=== PATIENT | female | born 1945 | race Caucasian/White ===

== ENCOUNTER 2020-05-31 10:16 | Day surgery (SDC) | payer MEDICARE, MEDICAID, SELFPAY ==
[2020-05-26 19:14] VITALS: BMI 34.0
--- NOTE | 2020-05-30 11:51 | HO.ANESPROP2 ---
Documented by User: Ava Mariscal 05/30/20 11:52 HPI - Anesthesia Eval Consult details Narrative: 75yo F for Colonoscopy PMFSH Past Medical History Medical History (Updated 05/30/20 @ 11:51 by Ava Mariscal) Anxiety Arthritis Asthma Depression GERD (gastroesophageal reflux disease) Glaucoma History of kidney stones HTN (hypertension) Hypercholesteremia PONV (postoperative nausea and vomiting) Sleep apnea with use of continuous positive airway pressure (CPAP) Surgical History Surgical History H/O: hysterectomy History of cholecystectomy History of colonoscopy History of cystoscopy Hx of umbilical hernia repair Social History Social History Smoking Status: Former smoker Smoking Quit Date: 2007 Use of substances other than those prescribed or required for medical reasons: No Advance Directives: No Advance Directives Information Provided: No Advance Directives on File: No Meds Allergies Allergy/AdvReac Type Severity Reaction Status Date / Time penicillin V Allergy Unknown hives Verified 05/26/20 19:14 Penicillins [PENICILLINS] Allergy Unknown SWELLING Verified 05/26/20 19:14 morphine [MORPHINE] AdvReac Unknown NAUSEA & Verified 05/26/20 19:14 VOMITING codeine AdvReac Nausea and Verified 05/31/20 10:10 Vomiting ENVIRONMENTAL Allergy Unknown RUNNY Uncoded 04/13/20 16:55 NOSE/WATERY EYES From DARVOCET-N 100 Allergy Unknown NAUSEA & Uncoded 04/13/20 16:55 VOMITING Darvocet A500 AdvReac Unknown disoriented Uncoded 03/03/20 00:00 From PERCODAN AdvReac Unknown NAUSEA & Uncoded 04/13/20 16:55 VOMITING Percodan AdvReac Unknown disoriented Uncoded 03/03/20 00:00 Home Medications Medication Instructions Recorded Confirmed Type Aspirin Low Dose 81 mg PO DAILY 05/26/20 05/26/20 History atorvastatin 20 mg PO DAILY 05/26/20 05/26/20 History cholestyramine (with sugar) 4 ea PO DAILY 05/26/20 05/26/20 History losartan 50 mg PO DAILY 05/26/20 05/26/20 History montelukast 19 mg PO DAILY 05/26/20 05/26/20 History pantoprazole 40 mg PO DAILY 05/26/20 05/26/20 History paroxetine HCl 40 mg PO DAILY 05/26/20 05/26/20 History quetiapine 25 mg PO DAILY 05/26/20 05/26/20 History timolol maleate 1 drp OPHTHALMIC (EYE) DAILY 05/26/20 05/26/20 History Exam Exam Date and Time: May 30, 2020 1151 Height,Weight and Vital Signs: Height 5 ft 1 in Weight 81.647 kg Pertinent Lab Results Pertinent Lab Results: Laboratory Tests 02/29/20 02/29/20 07:00 07:00 WBC 6.2 Hgb 12.9 Hct 40.1 Plt Count 269 Sodium 138 Potassium 4.7 Chloride 105 BUN 23 H Creatinine 0.91 Assessment and Plan Assessment Anesthesia Assessment: Chart Reviewed Documented by User: Madeline Albert 05/31/20 11:10 [facility] Past Medical History Medical History (Updated 05/30/20 @ 11:51 by Ava Mariscal) Anxiety Arthritis Asthma Depression GERD (gastroesophageal reflux disease) Glaucoma History of kidney stones HTN (hypertension) Hypercholesteremia PONV (postoperative nausea and vomiting) Sleep apnea with use of continuous positive airway pressure (CPAP) Family History Family history of problems with anesthesia: No Surgical History Surgical History H/O: hysterectomy History of cholecystectomy History of colonoscopy History of cystoscopy Hx of umbilical hernia repair History of Problems with Anesthesia: Yes (PONV with GA) Social History Social History Smoking Status: Former smoker Smoking Quit Date: 2007 Use of substances other than those prescribed or required for medical reasons: No Advance Directives: No Advance Directives Information Provided: No Advance Directives on File: No Meds Allergies Allergy/AdvReac Type Severity Reaction Status Date / Time penicillin V Allergy Unknown hives Verified 05/26/20 19:14 Penicillins [PENICILLINS] Allergy Unknown SWELLING Verified 05/26/20 19:14 morphine [MORPHINE] AdvReac Unknown NAUSEA & Verified 05/26/20 19:14 VOMITING codeine AdvReac Nausea and Verified 05/31/20 10:10 Vomiting ENVIRONMENTAL Allergy Unknown RUNNY Uncoded 04/13/20 16:55 NOSE/WATERY EYES From DARVOCET-N 100 Allergy Unknown NAUSEA & Uncoded 04/13/20 16:55 VOMITING Darvocet A500 AdvReac Unknown disoriented Uncoded 03/03/20 00:00 From PERCODAN AdvReac Unknown NAUSEA & Uncoded 04/13/20 16:55 VOMITING Percodan AdvReac Unknown disoriented Uncoded 03/03/20 00:00 Home Medications Medication Instructions Recorded Confirmed Type Aspirin Low Dose 81 mg PO DAILY 05/26/20 05/26/20 History atorvastatin 20 mg PO DAILY 05/26/20 05/26/20 History cholestyramine (with sugar) 4 ea PO DAILY 05/26/20 05/26/20 History losartan 50 mg PO DAILY 05/26/20 05/26/20 History montelukast 19 mg PO DAILY 05/26/20 05/26/20 History pantoprazole 40 mg PO DAILY 05/26/20 05/26/20 History paroxetine HCl 40 mg PO DAILY 05/26/20 05/26/20 History quetiapine 25 mg PO DAILY 05/26/20 05/26/20 History timolol maleate 1 drp OPHTHALMIC (EYE) DAILY 05/26/20 05/26/20 History Exam Height,Weight and Vital Signs: Vital Signs Temp Pulse Resp Pulse Ox 05/31/20 10:25 97.1 F 91 16 99 Airway Mallampati Class: II TM Dist: >3cm Neck ROM: Full Loose/Missing/Broken Teeth: Yes (Many missing teeth) Heart: RRR Lungs: CTAB Assessment and Plan Assessment Anesthesia Assessment: Anesthesia Plan Discussed and Chart Reviewed Final Anesthetic Review NPO: Yes ASA Class: III Final Preanesthetic Review: No Changes in Pt Med Stat, Meds/Allgs Chart Reviewed, Consent Obtained/Reviewed and Anes Risks/Benef Reviewed Patient Risk: Intermediate Procedure Risk: Low Anesthetic Plan Anesthetic Plan: MAC: Disposition: Standard PACU
[2020-05-31 10:25] VITALS: PULSE 91; RESP 16; TEMP 36.2; O2SAT 99
[2020-05-31] MEDS: Lactated Ringers 1,000 ML 100 ML IVCONT (10:49)
[2020-05-31 12:03] VITALS: BP 150/74; PULSE 94; RESP 18; TEMP 36.6; O2SAT 98
--- NOTE | 2020-05-31 12:08 | PM.OP ---
Brief Operative Note Date of procedure: 05/31/20 Pre-op diagnosis: Screening Post-op diagnosis: other (Colon polyps, diverticulosis, internal hemorrhoids) Procedure: Colonoscopy to cecum with biopsy and removal of polyps Surgeon: Eusebio Shields Anesthesia: MAC Estimated blood loss (mL): 3.0 Pathology: other (A. Transverse colon polyp B. Rectal polyp) Condition: stable Disposition: PACU
[2020-05-31 12:18] VITALS: BP 151/73; PULSE 90; RESP 18; O2SAT 96
[2020-05-31 12:33] VITALS: BP 139/72; PULSE 90; RESP 18; O2SAT 97
--- NOTE | 2020-05-31 12:54 | OP_ITS ---
SURGEON: Eusebio Shields MD INDICATIONS: The patient presents for evaluation of colorectal cancer screening. Full consent was obtained from her for this, including risks of bleeding and perforation. PREOPERATIVE DIAGNOSIS: Colorectal cancer screening. POSTOPERATIVE DIAGNOSIS: Colorectal cancer screening, small colon polyp, sigmoid diverticulosis and internal hemorrhoids. PROCEDURE PERFORMED: ESTIMATED BLOOD LOSS: COMPLICATIONS: ANESTHESIA: Monitored anesthesia care. ASSISTANTS: SPECIMENS: PROCEDURES: Colonoscopy to cecum with biopsy and removal of polyps. DESCRIPTION OF PROCEDURE: The patient was placed in the left lateral decubitus position. The digital rectal exam revealed some small external hemorrhoids. The Olympus video pediatric colonoscope was entered into the rectum and advanced easily to the cecum. Once into the cecum, I did identify a normal-appearing cecal pouch with appendiceal orifice and a normal-appearing ileocecal valve. The entire cecum was well visualized. The ileocecal valve appeared normal. There was transillumination of light deep in the right lower quadrant. The scope was slowly withdrawn assessing all mucosal surfaces carefully. Preparation was excellent. In the transverse colon and mid rectum were flat, approximately 4 or 5 mm polyps, which were each biopsied and completely removed with a cold biopsy forceps. I did not visualize any other polyps, colitis, or angiodysplasia. There were occasional diverticula in the ascending colon and a mild amount of diverticulosis in the sigmoid colon. In the rectum, the scope was retroflexed visualizing internal hemorrhoids, but no other pathology. The rectal mucosa appeared normal. The scope was straightened and withdrawn from the patient. She tolerated the procedure well and was returned to the recovery area in stable condition. IMPRESSION: 1. Small colon polyps, status post biopsy removal. 2. Diverticulosis. 3. Internal hemorrhoids. PLAN: The results of the biopsy will be checked. Given her age and these relatively minimal findings, I do not think she will need any further screening colonoscopies in the future. She will otherwise see me on a p.r.n. basis. She was advised not to use any aspirin or NSAIDs for one week. MD SALEAN Dhillon/YEIMI / [phone]
--- NOTE | 2020-05-31 13:10 | HO.POSTANES ---
Post Anesthesia Evaluation Post Anesthesia Evaluation Vital Signs: Vital Signs Temp Pulse Resp BP Pulse Ox 05/31/20 12:33 90 18 139/72 97 05/31/20 12:18 90 18 151/73 H 96 05/31/20 12:03 98 F 94 18 150/74 H 98 05/31/20 10:25 97.1 F 91 16 99 Anesthesia: Monitored Mental Status: Awake Pain Control: Satisfactory Nausea/Vomiting: None Hydration: Adequate Anesthesia-Related Issues: No Anes. Related Issues
== END 2020-05-31 13:10 | disposition home or self-care (01) ==
PROVIDERS: PCP Internal Medicine; Visit Provider Internal Medicine
PROC: 0DJD8ZZ Inspection of Lower Intestinal Tract, Via Natural or Artificial Opening Endoscopic (ICD-10-PCS; CPT 45378; principal; 2020-05-31 11:30)
DX: Z12.11 Encounter for screening for malignant neoplasm of colon (principal); D12.3 Benign neoplasm of transverse colon; D12.8 Benign neoplasm of rectum; K57.30 Diverticulosis of large intestine without perforation or abscess without bleeding; K64.8 Other hemorrhoids
CPT/HCPCS: 45380; 88305; J2405; J2765

== ENCOUNTER 2020-06-20 15:24 | Outpatient (REF) | payer MEDICARE, MEDICAID, SELFPAY ==
--- NOTE | 2020-06-20 | MM_ITS ---
EXAMINATION: MM SCREENING DIGITAL BREAST TOMOSYNTHESIS, BILATERAL CLINICAL INFORMATION: Screening. Asymptomatic. The lifetime risk of breast cancer based on the Tyrer-Cuzick Model is 2%. COMPARISON: Mammography: 06/15/2019, 06/10/2018, 05/26/2017 TECHNIQUE: Digital breast tomosynthesis is performed in both the craniocaudal and mediolateral oblique views along with computer-aided detection (CAD). Synthesized 2D images are generated from the tomosynthesis. FINDINGS: The breasts are heterogeneously dense, which may obscure small masses (ACR BI-RADS breast composition Category c). There are no significant masses, abnormal calcifications, or other abnormalities. Parenchymal pattern is similar to prior studies. No significant changes. The axilla and skin contours are unremarkable. MM/MM tomosynthesis screening BI IMPRESSION: No mammographic evidence of malignancy. ASSESSMENT: BI-RADS 1: Negative RECOMMENDATION: Routine annual mammography screening. This patient's information was entered into a reminder system with a target due date for their next mammogram.
== END 2020-06-20 15:25 | disposition home or self-care (01) ==
LOC: HO.MAMMO 15:24
PROVIDERS: PCP Internal Medicine; Visit Provider Internal Medicine
DX: Z12.31 Encounter for screening mammogram for malignant neoplasm of breast (principal)
CPT/HCPCS: 77063; 77067

== ENCOUNTER 2020-06-30 10:52 | Outpatient (REF) | payer MEDICARE, MEDICAID, SELFPAY | END 2020-06-30 10:53 | disposition home or self-care (01) | LOC: HO.LAB 10:52 | PROVIDERS: PCP Internal Medicine; Visit Provider Internal Medicine | DX: Z20.828 Contact with and (suspected) exposure to other viral communicable diseases (principal) | CPT/HCPCS: C9803; U0003 ==

== ENCOUNTER 2021-01-11 12:21 | Outpatient (REF) | payer MEDICARE, MEDICAID, SELFPAY ==
[2021-01-11 13:11] LABS: Estimated Average Glucose 120 mg/dL; Hemoglobin A1c % 5.8 %
== END 2021-01-11 12:22 | disposition home or self-care (01) ==
LOC: HO.LAB 12:21
PROVIDERS: PCP Internal Medicine; Visit Provider Internal Medicine
DX: E11.65 Type 2 diabetes mellitus with hyperglycemia (principal)
CPT/HCPCS: 36415; 83036

== ENCOUNTER 2021-01-17 14:35 | Outpatient (REF) | payer MEDICARE, MEDICAID, SELFPAY ==
--- NOTE | ~2021-01-17 | XR_ITS ---
EXAMINATION: XR ABDOMEN KUB CLINICAL INDICATION: Abdominal pain COMPARISON: None TECHNIQUE: AP view of the abdomen. FINDINGS: There are no dilated loops of bowel to suggest obstruction. There is no evidence of free air. There are surgical clips in the right upper quadrant suggestive of previous cholecystectomy. There are small pelvic calcifications probably representing calcified phleboliths. There is high attenuation material inferior to the pubic symphysis. This may be related injected material for incontinence. There are degenerative changes of the spine. XR/XR KUB IMPRESSION: No evidence of obstruction or free air.
[2021-01-17 15:08] LABS: Hematocrit 41.7 % (37-47); Hemoglobin 13.7 g/dl (12.0-16.0); Mean Corpuscular HGB Conc 32.9 g/dl (31.0-35.0); Mean Corpuscular Hemoglobin 29.7 pg (27.0-33.0); Mean Corpuscular Volume 90.5 fL (80-98); Mean Platelet Volume 9.8 fL (9.4-12.3); Platelet Count 270 X10*3/uL (160-400); Red Blood Count 4.61 X10*6/uL (4.20-5.50); Red Cell Distribution Width 13.4 % (11.0-16.0); White Blood Count 6.8 X10*3/uL (4.8-10.8)
[2021-01-17 15:38] LABS: Alanine Aminotransferase 15 U/L (0-31); Albumin Level 4.4 g/dL (3.5-5.0); Alkaline Phosphatase 138 U/L (39-117); Anion Gap 13 (12-20); Aspartate Amino Transferase 22 U/L (5-31); Bilirubin Total 0.5 mg/dL (0.0-1.0); Blood Urea Nitrogen 24 mg/dL (9-16); Calcium 10.2 mg/dL (8.4-10.2); Carbon Dioxide 28 mmol/L (22-29); Chloride 102 mmol/L (96-108); Cholesterol 181 mg/dL; Estimated Glomerular Filt Rate > 60; Glucose Fasting 97 mg/dL (60-99); HDL Cholesterol 51 mg/dL; Iron 53 mcg/dL (30-160); LDL Cholesterol Calculated 103 mg/dl; Percent Iron Saturation 14 % (15-50); Potassium 4.9 mmol/L (3.3-5.1); Rheumatoid Factor 20.8 IU/mL (<15.0); Sodium 138 mmol/L (135-145); Total Iron Binding Capacity 372 mcg/dL (228-428); Total Protein 7.5 g/dL (6.5-8.0); Triglycerides 136 mg/dL; Unsaturated Iron Binding 319 ug/dL
[2021-01-17 16:01] LABS: Erythrocyte Sedimentation Rate 28 MM/HR (0-20)
[2021-01-17 16:29] LABS: Glucose Urine UA NEG (NEG); Leukocyte Esterase Urine NEG (NEG); Nitrite Urine NEG (NEG); PH 5.5 (5.0-8.0); Specific Gravity - Urine >= 1.030 (1.005-1.025); Urine Blood NEG (NEG); Urine Ketones NEG (NEG); Urine Protein NEG (NEG-TRACE)
[2021-01-17 16:31] LABS: Appearance Urine CLEAR; Color Urine YELLOW
[2021-01-18 13:32] LABS: Anti Nuclear Antibody Screen NEGATIVE (NEGATIVE)
== END 2021-01-17 14:36 | disposition home or self-care (01) ==
LOC: HO.XRAY 14:35
PROVIDERS: PCP Internal Medicine; Visit Provider Physician Assistant
DX: R10.9 Unspecified abdominal pain (principal); R32 Unspecified urinary incontinence; R30.0 Dysuria; M35.3 Polymyalgia rheumatica; I10 Essential (primary) hypertension; D50.9 Iron deficiency anemia, unspecified
CPT/HCPCS: 36415; 74018; 80053; 80061; 81003; 83540; 84443; 85027; 85652; 86038; 86039; 86431

== ENCOUNTER 2021-02-01 06:33 | Outpatient (REF) | payer MEDICARE, MEDICAID, SELFPAY ==
[2021-02-01 07:29] LABS: MANUAL DIFF FLAG NO
[2021-02-01 07:34] LABS: Basophils Absolute Auto 0.1 X10*3/uL (0.0-0.2); Basophils Percent Auto 0.5 % (0-2); Eosinophils Absolute Auto 0.2 X10*3/uL (0.0-0.4); Eosinophils Percent Auto 2.2 % (0-4); Hematocrit 39.4 % (37-47); Hemoglobin 12.8 g/dl (12.0-16.0); Imm Gran Abs Auto 0.05 X10*3/uL (0.00-0.03); Imm Gran Pct Auto 0.5 % (0.0-0.4); Lymphocytes Absolute Auto 3.8 X10*3/uL (1.2-4.9); Lymphocytes Percent Auto 36.7 % (20-40); Mean Corpuscular HGB Conc 32.5 g/dl (31.0-35.0); Mean Corpuscular Hemoglobin 29.4 pg (27.0-33.0); Mean Corpuscular Volume 90.6 fL (80-98); Mean Platelet Volume 9.9 fL (9.4-12.3); Monocytes Absolute Auto 0.9 X10*3/uL (0.1-1.2); Monocytes Percent Auto 8.3 % (2-11); Neutrophils Absolute Auto 5.4 X10*3/uL (2.0-8.3); Neutrophils Percent Auto 51.8 % (45-73); Platelet Count 284 X10*3/uL (160-400); Red Blood Count 4.35 X10*6/uL (4.20-5.50); Red Cell Distribution Width 13.8 % (11.0-16.0); White Blood Count 10.4 X10*3/uL (4.8-10.8)
[2021-02-01 08:21] LABS: Erythrocyte Sedimentation Rate 23 MM/HR (0-20)
[2021-02-01 08:37] LABS: Alanine Aminotransferase 14 U/L (0-31); Albumin Level 4.1 g/dL (3.5-5.0); Alkaline Phosphatase 130 U/L (39-117); Anion Gap 16 (12-20); Aspartate Amino Transferase 18 U/L (5-31); Bilirubin Total 0.2 mg/dL (0.0-1.0); Blood Urea Nitrogen 30 mg/dL (9-16); Calcium 9.9 mg/dL (8.4-10.2); Carbon Dioxide 27 mmol/L (22-29); Chloride 103 mmol/L (96-108); Cholesterol 165 mg/dL; Estimated Glomerular Filt Rate > 60; Glucose Random 96 mg/dL (60-115); HDL Cholesterol 64 mg/dL; LDL Cholesterol Calculated 89 mg/dl; Potassium 4.7 mmol/L (3.3-5.1); Sodium 141 mmol/L (135-145); Triglycerides 61 mg/dL
[2021-02-01 08:41] LABS: Folate 11.8 ng/mL (> or = 4.0); Vitamin B12 599 pg/mL (200-900)
[2021-02-01 08:59] LABS: Free T4 (Free Thyroxine) 1.08 ng/dL (0.71-1.85); Thyroid Stimulating Hormone 1.93 uIU/mL (0.32-4.0); Vitamin D 25-OH Total 30.2 ng/mL (>30)
== END 2021-02-01 06:34 | disposition home or self-care (01) ==
LOC: HO.LAB 06:33
PROVIDERS: PCP Internal Medicine; Visit Provider Internal Medicine
DX: E78.00 Pure hypercholesterolemia, unspecified (principal)
CPT/HCPCS: 36415; 80053; 80061; 82306; 82607; 82746; 84439; 84443; 85025; 85652

== ENCOUNTER 2021-05-18 09:07 | Outpatient (REF) | payer MEDICARE, MEDICAID, SELFPAY ==
--- NOTE | ~2021-05-18 | XR_ITS ---
EXAMINATION: XR CHEST CLINICAL INFORMATION: Cough, unspecified. COMPARISON: Chest done on 12/12/2017. TECHNIQUE: 2 views of the chest were obtained. FINDINGS: A few ill-defined nodular opacities are noted at right upper lobe, appear new since prior study. Similar-appearing subpleural nodule is also noted at left lower lung field, new since prior study. No evidence of any dense airspace consolidation. Cardiac mediastinal silhouette is normal limit. No evidence of any pleural effusion or pneumothorax. XR/XR chest 2V IMPRESSION: 1. A few ill-defined opacities are noted at right upper and left lower lobe, new since 12/12/2017. 2. No radiographic evidence of any definite pneumonia.
== END 2021-05-18 09:08 | disposition home or self-care (01) ==
LOC: HO.XRAY 09:07
PROVIDERS: PCP Internal Medicine; Visit Provider Internal Medicine
DX: R05.9 Cough, unspecified (principal)
CPT/HCPCS: 71046

== ENCOUNTER 2021-06-11 15:40 | Outpatient (REF) | payer MEDICARE, MEDICAID, SELFPAY ==
[2021-06-11 17:44] LABS: Blood Urea Nitrogen 24 mg/dL (9-16); Estimated Glomerular Filt Rate > 60
== END 2021-06-11 15:41 | disposition home or self-care (01) ==
LOC: HO.LAB 15:40
PROVIDERS: PCP Internal Medicine; Visit Provider Internal Medicine
DX: R91.8 Other nonspecific abnormal finding of lung field (principal)
CPT/HCPCS: 36415; 82565; 84520

== ENCOUNTER 2021-06-14 08:45 | Outpatient (REF) | payer MEDICARE, MEDICAID, SELFPAY ==
--- NOTE | ~2021-06-14 | CT_ITS ---
EXAMINATION: CT CHEST WITH CONTRAST CLINICAL INFORMATION: Follow-up abnormal chest x-ray. History of cough. COMPARISON: Previous chest x-ray April 2021 and abdominal and pelvic CT June 2014 TECHNIQUE: Multidetector volumetric CT imaging of the chest was obtained after the administration of 65 mL of Omnipaque 350 intravenous contrast without immediate adverse reactions. Axial MIP volume rendering provided. Sagittal and coronal reformatted images were obtained. This CT examination was performed using dose optimization techniques as appropriate, variously including the following: *Automated exposure control *Adjustment of mA and/or kV according to patient size (this includes techniques or standardized protocols for targeted exams where dose is matched to indication/reason for exam; i.e. extremities or head) *Use of iterative reconstruction technique DLP: 159 mGy-cm FINDINGS: LUNGS: There is bilateral upper lobe and right middle lobe bronchial wall thickening, peribronchial increased attenuation and clustered peribronchial nodules and opacities. Largest nodule measures 7 x 14 mm in the left upper lobe axial image 31 series 7 and 1.3 x 1.8 cm and the left upper lobe axial image 37 series 7. There are subtler changes seen in the superior segment of the right lower lobe and left lower lobe. MEDIASTINUM: There is question of a right thyroid nodule. There are small mediastinal lymph nodes. No enlarged nodes are seen. The mediastinum is otherwise normal.. PLEURA: There is no pleural effusion. No pleural mass or thickening. AXILLA: No lymphadenopathy. There is a small fatty lesion in the left subscapularis muscle likely representing a lipoma. UPPER ABDOMEN: There are 2 liver cysts and cyst in the right kidney. There is mild diverticulosis of the colon. OSSEOUS STRUCTURES: There are degenerative changes of the spine. CT/CT chest w con IMPRESSION: Extensive airways disease greatest in the bilateral upper and right middle lobes. This most likely represents an infectious or inflammatory process. Chest CT follow-up recommended.
[2021-06-14] MEDS: iohexoL 350 MG/ML 100 ML INFUS..BTL IV (09:45)
== END 2021-06-14 08:46 | disposition home or self-care (01) ==
LOC: HO.CT 08:45
PROVIDERS: Visit Provider Internal Medicine
DX: R91.8 Other nonspecific abnormal finding of lung field (principal)
CPT/HCPCS: 71260; Q9967

== ENCOUNTER → 2021-06-18 15:39 | Outpatient (REF) | payer MEDICARE, MEDICAID, SELFPAY | LOC: HO.SL 15:39 | PROVIDERS: PCP Internal Medicine; Visit Provider Internal Medicine | DX: G47.33 Obstructive sleep apnea (adult) (pediatric) (principal); R05.9 Cough, unspecified | CPT/HCPCS: 95806 ==

== ENCOUNTER 2021-06-19 10:59 | Outpatient (REF) | payer MEDICARE, MEDICAID, SELFPAY ==
[2021-06-19 12:18] LABS: MANUAL DIFF FLAG NO
[2021-06-19 12:50] LABS: Basophils Percent Auto 0.5 % (0-2); Eosinophils Absolute Auto 0.2 X10*3/uL (0.0-0.4); Hematocrit 41.5 % (37.0-47.0); Hemoglobin 13.5 g/dl (12.0-16.0); Imm Gran Abs Auto 0.01 X10*3/uL (0.00-0.03); Imm Gran Pct Auto 0.2 % (0.0-0.4); Lymphocytes Absolute Auto 2.2 X10*3/uL (1.2-4.9); Lymphocytes Percent Auto 33.2 % (20-40); Mean Corpuscular HGB Conc 32.5 g/dl (31.0-35.0); Mean Corpuscular Hemoglobin 29.7 pg (27.0-33.0); Mean Corpuscular Volume 91.2 fL (80.0-98.0); Mean Platelet Volume 9.7 fL (9.4-12.3); Monocytes Absolute Auto 0.5 X10*3/uL (0.1-1.2); Neutrophils Absolute Auto 3.7 x10*3/uL (2.0-8.3); Neutrophils Percent Auto 55.1 % (45-73); Platelet Count 270 X10*3/uL (160-400); Red Blood Count 4.55 X10*6/uL (4.20-5.50); Red Cell Distribution Width 13.3 % (11.0-16.0); White Blood Count 6.6 X10*3/uL (4.8-10.8)
[2021-06-19 13:30] LABS: Erythrocyte Sedimentation Rate 33 MM/HR (0-20)
[2021-06-21 22:06] LABS: TS Negative Control Passed; TS Panel A 0; TS Panel B 0; TS Positive Control Passed; TSpotTB Negative (Negative)
[2021-06-22 11:16] LABS: IgA 279 mg/dL (70-320); IgG 1178 mg/dL (600-1540); IgM 55 mg/dL (50-300)
[2021-06-22 13:11] LABS: Anti Nuclear Antibody Screen NEGATIVE (NEGATIVE)
== END 2021-06-19 11:00 | disposition home or self-care (01) ==
LOC: HO.LAB 10:59
PROVIDERS: PCP Internal Medicine; Visit Provider Hospitalist
DX: Z11.1 Encounter for screening for respiratory tuberculosis (principal); J44.9 Chronic obstructive pulmonary disease, unspecified; R05.9 Cough, unspecified; R91.8 Other nonspecific abnormal finding of lung field
CPT/HCPCS: 36415; 82784; 82785; 85025; 85652; 86003; 86038; 86039; 86481; 99202

== ENCOUNTER 2021-06-22 09:38 | Outpatient (REF) | payer MEDICARE, MEDICAID, SELFPAY ==
--- NOTE | ~2021-06-22 | MM_ITS ---
EXAMINATION: MM SCREENING DIGITAL BREAST TOMOSYNTHESIS, BILATERAL CLINICAL INFORMATION: Screening. Asymptomatic. The lifetime risk of breast cancer based on the Tyrer-Cuzick Model is 2%. COMPARISON: Mammography: 06/20/2020, 06/15/2019, 06/10/2018, 06/26/2017 TECHNIQUE: Digital breast tomosynthesis is performed in both the craniocaudal and mediolateral oblique views along with computer-aided detection (CAD). Synthesized 2D images are generated from the tomosynthesis. FINDINGS: The breasts are heterogeneously dense, which may obscure small masses (ACR BI-RADS breast composition Category c). There are no significant masses, abnormal calcifications, or other abnormalities. There are no significant changes from prior studies. No developing density. Scattered bilateral benign coarse round and some vascular calcifications are again seen. The axilla are unremarkable. Skin contours are smooth. MM/MM tomosynthesis screening BI IMPRESSION: No mammographic evidence of malignancy. ASSESSMENT: BI-RADS 2: Benign RECOMMENDATION: Routine annual mammography screening. This patient's information was entered into a reminder system with a target due date for their next mammogram.
== END 2021-06-22 09:39 | disposition home or self-care (01) ==
LOC: HO.MAMMO 09:38
PROVIDERS: Visit Provider Internal Medicine
DX: Z12.31 Encounter for screening mammogram for malignant neoplasm of breast (principal)
CPT/HCPCS: 77063; 77067

== ENCOUNTER → 2021-06-28 06:32 | Day surgery (SDC) | payer MEDICARE, MEDICAID, SELFPAY ==
--- NOTE | 2021-06-27 10:59 | HO.ANESPROP2 ---
Documented by User: Ava Mariscal NP 06/27/21 11:00 HPI - Anesthesia Eval Consult details Narrative: 76yo F for Bronchoscopy Fiberoptic PMFSH Active Problems Active Problems: All Active Problems (Updated 06/19/21 @ 11:56 by Yusef Mccarthy MD) Asthma-COPD overlap syndrome (Acute) Bronchiectasis (Acute) Bronchiolitis (Acute) Pulmonary nodules (Acute) Cough (Acute) Generalized anxiety disorder (Acute) Asthma (Acute) Right flank pain (Acute) Polymyalgia (Acute) Urinary incontinence (Acute) Eczema (Acute) Arthritis (Acute) Obesity (BMI 30-39.9) (Acute) Hypercholesteremia (Acute) HTN (hypertension) (Acute) Obstructive sleep apnea (Acute) Type 2 diabetes mellitus with hyperglycemia (Acute) GERD (gastroesophageal reflux disease) (Acute) Past Medical History Medical History Arthritis Asthma Asthma-COPD overlap syndrome Bronchiectasis Bronchiolitis GERD (gastroesophageal reflux disease) Glaucoma History of kidney stones HTN (hypertension) Hypercholesteremia Mixed stress and urge urinary incontinence Obesity (BMI 30-39.9) Obstructive sleep apnea Osteoarthritis Type 2 diabetes mellitus with hyperglycemia Vitamin D deficiency Family History Family History Father Prostate cancer Mother Mental problem Son No problems noted. Son No problems noted. Daughter No problems noted. Family history of problems with anesthesia: No Surgical History Surgical History H/O: hysterectomy History of breast biopsy History of cholecystectomy History of colonoscopy History of cystoscopy History of extraction of renal calculus Hx of umbilical hernia repair History of Problems with Anesthesia: Yes (PONV with GA) Social History Social History Housing: Apartment Alcohol intake: never Patient Tobacco Use Status: Former Tobacco user Tobacco use type: Cigarette Years Smoked: 45 years Quit 05/2007 e-Cigarette/Vaping Use: Never Used Second Hand Smoke Exposure: No Use of substances other than those prescribed or required for medical reasons: No Are you DNR?: No Advance Directives: No Advance Directives Information Provided: No Advance Directives on File: No service: No Current occupational status: disabled Meds Allergies Allergy/AdvReac Type Severity Reaction Status Date / Time aspirin [From Percodan] Allergy Severe Disoriented Verified 06/19/21 11:09 lisinopril Allergy Severe Nervous Verified 06/19/21 11:09 oxycodone [From Percodan] Allergy Severe Disoriented Verified 06/19/21 11:09 penicillin V Allergy Unknown hives Verified 06/19/21 11:09 Penicillins [PENICILLINS] Allergy Unknown Hives Verified 06/19/21 11:09 codeine AdvReac Unknown Nausea and Verified 06/19/21 11:09 Vomiting morphine [MORPHINE] AdvReac Unknown NAUSEA & Verified 06/19/21 11:09 VOMITING ENVIRONMENTAL Allergy Unknown RUNNY Uncoded 06/19/21 11:09 NOSE/WATERY EYES Darvocet A500 AdvReac Unknown disoriented Uncoded 06/19/21 11:09 Home Medications Medication Instructions Recorded Confirmed Last Taken Type Aspirin Low Dose 81 mg PO DAILY 05/26/20 01/17/21 05/24/20 07:00 History timolol maleate 0.5 % eye drops 1 drp OPHTHALMIC (EYE) DAILY 05/26/20 01/17/21 Unknown History cholecalciferol (vitamin D3) 25 25 mcg PO DAILY 07/04/20 01/17/21 Unknown History mcg (1,000 unit) capsule Exam Exam Date and Time: June 27, 2021 1051 Pertinent Lab Results Pertinent Lab Results: Laboratory Tests 02/01/21 06/11/21 06/19/21 06:40 15:56 12:14 WBC 6.6 Hgb 13.5 Hct 41.5 Plt Count 270 Sodium 141 Potassium 4.7 Chloride 103 Carbon Dioxide 27 BUN 24 H Creatinine 0.85 Assessment and Plan Assessment Anesthesia Assessment: Chart Reviewed Final Anesthetic Review Family History of Problems with Anesthesia: No History of Problems with Anesthesia: Yes (PONV with GA) Documented by User: Courtney Maier MD 06/28/21 08:49 PMFSH Past Medical History Medical History Arthritis Asthma Asthma-COPD overlap syndrome Bronchiectasis Bronchiolitis GERD (gastroesophageal reflux disease) Glaucoma History of kidney stones HTN (hypertension) Hypercholesteremia Mixed stress and urge urinary incontinence Obesity (BMI 30-39.9) Obstructive sleep apnea Osteoarthritis Type 2 diabetes mellitus with hyperglycemia Vitamin D deficiency Family History Family History Father Prostate cancer Mother Mental problem Son No problems noted. Son No problems noted. Daughter No problems noted. Surgical History Surgical History H/O: hysterectomy History of breast biopsy History of cholecystectomy History of colonoscopy History of cystoscopy History of extraction of renal calculus Hx of umbilical hernia repair Social History Social History Housing: Apartment Alcohol intake: never Patient Tobacco Use Status: Former Tobacco user Tobacco use type: Cigarette Years Smoked: 45 years Quit 05/2007 e-Cigarette/Vaping Use: Never Used Second Hand Smoke Exposure: No Use of substances other than those prescribed or required for medical reasons: No Are you DNR?: No Advance Directives: No Advance Directives Information Provided: No Advance Directives on File: No service: No Current occupational status: disabled Meds Allergies Allergy/AdvReac Type Severity Reaction Status Date / Time aspirin [From Percodan] Allergy Severe Disoriented Verified 06/19/21 11:09 lisinopril Allergy Severe Nervous Verified 06/19/21 11:09 oxycodone [From Percodan] Allergy Severe Disoriented Verified 06/19/21 11:09 penicillin V Allergy Unknown hives Verified 06/19/21 11:09 Penicillins [PENICILLINS] Allergy Unknown Hives Verified 06/19/21 11:09 codeine AdvReac Unknown Nausea and Verified 06/19/21 11:09 Vomiting morphine [MORPHINE] AdvReac Unknown NAUSEA & Verified 06/19/21 11:09 VOMITING ENVIRONMENTAL Allergy Unknown RUNNY Uncoded 06/19/21 11:09 NOSE/WATERY EYES Darvocet A500 AdvReac Unknown disoriented Uncoded 06/19/21 11:09 Home Medications Medication Instructions Recorded Confirmed Last Taken Type Aspirin Low Dose 81 mg PO DAILY 05/26/20 01/17/21 05/24/20 07:00 History timolol maleate 0.5 % eye drops 1 drp OPHTHALMIC (EYE) DAILY 05/26/20 01/17/21 Unknown History cholecalciferol (vitamin D3) 25 25 mcg PO DAILY 07/04/20 01/17/21 Unknown History mcg (1,000 unit) capsule Exam Airway Mallampati Class: II TM Dist: >3cm Neck ROM: Full Loose/Missing/Broken Teeth: Yes, Upper and Lower Heart: RRR Lungs: CTA Assessment and Plan Assessment Anesthesia Assessment: Anesthesia Plan Discussed Final Anesthetic Review NPO: Yes ASA Class: III Final Preanesthetic Review: Meds/Allgs Chart Reviewed, Consent Obtained/Reviewed and Anes Risks/Benef Reviewed Patient Risk: Intermediate Procedure Risk: Intermediate Anesthetic Plan Anesthetic Plan: GA Disposition: Standard PACU
[2021-06-28] VITALS (8 sets, daily range): BP systolic 141–158; BP diastolic 39–109; PULSE 67–96; RESP 16–22; TEMP 36.1–36.4; O2SAT 95–100; BMI 36.8
[2021-06-28] MEDS: Lactated Ringers 1,000 ML 100 ML IVCONT (08:45)
--- NOTE | 2021-06-28 08:56 | MHC.SHP ---
Pre-Procedural Eval Section A Date of Service: 06/28/21 The patient is an INPATIENT: No Changes since office visit: Yes Patient answered all questions; No Cold of Flu in the past 2 weeks, No New Medical Problems and No Changes in Medication The History & Physical has been completed within 30 days and I have reviewed it.: Yes Section B Chief Complaint: abnormal findings Allergies: Allergies Allergy/AdvReac Type Severity Reaction Status Date / Time aspirin [From Percodan] Allergy Severe Disoriented Verified 06/19/21 11:09 lisinopril Allergy Severe Nervous Verified 06/19/21 11:09 oxycodone [From Percodan] Allergy Severe Disoriented Verified 06/19/21 11:09 penicillin V Allergy Unknown hives Verified 06/19/21 11:09 Penicillins [PENICILLINS] Allergy Unknown Hives Verified 06/19/21 11:09 codeine AdvReac Unknown Nausea and Verified 06/19/21 11:09 Vomiting morphine [MORPHINE] AdvReac Unknown NAUSEA & Verified 06/19/21 11:09 VOMITING ENVIRONMENTAL Allergy Unknown RUNNY Uncoded 06/19/21 11:09 NOSE/WATERY EYES Darvocet A500 AdvReac Unknown disoriented Uncoded 06/19/21 11:09 Plan I have reviewed the history and physical and performed a pertinent physical examination on my patient. No changes have occurred unless specified.
[2021-06-28] MEDS: Acetaminophen 325 MG TABLET 650 MG PO (10:28)
[2021-06-28 11:28] LABS: Glucose, Whole Blood 108 mg/dL (60-115)
--- NOTE | 2021-06-28 11:40 | P.BOP_ITS ---
Brief Operative Note Date of Service: 06/28/21 Pre-op diagnosis: bronchiectasis Post-op diagnosis: other (bronchomalecia, bronchiectasis) Procedure: bronchoscopy Implants: Surgeon: Yusef Mccarthy MD Anesthesia: GLMA and local Was an Data Systems Analyst used for this Procedure?: No Estimated blood loss (mL): 0 Pathology: none sent Condition: stable Disposition: same day
--- NOTE | 2021-06-28 17:15 | OP_ITS ---
SURGEON: Yusef Mccarthy MD PREOPERATIVE DIAGNOSIS: Bronchiectasis. POSTOPERATIVE DIAGNOSIS: PROCEDURE PERFORMED: Bronchoscopy with washings and brushings. ESTIMATED BLOOD LOSS: COMPLICATIONS: ANESTHESIA: ASSISTANTS: SPECIMENS: POSTOPERATIVE DIAGNOSES: Bronchiectasis and bronchomalacia. DESCRIPTION OF PROCEDURE: After the patient was adequately sedated, LMA in place, the flexible digital bronchoscope was inserted via the LMA to the level of the vocal cords. The larynx appeared to be normal. The vocal cords closed symmetrically without any abnormalities. After instilling lidocaine, the bronchoscope then navigated past the vocal cords to the level of the trachea. The patient did have some slight tracheomalacia at the distal part about 40% to 50%, some component of hyperdynamic posterior membrane excursion. After instilling additional lidocaine, the bronchoscope was then navigated to the entire tracheobronchial tree that was examined up to the subsegmental level. Again, there was evidence of bronchomalacia left lung more than right, but no endobronchial lesions or masses. There were some changes consistent with chronic inflammatory changes with some thickness of the membranes. Otherwise, no endobronchial lesions or masses. No significant secretions noted. The bronchoscope was navigated to the right upper lobe, where both a cytologic brush and a microscopic brush was introduced into the right upper lobe. Specimen sent to the appropriate locations. Bilateral lung washings were collected. After completing that airway survey, the bronchoscope was then removed and inserted via the right nostril to the level of the posterior pharynx. The patient has some evidence of cobblestoning with some clear thin secretions and some nasal congestion, but otherwise, no other abnormalities noted. The bronchoscope was then removed. The total endoscopic time approximately 12 minutes. The patient tolerated the procedure well. INTERPRETATION: 1. Tracheobronchial tree examined up to the subsegmental level. 2. Bronchial washings collected bilaterally. 3. One cytologic brush and 1 microscopic brushing introduced into the right upper lobe, sent to the appropriate locations. MD GARRY Morales/MODDieter / [id number]
== END | disposition home or self-care (01) ==
PROVIDERS: PCP Internal Medicine; Visit Provider Hospitalist
PROC: 0BJ08ZZ Inspection of Tracheobronchial Tree, Via Natural or Artificial Opening Endoscopic (ICD-10-PCS; CPT 31622; principal; 2021-06-28 09:00)
DX: J47.9 Bronchiectasis, uncomplicated (principal); J21.9 Acute bronchiolitis, unspecified; R91.8 Other nonspecific abnormal finding of lung field; R05.9 Cough, unspecified; G47.33 Obstructive sleep apnea (adult) (pediatric); E66.9 Obesity, unspecified; Z68.36 Body mass index [BMI] 36.0-36.9, adult; I10 Essential (primary) hypertension; E11.65 Type 2 diabetes mellitus with hyperglycemia; Z79.899 Other long term (current) drug therapy; Z87.891 Personal history of nicotine dependence; Z88.0 Allergy status to penicillin; Z88.8 Allergy status to other drugs, medicaments and biological substances
CPT/HCPCS: 31623; 82947; 87071; 87102; 87116; 87205; 88112; 88305; J1100; J2250; J2405; J3010

== ENCOUNTER 2021-07-03 06:04 | Emergency (ER) | payer MEDICARE, MEDICAID, SELFPAY ==
--- NOTE | ~2021-07-03 | CT_ITS ---
EXAMINATION: CT ABDOMEN AND PELVIS WITH CONTRAST CLINICAL INFORMATION: Epigastric pain COMPARISON: Previous CT of the abdomen June 2014 TECHNIQUE: Multidetector volumetric images were obtained from the superior aspect of the liver through the pubic symphysis following administration 85 mL of Omnipaque 350 intravenous contrast. Sagittal and coronal reformatted images were obtained on the technologist's workstation. Oral contrast: Yes This CT examination was performed using dose optimization techniques as appropriate, variously including the following: *Automated exposure control *Adjustment of mA and/or kV according to patient size (this includes techniques or standardized protocols for targeted exams where dose is matched to indication/reason for exam; i.e. extremities or head) *Use of iterative reconstruction technique DLP: 83 mGy-cm FINDINGS: LUNG BASES: There is mild focal bronchiectasis and scarring seen in the right middle lobe that is unchanged. There is scarring or subsegmental atelectasis in the inferior segment of the lingula. There are new clustered peribronchial of small nodules and increased reticular markings in the left lower lobe. LIVER, GALLBLADDER, AND BILIARY TREE: There are 2 low-attenuation liver lesions suggestive of cysts. The largest measures 1.5 cm in the lateral segment left lobe axial image 12 series 3. No other focal liver lesion is seen. The gallbladder has been removed. There is mild dilatation of the common bile duct measuring up to 1.2 cm. This is similar to prior examination: Cystectomy. PANCREAS: Unremarkable. SPLEEN: Unremarkable. ADRENAL GLANDS: Unremarkable. KIDNEYS AND URETERS: There are bilateral renal cysts. No imaging follow-up is indicated. There is slight abnormal rotation of the right kidney with anterior orientation of the renal pelvis. The kidneys are otherwise unremarkable. BLADDER: Unremarkable. GASTROINTESTINAL TRACT: There is evidence of diverticulosis. No evidence of diverticulitis is seen. Small and large bowel is otherwise unremarkable. The appendix is unremarkable. The stomach is not optimally distended. May be a small esophageal hernia. ABDOMINAL WALL: There is a small umbilical hernia containing fat. LYMPH NODES: Normal. VASCULAR: Unremarkable. PELVIC VISCERA: Uterus appears to have been removed. No pelvic mass is seen. OSSEOUS STRUCTURES: There are degenerative changes of the spine. CT/CT abdomen pelvis w con IMPRESSION: No acute findings. Diverticulosis of the colon. No evidence of diverticulitis. Bilateral renal cysts. Post cholecystectomy. Fleischner guidelines were followed.
--- NOTE | ~2021-07-03 | XR_ITS ---
EXAMINATION: XR CHEST CLINICAL INFORMATION: Rule out free air COMPARISON: X-ray 05/18/[address] chest 06/14/2021 TECHNIQUE: Frontal view of the chest was obtained. FINDINGS: The lungs are well-expanded. There is no focal consolidation, edema or effusion. No pneumothorax. The cardiomediastinal silhouette is within normal limits. There is mild peribronchial opacities in the right upper lobe, right lower lobe, left upper lung. No acute osseous abnormality. No gross free air is identified in the visualized abdomen. Mild bilateral AC joint arthritis. Thoracic spine dextroconvex scoliosis with degenerative changes. XR/XR chest 1V IMPRESSION: Peribronchial opacities in bilateral lungs as detailed above. Findings are seen in the prior CT of 06/14/2021 as well. No dense consolidation. Follow-up chest CT recommended. No gross free air in the upper abdomen.
[2021-07-03 06:09] VITALS: BP 144/90; BP 198/80; PULSE 90; RESP 20; TEMP 36.5; O2SAT 100; O2SAT 97; BMI 36.8
--- NOTE | 2021-07-03 06:11 | ECG_ITS ---
Test Reason : ABD PAIN Blood Pressure : / mmHG Vent. Rate : 086 BPM Atrial Rate : 086 BPM P-R Int : 150 ms QRS Dur : 086 ms QT Int : 354 ms P-R-T Axes : 063 032 040 degrees QTc Int : 423 ms Normal sinus rhythm Normal ECG When compared with ECG of 29-MAY-2014 07:44, No significant change was found Referred By: Chrissie Montoya Electronically Signed By:Dean Jacome
--- NOTE | 2021-07-03 06:14 | ED_ITS ---
HPI - Abdominal Pain General Chief Complaint: Abdominal Pain Stated Complaint: ABD PAIN,N&V Time Seen by Provider: 07/03/21 06:07 Source: patient and EMS Mode of arrival: EMS Limitations: no limitations History of Present Illness HPI narrative: Patient comes to the emergency room complaining of sharp epigastric pain for the last 3 hours. Patient also complaining of nausea and vomiting, no diarrhea, no fever or chills. Patient is 5 days status post bronchoscopy. Patient states that after bronchoscopy she has been doing well until this morning. Patient has nothing any medication for pain. Patient states the pain is sharp, nonradiating and constant. Denies URI or UTI symptoms Related Data Home Medications Medication Instructions Recorded Confirmed Aspirin Low Dose 81 mg PO DAILY 05/26/20 01/17/21 timolol maleate 0.5 % eye drops 1 drp OPHTHALMIC (EYE) DAILY 05/26/20 01/17/21 cholecalciferol (vitamin D3) 25 25 mcg PO DAILY 07/04/20 01/17/21 mcg (1,000 unit) capsule Previous Rx's Medication Instructions Recorded Incontinence PADS #100 ea 07/04/20 halobetasol propionate 0.05 % 1 appl TOPICAL DAILY #50 g 07/04/20 topical ointment paroxetine HCl 20 mg tablet 20 mg PO DAILY #30 tab 07/04/20 atorvastatin 20 mg tablet 20 mg PO DAILY #90 tab 10/25/20 losartan 50 mg tablet 50 mg PO DAILY #90 tab 10/25/20 montelukast 10 mg tablet 10 mg PO DAILY #90 tab 10/29/20 oxybutynin chloride 5 mg tablet 5 mg PO BID #60 tab 01/17/21 triamcinolone acetonide 0.5 % 1 appl TOPICAL DAILY 15 Days #15 g 01/17/21 topical ointment albuterol sulfate 90 mcg/actuation 1 inh INHALATION QID PRN 30 Days 01/19/21 aerosol inhaler (Ventolin HFA) #8.5 g pantoprazole 40 mg tablet,delayed 40 mg PO DAILY 90 Days #90 tab 02/02/21 release blood sugar diagnostic (FreeStyle #100 ea 03/26/21 Lite Strips) naproxen 500 mg tablet,delayed 500 mg PO BID #60 tab 03/26/21 release (EC-Naproxen) quetiapine 25 mg tablet 25 mg PO DAILY PRN #90 tab 04/10/21 albuterol sulfate 2.5 mg (3 mL) INHALATION BID 30 06/19/21 Days #180 ml codeine 10 mg-guaifenesin 100 mg/5 10 ml PO Q6H PRN 10 Days #200 ml 06/29/21 mL oral liquid Allergies Allergy/AdvReac Type Severity Reaction Status Date / Time aspirin [From Percodan] Allergy Severe Disoriented Verified 06/19/21 11:09 lisinopril Allergy Severe Nervous Verified 06/19/21 11:09 oxycodone [From Percodan] Allergy Severe Disoriented Verified 06/19/21 11:09 penicillin V Allergy Unknown hives Verified 06/19/21 11:09 Penicillins [PENICILLINS] Allergy Unknown Hives Verified 06/19/21 11:09 codeine AdvReac Unknown Nausea and Verified 06/19/21 11:09 Vomiting morphine [MORPHINE] AdvReac Unknown NAUSEA & Verified 06/19/21 11:09 VOMITING ENVIRONMENTAL Allergy Unknown RUNNY Uncoded 06/19/21 11:09 NOSE/WATERY EYES Darvocet A500 AdvReac Unknown disoriented Uncoded 06/19/21 11:09 Review of Systems Review of Systems Constitutional : No Weight loss, No Fever, No Chills, No Night Sweats, No Fatigue, No Malaise ENT/Mouth : No Hearing loss, No Ear Pain, No Nasal Congestion, No Sinus Pain, No Hoarseness, No sore throat, No Rhinorrhea, No Swallowing Difficulty Eyes: No Eye Pain, No Swelling, No Redness, No Foreign Body, No Discharge, No Vision Changes Cardiovascular : No Chest Pain, No SOB, No Dyspnea on Exertion, No Orthopnea, No Edema, No Palpitations Respiratory : No Cough, No Sputum, No Wheezing, No Smoke Exposure, No Dyspnea Gastrointestinal : Complain of nausea & vomiting No Diarrhea, No Constipation, complaining of sharp nonradiating epigastric pain, constant. No Hematochezia, No Melena Genitourinary : no irregular bleeding, No Dysuria, No Urinary Frequency, No Hematuria, No Urinary Incontinence, No Urgency, No Flank Pain, No Urinary Flow Changes, No Hesitancy Musculoskeletal : No joint pain, No Myalgias, No Joint Swelling Skin : No Skin Lesions, No rash Neuro : No Weakness, No Numbness, No Paresthesias, No Loss of Consciousness, No Dizziness, No Headache Psych : No Anxiety/Panic, No Depression, No SI/HI/AH/VH, No Social Issues, Heme/Lymph: No Bruising, No Bleeding,No Lymphadenopathy Endocrine : No Polyuria, No Polydipsia, No Temperature Intolerance Physical Exam Vital Signs: Vital Signs: Last Vital Signs Temp 97.7 F 07/03/21 06:09 Pulse 90 07/03/21 06:09 Resp 20 07/03/21 06:09 BP 198/80 H 07/03/21 06:09 Pulse Ox 97 07/03/21 06:09 BMI result Body Mass Index 36.8 Const: Other: Appearance: Alert. Oriented X3. Seems uncomfortable Eyes: Pupils equal, round and reactive to light. ENT: Pharynx normal. Neck: Normal inspection. Neck supple. No lymph nodes noted. No crepitus CVS: Normal heart rate and rhythm. Pulses normal. Normal S1 and S2 Respiratory: No respiratory distress. Breath sounds normal. No Wheezing. No rales Abdomen: Soft , tender to palpation in epigastric area, no guarding, no rebound. No rigidity. No distention. Skin: Skin warm and dry. Normal skin color. Normal skin turgor. Extremities: No lower extremity edema. No lower extremity edema. No Lacerations. No Rash Neuro: Oriented X 3. No motor deficit. No sensory deficit. Moving all extermities. No slurred speech. Course Course Course Narrative: All Of patient's labs and imaging are pending. Disposition pending. Sign-out given to Dr. Morel [facility] - Abdominal Pain ECG Data Attestation: I personally reviewed and interpreted this ECG as follows: (Normal sinus, heart rate 86, nonspecific ST changes in V1 without reciprocal changes, otherwise no ST segment depression or elevation, no T-wave inversion, QTC 423) Discharge Plan Discharge Clinical Impression: Abdominal pain, Vomiting Patient Disposition: Still a Patient Prescriptions: No Action losartan 50 mg tablet 50 mg PO DAILY Qty: 90 RF: 2 atorvastatin 20 mg tablet 20 mg PO DAILY Qty: 90 RF: 2 montelukast 10 mg tablet 10 mg PO DAILY Qty: 90 RF: 2 albuterol sulfate [Ventolin HFA] 90 mcg/actuation HFA aerosol inhaler 1 inh inhalation QID PRN (Reason: shortness of breath or wheezing) 30 Days Qty: 8.5 RF: 0 pantoprazole 40 mg tablet,delayed release (DR/EC) 40 mg PO DAILY 90 Days Qty: 90 RF: 1 naproxen [EC-Naproxen] 500 mg tablet,delayed release (DR/EC) 500 mg PO BID Qty: 60 RF: 3 (DME) FreeStyle Lite Strips Strip See Rx Instructions .ROUTE .MEDSUPPLY Qty: 100 RF: 3 quetiapine 25 mg tablet 25 mg PO DAILY PRN (Reason: withdrawal symptoms) Qty: 90 RF: 3 codeine-guaifenesin 10-100 mg/5 mL liquid 10 ml PO Q6H PRN (Reason: cough) 10 Days Qty: 200 RF: 0 Aspirin Low Dose 81 mg PO DAILY RF: 0 timolol maleate 0.5 % drops 1 drp ophthalmic (eye) DAILY RF: 0 cholecalciferol (vitamin D3) 25 mcg (1,000 unit) capsule 25 mcg PO DAILY RF: 0 paroxetine HCl 20 mg tablet 20 mg PO DAILY Qty: 30 RF: 3 halobetasol propionate 0.05 % ointment 1 appl topical DAILY Qty: 50 RF: 0 (DME) Incontinence PADS See Rx Instructions .Route .MEDSUPPLY Qty: 100 RF: 2 triamcinolone acetonide 0.5 % ointment 1 appl topical DAILY 15 Days Qty: 15 RF: 0 oxybutynin chloride 5 mg tablet 5 mg PO BID Qty: 60 RF: 3 albuterol sulfate 2.5 mg /3 mL (0.083 %) solution for nebulization 2.5 mg inhalation BID 30 Days Qty: 180 RF: 11 PMFSH Past Medical History Medical History Arthritis Asthma Asthma-COPD overlap syndrome Bronchiectasis Bronchiolitis GERD (gastroesophageal reflux disease) Glaucoma History of kidney stones HTN (hypertension) Hypercholesteremia Mixed stress and urge urinary incontinence Obesity (BMI 30-39.9) Obstructive sleep apnea Osteoarthritis Type 2 diabetes mellitus with hyperglycemia Vitamin D deficiency Surgical History H/O: hysterectomy History of breast biopsy History of cholecystectomy History of colonoscopy History of cystoscopy History of extraction of renal calculus Hx of umbilical hernia repair Family History Family History Father Prostate cancer Mother Mental problem Son No problems noted. Son No problems noted. Daughter No problems noted. Social History Social History Housing: Apartment Alcohol intake: never Patient Tobacco Use Status: Former Tobacco user Tobacco use type: Cigarette Years Smoked: 45 years Quit 05/2007 e-Cigarette/Vaping Use: Never Used Second Hand Smoke Exposure: No service: No Current occupational status: disabled
[2021-07-03] MEDS: ondansetron HCL 4 MG/2 ML VIAL IVPUSH (06:25)
[2021-07-03] MEDS: 0.9 % Sodium Chloride 1,000 ML 999 ML IVCONT (06:26)
[2021-07-03 06:29] VITALS: RESP 16
[2021-07-03] MEDS: HYDROmorphone HCl 0.5 MG/0.5 ML SYRINGE IVPUSH (06:29)
[2021-07-03 06:30] VITALS: BP 150/58; PULSE 90; RESP 16; O2SAT 96
[2021-07-03 06:38] LABS: Basophils Percent Auto 0.3 % (0-2); Eosinophils Absolute Auto 0.2 X10*3/uL (0.0-0.4); Hematocrit 35.9 % (37.0-47.0); Hemoglobin 11.9 g/dl (12.0-16.0); Imm Gran Abs Auto 0.03 X10*3/uL (0.00-0.03); Imm Gran Pct Auto 0.3 % (0.0-0.4); Lymphocytes Percent Auto 22.3 % (20-40); MANUAL DIFF FLAG NO; Mean Corpuscular HGB Conc 33.1 g/dl (31.0-35.0); Mean Corpuscular Hemoglobin 29.7 pg (27.0-33.0); Mean Corpuscular Volume 89.5 fL (80.0-98.0); Mean Platelet Volume 9.4 fL (9.4-12.3); Monocytes Absolute Auto 0.7 X10*3/uL (0.1-1.2); Monocytes Percent Auto 7.8 % (2-11); Neutrophils Absolute Auto 6.1 x10*3/uL (2.0-8.3); Neutrophils Percent Auto 67.3 % (45-73); Platelet Count 236 X10*3/uL (160-400); Red Blood Count 4.01 X10*6/uL (4.20-5.50); Red Cell Distribution Width 13.2 % (11.0-16.0)
[2021-07-03 06:51] LABS: Lactic Acid 1.5 mmol/L (0.5-2.0)
[2021-07-03 06:52] LABS: COVID-19 Test Negative (Negative)
[2021-07-03 06:55] LABS: Alanine Aminotransferase 18 U/L (0-31); Albumin Level 3.9 g/dL (3.5-5.0); Alkaline Phosphatase 132 U/L (39-117); Anion Gap 12 (12-20); Aspartate Amino Transferase 24 U/L (5-31); Bilirubin Direct 0.2 mg/dL (0.0-0.5); Bilirubin Total 0.4 mg/dL (0.0-1.0); Blood Urea Nitrogen 21 mg/dL (9-16); Calcium 9.6 mg/dL (8.4-10.2); Carbon Dioxide 26 mmol/L (22-29); Chloride 104 mmol/L (96-108); Creatinine Clr Calc Pharmacy 55.8; Estimated Glomerular Filt Rate > 60; Glucose Random 126 mg/dL (60-115); Lipase 7 U/L (8-78); Potassium 4.2 mmol/L (3.3-5.1); Sodium 138 mmol/L (135-145); Total Protein 6.7 g/dL (6.5-8.0)
[2021-07-03 06:59] LABS: Troponin-I High Sensitivity < 3.5 ng/L (<3.5-17.0)
--- NOTE | 2021-07-03 07:37 | PC.NURSE ---
pt at CT at this time. states nausea is better.
[2021-07-03] MEDS: iohexoL 350 MG/ML 100 ML INFUS..BTL 85 ML IV (08:11)
[2021-07-03 08:54] LABS: Appearance Urine HAZY; Color Urine STRAW; Glucose Urine UA NEG (NEG); Leukocyte Esterase Urine 2+ (NEG); Nitrite Urine NEG (NEG); Specific Gravity - Urine <= 1.005 (1.005-1.025); UACC Culture Trigger YES; Urine Blood 1+ (NEG); Urine Ketones NEG (NEG); Urine Protein NEG (NEG-TRACE)
[2021-07-03 09:06] LABS: Troponin-I High Sensitivity < 3.5 ng/L (<3.5-17.0)
[2021-07-03 09:08] LABS: Bacteria Urine 4+ /LPF; Squamous Epithelial Cell Urine 1+ /LPF
[2021-07-03] MEDS: levoFLOXacin 250 MG TABLET PO (09:22)
== END 2021-07-03 09:39 | disposition home or self-care (01) ==
PROVIDERS: Emergency Medicine; Emergency Provider Emergency Medicine; PCP Internal Medicine
DX: R10.9 Unspecified abdominal pain (principal); R11.10 Vomiting, unspecified; Z79.82 Long term (current) use of aspirin; Z79.899 Other long term (current) drug therapy; Z20.822 Contact with and (suspected) exposure to COVID-19
CPT/HCPCS: 36415; 71045; 74177; 80048; 80076; 81001; 83605; 83690; 84484; 85025; 87040; 87086; 87088; 87186; 87635; 93005; 96361; 96374; 96375; 99284; J1170; J2270; J2405; Q9967

== ENCOUNTER → 2021-07-09 10:46 | Outpatient (BNVA) | payer MEDICARE, MEDICAID, SELFPAY | PROVIDERS: PCP Internal Medicine; Visit Provider Hospitalist | DX: J44.9 Chronic obstructive pulmonary disease, unspecified (principal); J47.9 Bronchiectasis, uncomplicated; J21.9 Acute bronchiolitis, unspecified; R91.8 Other nonspecific abnormal finding of lung field; R05.9 Cough, unspecified | CPT/HCPCS: 99212 ==

== ENCOUNTER → 2021-10-18 08:41 | Outpatient (BNVA) | payer MEDICARE, SELFPAY | PROVIDERS: PCP Internal Medicine; Visit Provider Hospitalist | DX: J44.9 Chronic obstructive pulmonary disease, unspecified (principal); J47.9 Bronchiectasis, uncomplicated; J21.9 Acute bronchiolitis, unspecified; R91.8 Other nonspecific abnormal finding of lung field; R05.9 Cough, unspecified | CPT/HCPCS: 99212 ==

== ENCOUNTER 2022-05-02 08:58 | Outpatient (REF) | payer OTHER, SELFPAY ==
[2022-05-02 09:09] LABS: MANUAL DIFF FLAG NO
[2022-05-02 09:31] LABS: Basophils Percent Auto 0.5 % (0-2); Eosinophils Absolute Auto 0.2 X10*3/uL (0.0-0.4); Eosinophils Percent Auto 2.7 % (0-4); Hematocrit 36.5 % (37.0-47.0); Hemoglobin 11.7 g/dl (12.0-16.0); Imm Gran Abs Auto 0.02 X10*3/uL (0.00-0.03); Imm Gran Pct Auto 0.4 % (0.0-0.4); Immature Retic Fraction 15.1 % (3.0-15.9); Lymphocytes Absolute Auto 1.3 X10*3/uL (1.2-4.9); Lymphocytes Percent Auto 23.9 % (20-40); Mean Corpuscular HGB Conc 32.1 g/dl (31.0-35.0); Mean Corpuscular Hemoglobin 28.9 pg (27.0-33.0); Mean Corpuscular Volume 90.1 fL (80.0-98.0); Mean Platelet Volume 9.7 fL (9.4-12.3); Monocytes Absolute Auto 0.4 X10*3/uL (0.1-1.2); Monocytes Percent Auto 6.3 % (2-11); Neutrophils Absolute Auto 3.7 x10*3/uL (2.0-8.3); Neutrophils Percent Auto 66.2 % (45-73); Platelet Count 259 X10*3/uL (160-400); Red Blood Count 4.05 X10*6/uL (4.20-5.50); Red Cell Distribution Width 13.4 % (11.0-16.0); Reticulocyte Percent 1.9 % (0.5-1.8); Reticulocytes Absolute 0.079 X10*6/uL (0.026-0.095); White Blood Count 5.6 X10*3/uL (4.8-10.8)
[2022-05-02 09:37] LABS: Appearance Urine Cloudy; Color Urine Yellow; Glucose Urine UA Negative (Negative); Leukocyte Esterase Urine Large (3+) (Negative); Nitrite Urine Positive (Negative); UMIC TRIGGER UA YES; Urine Blood Trace (Negative); Urine Ketones Negative (Negative); Urine Protein Trace mg/dL (Neg-Trace)
[2022-05-02 09:40] LABS: Bacteria Urine 4+ (None Seen); Hyaline Casts Urine 0-2 /LPF (0-2); WBC Urine >50 /HPF (0-5)
[2022-05-02 10:10] LABS: Estimated Average Glucose 117 mg/dL; Hemoglobin A1c % 5.7 %
[2022-05-02 10:11] LABS: Alanine Aminotransferase 12 U/L (0-31); Albumin Level 4.2 g/dL (3.5-5.0); Alkaline Phosphatase 134 U/L (39-117); Anion Gap 15 (12-20); Aspartate Amino Transferase 20 U/L (5-31); Bilirubin Total 0.4 mg/dL (0.0-1.0); Blood Urea Nitrogen 23 mg/dL (9-16); Calcium 9.5 mg/dL (8.4-10.2); Carbon Dioxide 27 mmol/L (22-29); Chloride 104 mmol/L (96-108); Cholesterol 175 mg/dL; Estimated Glomerular Filt Rate 53; Glucose Random 115 mg/dL (60-115); HDL Cholesterol 55 mg/dL; Iron 44 mcg/dL (30-160); LDL Cholesterol Calculated 111 mg/dl; Percent Iron Saturation 13 % (15-50); Potassium 4.7 mmol/L (3.3-5.1); Sodium 141 mmol/L (135-145); Total Iron Binding Capacity 349 mcg/dL (228-428); Triglycerides 45 mg/dL; Unsaturated Iron Binding 305 ug/dL
[2022-05-02 10:39] LABS: Ferritin 72 ng/mL (10-250); Free T4 (Free Thyroxine) 1.25 ng/dL (0.71-1.85); Thyroid Stimulating Hormone 1.01 uIU/mL (0.32-4.0); Vitamin D 25-OH Total 30.5 ng/mL (>30)
[2022-05-02 10:44] LABS: Creatinine Urine 149.68 mg/dL
[2022-05-02 11:04] LABS: Folate 16.8 ng/mL (> or = 4.0); Vitamin B12 755 pg/mL (200-900)
== END 2022-05-02 08:59 | disposition home or self-care (01) ==
LOC: HO.LAB 08:58
PROVIDERS: PCP Internal Medicine; Visit Provider Internal Medicine
DX: E11.65 Type 2 diabetes mellitus with hyperglycemia (principal); E78.00 Pure hypercholesterolemia, unspecified; K21.9 Gastro-esophageal reflux disease without esophagitis
CPT/HCPCS: 36415; 80053; 80061; 81001; 82043; 82306; 82607; 82728; 82746; 83036; 83540; 84439; 84443; 85025; 85045

== ENCOUNTER 2022-05-03 16:00 | Outpatient (REF) | payer OTHER, SELFPAY ==
--- NOTE | ~2022-05-03 | CT_ITS ---
EXAMINATION: CT CHEST WITHOUT CONTRAST CLINICAL INFORMATION: Follow-up pulmonary nodule COMPARISON: Previous chest CT most recent May 2021 TECHNIQUE: Multidetector volumetric CT imaging of the chest was done. Axial MIP volume rendering provided. Sagittal and coronal reformatted images were obtained. This CT examination was performed using dose optimization techniques as appropriate, variously including the following: *Automated exposure control *Adjustment of mA and/or kV according to patient size (this includes techniques or standardized protocols for targeted exams where dose is matched to indication/reason for exam; i.e. extremities or head) *Use of iterative reconstruction technique DLP: 187 mGy-cm FINDINGS: LUNGS: There is mixed appearance of bilateral pulmonary nodules. For example nodules at the left lung apex appear improved. There is a new 7 mm peripheral or subpleural right upper lobe nodule axial image 14 series 3. There is peripheral parenchymal consolidation in the posterior lateral right upper lobe near the major fissure axial image 18 series 3 that appears slightly increased. There is bronchial wall thickening and atelectasis/consolidation in the right middle lobe and lingula that appears unchanged. There are new clustered peribronchial nodules suggestive of tree-in-bud appearance in the right lower lobe axial image 31 series 3. There is interval improvement in the clustered peribronchial nodules and bronchial wall thickening of the left lower lobe for example axial image 3 4 series 3. There is a increasing 5 mm adjacent left lower lobe nodule axial image 33 series 3. There is a new 5 mm heterogeneous left lower lobe nodule axial image 27 series 3. MEDIASTINUM: The mediastinum is normal. CORONARY ARTERY CALCIFICATION: None visualized on this study. PLEURA: There is no pleural effusion. No pleural mass or thickening. AXILLA: No lymphadenopathy. UPPER ABDOMEN: 1 cm low-attenuation lesion in the right lobe of the liver axial image 51 series that is stable. Post cholecystectomy. 3 cm low-attenuation lesion in the right kidney probably representing a cyst that is stable. Small left shoulder. OSSEOUS STRUCTURES: Degenerative changes of the spine CT/CT chest wo IV con IMPRESSION: Mixed appearance of bilateral pulmonary nodules. This favors an infectious or inflammatory process. Fleischner guidelines were followed.
== END 2022-05-03 16:01 | disposition home or self-care (01) ==
LOC: HO.CT 16:00
PROVIDERS: Visit Provider Hospitalist
DX: R91.8 Other nonspecific abnormal finding of lung field (principal); J47.9 Bronchiectasis, uncomplicated
CPT/HCPCS: 71250

== ENCOUNTER → 2022-05-16 07:29 | Outpatient (REF) | payer OTHER, SELFPAY ==
--- NOTE | 2022-05-16 07:31 | CA_ITS ---
Acquisition Time: 2022-05-16 08:05:04 Total Exercise Time: 00:03:10 Test Indications: Dyspnea Medications: Protocol: NICKI Max HR: 127 BPM 88% of Pred: 144 BPM Max BP: 158/074 mmHG Max Work Load: 4.6 METS Exercise stress test with exercise 3 min 10 sec of Nicki stage 1, achieving 88% MPHR, with moderate sob and fatigue and request to stop, no chest discomfort, without arrythmia, with normotensive response to exercise, with decreased exercise capacity, without EKG changes meeting criteria for ischemia at acheived workload. In recovery her breathing normalized. Test reviewed with Dr Jacome. Referred By: Juan Beltre Overread By: ROMAIN DAVIS
== END ==
LOC: HO.CARD 07:29
PROVIDERS: Visit Provider Internal Medicine
DX: R06.02 Shortness of breath (principal)
CPT/HCPCS: 93017

== ENCOUNTER → 2022-05-24 09:28 | Outpatient (BNVA) | payer OTHER, SELFPAY | PROVIDERS: PCP Internal Medicine; Visit Provider Hospitalist | DX: J47.9 Bronchiectasis, uncomplicated (principal); A31.0 Pulmonary mycobacterial infection; J21.9 Acute bronchiolitis, unspecified; R91.8 Other nonspecific abnormal finding of lung field; R05.9 Cough, unspecified | CPT/HCPCS: 99212 ==

== ENCOUNTER 2022-06-14 09:10 | Outpatient (REF) | payer OTHER, SELFPAY ==
--- NOTE | 2022-06-14 09:18 | ECG_ITS ---
Test Reason : COPD Blood Pressure : / mmHG Vent. Rate : 078 BPM Atrial Rate : 078 BPM P-R Int : 136 ms QRS Dur : 082 ms QT Int : 370 ms P-R-T Axes : 063 030 030 degrees QTc Int : 421 ms Normal sinus rhythm Normal ECG When compared with ECG of 03-JUL-2021 06:15, No significant change was found Referred By: Yusef Mccarthy Electronically Signed By:JESSICA VELOZ MD
[2022-06-14 09:23] LABS: MANUAL DIFF FLAG NO
[2022-06-14 10:07] LABS: Basophils Percent Auto 0.5 % (0-2); Eosinophils Absolute Auto 0.2 X10*3/uL (0.0-0.4); Eosinophils Percent Auto 3.9 % (0-4); Hematocrit 39.6 % (37.0-47.0); Hemoglobin 12.8 g/dl (12.0-16.0); Imm Gran Abs Auto 0.01 X10*3/uL (0.00-0.03); Imm Gran Pct Auto 0.2 % (0.0-0.4); Lymphocytes Absolute Auto 1.6 X10*3/uL (1.2-4.9); Lymphocytes Percent Auto 28.7 % (20-40); Mean Corpuscular HGB Conc 32.3 g/dl (31.0-35.0); Mean Corpuscular Hemoglobin 28.9 pg (27.0-33.0); Mean Corpuscular Volume 89.4 fL (80.0-98.0); Mean Platelet Volume 9.9 fL (9.4-12.3); Monocytes Absolute Auto 0.4 X10*3/uL (0.1-1.2); Monocytes Percent Auto 7.8 % (2-11); Neutrophils Absolute Auto 3.3 x10*3/uL (2.0-8.3); Neutrophils Percent Auto 58.9 % (45-73); Platelet Count 277 X10*3/uL (160-400); Red Blood Count 4.43 X10*6/uL (4.20-5.50); Red Cell Distribution Width 13.2 % (11.0-16.0); White Blood Count 5.6 X10*3/uL (4.8-10.8)
[2022-06-14 10:18] LABS: Creatinine Urine 151.98 mg/dL
[2022-06-14 10:38] LABS: Alanine Aminotransferase 14 U/L (0-31); Alkaline Phosphatase 134 U/L (39-117); Anion Gap 14 (12-20); Aspartate Amino Transferase 18 U/L (5-31); Bilirubin Direct < 0.2 mg/dL (0.0-0.5); Bilirubin Total 0.2 mg/dL (0.0-1.0); Blood Urea Nitrogen 20 mg/dL (9-16); Calcium 9.9 mg/dL (8.4-10.2); Carbon Dioxide 29 mmol/L (22-29); Chloride 103 mmol/L (96-108); Estimated Glomerular Filt Rate > 60; Glucose Random 101 mg/dL (60-115); Potassium 4.7 mmol/L (3.3-5.1); Sodium 141 mmol/L (135-145); Total Protein 7.2 g/dL (6.5-8.0)
[2022-06-14 10:46] LABS: Erythrocyte Sedimentation Rate 40 MM/HR (0-20)
[2022-06-14 11:15] LABS: Albumin Level 4.2 g/dL (3.5-5.0)
== END 2022-06-14 09:11 | disposition home or self-care (01) ==
LOC: HO.LAB 09:10
PROVIDERS: PCP Internal Medicine; Visit Provider Hospitalist
DX: J44.9 Chronic obstructive pulmonary disease, unspecified (principal); E11.65 Type 2 diabetes mellitus with hyperglycemia
CPT/HCPCS: 36415; 80048; 80076; 85025; 85652; 93005

== ENCOUNTER 2022-08-19 09:10 | Outpatient (REF) | payer OTHER, SELFPAY ==
[2022-08-19 09:53] LABS: Appearance Urine Clear; Color Urine Yellow; Glucose Urine UA Negative (Negative); Leukocyte Esterase Urine Trace (Negative); Nitrite Urine Negative (Negative); PH 5.5 (5.0-9.0); UMIC TRIGGER UA YES; Urine Blood Negative (Negative); Urine Ketones Negative (Negative); Urine Protein Negative (Neg-Trace)
[2022-08-19 09:59] LABS: Bacteria Urine None Seen (None Seen); Hyaline Casts Urine 0-2 /LPF (0-2); RBC Urine 0-2 /HPF (0-2); Squamous Epithelial Cell Urine 0-2 /HPF (0-2); WBC Urine 0-5 /HPF (0-5)
[2022-08-19 10:42] LABS: Alanine Aminotransferase 12 U/L (0-31); Anion Gap 14 (12-20); Calcium 9.5 mg/dL (8.4-10.2); Carbon Dioxide 27 mmol/L (22-29); Chloride 106 mmol/L (96-108); Cholesterol 164 mg/dL; Glucose Random 110 mg/dL (60-115); Potassium 4.8 mmol/L (3.3-5.1); Sodium 142 mmol/L (135-145); Total Protein 6.8 g/dL (6.5-8.0); Triglycerides 62 mg/dL
[2022-08-19 11:21] LABS: Alkaline Phosphatase 146 U/L (39-117); Aspartate Amino Transferase 18 U/L (5-31); Bilirubin Total 0.5 mg/dL (0.0-1.0); Blood Urea Nitrogen 21 mg/dL (9-16); Estimated Glomerular Filt Rate > 60; HDL Cholesterol 53 mg/dL; LDL Cholesterol Calculated 99 mg/dl
== END 2022-08-19 09:11 | disposition home or self-care (01) ==
LOC: HO.LAB 09:10
PROVIDERS: PCP Internal Medicine; Visit Provider Internal Medicine
DX: E78.00 Pure hypercholesterolemia, unspecified (principal)
CPT/HCPCS: 36415; 80053; 80061; 81001

== ENCOUNTER → 2022-08-26 12:47 | Outpatient (BNVA) | payer OTHER, SELFPAY | PROVIDERS: PCP Internal Medicine; Visit Provider Hospitalist | DX: G47.33 Obstructive sleep apnea (adult) (pediatric) (principal); R91.8 Other nonspecific abnormal finding of lung field; J47.9 Bronchiectasis, uncomplicated; J44.9 Chronic obstructive pulmonary disease, unspecified; A31.0 Pulmonary mycobacterial infection; J21.9 Acute bronchiolitis, unspecified; R05.9 Cough, unspecified | CPT/HCPCS: 99212 ==

== ENCOUNTER → 2022-09-19 10:59 | Outpatient (REF) | payer OTHER, SELFPAY | LOC: HO.SL 10:59 | PROVIDERS: PCP Internal Medicine; Visit Provider Hospitalist | DX: G47.33 Obstructive sleep apnea (adult) (pediatric) (principal) | CPT/HCPCS: 95806 ==

== ENCOUNTER → 2022-10-21 13:27 | Outpatient (BNVA) | payer OTHER, SELFPAY | PROVIDERS: PCP Internal Medicine; Visit Provider Hospitalist | DX: J44.9 Chronic obstructive pulmonary disease, unspecified (principal); J47.9 Bronchiectasis, uncomplicated; A31.0 Pulmonary mycobacterial infection; R91.8 Other nonspecific abnormal finding of lung field; J21.9 Acute bronchiolitis, unspecified; R05.9 Cough, unspecified; G47.33 Obstructive sleep apnea (adult) (pediatric) | CPT/HCPCS: 99212 ==

== ENCOUNTER 2022-10-23 08:38 | Outpatient (REF) | payer OTHER, SELFPAY ==
[2022-10-23 08:58] LABS: MANUAL DIFF FLAG NO
[2022-10-23 09:23] LABS: Basophils Percent Auto 0.5 % (0-2); Eosinophils Absolute Auto 0.2 X10*3/uL (0.0-0.4); Eosinophils Percent Auto 3.5 % (0-4); Hematocrit 40.8 % (37.0-47.0); Hemoglobin 12.9 g/dl (12.0-16.0); Imm Gran Abs Auto 0.02 X10*3/uL (0.00-0.03); Imm Gran Pct Auto 0.4 % (0.0-0.4); Lymphocytes Percent Auto 34.6 % (20-40); Mean Corpuscular HGB Conc 31.6 g/dl (31.0-35.0); Mean Corpuscular Hemoglobin 28.7 pg (27.0-33.0); Mean Corpuscular Volume 90.9 fL (80.0-98.0); Mean Platelet Volume 9.7 fL (9.4-12.3); Monocytes Absolute Auto 0.4 X10*3/uL (0.1-1.2); Monocytes Percent Auto 6.7 % (2-11); Neutrophils Absolute Auto 3.1 x10*3/uL (2.0-8.3); Neutrophils Percent Auto 54.3 % (45-73); Platelet Count 252 X10*3/uL (160-400); Red Blood Count 4.49 X10*6/uL (4.20-5.50); Red Cell Distribution Width 14.1 % (11.0-16.0); White Blood Count 5.7 X10*3/uL (4.8-10.8)
[2022-10-23 09:49] LABS: Alanine Aminotransferase 13 U/L (0-31); Albumin Level 4.1 g/dL (3.5-5.0); Alkaline Phosphatase 121 U/L (39-117); Anion Gap 12 (12-20); Aspartate Amino Transferase 16 U/L (5-31); Bilirubin Direct < 0.2 mg/dL (0.0-0.5); Bilirubin Total 0.2 mg/dL (0.0-1.0); Blood Urea Nitrogen 22 mg/dL (9-16); Calcium 9.9 mg/dL (8.4-10.2); Carbon Dioxide 28 mmol/L (22-29); Chloride 107 mmol/L (96-108); Estimated Glomerular Filt Rate 59; Glucose Random 118 mg/dL (60-115); Potassium 4.8 mmol/L (3.3-5.1); Sodium 142 mmol/L (135-145); Total Protein 6.8 g/dL (6.5-8.0)
[2022-10-23 10:28] LABS: Erythrocyte Sedimentation Rate 32 MM/HR (0-20)
== END 2022-10-23 08:39 | disposition home or self-care (01) ==
LOC: HO.LAB 08:38
PROVIDERS: PCP Internal Medicine; Visit Provider Hospitalist
DX: A31.0 Pulmonary mycobacterial infection (principal); R06.02 Shortness of breath
CPT/HCPCS: 36415; 80048; 80076; 85025; 85652

== ENCOUNTER 2022-10-28 | Outpatient (REF) | payer OTHER, SELFPAY | END 2022-10-28 00:01 | disposition home or self-care (01) | LOC: HO.LNP | PROVIDERS: Visit Provider Hospitalist | DX: R06.02 Shortness of breath (principal); A31.0 Pulmonary mycobacterial infection | CPT/HCPCS: 87116; 87206 ==

== ENCOUNTER 2022-10-29 13:42 | Outpatient (REF) | payer OTHER, SELFPAY | END 2022-10-29 13:43 | disposition home or self-care (01) | LOC: HO.LNP 13:42 | PROVIDERS: Visit Provider Hospitalist | DX: Z13.89 Encounter for screening for other disorder (principal) ==

== ENCOUNTER 2023-02-20 09:03 | Outpatient (REF) | payer OTHER, SELFPAY ==
[2023-02-20 09:14] LABS: MANUAL DIFF FLAG NO
[2023-02-20 09:33] LABS: Basophils Percent Auto 0.6 % (0-2); Eosinophils Absolute Auto 0.2 X10*3/uL (0.0-0.4); Hematocrit 37.9 % (37.0-47.0); Hemoglobin 12.4 g/dl (12.0-16.0); Imm Gran Abs Auto 0.01 X10*3/uL (0.00-0.03); Imm Gran Pct Auto 0.2 % (0.0-0.4); Lymphocytes Absolute Auto 1.7 X10*3/uL (1.2-4.9); Lymphocytes Percent Auto 31.4 % (20-40); Mean Corpuscular HGB Conc 32.7 g/dl (31.0-35.0); Mean Corpuscular Hemoglobin 30.1 pg (27.0-33.0); Monocytes Absolute Auto 0.4 X10*3/uL (0.1-1.2); Monocytes Percent Auto 7.1 % (2-11); Neutrophils Absolute Auto 3.1 x10*3/uL (2.0-8.3); Neutrophils Percent Auto 57.7 % (45-73); Platelet Count 236 X10*3/uL (160-400); Red Blood Count 4.12 X10*6/uL (4.20-5.50); Red Cell Distribution Width 13.3 % (11.0-16.0); White Blood Count 5.4 X10*3/uL (4.8-10.8)
[2023-02-20 10:09] LABS: Alanine Aminotransferase 13 U/L (0-31); Albumin Level 3.8 g/dL (3.5-5.0); Alkaline Phosphatase 107 U/L (39-117); Anion Gap 11 (12-20); Aspartate Amino Transferase 18 U/L (5-31); Bilirubin Direct < 0.2 mg/dL (0.0-0.5); Bilirubin Total 0.2 mg/dL (0.0-1.0); Blood Urea Nitrogen 19 mg/dL (9-16); Calcium 9.1 mg/dL (8.4-10.2); Carbon Dioxide 23 mmol/L (22-29); Chloride 109 mmol/L (96-108); Estimated Glomerular Filt Rate > 60; Glucose Random 112 mg/dL (60-115); Potassium 4.4 mmol/L (3.3-5.1); Sodium 139 mmol/L (135-145); Total Protein 6.8 g/dL (6.5-8.0)
[2023-02-20 10:14] LABS: Erythrocyte Sedimentation Rate 23 MM/HR (0-20)
== END 2023-02-20 09:04 | disposition home or self-care (01) ==
LOC: HO.LAB 09:03
PROVIDERS: Absent Provider Hospitalist; PCP Internal Medicine; Visit Provider Internal Medicine
DX: A31.0 Pulmonary mycobacterial infection (principal); R91.8 Other nonspecific abnormal finding of lung field
CPT/HCPCS: 36415; 80048; 80076; 85025; 85652

== ENCOUNTER 2023-02-24 13:08 | Outpatient (AMB) | payer OTHER, SELFPAY ==
[2023-02-24 13:09] VITALS: BP 140/70; PULSE 70; O2SAT 97; BMI 38.0
--- NOTE | 2023-02-24 13:09 | MHC.PC.OV ---
Vital Signs 02/24/23 13:09 Height 5 ft 1 in Weight 201 lb BMI 38.0 BP 140/70 H Blood Pressure Location Lt brachial Position Sitting Pulse 70 Pulse Source Pulse Oximeter Temp Source Skin Pulse Oximetry (%) 97 Oxygen Delivery Method Room Air Intake Visit Reasons: DM , HTN Chargeback Analyst Required: No Allergies aspirin [From Percodan] Allergy (Severe, Verified 02/24/23 13:09) Disoriented lisinopril Allergy (Severe, Verified 02/24/23 13:09) Nervous oxycodone [From Percodan] Allergy (Severe, Verified 02/24/23 13:09) Disoriented Penicillins [PENICILLINS] Allergy (Severe, Verified 02/24/23 13:09) Hives codeine Adverse Reaction (Severe, Verified 02/24/23 13:09) Nausea and Vomiting morphine [MORPHINE] Adverse Reaction (Severe, Verified 02/24/23 13:09) NAUSEA & VOMITING ENVIRONMENTAL Allergy (Intermediate, Uncoded 02/24/23 13:09) RUNNY NOSE/WATERY EYES Darvocet A500 Adverse Reaction (Severe, Uncoded 02/24/23 13:09) disoriented Medication List - Last Reconciled 02/24/23 by Juan Beltre MD albuterol sulfate 2.5 mg (3 mL) inhalation BID 30 days atorvastatin 20 mg PO DAILY azithromycin 500 mg PO 3XW 90 days blood pressure monitor (Blood Pressure Kit) As directed blood sugar diagnostic (FreeStyle Lite Strips) As directed check the BS QD blood-glucose meter (FreeStyle Lite Meter kit) As directed cholecalciferol (vitamin D3) 25 mcg PO DAILY dorzolamide-timolol 22.3-6.8 mg/mL mL ophthalmic (eye) ethambutol 400 mg PO 3XW 90 days fluticasone propion-salmeterol 115-21 mcg/actuation (Advair HFA) 2 puffs inhalation Q12H 30 days fluticasone propionate 50 mcg/actuation (Flonase Allergy Relief) 2 sprays intranasal DAILY fbyqrvdwiot-lfpdlfrve-cxrfooqa 200-62.5-25 mcg (Trelegy Ellipta) 1 inh inhalation DAILY 30 days halobetasol propionate 0.05% 1 appl topical DAILY [Incontinence PADS As directed] lancets (FreeStyle Lancets) As directed check BS QD losartan 50 mg PO DAILY montelukast 10 mg PO DAILY naproxen (EC-Naproxen) 500 mg PO BID nebulizers As directed oxybutynin chloride 5 mg PO BID pantoprazole 40 mg PO DAILY 90 days quetiapine 25 mg PO DAILY PRN rifampin 150 mg PO 3XW 28 days Ventolin HFA 90 mcg/actuation (albuterol sulfate) 1 puff PO QID PRN NS Tobacco use date assessed: 02/24/23 Fall risk assessment: 1 Fall in past year Last assessed Fall Risk: 02/24/23 Dental Screening Dental Screen Date: 02/24/23 Did you have a dental visit in the last 12 months?: Yes Did you have a dental problem in the last 6 months where you did not have access to dental care?: No Was dental information given to patient?: Patient has dentist HPI DM , HTN HPI Details 78-year-old obese female with diabetes mellitus, GERD, hypertension, hypercholesterolemia, generalized anxiety disorder, asthma COPD overlap syndrome coming in for follow-up. Patient was last seen in July 2022 patient was noted to have cognitive changes and was referred to neuropsychiatry. Patient follows up with Pulmonary . Patient had the sleep study done in August 2022 mild obstructive sleep apnea. with the obstructive sleep apnea continue APAP requested continuing with antituberculous antibiotics started on triple controller inhaler. PAtient had high BP in [place] and went to ER due to CHACON - patient was prescribed with one med [facility] Medical History (Updated 02/24/23 @ 13:48 by Juan Beltre MD) Arthritis Asthma Asthma-COPD overlap syndrome Bronchiectasis Bronchiolitis GERD (gastroesophageal reflux disease) Glaucoma History of kidney stones HTN (hypertension) Hypercholesteremia Mixed stress and urge urinary incontinence Nontuberculous mycobacterial disease of lung Obesity (BMI 30-39.9) Obstructive sleep apnea Osteoarthritis Type 2 diabetes mellitus with hyperglycemia Vitamin D deficiency Surgical History H/O: hysterectomy History of breast biopsy History of cholecystectomy History of colonoscopy History of cystoscopy History of extraction of renal calculus Hx of umbilical hernia repair Family History Father Prostate cancer Mother Mental problem Son No problems noted. Son No problems noted. Daughter No problems noted. Social History (Reviewed 07/06/21 @ 16:39 by JOSSELYN Michael Housing: Apartment Alcohol intake: never Patient Tobacco Use Status: Former Tobacco user Tobacco use type: Cigarette Years Smoked: 45 years Quit 05/2007 e-Cigarette/Vaping Use: Never Used Second Hand Smoke Exposure: No service: No Current occupational status: disabled Cognitive needs: No Hearing needs: No Vision needs: No Questionnaire Thrive Questionnaire Date Thrive assessed: 08/26/22 AUDIT C Alcohol Use Questionnaire (AUDIT-C) 1. How often do you have a drink containing alcohol?: Never 3. How often do you have six or more drinks on one occasion?: Never Total Score: 0 Score Reviewed/Action Taken: Yes ISHA-7 AMB Questionnaire ISHA-7 Date ISHA - 7 assessed: 08/26/22 Source: Developed by Drs. Eusebio Gates, Radha Burrows, Vincent Calderon and colleagues, with an educational patrick from [employer]. Physical exam (Primary Care) Vital Signs: Last Vital Signs Pulse 70 02/24/23 13:09 BP 140/70 H 02/24/23 13:09 Pulse Ox 97 02/24/23 13:09 Oxygen Delivery Method Room Air 02/24/23 13:09 BMI result Body Mass Index 38.0 Tobacco/Smoking Status: Tobacco use Status Tobacco use date assessed 02/24/23 02/24/23 13:11 Patient Tobacco Use Status Former Tobacco user 02/24/23 13:11 Tobacco use type Cigarette 02/24/23 13:11 e-Cigarette/Vaping Use Never Used 02/24/23 13:11 Thrive Assessment: Date of Thrive Assessment Date Thrive assessed 08/26/22 02/24/23 13:11 Const General: alert; No acute distress Eyes Conjunctivae: conjunctivae normal Resp Auscultation: clear to auscultation bilaterally Cardio Rate: regular rate Rhythm: regular rhythm GI Inspection: Yes normal to inspection Extrem General: Yes normal to inspection and No edema Results AMB Hemoglobin A1c AMB Hemoglobin A1c 5.9 % Last Edit by TAHIR Granado on 02/24/23 13:24 Immunizations tetanus-diphtheria toxoids-Td Performing Provider: Juan Beltre MD Administered by: TAHIR Granado on 02/24/23 13:59 Dose Route Admin Location Lot Number Expiration Date NDC Surgical Pathologist 0.5 mL IM Left Deltoid [id number] 12/01/23 [id number] [employer] VIS Given Date VIS Provided VIS Publication Date 02/24/23 Single Vaccine 21 Eligibility Eligibility Date Funding Source Not VFC Eligible 02/24/23 State funds Results Reviewed Results Reviewed: Laboratory Last Values Hgb A1c (Clinic) 5.9 % (4.0-6.0) 02/24/23 13:11 Assessment and Plan Assessment & Plan (1) Type 2 diabetes mellitus with hyperglycemia: Comment: Dr. Oliver Code(s): E11.65 - Type 2 diabetes mellitus with hyperglycemia Qualifiers: Diabetes mellitus ocean transportation intermediary insulin use: without ocean transportation intermediary use Qualified Code(s): E11.65 - Type 2 diabetes mellitus with hyperglycemia Plan: Decrease the amount of carbohydrate intake, pasta, bread, rice and potatoes are all sugar and that is aside from all the sweet stuff, remember that fruits are good but they are Sweet also. hemoglobin A1c goal of less than 7.0 patient is on diet control (2) GERD (gastroesophageal reflux disease): Code(s): K21.9 - Gastro-esophageal reflux disease without esophagitis Qualifiers: Esophagitis presence: without esophagitis Qualified Code(s): K21.9 - Gastro-esophageal reflux disease without esophagitis Plan: Avoid the foods that causes that usually spicy foods, tomato products, juices, coffee, soda and foods that your sensitive to. After eating do not lie down, allow 3-4 hours before in lie down. And keep the head of bed above 30 degrees to avoid the acid from going up. (3) Obstructive sleep apnea: Comment: cannot tolerate CPAP Code(s): G47.33 - Obstructive sleep apnea (adult) (pediatric) Plan: patient is being followed up by Pulmonary (4) HTN (hypertension): Code(s): I10 - Essential (primary) hypertension Qualifiers: Hypertension type: essential hypertension Qualified Code(s): I10 - Essential (primary) hypertension Plan: Continue with blood pressure medication. Decrease salt intake and exercise patient takes losartan 50 mg once a day (5) Hypercholesteremia: Code(s): E78.00 - Pure hypercholesterolemia, unspecified Plan: Avoid fried foods, chicken skin, eggs, butter margarine, pastries and meat. Be it pork or beef they have a lot of cholesterol LDL goal of less than 100 and triglyceride of less than 150 patient takes atorvastatin 20 mg once a day (6) Obesity (BMI 30-39.9): Code(s): E66.9 - Obesity, unspecified Plan: diet and exercise (7) Generalized anxiety disorder: Comment: decline therapy Code(s): F41.1 - Generalized anxiety disorder Plan: continue with present therapy (8) Nontuberculous mycobacterial disease of lung: Code(s): A31.0 - Pulmonary mycobacterial infection Plan: patient being followed up with Pulmonary and on antituberculous medications (9) Asthma-COPD overlap syndrome: Code(s): J44.9 - Chronic obstructive pulmonary disease, unspecified (10) Osteoarthritis of knees, bilateral: Code(s): M17.0 - Bilateral primary osteoarthritis of knee Orders: Orders Td State Immunization Today Z23 - Encounter for immunization AMB Hemoglobin A1c Today E11.65 - Type 2 diabetes mellitus with hyperglycemia Medications: New [CANE] As directed 1 ea 0RF M17.0 - Bilateral primary osteoarthritis of knee Changed From losartan 50 mg PO DAILY 90 tabs 2RF I10 - Essential (primary) hypertension To losartan 100 mg PO DAILY 90 tabs 2RF 90 days I10 - Essential (primary) hypertension Coding Level of Care Code Est Pt Level 4 (92099) Diagnoses Type 2 diabetes mellitus with hyperglycemia E11.65 Diabetes mellitus longterm insulin use: without longterm use GERD (gastroesophageal reflux disease) K21.9 Esophagitis presence: without esophagitis Obstructive sleep apnea G47.33 HTN (hypertension) I10 Hypertension type: essential hypertension Hypercholesteremia E78.00 Obesity (BMI 30-39.9) E66.9 Generalized anxiety disorder F41.1 Nontuberculous mycobacterial disease of lung A31.0 Asthma-COPD overlap syndrome J44.9 Osteoarthritis of knees, bilateral M17.0
== END 2023-02-24 13:52 | disposition home or self-care (01) ==
PROVIDERS: PCP Internal Medicine; Visit Provider Internal Medicine
DX: E11.65 Type 2 diabetes mellitus with hyperglycemia (principal); K21.9 Gastro-esophageal reflux disease without esophagitis; I10 Essential (primary) hypertension; A31.0 Pulmonary mycobacterial infection; J44.9 Chronic obstructive pulmonary disease, unspecified; G47.33 Obstructive sleep apnea (adult) (pediatric); E78.00 Pure hypercholesterolemia, unspecified; E66.9 Obesity, unspecified; F41.1 Generalized anxiety disorder; M17.0 Bilateral primary osteoarthritis of knee
CPT/HCPCS: 83036; 90471; 90714; 99214

== ENCOUNTER 2023-03-17 13:43 | Outpatient (AMB) | payer OTHER, SELFPAY ==
[2023-03-17 14:00] VITALS: PULSE 78; O2SAT 95; BMI 37.9
--- NOTE | 2023-03-17 14:00 | MHC.OFFVIS ---
Intake Vital Signs 03/17/23 14:00 Height 5 ft 1 in Weight 200 lb 13.458 oz BMI 37.9 Pulse 78 Pulse Source Pulse Oximeter Pulse Oximetry (%) 95 Oxygen Delivery Method Room Air Intake Visit Reasons: Obstructive sleep apnea Icu Registered Nurse Required: No Allergies aspirin [From Percodan] Allergy (Severe, Verified 03/17/23 14:01) Disoriented lisinopril Allergy (Severe, Verified 03/17/23 14:01) Nervous oxycodone [From Percodan] Allergy (Severe, Verified 03/17/23 14:01) Disoriented Penicillins [PENICILLINS] Allergy (Severe, Verified 03/17/23 14:01) Hives codeine Adverse Reaction (Severe, Verified 03/17/23 14:01) Nausea and Vomiting morphine [MORPHINE] Adverse Reaction (Severe, Verified 03/17/23 14:01) NAUSEA & VOMITING ENVIRONMENTAL Allergy (Intermediate, Uncoded 03/17/23 14:01) RUNNY NOSE/WATERY EYES Darvocet A500 Adverse Reaction (Severe, Uncoded 03/17/23 14:01) disoriented HPI HPI Comments History of Present Illness Details The patient is a 78-year-old woman former smoker who apparently was in usual state health until the summer when she was vacationing in [place]. She started developing a significant cough moderate to severe. She would to get evaluated and tested. She tested negative for COVID-19. Part of the evaluation she had a chest x-ray that was abnormal. She did come back to the area. The patient again was evaluated by primary care doctor regarding her significant cough. Therefore she underwent a chest x-ray and subsequently a CT scan of the chest that was done May. Based on the abnormal findings she was referred to Pulmonary. Patient states that her coughing spells are very significant. Therefore croupy in nature and sometimes is productive other times is not productive. She has not taken any antibiotics at this time. She quit smoking many years ago. We did personally review her CT scan of the chest in the office. She appears to have tree in budding suggesting of bronchiolitis. This is bilaterally involving the upper lung zones and also the mid right middle lobe in the lingula. She does have evidence of nodular disease in addition to bronchiectatic changes and airspace disease. The findings his suggesting of a smoldering lower respiratory infection. her cough appears to be more consistent with laryngotracheitis. It is likely that this is a different etiology than the findings in her chest. The patient denies being exposed to anybody with tuberculosis. At this point will have the patient undergo blood work. I do encourage the patient to undergo additional diagnostic testing. The patient will go for bronchoscopy at this time. 07/09/2021 the patient is here for a pulmonary follow-up visit. Overall the patient has been doing better. Her cough has subsided some. She did undergo a bronchoscopy. Her cultures were negative for any bacterial infections. Her cytology was negative for any malignancies. Which still waiting for the AFB cultures. The patient's CT scan demonstrates evidence of bronchiectasis and tree-in-bud in suggestive of a smoldering infection such as nontuberculous mycobacteria infection. Her T spot was negative. The patient is bronchoscopy also demonstrated some degree of tracheobronchomalacia. This likely corresponds to her coughing sometimes barky in nature. At this point the patient does not benefit from any surgical interventions for this. Therefore, at this point will continue while awaiting the mycobacterial cultures. She continues use the cough syrup with good suppression of her cough. regarding her blood work she did have allergy testing done demonstrating allergies to dust mites. Her IgE level was also elevated at 176. her immune system appears to be stable with normal immunoglobulin levels otherwise. 10/18/2021 the patient is here for a pulmonary follow-up visit. Overall she is feeling well. Back in June she did have abdominal discomfort in worsening respiratory symptoms. She had subsequently recovered from that illness. Subsequently after that last week she had a bout of coughing and chest tightness and asthma. She tried using her nebulizer but was not working. Likely to be was messed up. I will provide with new tubing. In the meantime the patient needs to continue her nebulized therapy with her CPT with Acapella valve to clear out mucus secretions it to avoid too much mucus plugging. 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 Explained to the patient that the treatment for this bacteria will be at least 15 months and will require 3 different antibiotics. Clinically she is doing well at this time and I do not believe that she needs to be on therapy. However, will reassess her CT scan in May 2022 and assess her pulmonary nodules and bronchiectasis. If there is interval worsening of disease will will consider treatment at that time. 05/24/2022 the patient is here for a pulmonary follow-up visit. Overall she continues to do about the same. Still having episodes of coughing. Sometimes coughing spells. At times she does get some chest congestion. We did talk about the CPT with the Acapella valve try to help with mucus plugging. Her cough is moderate severity. She did have a repeat CT scan of the chest demonstrating some waxing waning pulmonary disease. Mapping appears to be slightly worse. Therefore there appears to be progression of the mycobacterial lung disease. At this point will go ahead and start her on treatment for non tuberculosis mycobacterial infection. the patient will have follow-up blood work and EKG after she initiates treatment and will follow-up in the office to see she is responding to therapy. Will start her on 3 medications that she will use 3 times a week. we will adjust medications accordingly depending on her response to therapy. 08/26/2022 the patient is here for a pulmonary follow-up visit. The patient continues to episodes of coughing and shortness of breath. She is also having episodes of wheezing. Moderate severity. 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 Unfortunately she did not understand the instructions based on the fact that she took the medicine only 4 months and then she stopped it. She did have refills although she states that she does not. I will resend the medications to her pharmacy. At this point her daughter is with her and I confirm with daughter that I did send refills in that I will send the medication again to the pharmacy and she is to continue taking it. The patient stands the therapies at least for a year if he went to a retic aid this bacteria. We did also review her CT scan of the chest demonstrating the pulmonary nodules along with bronchiectatic changes in along with the tree-in-bud all changes consistent with her mycobacterial disease. The patient also is having issues with daytime drowsiness. She may have had a sleep study in the past. Although is probably more than a year. She does have daytime drowsiness and does have issues with her memory. Her Zearing score is elevated 06/20. Will request a repeat home sleep study in order to address the question of her sleep apnea issues. The patient also was supposed to have an Acapella valve. I did reach out to [facility] to see if they can send this to her. In meantime a recent prescription. I believe that they will try to reach out to her and they may have been some miscommunication on the phone. Therefore will see resubmit for the home sleep study and also recently for the Acapella valve and also recent her medications. When she comes back in 3 months will repeat her blood work and also plan to repeat her CT scan to follow-up with the pulmonary nodules. 10/21/2022 the patient is here for a pulmonary follow-up visit. She is tolerating the antimycobacterial therapy. Although getting nauseous and also of tea. He feels like he gets more symptomatic with rifampin. I did advise her to cut down to 1 tablet daily with hopes that she can tolerated better. She still has issues she can stop it altogether. She will go ahead and recheck her sputum for AFB and also request blood work to make sure that she is not developing any adverse effects from the medication. We did review her last CT scan of the chest demonstrating the bronchiectatic changes and tree in budding along with pulmonary nodules which is the manifestations of the smoldering infection. She is also complaining of increasing chest tightness and wheezing. She has been on Advair. Will go ahead and optimize therapy to Trelegy inhaler in order to provide better coverage. In addition to this the patient continues to have daytime drowsiness. Her Zearing score is elevated 11/24. We did review her last sleep study demonstrating [id number]-tz-uvtssqub sleep apnea with an AHI of 13 events an hour. The patient needs to start CPAP therapy at this time. [facility] Medical History (Updated 03/17/23 @ 14:13 by Yusef Mccarthy MD) Arthritis Asthma Asthma-COPD overlap syndrome Bronchiectasis Bronchiolitis GERD (gastroesophageal reflux disease) Glaucoma History of kidney stones HTN (hypertension) Hypercholesteremia Mixed stress and urge urinary incontinence Nontuberculous mycobacterial disease of lung Obesity (BMI 30-39.9) Obstructive sleep apnea Osteoarthritis Type 2 diabetes mellitus with hyperglycemia Vitamin D deficiency Surgical History H/O: hysterectomy History of breast biopsy History of cholecystectomy History of colonoscopy History of cystoscopy History of extraction of renal calculus Hx of umbilical hernia repair Family History Father Prostate cancer Mother Mental problem Son No problems noted. Son No problems noted. Daughter No problems noted. Social History Housing: Apartment Alcohol intake: never Patient Tobacco Use Status: Former Tobacco user Tobacco use type: Cigarette Years Smoked: 45 years Quit 05/2007 e-Cigarette/Vaping Use: Never Used Second Hand Smoke Exposure: No service: No Current occupational status: disabled Cognitive needs: No Hearing needs: No Vision needs: No Review of Systems Const Reports daytime sleepiness, Denies night sweats, Reports snoring and Reports stops breathing during sleep ENT Denies change in voice, Denies lip swelling, Denies mouth pain, Reports nasal congestion, Reports nasal discharge and Denies tongue swelling Card Denies chest pain Resp Reports chest congestion, Reports cough and Reports snoring GI Denies abdominal pain Musc Denies no additional complaints Neuro Denies Neuro-related abnormal movements Psych Denies no additional complaints Luis A/Lymph Denies easy bleeding and Denies lymphadenopathy Aller/Immun Denies lip swelling and Denies tongue swelling Physical Exam Vital Signs: Last Vital Signs Pulse 78 03/17/23 14:00 Pulse Ox 95 03/17/23 14:00 Oxygen Delivery Method Room Air 03/17/23 14:00 BMI result Body Mass Index 37.9 Const General: alert Neck Neck: Yes normal visual inspection, Yes full ROM and Yes no lymphadenopathy Chest Chest palpation & inspection: normal inspection of the chest Resp Auscultation: diminished lung sounds Cardio Rate: regular rate Rhythm: regular rhythm Heart sounds: S1 normal heart sound present and S2 normal heart sound present GI Palpation (GI): Soft to palpation and nontender Auscultation: normal bowel sounds Skin General skin exam: rashes and/or lesions noted Assessment & Plan Assessment & Plan (1) Asthma-COPD overlap syndrome: Code(s): J44.9 - Chronic obstructive pulmonary disease, unspecified (2) Bronchiectasis: Code(s): J47.9 - Bronchiectasis, uncomplicated (3) Nontuberculous mycobacterial disease of lung: Code(s): A31.0 - Pulmonary mycobacterial infection (4) Bronchiolitis: Code(s): J21.9 - Acute bronchiolitis, unspecified (5) Pulmonary nodules: Comment: April 2021 right upper and left lower Code(s): R91.8 - Other nonspecific abnormal finding of lung field (6) Cough: Code(s): R05.9 - Cough, unspecified (7) BALTAZAR (obstructive sleep apnea): Code(s): G47.33 - Obstructive sleep apnea (adult) (pediatric) (8) Pulmonary nodule: Code(s): R91.1 - Solitary pulmonary nodule Plan Start APAP, provided N30i Continue nebulizer daily Acapella valve twice a day after nebulizer for CPT continue Azithromycin/Ethambutol/ will decrease Rifampin 150mg 3 times a week. Will change to monotherapy if CT chest is stable CT chest May 2023 Bloodwork/EKG continue Trelegy [place] as needed F/U Jun 2023 Orders: Orders ECG 12 lead EKG Today J44.9 - Chronic obstructive pulmonary disease, unspecified CT chest wo IV con 06/16/23 R91.1 - Solitary pulmonary nodule Basic Metabolic Panel Today A31.0 - Pulmonary mycobacterial infection Liver Panel Today A31.0 - Pulmonary mycobacterial infection Complete Blood Count Auto Diff Today A31.0 - Pulmonary mycobacterial infection Erythrocyte Sedimentation Rate Today A31.0 - Pulmonary mycobacterial infection Medications: Changed From rifampin 150 mg PO 3XW 28 days 12 caps 6RF G47.33 - Obstructive sleep apnea (adult) (pediatric) To rifampin 150 mg PO 3XW 39 caps 6RF 90 days G47.33 - Obstructive sleep apnea (adult) (pediatric) Coding Level of Care Code Est Pt Level 4 (04106) Diagnoses Asthma-COPD overlap syndrome J44.9 Bronchiectasis J47.9 Nontuberculous mycobacterial disease of lung A31.0 Bronchiolitis J21.9 Pulmonary nodules R91.8 Cough R05.9 BALTAZAR (obstructive sleep apnea) G47.33 Pulmonary nodule R91.1 Time Spent (min) 18
== END 2023-03-17 14:24 | disposition home or self-care (01) ==
PROVIDERS: PCP Internal Medicine; Visit Provider Hospitalist
DX: J44.9 Chronic obstructive pulmonary disease, unspecified (principal); A31.0 Pulmonary mycobacterial infection; R91.8 Other nonspecific abnormal finding of lung field; R05.9 Cough, unspecified; G47.33 Obstructive sleep apnea (adult) (pediatric); R91.1 Solitary pulmonary nodule
CPT/HCPCS: 99214

== ENCOUNTER → 2023-03-17 13:43 | Outpatient (BNVA) | payer OTHER, SELFPAY | PROVIDERS: Visit Provider Hospitalist | DX: A31.0 Pulmonary mycobacterial infection (principal); J47.9 Bronchiectasis, uncomplicated; J21.9 Acute bronchiolitis, unspecified; R91.1 Solitary pulmonary nodule; G47.33 Obstructive sleep apnea (adult) (pediatric); Z87.891 Personal history of nicotine dependence | CPT/HCPCS: 99212 ==

== ENCOUNTER 2023-03-19 14:49 | Outpatient (REF) | payer OTHER, SELFPAY ==
--- NOTE | ~2023-03-19 | MM_ITS ---
EXAMINATION: MM SCREENING DIGITAL BREAST TOMOSYNTHESIS, BILATERAL CLINICAL INFORMATION: Screening. Asymptomatic. COMPARISON: Mammography: 06/22/2021, 06/20/2020, 06/15/2019, and dating back to 2010. TECHNIQUE: Digital breast tomosynthesis is performed in both the craniocaudal and mediolateral oblique views along with computer-aided detection (CAD). Synthesized 2D images are generated from the tomosynthesis. FINDINGS: There are scattered areas of fibroglandular density (ACR BI-RADS breast composition Category b). There are increasing loosely grouped predominantly punctate calcifications in the lateral proximal 3:00 axis of the left breast, posterior depth. These are most likely benign but have slowly been increasing in number over time. Magnification views are warranted. There are otherwise stable dystrophic appearing scattered calcifications bilaterally. There are mild bilateral vascular calcifications. Intramammary lymph node in the far posterior inferior medial right breast is unchanged. Stable oval lymph node in the upper outer left breast posterior one third is also stable. No suspicious masses, or areas of architectural distortion. MM/MM tomosynthesis screening BI IMPRESSION: Grouped calcifications approximately 3:00 left breast require magnification views in the CC and ML projections. These have a largely benign appearance but have been increasing over sequential exams. There are no suspicious findings in the right breast. There are stable benign findings in both breasts. ASSESSMENT: BI-RADS BI-RADS 0 - Incomplete: Needs additional Imaging. RECOMMENDATION: 1. Additional views of the left breast for calcifications. 2. Radiology department staff will contact the patient for additional imaging. 1 year F/U This examination should not preclude the clinical evaluation of a suspicious palpable abnormality.
== END 2023-03-19 14:50 | disposition home or self-care (01) ==
LOC: HO.MAMMO 14:49
PROVIDERS: PCP Internal Medicine; Visit Provider Internal Medicine
DX: Z12.31 Encounter for screening mammogram for malignant neoplasm of breast (principal)
CPT/HCPCS: 77063; 77067

== ENCOUNTER → 2023-03-19 15:15 | Outpatient (BNV) | payer OTHER, SELFPAY | PROVIDERS: PCP Internal Medicine; Visit Provider Radiology Diagnostic Radiology | DX: Z12.31 Encounter for screening mammogram for malignant neoplasm of breast (principal) | CPT/HCPCS: 77063; 77067 ==

== ENCOUNTER → 2023-03-25 10:46 | Outpatient (REF) | payer OTHER, SELFPAY ==
--- NOTE | 2023-03-25 10:53 | ECG_ITS ---
Test Reason : COPD Blood Pressure : / mmHG Vent. Rate : 063 BPM Atrial Rate : 063 BPM P-R Int : 132 ms QRS Dur : 082 ms QT Int : 374 ms P-R-T Axes : -06 032 033 degrees QTc Int : 382 ms Normal sinus rhythm Normal ECG When compared with ECG of 14-JUN-2022 09:30, No significant change was found Referred By: Yusef Mccarthy Electronically Signed By:FLORIDA RUEDA
== END ==
LOC: HO.CARD 10:46
PROVIDERS: PCP Internal Medicine; Visit Provider Hospitalist
DX: J44.9 Chronic obstructive pulmonary disease, unspecified (principal)
CPT/HCPCS: 93005

== ENCOUNTER 2023-04-17 14:00 | Outpatient (REF) | payer OTHER, SELFPAY ==
--- NOTE | ~2023-04-17 | MM_ITS ---
EXAMINATION: MM DIAGNOSTIC DIGITAL MAMMOGRAPHY, LEFT CLINICAL INFORMATION: Follow-up increasing calcifications upper outer quadrant left breast. COMPARISON: Mammography: Screening mammography 03/19/2023. 06/22/2021, 06/20/2020, and 06/10/2018. TECHNIQUE: Digital mammography is performed in the following views: 2-D spot magnification views left ML view and left CC views x2. FINDINGS: There are scattered areas of fibroglandular density (ACR BI-RADS breast composition Category b). There are pleomorphic somewhat loosely grouped calcifications in the upper outer left breast, which are moderately suspicious, and biopsy is recommended. These have been increasing in number over time. On the mediolateral view there is an overlying small lymph node with prominent fatty hilum. There are no additional suspicious findings identified in the left breast. There are early vascular calcifications present. Findings were discussed with the patient at the time of the examination. MM/MM added views LT IMPRESSION: Suspicious calcifications upper outer left breast, for which stereotactic biopsy is recommended. Findings and recommendations discussed with the patient in detail. ASSESSMENT: BI-RADS BI-RADS 4 - Suspicious finding RECOMMENDATION: Biopsy recommended
== END 2023-04-17 14:01 | disposition home or self-care (01) ==
LOC: HO.MAMMO 14:00
PROVIDERS: PCP Internal Medicine; Visit Provider Nurse Practitioner Family
DX: R92.1 Mammographic calcification found on diagnostic imaging of breast (principal)
CPT/HCPCS: 77065

== ENCOUNTER → 2023-04-17 14:30 | Outpatient (BNV) | payer OTHER, SELFPAY | PROVIDERS: PCP Internal Medicine; Visit Provider Radiology Diagnostic Radiology | DX: R92.1 Mammographic calcification found on diagnostic imaging of breast (principal) | CPT/HCPCS: 77065 ==

== ENCOUNTER 2023-04-22 07:48 | Outpatient (AMB) | payer OTHER, SELFPAY ==
--- NOTE | 2023-04-22 08:23 | A.OFFVIS_ITS ---
Intake Vital Signs 04/22/23 08:24 Height 5 ft 1 in Weight 206 lb BMI 38.9 BP 183/71 H Blood Pressure Location Lt brachial Position Sitting Pulse 67 Intake Visit Reasons: St Bx Intake Note: Patient referred for stereo bx on Lt breast. Recent mammo on 04-17-23. Reports on and off discomfort on lt breast. Feels better without bra. No personal or family hx of breast ca. 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 Accompanied by: niece Lo Allergies aspirin [From Percodan] Allergy (Severe, Verified 04/22/23 08:27) Disoriented lisinopril Allergy (Severe, Verified 04/22/23 08:27) Nervous oxycodone [From Percodan] Allergy (Severe, Verified 04/22/23 08:27) Disoriented Penicillins [PENICILLINS] Allergy (Severe, Verified 04/22/23 08:27) Hives codeine Adverse Reaction (Severe, Verified 04/22/23 08:27) Nausea and Vomiting morphine [MORPHINE] Adverse Reaction (Severe, Verified 04/22/23 08:27) NAUSEA & VOMITING ENVIRONMENTAL Allergy (Intermediate, Uncoded 04/22/23 08:27) RUNNY NOSE/WATERY EYES Darvocet A500 Adverse Reaction (Severe, Uncoded 04/22/23 08:27) disoriented Medication List - Last Reconciled 04/22/23 by George Shepard MD albuterol sulfate 2.5 mg (3 mL) inhalation BID 30 days atorvastatin 20 mg PO DAILY blood pressure monitor (Blood Pressure Kit) As directed blood sugar diagnostic (FreeStyle Lite Strips) As directed check the QD blood-glucose meter (FreeStyle Lite Meter kit) As directed [CANE As directed] cholecalciferol (vitamin D3) 25 mcg PO DAILY CPAP (CPAP Machine/Device) As directed dorzolamide-timolol 22.3-6.8 mg/mL mL ophthalmic (eye) ethambutol 400 mg PO 3XW 90 days fluticasone propionate 50 mcg/actuation (Flonase Allergy Relief) 2 sprays intranasal DAILY iapxyiyppbd-mkaevuptp-czpbonzs 200-62.5-25 mcg (Trelegy Ellipta) 1 inh inhalation DAILY 30 days halobetasol propionate 0.05% 1 appl topical DAILY [Incontinence PADS As directed] lancets (FreeStyle Lancets) As directed check BS QD losartan 100 mg PO DAILY 90 days naproxen (EC-Naproxen) 500 mg PO BID nebulizers As directed nebulizers As directed oxybutynin chloride 5 mg PO BID pantoprazole 40 mg PO DAILY 90 days quetiapine 25 mg PO DAILY PRN rifampin 150 mg PO 3XW 90 days Ventolin HFA 90 mcg/actuation (albuterol sulfate) 1 puff PO QID PRN NS HPI HPI Comments History of Present Illness Details Patient presents with her niece for evaluation of a mammographically identified microcalcifications on screening studies Of left breast. Patient self has no breast issues or complaints. She does not do regular breast exams. She has annual breast exams by her private physician as well as annual radiographic/screening mammograms. Family history negative breast cancer. Patient is postmenopausal. Chart was reviewed and patient evaluated [facility] Medical History 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 Bronchiectasis Bronchiolitis Osteoarthritis Mixed stress and urge urinary incontinence Obesity (BMI 30-39.9) Obstructive sleep apnea Vitamin D deficiency Type 2 diabetes mellitus with hyperglycemia Asthma Glaucoma Arthritis GERD (gastroesophageal reflux disease) History of kidney stones Hypercholesteremia HTN (hypertension) Surgical History History of extraction of renal calculus History of breast biopsy Hx of umbilical hernia repair History of cystoscopy History of cholecystectomy History of colonoscopy H/O: hysterectomy Family History Father Prostate cancer Mother Mental problem Son No problems noted. Son No problems noted. Daughter No problems noted. Social History Housing: Apartment Alcohol intake: never Patient Tobacco Use Status: Former Tobacco user Tobacco use type: Cigarette Years Smoked: 45 years Quit 05/2007 e-Cigarette/Vaping Use: Never Used Second Hand Smoke Exposure: No service: No Current occupational status: disabled Cognitive needs: No Hearing needs: No Vision needs: No Physical Exam Vital Signs: Last Vital Signs Pulse 67 04/22/23 08:24 BP 183/71 H 04/22/23 08:24 BMI result Body Mass Index 38.9 Const Other: Corpulent female in no acute distress. Chest Other: Bilateral breast exam demonstrate large pendulous breasts with no obvious mass, discharge, adenopathy, or skin changes bilaterally. Negative periclavicular cervical and axillary adenopathy bilaterally GI Other: Abdomen soft, corpulent benign Assessment & Plan Assessment & Plan (1) Microcalcification of left breast on mammogram: Code(s): R92.0 - Mammographic microcalcification found on diagnostic imaging of breast Plan: I reviewed the patient and her niece the radiographic findings. The patient is tentatively scheduled for stereotactic biopsy of left breast lesion tomorrow. Patient will see me in few days time for follow-up after this to review pathology report and direct further therapy. All questions were answered. Orders: Orders MM stereotactic biopsy LT 04/23/23 R92.0 - Mammographic microcalcification found on diagnostic imaging of breast Coding Level of Care Code New Pt Level 4 (08854) Diagnoses Microcalcification of left breast on mammogram R92.0
[2023-04-22 08:24] VITALS: BP 183/71; PULSE 67; BMI 38.9
== END 2023-04-22 08:47 | disposition home or self-care (01) ==
PROVIDERS: PCP Internal Medicine; Visit Provider Surgery
DX: R92.0 Mammographic microcalcification found on diagnostic imaging of breast (principal)
CPT/HCPCS: 99204

== ENCOUNTER → 2023-04-22 07:48 | Outpatient (BNVA) | payer OTHER, SELFPAY | PROVIDERS: PCP Internal Medicine; Visit Provider Surgery ==

== ENCOUNTER 2023-04-23 07:49 | Outpatient (REF) | payer OTHER, SELFPAY ==
--- NOTE | ~2023-04-23 | MM_ITS ---
EXAMINATION: STEREOTACTIC TOMOSYNTHESIS-GUIDED VACUUM-ASSISTED BREAST BIOPSY, LEFT SPECIMEN RADIOGRAPH, LEFT POST PROCEDURE DIGITAL MAMMOGRAM, LEFT CLINICAL INFORMATION: 78-year-old female, suspicious calcifications left breast upper outer quadrant posterior one third.. COMPARISON: Mammography dated 03/19/2023, 04/17/2023, 06/22/2021, 06/20/2020, 06/15/2019, and dating back to 2010. TECHNIQUE/PROCEDURE: Informed consent was obtained from the patient after discussion of the benefits, risks, and alternatives to biopsy today. Patient appeared to understand. Gave opportunity for questions. Patient signed consent form. BIOPSY TABLE: [employer] Affirm Prone Biopsy System. LESION: Calcifications upper lateral left breast, posterior one third. LOCAL ANESTHESIA: 4 mL 1% lidocaine; 10 mL 1% lidocaine with epinephrine. DERMATOTOMY: Single skin harjit dermatotomy performed. NEEDLE: [employer] 9-gauge vacuum assisted core biopsy device. APPROACH: lateral medial. TARGETING: Combination of digital breast tomosynthesis and stereotactic digital mammography used for targeting. CORES: 7. CLIP: Top hat-shaped. SPECIMEN RADIOGRAPH: Specimen radiograph is taken in separate room using digital mammography. Multiple of the index calcifications are in the excised cores. 7 cores submitted. POST PROCEDURE UNILATERAL DIGITAL MAMMOGRAM: The post biopsy mammogram is performed in separate room using separate digital mammography equipment from the biopsy procedure. CC and ML 2-D views are obtained. The breasts are heterogeneously dense, which may obscure small masses (breast composition category: c). The clip marker is in accurate and expected position. The calcifications are markedly decreased at the biopsy site. No gross hematoma. The patient tolerated the procedure well. No immediate complications. Home instructions reviewed with the patient. Final pathology results are pending. MM/MM stereotactic biopsy LT IMPRESSION: 1. Digital tomosynthesis-guided core biopsy left breast calcifications lateral aspect with clip placement. 2. Specimen radiograph taken and post procedure mammogram. There is satisfactory and accurate positioning of the biopsy clip. 3. Final pathology results pending. An addendum report will be issued.
[2023-04-23] MEDS: Lidocaine HCl 1 % 20 ML VIAL 4 ML SUBCUT (09:32)
[2023-04-23] MEDS: Sodium Bicarbonate 8.4% 50 MEQ/50 ML VIAL SUBCUT (09:34)
[2023-04-23] MEDS: Lidocaine HCl 1% PF/Epi 1:200,000 30 ML VIAL 20 ML SUBCUT (09:50)
== END 2023-04-23 07:50 | disposition home or self-care (01) ==
LOC: HO.MAMMO 07:49
PROVIDERS: PCP Nurse Practitioner Family; Visit Provider Surgery
DX: R92.0 Mammographic microcalcification found on diagnostic imaging of breast (principal)
CPT/HCPCS: 19081; 88305; A4648

== ENCOUNTER → 2023-04-23 08:00 | Outpatient (BNV) | payer OTHER, SELFPAY | PROVIDERS: PCP Nurse Practitioner Family; Visit Provider Radiology Diagnostic Radiology | DX: R92.1 Mammographic calcification found on diagnostic imaging of breast (principal) | CPT/HCPCS: 19081 ==

== ENCOUNTER 2023-04-29 08:53 | Outpatient (AMB) | payer OTHER, SELFPAY ==
[2023-04-29 09:17] VITALS: BP 157/67; PULSE 68; BMI 39.3
--- NOTE | 2023-04-29 09:17 | MHC.OFFVIS ---
Intake Vital Signs 04/29/23 09:17 Height 5 ft 1 in Weight 208 lb BMI 39.3 BP 157/67 H Blood Pressure Location Rt brachial Position Sitting Pulse 68 Intake Visit Reasons: Left breast calcifications, biopsy results Intake Note: Patient here to discuss Lt breast bx results. Feels anxious this morning. 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 Accompanied by: Friend Allergies aspirin [From Percodan] Allergy (Severe, Verified 04/29/23 09:18) Disoriented lisinopril Allergy (Severe, Verified 04/29/23 09:18) Nervous oxycodone [From Percodan] Allergy (Severe, Verified 04/29/23 09:18) Disoriented Penicillins [PENICILLINS] Allergy (Severe, Verified 04/29/23 09:18) Hives codeine Adverse Reaction (Severe, Verified 04/29/23 09:18) Nausea and Vomiting morphine [MORPHINE] Adverse Reaction (Severe, Verified 04/29/23 09:18) NAUSEA & VOMITING ENVIRONMENTAL Allergy (Intermediate, Uncoded 04/29/23 09:18) RUNNY NOSE/WATERY EYES Darvocet A500 Adverse Reaction (Severe, Uncoded 04/29/23 09:18) disoriented Medication List - Last Reconciled 04/29/23 by George Shepard MD albuterol sulfate 2.5 mg (3 mL) inhalation BID 30 days atorvastatin 20 mg PO DAILY blood pressure monitor (Blood Pressure Kit) As directed blood sugar diagnostic (FreeStyle Lite Strips) As directed check the BS QD blood-glucose meter (FreeStyle Lite Meter kit) As directed [CANE As directed] cholecalciferol (vitamin D3) 25 mcg PO DAILY CPAP (CPAP Machine/Device) As directed dorzolamide-timolol 22.3-6.8 mg/mL mL ophthalmic (eye) ethambutol 400 mg PO 3XW 90 days fluticasone propionate 50 mcg/actuation (Flonase Allergy Relief) 2 sprays intranasal DAILY idalymsssqo-kndpokfbc-sxblpufg 200-62.5-25 mcg (Trelegy Ellipta) 1 inh inhalation DAILY 30 days halobetasol propionate 0.05% 1 appl topical DAILY [Incontinence PADS As directed] lancets (FreeStyle Lancets) As directed check BS QD losartan 100 mg PO DAILY 90 days naproxen (EC-Naproxen) 500 mg PO BID nebulizers As directed nebulizers As directed oxybutynin chloride 5 mg PO BID pantoprazole 40 mg PO DAILY 90 days quetiapine 25 mg PO DAILY PRN rifampin 150 mg PO 3XW 90 days Ventolin HFA 90 mcg/actuation (albuterol sulfate) 1 puff PO QID PRN NS HPI HPI Comments History of Present Illness Details Patient presents with a friend status post left stereotactic breast biopsy. She has minimal and postprocedure discomfort. Pathology is benign. 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 Bronchiectasis Bronchiolitis Osteoarthritis Mixed stress and urge urinary incontinence Obesity (BMI 30-39.9) Obstructive sleep apnea Vitamin D deficiency Type 2 diabetes mellitus with hyperglycemia Asthma Glaucoma Arthritis GERD (gastroesophageal reflux disease) History of kidney stones Hypercholesteremia HTN (hypertension) Surgical History History of extraction of renal calculus History of breast biopsy Hx of umbilical hernia repair History of cystoscopy History of cholecystectomy History of colonoscopy H/O: hysterectomy Family History Father Prostate cancer Mother Mental problem Son No problems noted. Son No problems noted. Daughter No problems noted. Social History Housing: Apartment Alcohol intake: never Patient Tobacco Use Status: Former Tobacco user Tobacco use type: Cigarette Years Smoked: 45 years Quit 05/2007 e-Cigarette/Vaping Use: Never Used Second Hand Smoke Exposure: No service: No Current occupational status: disabled Cognitive needs: No Hearing needs: No Vision needs: No Physical Exam Vital Signs: Last Vital Signs Pulse 68 04/29/23 09:17 BP 157/67 H 04/29/23 09:17 BMI result Body Mass Index 39.3 Chest Other: Biopsy site is clean dry and intact with some mild ecchymosis which is resolving. Assessment & Plan Assessment & Plan (1) Microcalcification of left breast on mammogram: Code(s): R92.0 - Mammographic microcalcification found on diagnostic imaging of breast Plan: Current plan is see the patient 6 months time with bilateral screening mammography post biopsy. In the meantime, she is encouraged to do self-breast exams. Should patient have any questions or findings on self exam, she is instructed to contact the office or will otherwise see me as directed Orders: Orders MM screening mammo BI 6 Months R92.0 - Mammographic microcalcification found on diagnostic imaging of breast Coding Level of Care Code Est Pt Level 4 (59605) Diagnoses Microcalcification of left breast on mammogram R92.0
== END 2023-04-29 09:26 | disposition home or self-care (01) ==
PROVIDERS: PCP Internal Medicine; Visit Provider Surgery
DX: R92.0 Mammographic microcalcification found on diagnostic imaging of breast (principal)
CPT/HCPCS: 99214

== ENCOUNTER → 2023-04-29 08:53 | Outpatient (BNVA) | payer OTHER, SELFPAY | PROVIDERS: PCP Internal Medicine; Visit Provider Surgery | DX: R92.0 Mammographic microcalcification found on diagnostic imaging of breast (principal); Z98.890 Other specified postprocedural states | CPT/HCPCS: 99212 ==

== ENCOUNTER 2023-05-29 08:58 | Outpatient (REF) | payer OTHER, SELFPAY ==
[2023-05-29 09:16] LABS: MANUAL DIFF FLAG NO
[2023-05-29 09:32] LABS: Basophils Percent Auto 0.5 % (0-2); Eosinophils Absolute Auto 0.2 X10*3/uL (0.0-0.4); Eosinophils Percent Auto 4.4 % (0-4); Hematocrit 39.5 % (37.0-47.0); Imm Gran Abs Auto 0.01 X10*3/uL (0.00-0.03); Imm Gran Pct Auto 0.2 % (0.0-0.4); Lymphocytes Absolute Auto 1.7 X10*3/uL (1.2-4.9); Lymphocytes Percent Auto 31.1 % (20-40); Mean Corpuscular HGB Conc 32.9 g/dl (31.0-35.0); Mean Corpuscular Hemoglobin 29.7 pg (27.0-33.0); Mean Corpuscular Volume 90.2 fL (80.0-98.0); Mean Platelet Volume 9.3 fL (9.4-12.3); Monocytes Absolute Auto 0.4 X10*3/uL (0.1-1.2); Monocytes Percent Auto 7.9 % (2-11); Neutrophils Absolute Auto 3.1 x10*3/uL (2.0-8.3); Neutrophils Percent Auto 55.9 % (45-73); Platelet Count 246 X10*3/uL (160-400); Red Blood Count 4.38 X10*6/uL (4.20-5.50); Red Cell Distribution Width 12.8 % (11.0-16.0); White Blood Count 5.5 X10*3/uL (4.8-10.8)
[2023-05-29 10:09] LABS: Alanine Aminotransferase 14 U/L (0-31); Albumin Level 4.2 g/dL (3.5-5.0); Alkaline Phosphatase 132 U/L (39-117); Anion Gap 13 (12-20); Aspartate Amino Transferase 20 U/L (5-31); Bilirubin Direct 0.1 mg/dL (0.0-0.5); Bilirubin Total 0.3 mg/dL (0.0-1.0); Blood Urea Nitrogen 18 mg/dL (9-16); Carbon Dioxide 23 mmol/L (22-29); Chloride 108 mmol/L (96-108); Erythrocyte Sedimentation Rate 34 MM/HR (0-20); Estimated Glomerular Filt Rate > 60; Glucose Random 106 mg/dL (60-115); Potassium 4.4 mmol/L (3.3-5.1); Sodium 140 mmol/L (135-145); Total Protein 7.4 g/dL (6.5-8.0)
[2023-05-29 10:44] LABS: Appearance Urine Clear; Color Urine Yellow; Glucose Urine UA Negative (Negative); Leukocyte Esterase Urine Negative (Negative); Nitrite Urine Negative (Negative); PH 5.5 (5.0-9.0); Urine Blood Negative (Negative); Urine Ketones Negative (Negative); Urine Protein Negative (Neg-Trace)
== END 2023-05-29 08:59 | disposition home or self-care (01) ==
LOC: HO.LAB 08:58
PROVIDERS: Absent Provider Hospitalist; PCP Internal Medicine; Visit Provider Internal Medicine
DX: A31.0 Pulmonary mycobacterial infection (principal); N39.0 Urinary tract infection, site not specified
CPT/HCPCS: 36415; 80048; 80076; 81003; 85025; 85652

== ENCOUNTER 2023-06-04 12:28 | Outpatient (AMB) | payer OTHER, SELFPAY ==
--- NOTE | 2023-06-04 12:45 | A.OFFPC_ITS ---
Vital Signs 06/04/23 12:47 Height 5 ft 1 in Weight 206 lb 6 oz BMI 39.0 BP 128/74 Blood Pressure Location Lt brachial Position Sitting Pulse 87 Pulse Source Pulse Oximeter Pulse Oximetry (%) 97 Oxygen Delivery Method Room Air Intake Visit Reasons: HTN, Cholesterol, DM Intake Note: Patient is here to follow up on HTN, DM, Cholesterol. 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: Not Required per policy Accompanied by: Self / Same As Patient Allergies aspirin [From Percodan] Allergy (Severe, Verified 06/04/23 12:46) Disoriented lisinopril Allergy (Severe, Verified 06/04/23 12:46) Nervous oxycodone [From Percodan] Allergy (Severe, Verified 06/04/23 12:46) Disoriented Penicillins [PENICILLINS] Allergy (Severe, Verified 06/04/23 12:46) Hives codeine Adverse Reaction (Severe, Verified 06/04/23 12:46) Nausea and Vomiting morphine [MORPHINE] Adverse Reaction (Severe, Verified 06/04/23 12:46) NAUSEA & VOMITING ENVIRONMENTAL Allergy (Intermediate, Uncoded 06/04/23 12:46) RUNNY NOSE/WATERY EYES Darvocet A500 Adverse Reaction (Severe, Uncoded 06/04/23 12:46) disoriented Tobacco use date assessed: 06/04/23 Fall risk assessment: No Falls in past year Last assessed Fall Risk: 06/04/23 Dental Screening Dental Screen Date: 06/04/23 Did you have a dental visit in the last 12 months?: Yes Did you have a dental problem in the last 6 months where you did not have access to dental care?: No Was dental information given to patient?: Patient has dentist HPI HTN, Cholesterol, DM HPI Details 78-year-old obese female with diabetes m ellitus obstructive sleep apnea GERD hypertension hypercholesterolemia generalized anxiety disorder asthma COPD overlap syndrome follows up with Pulmonary coming in for follow-up. Last seen in January 2023. Patient recently had some microcalcifications in the left breast plan of biopsy done April 2023 showing Fibroadenomatous change with sclerotic stroma and calcifications. -Focal columnar cell change and hyperpla palma without atypia. -Negative for malignancy or atypia. 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 placed on antibiotics has the APAP nebulizer, Acapella valve combination and azithromycin ethambutol and decrease in rifampin due to side effects patient had a CT scan this month.PAtient did see neurology- no alzheimers, no dementia PFSH Medical History 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 Bronchiectasis Bronchiolitis Osteoarthritis Mixed stress and urge urinary incontinence Obesity (BMI 30-39.9) Obstructive sleep apnea Vitamin D deficiency Type 2 diabetes mellitus with hyperglycemia Asthma Glaucoma Arthritis GERD (gastroesophageal reflux disease) History of kidney stones Hypercholesteremia HTN (hypertension) Surgical History History of extraction of renal calculus History of breast biopsy Hx of umbilical hernia repair History of cystoscopy History of cholecystectomy History of colonoscopy H/O: hysterectomy Family History Father Prostate cancer Mother Mental problem Son No problems noted. Son No problems noted. Daughter No problems noted. Social History Housing: Apartment Alcohol intake: never Patient Tobacco Use Status: Former Tobacco user Tobacco use type: Cigarette Years Smoked: 45 years Quit 05/2007 e-Cigarette/Vaping Use: Never Used Second Hand Smoke Exposure: No service: No Current occupational status: disabled Cognitive needs: Yes (cane) Hearing needs: No Vision needs: Yes (glasses) Questionnaire Thrive Questionnaire Date Thrive assessed: 08/26/22 ISHA-7 AMB Questionnaire ISHA-7 Date ISHA - 7 assessed: 08/26/22 Source: Developed by Drs. Eusebio Gates, Radha Burrows, Vincent Calderon and colleagues, with an educational patrick from [employer]. Physical exam (Primary Care) Vital Signs: Last Vital Signs Pulse 87 06/04/23 12:47 BP 128/74 06/04/23 12:47 Pulse Ox 97 06/04/23 12:47 Oxygen Delivery Method Room Air 06/04/23 12:47 BMI result Body Mass Index 39.0 Tobacco/Smoking Status: Tobacco use Status Tobacco use date assessed 06/04/23 06/04/23 12:54 Patient Tobacco Use Status Former Tobacco user 06/04/23 12:54 Tobacco use type Cigarette 06/04/23 12:54 e-Cigarette/Vaping Use Never Used 06/04/23 12:54 Thrive Assessment: Date of Thrive Assessment Date Thrive assessed 08/26/22 06/04/23 12:54 Const General: alert; No acute distress Eyes Conjunctivae: conjunctivae normal Resp Auscultation: clear to auscultation bilaterally Cardio Rate: regular rate Rhythm: regular rhythm GI Inspection: Yes normal to inspection Extrem General: Yes normal to inspection and No edema Results AMB Hemoglobin A1c AMB Hemoglobin A1c 5.5 % Last Edit by TAHIR Nuñez on 06/04/23 12:57 Results Reviewed Results Reviewed: Laboratory Last Values Hgb A1c (Clinic) 5.5 % (4.0-6.0) 06/04/23 12:44 Assessment and Plan Assessment & Plan (1) Microcalcification of left breast on mammogram: Code(s): R92.0 - Mammographic microcalcification found on diagnostic imaging of breast Plan: Biopsy-proven benign (2) Nontuberculous mycobacterial disease of lung: Code(s): A31.0 - Pulmonary mycobacterial infection Plan: Patient follows up with Pulmonary and has been placed on a Zithromax in combination FM be tall and rifampin (3) Asthma-COPD overlap syndrome: Code(s): J44.9 - Chronic obstructive pulmonary disease, unspecified Plan: Continue with inhaler (4) Obesity (BMI 30-39.9): Code(s): E66.9 - Obesity, unspecified Plan: Diet and exercise (5) Hypercholesteremia: Code(s): E78.00 - Pure hypercholesterolemia, unspecified Plan: Avoid fried foods, chicken skin, eggs, butter margarine, pastries and meat. Be it pork or beef they have a lot of cholesterol LDL goal of less than 130 and triglyceride of less than 150 patient needs blood work in July on atorvastatin 20 mg once a day (6) HTN (hypertension): Code(s): I10 - Essential (primary) hypertension Qualifiers: Hypertension type: essential hypertension Qualified Code(s): I10 - Essential (primary) hypertension Plan: Continue with blood pressure medication. Decrease salt intake and exercise patient is on losartan 100 mg once a day blood work requested (7) BALTAZAR (obstructive sleep apnea): Code(s): G47.33 - Obstructive sleep apnea (adult) (pediatric) Plan: Continue with the APAP as per Pulmonary (8) Type 2 diabetes mellitus with hyperglycemia: Comment: Dr. Oliver Code(s): E11.65 - Type 2 diabetes mellitus with hyperglycemia Qualifiers: Diabetes mellitus longterm insulin use: without buttermaker continuous churn use Qualified Code(s): E11.65 - Type 2 diabetes mellitus with hyperglycemia Plan: Decrease the amount of carbohydrate intake, pasta, bread, rice and potatoes are all sugar and that is aside from all the sweet stuff, remember that fruits are good but they are Sweet also. Hemoglobin A1c goal of less than 7.0 diet controlled (9) GERD (gastroesophageal reflux disease): Code(s): K21.9 - Gastro-esophageal reflux disease without esophagitis Qualifiers: Esophagitis presence: without esophagitis Qualified Code(s): K21.9 - Gastro-esophageal reflux disease without esophagitis Plan: Avoid the foods that causes that usually spicy foods, tomato products, juices, coffee, soda and foods that your sensitive to. After eating do not lie down, allow 3-4 hours before in lie down. And keep the head of bed above 30 degrees to avoid the acid from going up. Orders: Orders AMB Hemoglobin A1c Today E11.65 - Type 2 diabetes mellitus with hyperglycemia Complete Blood Count Auto Diff 3 Months E11.65 - Type 2 diabetes mellitus with hyperglycemia Comprehensive Met. Panel 3 Months E11.65 - Type 2 diabetes mellitus with hyperglycemia Microalbumin, Random (w Creat) 3 Months E11.65 - Type 2 diabetes mellitus with hyperglycemia Thyroid Stimulating Hormone 3 Months E11.65 - Type 2 diabetes mellitus with hyperglycemia Lipid Panel 3 Months E11.65 - Type 2 diabetes mellitus with hyperglycemia, E78.00 - Pure hypercholesterolemia, unspecified Creatinine Urine 3 Months E11.65 - Type 2 diabetes mellitus with hyperglycemia Free T4 (Free Thyroxine) 3 Months E11.65 - Type 2 diabetes mellitus with hyperglycemia Vitamin B12 and Folate 3 Months E11.65 - Type 2 diabetes mellitus with hyperglycemia Vitamin D 25-OH Total 3 Months E11.65 - Type 2 diabetes mellitus with hyperglycemia Hemoglobin A1c 3 Months E11.65 - Type 2 diabetes mellitus with hyperglycemia Coding Level of Care Code Est Pt Level 4 (44098) Diagnoses Microcalcification of left breast on mammogram R92.0 Nontuberculous mycobacterial disease of lung A31.0 Asthma-COPD overlap syndrome J44.9 Obesity (BMI 30-39.9) E66.9 Hypercholesteremia E78.00 Essential hypertension I10 Hypertension type: essential hypertension BALTAZAR (obstructive sleep apnea) G47.33 Type 2 diabetes mellitus with hyperglycemia, without long-term current use of insulin E11.65 Diabetes mellitus buttermaker continuous churn insulin use: without longterm use Gastroesophageal reflux disease without esophagitis K21.9 Esophagitis presence: without esophagitis
[2023-06-04 12:47] VITALS: BP 128/74; PULSE 87; O2SAT 97; BMI 39.0
== END 2023-06-04 13:11 | disposition home or self-care (01) ==
PROVIDERS: PCP Internal Medicine; Visit Provider Internal Medicine
DX: E11.65 Type 2 diabetes mellitus with hyperglycemia (principal); A31.0 Pulmonary mycobacterial infection; J44.9 Chronic obstructive pulmonary disease, unspecified; R92.0 Mammographic microcalcification found on diagnostic imaging of breast; E66.9 Obesity, unspecified; E78.00 Pure hypercholesterolemia, unspecified; I10 Essential (primary) hypertension; G47.33 Obstructive sleep apnea (adult) (pediatric); K21.9 Gastro-esophageal reflux disease without esophagitis
CPT/HCPCS: 83036; 99214

== ENCOUNTER 2023-06-16 15:08 | Outpatient (REF) | payer OTHER, SELFPAY ==
--- NOTE | ~2023-06-16 | CT_ITS ---
EXAMINATION: CT CHEST WITHOUT CONTRAST CLINICAL INFORMATION: Solitary pulmonary nodule COMPARISON: CT chest from 05/03/2022 TECHNIQUE: Multidetector volumetric CT imaging of the chest was done. Axial MIP volume rendering provided. Sagittal and coronal reformatted images were obtained. This CT examination was performed using dose optimization techniques as appropriate, variously including the following: *Automated exposure control *Adjustment of mA and/or kV according to patient size (this includes techniques or standardized protocols for targeted exams where dose is matched to indication/reason for exam; i.e. extremities or head) *Use of iterative reconstruction technique DLP: 176 mGy-cm FINDINGS: LUNGS/PLEURA: Emphysematous changes. Redemonstration of bronchial thickening with peribronchial nodules in the tree-in-bud configuration with peripheral reticular nodular opacities. Similar-appearing bronchiectatic changes with consolidative foci along the inferior margin of the right middle lobe as well as lingula Redemonstration of bilateral pulmonary nodules for example in the left lung apex (series 5, image 93) smaller in size now measuring 5 mm, previously measuring 7 mm. Subpleural nodules along the lateral aspect of the right lower lobe are redemonstrated the largest measuring up to 4 mm, stable to decrease in size. No new enlarged or suspicious pulmonary nodules or masses are noted.. Central airways are patent. No pneumothorax. No large pleural effusion. MEDIASTINUM: Heart is not enlarged. No pericardial effusion. No coronary calcifications. Aorta is nonaneurysmal and demonstrates punctate atherosclerotic calcifications. Main pulmonary artery is not enlarged. No enlarged lymph nodes per size criteria. Because portions of the thyroid are unremarkable. AXILLA: No lymphadenopathy. UPPER ABDOMEN: Status post cholecystectomy. Partially visualized hypodense focus in the right renal interpolar region demonstrating fluid attenuation statistically representing a cyst. Colonic diverticulosis without acute diverticulitis. Small hiatal hernia. Hypodense focus in the left hepatic lobe redemonstrated measuring 1.6 cm, stable. OSSEOUS STRUCTURES: Multilevel degenerative changes of the thoracolumbar spine. CT/CT chest wo IV con IMPRESSION: 1. Redemonstration of bronchial thickening with peribronchial nodules in the tree-in-bud configuration with peripheral reticular nodular opacities. Similar-appearing bronchiectatic changes with consolidative foci along the inferior margin of the right middle lobe as well as lingula. Redemonstration of bilateral pulmonary nodules for example in the left lung apex smaller in size now measuring 5 mm, previously measuring 7 mm. Subpleural nodules along the lateral aspect of the right lower lobe are redemonstrated the largest measuring up to 4 mm, stable to decrease in size. No new enlarged or suspicious pulmonary nodules or masses are noted. 2. Status post cholecystectomy. 3. Partially visualized hypodense focus in the right renal interpolar region demonstrating fluid attenuation statistically representing a cyst. 4. Colonic diverticulosis without acute diverticulitis. 5. Small hiatal hernia. 6. Hypodense focus in the left hepatic lobe redemonstrated measuring 1.6 cm, stable.
== END 2023-06-16 15:09 | disposition home or self-care (01) ==
LOC: HO.CT 15:08
PROVIDERS: PCP Internal Medicine; Visit Provider Hospitalist
DX: R91.1 Solitary pulmonary nodule (principal)
CPT/HCPCS: 71250

== ENCOUNTER 2023-06-30 13:25 | Outpatient (AMB) | payer OTHER, SELFPAY ==
[2023-06-30 13:52] VITALS: PULSE 73; O2SAT 96; BMI 38.2
--- NOTE | 2023-06-30 13:52 | A.OFFVIS_ITS ---
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 Required: No Allergies aspirin [From Percodan] Allergy (Severe, Verified 06/30/23 13:54) Disoriented lisinopril Allergy (Severe, Verified 06/30/23 13:54) Nervous oxycodone [From Percodan] Allergy (Severe, Verified 06/30/23 13:54) Disoriented Penicillins [PENICILLINS] Allergy (Severe, Verified 06/30/23 13:54) Hives codeine Adverse Reaction (Severe, Verified 06/30/23 13:54) Nausea and Vomiting morphine [MORPHINE] Adverse Reaction (Severe, Verified 06/30/23 13:54) NAUSEA & VOMITING ENVIRONMENTAL Allergy (Intermediate, Uncoded 06/30/23 13:54) RUNNY NOSE/WATERY EYES Darvocet A500 Adverse Reaction (Severe, Uncoded 06/30/23 13:54) disoriented HPI HPI Comments History of Present Illness Details The patient is a 78-year-old woman former smoker who apparently was in usual state health until the summer when she was vacationing in [place]. She started developing a significant cough moderate to severe. She would to get evaluated and tested. She tested negative for COVID-19. Part of the evaluation she had a chest x-ray that was abnormal. She did come back to the area. The patient again was evaluated by primary care doctor regarding her significant cough. Therefore she underwent a chest x-ray and subsequently a CT scan of the chest that was done May. Based on the abnormal findings she was referred to Pulmonary. Patient states that her coughing spells are very significant. Therefore croupy in nature and sometimes is productive other times is not productive. She has not taken any antibiotics at this time. She quit smoking many years ago. We did personally review her CT scan of the chest in the office. She appears to have tree in budding suggesting of bronchiolitis. This is bilaterally involving the upper lung zones and also the mid right middle lobe in the lingula. She does have evidence of nodular disease in addition to bronchiectatic changes and airspace disease. The findings his suggesting of a smoldering lower respiratory infection. her cough appears to be more consistent with laryngotracheitis. It is likely that this is a different etiology than the findings in her chest. The patient denies being exposed to anybody with tuberculosis. At this point will have the patient undergo blood work. I do e ncourage the patient to undergo additional diagnostic testing. The patient will go for bronchoscopy at this time. 07/09/2021 the patient is here for a pulmonary follow-up visit. Overall the patient has been doing better. Her cough has subsided some. She did undergo a bronchoscopy. Her cultures were negative for any bacterial infections. Her cytology was negative for any malignancies. Which still waiting for the AFB cultures. The patient's CT scan demonstrates evidence of bronchiectasis and tree-in-bud in suggestive of a smoldering infection such as nontuberculous mycobacteria infection. Her T spot was negative. The patient is bronchoscopy also demonstrated some degree of tracheobronchomalacia. This likely corresponds to her coughing sometimes barky in nature. At this point the patient does not benefit from any surgical interventions for this. Therefore, at this point will continue while awaiting the mycobacterial cultures. She continues use the cough syrup with good suppression of her cough. regarding her blood work she did have allergy testing done demonstrating allergies to dust mites. Her IgE level was also elevated at 176. her immune system appears to be stable with normal immunoglobulin levels otherwise. 10/18/2021 the patient is here for a pulm onary follow-up visit. Overall she is feeling well. Back in June she did have abdominal discomfort in worsening respiratory symptoms. She had subsequently recovered from that illness. Subsequently after that last week she had a bout of coughing and chest tightness and asthma. She tried using her nebulizer but was not working. Likely to be was messed up. I will provide with new tubing. In the meantime the patient needs to continue her nebulized therapy with her CPT with Acapella valve to clear out mucus secretions it to avoid too much mucus plugging. 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 Explained to the patient that the treatment for this bacteria will be at least 15 months and will require 3 different antibiotics. Clinically she is doing well at this time and I do not believe that she needs to be on therapy. However, will reassess her CT scan in May 2022 and assess her pulmonary nodules and bronchiectasis. If there is interval worsening of disease will will consider treatment at that time. 05/24/2022 the patient is here for a pulmonary follow-up visit. Overall she continues to do about the same. Still having episodes of coughing. Sometimes coughing spells. At times she does get some chest congestion. We did talk about the CPT with the Acapella valve try to help with mucus plugging. Her cough is moderate severity. She did have a repeat CT scan of the chest demonstrating some waxing waning pulmonary disease. Mapping appears to be slightly worse. Therefore there appears to be progression of the mycobacterial lung disease. At this point will go ahead and start her on treatment for non tuberculosis mycobacterial infection. the patient will have follow-up blood work and EKG after she initiates treatment and will follow-up in the office to see she is responding to therapy. Will start her on 3 medications that she will use 3 times a week. we will adjust medications accordingly depending on her response to therapy. 08/26/2022 the patient is here for a pulm onary follow-up visit. The patient continues to episodes of coughing and shortness of breath. She is also having episodes of wheezing. Moderate severity. 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 Unfortunately she did not understand the instructions based on the fact that she took the medicine only 4 months and then she stopped it. She did have refills although she states that she does not. I will resend the medications to her pharmacy. At this point her daughter is with her and I confirm with daughter that I did send refills in that I will send the medication again to the pharmacy and she is to continue t aking it. The patient stands the therapies at least for a year if he went to a retic aid this bacteria. We did also review her CT scan of the chest demonstrating the pulmonary nodules along with bronchiectatic changes in along with the tree-in-bud all changes consistent with her mycobacterial disease. The patient also is having issues with daytime drowsiness. She may have had a sleep study in the past. Although is probably more than a year. She does have daytime drowsiness and does have issues with her memory. Her [place] score is elevated 06/20. Will request a repeat home sleep study in order to address the question of her sleep apnea issues. The patient also was supposed to have an Acapella valve. I did reach out to [facility] to see if they can send this to her. In meantime a recent prescription. I believe that they will try to reach out to her and they may have been some miscommunication on the phone. Therefore will see resubmit for the home sleep study and also recently for the Acapella valve and also recent her medications. When she comes back in 3 months will repeat her blood work and also plan to repeat her CT scan to follow-up with the pulmonary nodules. 10/21/2022 the patient is here for a pulm onary follow-up visit. She is tolerating the antimycobacterial therapy. Although getting nauseous and also of tea. He feels like he gets more symptomatic with rifampin. I did advise her to cut down to 1 tablet daily with hopes that she can tolerated better. She still has issues she can stop it altogether. She will go ahead and recheck her sputum for AFB and also request blood work to make sure that she is not developing any adverse effects from the medication. We did review her last CT scan of the chest demonstrating the bronchiectatic changes and tree in budding along with pulmonary nodules which is the manifestations of the smoldering infection. She is also complaining of increasing chest tightness and wheezing. She has been on Advair. Will go ahead and optimize therapy to Trelegy inhaler in order to provide better coverage. In addition to this the patient continues to have daytime drowsiness. Her [place] score is elevated 11/24. We did review her last sleep study demonstrating [id number] sleep apnea with an AHI of 13 events an hour. The patient needs to start CPAP therapy at this time. 06/30/2023 the patient is here for a pulmonary follow-up visit. Overall the patient has been doing well. She is tolerating the antimicrobial therapy for the mycobacterial disease. She is taking medicine 3 times a week. Her cough is better and respiratory symptoms also improved. We did review her CT scan of the chest that she had in May 2023 demonstrating interval improvement of the nodular densities. She still has some treating budding but overall improved compared to her previous CT scan. This is all reassuring. Since the patient is tolerating therapy and since she still has changed send a CT scan will go ahead and continue the current therapy till October and at that point decide if she is still doing well to switch over to monotherapy. Regards a CPAP the CPAP therapy continues to be affecting beneficial. She finally found a mask that she is comfortable with that is the F30 medium mask. Although she is been getting the wrong mask from the [employer] company. I did call the [employer] company and also provide her a new script but the right mask. Hopefully she can exchange the mask to the right 1. should continue using the therapy for more than 4 hours a night. The patient otherwise is without any other complaints. Will follow-up in October and at that point decide on further changes of her antimicrobial therapy. 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 Bronchiectasis Bronchiolitis Osteoarthritis Mixed stress and urge urinary incontinence Obesity (BMI 30-39.9) Obstructive sleep apnea Vitamin D deficiency Type 2 diabetes mellitus with hyperglycemia Asthma Glaucoma Arthritis GERD (gastroesophageal reflux disease) History of kidney stones Hypercholesteremia HTN (hypertension) Surgical History History of extraction of renal calculus History of breast biopsy Hx of umbilical hernia repair History of cystoscopy History of cholecystectomy History of colonoscopy H/O: hysterectomy Family History Father Prostate cancer Mother Mental problem Son No problems noted. Son No problems noted. Daughter No problems noted. Social History Housing: Apartment Alcohol intake: never Patient Tobacco Use Status: Former Tobacco user Tobacco use type: Cigarette Years Smoked: 45 years Quit 05/2007 e-Cigarette/Vaping Use: Never Used Second Hand Smoke Exposure: No service: No Current occupational status: disabled Cognitive needs: Yes (cane) Hearing needs: No Vision needs: Yes (glasses) Physical Exam Vital Signs: Last Vital Signs Pulse 73 06/30/23 13:52 Pulse Ox 96 06/30/23 13:52 Oxygen Delivery Method Room Air 06/30/23 13:52 BMI result Body Mass Index 38.2 Const General: alert Neck Neck: Yes normal visual inspection, Yes full ROM and Yes no lymphadenopathy Chest Chest palpation & inspection: normal inspection of the chest Resp Auscultation: diminished lung sounds Cardio Rate: regular rate Rhythm: regular rhythm Heart sounds: S1 normal heart sound present and S2 normal heart sound present GI Palpation (GI): Soft to palpation and nontender Auscultation: normal bowel sounds Skin General skin exam: rashes and/or lesions noted Assessment & Plan Assessment & Plan (1) Asthma-COPD overlap syndrome: Code(s): J44.9 - Chronic obstructive pulmonary disease, unspecified (2) Bronchiectasis: Code(s): J47.9 - Bronchiectasis, uncomplicated Qualifiers: Bronchiectasis type: uncomplicated Qualified Code(s): J47.9 - Bronchiectasis, uncomplicated (3) Nontuberculous mycobacterial disease of lung: Code(s): A31.0 - Pulmonary mycobacterial infection (4) Bronchiolitis: Code(s): J21.9 - Acute bronchiolitis, unspecified (5) Pulmonary nodules: Comment: April 2021 right upper and left lower Code(s): R91.8 - Other nonspecific abnormal finding of lung field (6) Cough: Code(s): R05.9 - Cough, unspecified Qualifiers: Cough type: chronic Qualified Code(s): R05.3 - Chronic cough (7) BALTAZAR (obstructive sleep apnea): Code(s): G47.33 - Obstructive sleep apnea (adult) (pediatric) (8) Pulmonary nodule: Code(s): R91.1 - Solitary pulmonary nodule Plan continue APAP, requesting F30 med Continue nebulizer daily Acapella valve twice a day after nebulizer for CPT continue Azithromycin/Ethambutol/ will decrease Rifampin 150mg 3 times a week. Will continue until October, then likely change to monotherapy continue Trelegy [place] as needed F/U October 2023 Coding Level of Care Code Est Pt Level 4 (51167) Diagnoses Asthma-COPD overlap syndrome J44.9 Bronchiectasis without complication J47.9 Bronchiectasis type: uncomplicated Nontuberculous mycobacterial disease of lung A31.0 Bronchiolitis J21.9 Pulmonary nodules R91.8 Chronic cough R05.3 Cough type: chronic BALTAZAR (obstructive sleep apnea) G47.33 Pulmonary nodule R91.1 Time Spent (min) 17
== END 2023-06-30 14:20 | disposition home or self-care (01) ==
PROVIDERS: PCP Internal Medicine; Visit Provider Hospitalist
DX: J44.9 Chronic obstructive pulmonary disease, unspecified (principal); A31.0 Pulmonary mycobacterial infection; R91.8 Other nonspecific abnormal finding of lung field; R05.3 Chronic cough; G47.33 Obstructive sleep apnea (adult) (pediatric); R91.1 Solitary pulmonary nodule
CPT/HCPCS: 99214

== ENCOUNTER → 2023-06-30 13:25 | Outpatient (BNVA) | payer OTHER, SELFPAY | PROVIDERS: PCP Internal Medicine; Visit Provider Hospitalist | DX: G47.33 Obstructive sleep apnea (adult) (pediatric) (principal); J44.9 Chronic obstructive pulmonary disease, unspecified; J47.9 Bronchiectasis, uncomplicated; A31.0 Pulmonary mycobacterial infection; R91.8 Other nonspecific abnormal finding of lung field; R91.1 Solitary pulmonary nodule; J21.9 Acute bronchiolitis, unspecified; R05.3 Chronic cough | CPT/HCPCS: 99212 ==

== ENCOUNTER 2023-11-10 08:04 | Outpatient (REF) | payer OTHER, SELFPAY ==
[2023-11-10 08:19] LABS: MANUAL DIFF FLAG NO
[2023-11-10 08:32] LABS: Basophils Percent Auto 0.5 % (0-2); Eosinophils Absolute Auto 0.2 X10*3/uL (0.0-0.4); Hematocrit 39.7 % (37.0-47.0); Imm Gran Abs Auto 0.02 X10*3/uL (0.00-0.03); Imm Gran Pct Auto 0.3 % (0.0-0.4); Lymphocytes Absolute Auto 1.6 X10*3/uL (1.2-4.9); Lymphocytes Percent Auto 25.6 % (20-40); Mean Corpuscular HGB Conc 32.7 g/dl (31.0-35.0); Mean Corpuscular Hemoglobin 29.5 pg (27.0-33.0); Mean Corpuscular Volume 90.2 fL (80.0-98.0); Mean Platelet Volume 9.7 fL (9.4-12.3); Monocytes Absolute Auto 0.6 X10*3/uL (0.1-1.2); Monocytes Percent Auto 9.7 % (2-11); Neutrophils Absolute Auto 3.9 x10*3/uL (2.0-8.3); Neutrophils Percent Auto 60.9 % (45-73); Platelet Count 232 X10*3/uL (160-400); Red Cell Distribution Width 13.2 % (11.0-16.0); White Blood Count 6.4 X10*3/uL (4.8-10.8)
[2023-11-10 08:43] LABS: Estimated Average Glucose 126 mg/dL
[2023-11-10 09:07] LABS: Alanine Aminotransferase 16 U/L (0-31); Albumin Level 4.2 g/dL (3.5-5.0); Alkaline Phosphatase 128 U/L (39-117); Anion Gap 13 (12-20); Aspartate Amino Transferase 17 U/L (5-31); Bilirubin Total 0.3 mg/dL (0.0-1.0); Blood Urea Nitrogen 19 mg/dL (9-16); Calcium 10.1 mg/dL (8.4-10.2); Carbon Dioxide 25 mmol/L (22-29); Chloride 105 mmol/L (96-108); Cholesterol 197 mg/dL (<200); Estimated Glomerular Filt Rate 58; Glucose Random 112 mg/dL (60-115); HDL Cholesterol 63 mg/dL (>40); LDL Cholesterol Calculated 120 mg/dL (<100); Potassium 4.3 mmol/L (3.3-5.1); Sodium 139 mmol/L (135-145); Total Protein 7.5 g/dL (6.5-8.0); Triglycerides 72 mg/dL (<150)
[2023-11-10 09:29] LABS: Folate 9.8 ng/mL (> or = 4.0); Vitamin B12 753 pg/mL (200-900)
[2023-11-10 09:31] LABS: Free T4 (Free Thyroxine) 0.98 ng/dL (0.71-1.85); Thyroid Stimulating Hormone 1.93 uIU/mL (0.32-4.0); Vitamin D 25-OH Total 31.7 ng/mL (>30)
[2023-11-10 09:58] LABS: Creatinine Urine 101.47 mg/dL; Microalbum/Creatinine Ratio Ur 8.8 ug/mg cr (<30)
== END 2023-11-10 08:05 | disposition home or self-care (01) ==
LOC: HO.LAB 08:04
PROVIDERS: PCP Internal Medicine; Visit Provider Internal Medicine
DX: E11.65 Type 2 diabetes mellitus with hyperglycemia (principal); E78.00 Pure hypercholesterolemia, unspecified
CPT/HCPCS: 36415; 80053; 80061; 82043; 82306; 82570; 82607; 82746; 83036; 84439; 84443; 85025

== ENCOUNTER 2023-11-11 12:29 | Outpatient (AMB) | payer OTHER, SELFPAY ==
[2023-11-11 12:57] VITALS: BP 159/72; PULSE 82; BMI 38.5
--- NOTE | 2023-11-11 12:57 | MHC.OFFVIS ---
Intake Vital Signs 11/11/23 12:57 Height 5 ft 1 in Weight 204 lb BMI 38.5 BP 159/72 H Blood Pressure Location Rt brachial Position Sitting Pulse 82 Intake Visit Reasons: Left breast calcifications, 6 month follow up Intake Note: Patient here for 6m f/u Lt br calcification. Mammogram scheduled on 03-22-24. Patient c/o: tingling sensation on lt nipple that spreads to the outer part of breast. Denies nipple discharge, rash, redness. Last MM: 04-17-23. Yearly mammogram scheduled on 03-22-24. 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 Accompanied by: Self / Same As Patient Allergies aspirin [From Percodan] Allergy (Severe, Verified 11/11/23 12:58) Disoriented lisinopril Allergy (Severe, Verified 11/11/23 12:58) Nervous oxycodone [From Percodan] Allergy (Severe, Verified 11/11/23 12:58) Disoriented Penicillins [PENICILLINS] Allergy (Severe, Verified 11/11/23 12:58) Hives codeine Adverse Reaction (Severe, Verified 11/11/23 12:58) Nausea and Vomiting morphine [MORPHINE] Adverse Reaction (Severe, Verified 11/11/23 12:58) NAUSEA & VOMITING ENVIRONMENTAL Allergy (Intermediate, Uncoded 11/11/23 12:58) RUNNY NOSE/WATERY EYES Darvocet A500 Adverse Reaction (Severe, Uncoded 11/11/23 12:58) disoriented HPI HPI Comments History of Present Illness Details Patient has no new breast issues or complaints. She has some occasional numbness around the right areola of the left breast but no other mass, skin changes, discharge. She does do occasional self-breast exams. Patient is seen in follow-up. She is scheduled for follow-up mammogram in February. 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 Bronchiectasis Bronchiolitis Osteoarthritis Mixed stress and urge urinary incontinence Obesity (BMI 30-39.9) Obstructive sleep apnea Vitamin D deficiency Type 2 diabetes mellitus with hyperglycemia Asthma Glaucoma Arthritis GERD (gastroesophageal reflux disease) History of kidney stones Hypercholesteremia HTN (hypertension) Surgical History History of extraction of renal calculus History of breast biopsy Hx of umbilical hernia repair History of cystoscopy History of cholecystectomy History of colonoscopy H/O: hysterectomy Family History Father Prostate cancer Mother Mental problem Son No problems noted. Son No problems noted. Daughter No problems noted. Social History Housing: Apartment Alcohol intake: never Patient Tobacco Use Status: Former Tobacco user Tobacco use type: Cigarette Years Smoked: 45 years Quit 05/2007 e-Cigarette/Vaping Use: Never Used Second Hand Smoke Exposure: No service: No Current occupational status: disabled Cognitive needs: Yes (cane) Hearing needs: No Vision needs: Yes (glasses) Physical Exam Vital Signs: Last Vital Signs Pulse 82 11/11/23 12:57 BP 159/72 H 11/11/23 12:57 BMI result Body Mass Index 38.5 Chest Other: Breast exam bilaterally demonstrates no obvious masses, skin changes, discharge. Bilateral periclavicular and axillary exam is negative. GI Other: Abdomen [place], soft, benign Assessment & Plan Assessment & Plan (1) Microcalcification of left breast on mammogram: Code(s): R92.0 - Mammographic microcalcification found on diagnostic imaging of breast Plan Patient is encouraged to do her self-breast exams. She will see me in February following her bilateral mammograms or p.r.n... All questions answered. Coding Level of Care Code Est Pt Level 4 (67483) Diagnoses Microcalcification of left breast on mammogram R92.0
== END 2023-11-11 13:10 | disposition home or self-care (01) ==
PROVIDERS: PCP Internal Medicine; Visit Provider Surgery
DX: R92.0 Mammographic microcalcification found on diagnostic imaging of breast (principal)
CPT/HCPCS: 99214

== ENCOUNTER → 2023-11-11 12:29 | Outpatient (BNVA) | payer OTHER, SELFPAY | PROVIDERS: PCP Internal Medicine; Visit Provider Surgery | DX: R92.0 Mammographic microcalcification found on diagnostic imaging of breast (principal) | CPT/HCPCS: 99212 ==

== ENCOUNTER 2023-11-17 12:12 | Outpatient (AMB) | payer OTHER, SELFPAY ==
--- NOTE | 2023-11-17 12:14 | A.OFFPC_ITS ---
Vital Signs 11/17/23 12:15 Height 5 ft 1 in Weight 204 lb BMI 38.5 BP 138/70 Blood Pressure Location Lt brachial Position Sitting Pulse 75 Pulse Source Pulse Oximeter Pulse Oximetry (%) 97 Oxygen Delivery Method Room Air Intake Visit Reasons: asthma - COPD Allergies aspirin [From Percodan] Allergy (Severe, Verified 11/17/23 12:15) Disoriented lisinopril Allergy (Severe, Verified 11/17/23 12:15) Nervous oxycodone [From Percodan] Allergy (Severe, Verified 11/17/23 12:15) Disoriented Penicillins [PENICILLINS] Allergy (Severe, Verified 11/17/23 12:15) Hives codeine Adverse Reaction (Severe, Verified 11/17/23 12:15) Nausea and Vomiting morphine [MORPHINE] Adverse Reaction (Severe, Verified 11/17/23 12:15) NAUSEA & VOMITING ENVIRONMENTAL Allergy (Intermediate, Uncoded 11/17/23 12:15) RUNNY NOSE/WATERY EYES Darvocet A500 Adverse Reaction (Severe, Uncoded 11/17/23 12:15) disoriented Tobacco use date assessed: 11/17/23 Fall risk assessment: No Falls in past year Last assessed Fall Risk: 11/17/23 Dental Screening Dental Screen Date: 11/17/23 Did you have a dental visit in the last 12 months?: Yes Did you have a dental problem in the last 6 months where you did not have access to dental care?: No Was dental information given to patient?: Patient has dentist HPI asthma - COPD HPI Details 78-year-old obese female with asthma NURSE TRANSITIONAL D overlap syndrome hypercholesterolemia hypertension diabetes mellitus obstructive sleep apnea and GERD last seen in May 2023. Patient is here for follow-up. Patient's colonoscopy is up-to-date May 2020 mammogram due bone density due. Patient follows up with the surgeon for the left breast calcification advised for bilateral mammograms again in February. 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 Trelegy. She did have a CT scan done in May 2023 showing the br onchial thickening tree-in-bud configuration bronchiectatic changes has also pulmonary nodules bilateral 5 and 7 mm I did receive a neuropsychology evaluation in May 2023 mild cognitive impairment patient does have sleep apnea. 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 Bronchiectasis Bronchiolitis Osteoarthritis Mixed stress and urge urinary incontinence Obesity (BMI 30-39.9) Obstructive sleep apnea Vitamin D deficiency Type 2 diabetes mellitus with hyperglycemia Asthma Glaucoma Arthritis GERD (gastroesophageal reflux disease) History of kidney stones Hypercholesteremia HTN (hypertension) Surgical History History of extraction of renal calculus History of breast biopsy Hx of umbilical hernia repair History of cystoscopy History of cholecystectomy History of colonoscopy H/O: hysterectomy Family History Father Prostate cancer Mother Mental problem Son No problems noted. Son No problems noted. Daughter No problems noted. Social History Housing: Apartment Alcohol intake: never Patient Tobacco Use Status: Former Tobacco user Tobacco use type: Cigarette Years Smoked: 45 years Quit 05/2007 e-Cigarette/Vaping Use: Never Used Second Hand Smoke Exposure: No service: No Current occupational status: disabled Cognitive needs: Yes (cane) Hearing needs: No Vision needs: Yes (glasses) Questionnaire PHQ-9 Over the last 2 weeks, how often have you been bothered by any of the following problems? 1. Little interest or pleasure in doing things: not at all 2. Feeling down, depressed, or hopeless: not at all 3. Trouble falling or staying asleep, or sleeping too much: not at all 4. Feeling tired or having little energy: not at all 5. Poor appetite or overeating: not at all 6. Feeling bad about yourself - or that you are a failure or have let yourself or your family down: not at all 7. Trouble concentrating on things, such as reading the newspaper or watching television: not at all 8. Moving or speaking so slowly that other people could have noticed. Or the opposite - being so fidgety or restless that you have been moving around a lot more than usual: not at all 9. Thoughts that you would be better off or of hurting yourself in some way: not at all Total score: 0 Depression Screening Interpretation: Negative Depression Screening Done: Yes Source: Developed by Drs. Eusebio Gates, Radha Burrows, Vincent Calderon and colleagues, with an educational patrick from [employer]. Thrive Questionnaire Date Thrive assessed: 11/17/23 I am a: Patient What is your living situation today?: I have a steady place to live Within the past 12 months, did the food you bought not last and you didn't have the money to get more?: Never true Within the past 12 months, did you worry whether your food would run out before you got money to buy more?: Never true Do you have trouble paying for medicines?: No Do you have trouble getting transportation to medical appointments?: No Do you have trouble paying your heating and electricity bill?: No Do you have trouble taking care of your child, family member or friend?: No Do you have trouble with day-to-day activities such as bathing, preparing meals, shopping, managing finances, etc.?: No Are you currently unemployed and looking for a job?: No Are you interested in more education?: No Currently or been in a relationship where the following occur: no concerns reported THRIVE Score: 0 AUDIT C Alcohol Use Questionnaire (AUDIT-C) 1. How often do you have a drink containing alcohol?: Never 3. How often do you have six or more drinks on one occasion?: Never Total Score: 0 Score Reviewed/Action Taken: Yes ISHA-7 AMB Questionnaire ISHA-7 Date ISHA - 7 assessed: 11/17/23 Feeling nervous, anxious, or on edge: 0 = Not at all Not being able to stop or control worryin = Not at all Worrying too much about different things: 0 = Not at all Trouble relaxin = Not at all Being so restless that it is hard to sit still: 0 = Not at all Becoming easily annoyed or irritable: 0 = Not at all Feeling afraid as if something awful might happen: 0 = Not at all Total ISHA-7 score (0-4 normal; 5-9 mild; 10-14 moderate; 15-21 severe): 0 Source: Developed by Drs. Eusebio Gates, Radha Burrows, Vincent Calderon and colleagues, with an educational patrick from [employer]. Physical exam (Primary Care) Vital Signs: Last Vital Signs Pulse 75 11/17/23 12:15 BP 138/70 11/17/23 12:15 Pulse Ox 97 11/17/23 12:15 Oxygen Delivery Method Room Air 11/17/23 12:15 BMI result Body Mass Index 38.5 Tobacco/Smoking Status: Tobacco use Status Tobacco use date assessed 11/17/23 11/17/23 12:21 Patient Tobacco Use Status Former Tobacco user 11/17/23 12:21 Tobacco use type Cigarette 11/17/23 12:21 e-Cigarette/Vaping Use Never Used 11/17/23 12:21 PHQ-9: PHQ-9 Score PHQ-9: Total score 0 11/17/23 12:21 Depression Screening Interpretation: Negative Thrive Assessment: Date of Thrive Assessment Date Thrive assessed 11/17/23 11/17/23 12:21 Currently or been in a relationship where the following occur: no concerns reported Const General: alert; No acute distress Eyes Conjunctivae: conjunctivae normal Resp Auscultation: clear to auscultation bilaterally Cardio Rate: regular rate Rhythm: regular rhythm GI Inspection: Yes normal to inspection Extrem General: Yes normal to inspection and No edema Assessment and Plan Assessment & Plan (1) Mild cognitive impairment: Comment: Neuropsychiatry May 2023 Code(s): G31.84 - Mild cognitive impairment of uncertain or unknown etiology Plan: Continue to monitor keep adequate sleep, keep well hydrated, eat healthy and keep active (2) Asthma-COPD overlap syndrome: Code(s): J44.9 - Chronic obstructive pulmonary disease, unspecified Plan: Patient follows up with Pulmonary placed on Trelegy continue with inhalers. (3) Obesity (BMI 30-39.9): Code(s): E66.9 - Obesity, unspecified Plan: Diet and exercise (4) HTN (hypertension): Code(s): I10 - Essential (primary) hypertension Qualifiers: Hypertension type: essential hypertension Qualified Code(s): I10 - Essential (primary) hypertension Plan: Continue with blood pressure medication. Decrease salt intake and exercise on losartan 100 mg once a day (5) Hypercholesteremia: Code(s): E78.00 - Pure hypercholesterolemia, unspecified Plan: Avoid fried foods, chicken skin, eggs, butter margarine, pastries and meat. Be it pork or beef they have a lot of cholesterol on atorvastatin 20 mg once a day discussed the increase in cholesterol (6) Obstructive sleep apnea: Comment: cannot tolerate CPAP Code(s): G47.33 - Obstructive sleep apnea (adult) (pediatric) Plan: Discussed importance of CPAP treatment and using the CPAP now Every night > 4 hours and benefits from gthis (7) Nontuberculous mycobacterial disease of lung: Code(s): A31.0 - Pulmonary mycobacterial infection Plan: Patient is being followed up by Pulmonary and being treated. (8) Type 2 diabetes mellitus with hyperglycemia: Comment: Dr. Oliver Code(s): E11.65 - Type 2 diabetes mellitus with hyperglycemia Qualifiers: Diabetes mellitus exterminator helper insulin use: without group home use Qualified Code(s): E11.65 - Type 2 diabetes mellitus with hyperglycemia Plan: Decrease the amount of carbohydrate intake, pasta, bread, rice and potatoes are all sugar and that is aside from all the sweet stuff, remember that fruits are good but they are Sweet also. Diet controlled hemoglobin A1c goal of less than 7.0 (9) GERD (gastroesophageal reflux disease): Code(s): K21.9 - Gastro-esophageal reflux disease without esophagitis Qualifiers: Esophagitis presence: without esophagitis Qualified Code(s): K21.9 - Gastro-esophageal reflux disease without esophagitis Plan: Avoid the foods that causes that usually spicy foods, tomato products, juices, coffee, soda and foods that your sensitive to. After eating do not lie down, allow 3-4 hours before in lie down. And keep the head of bed above 30 degrees to avoid the acid from going up. Orders: Orders Comprehensive Met. Panel 3 Months E11.65 - Type 2 diabetes mellitus with hyperglycemia Lipid Panel 3 Months E11.65 - Type 2 diabetes mellitus with hyperglycemia, E78.00 - Pure hypercholesterolemia, unspecified Hemoglobin A1c 3 Months E11.65 - Type 2 diabetes mellitus with hyperglycemia Coding Level of Care Code Est Pt Level 4 (04239) Diagnoses Mild cognitive impairment G31.84 Asthma-COPD overlap syndrome J44.9 Obesity (BMI 30-39.9) E66.9 Essential hypertension I10 Hypertension type: essential hypertension Hypercholesteremia E78.00 Obstructive sleep apnea G47.33 Nontuberculous mycobacterial disease of lung A31.0 Type 2 diabetes mellitus with hyperglycemia, without long-term current use of insulin E11.65 Diabetes mellitus exterminator helper insulin use: without exterminator helper use Gastroesophageal reflux disease without esophagitis K21.9 Esophagitis presence: without esophagitis Additional Codes PHQ-9 - 80700 - PHQ-9 Billing: ([id number])
[2023-11-17 12:15] VITALS: BP 138/70; PULSE 75; O2SAT 97; BMI 38.5
== END 2023-11-17 13:00 | disposition home or self-care (01) ==
LOC: HO.HMGH 12:12
PROVIDERS: PCP Internal Medicine; Visit Provider Internal Medicine
DX: J44.9 Chronic obstructive pulmonary disease, unspecified (principal); E78.00 Pure hypercholesterolemia, unspecified; I10 Essential (primary) hypertension; E11.65 Type 2 diabetes mellitus with hyperglycemia; G31.84 Mild cognitive impairment of uncertain or unknown etiology; G47.33 Obstructive sleep apnea (adult) (pediatric); A31.0 Pulmonary mycobacterial infection; K21.9 Gastro-esophageal reflux disease without esophagitis
CPT/HCPCS: 99214

== ENCOUNTER 2023-11-24 13:30 | Outpatient (AMB) | payer OTHER, SELFPAY ==
[2023-11-24 13:46] VITALS: BP 128/74; PULSE 91; RESP 18; O2SAT 94; BMI 38.4
--- NOTE | 2023-11-24 13:46 | MHC.OFFVIS ---
Vital Signs 11/24/23 13:46 Height 5 ft 1 in Weight 203 lb 5 oz BMI 38.4 BP 128/74 Blood Pressure Location Lt brachial Position Sitting Respiration 18 Pulse 91 Pulse Source Pulse Oximeter Pulse Oximetry (%) 94 Oxygen Delivery Method Room Air Intake Visit Reasons: Obstructive sleep apnea Allergies aspirin [From Percodan] Allergy (Severe, Verified 11/24/23 13:45) Disoriented lisinopril Allergy (Severe, Verified 11/24/23 13:45) Nervous oxycodone [From Percodan] Allergy (Severe, Verified 11/24/23 13:45) Disoriented Penicillins [PENICILLINS] Allergy (Severe, Verified 11/24/23 13:45) Hives codeine Adverse Reaction (Severe, Verified 11/24/23 13:45) Nausea and Vomiting morphine [MORPHINE] Adverse Reaction (Severe, Verified 11/24/23 13:45) NAUSEA & VOMITING ENVIRONMENTAL Allergy (Intermediate, Uncoded 11/17/23 12:15) RUNNY NOSE/WATERY EYES Darvocet A500 Adverse Reaction (Severe, Uncoded 11/17/23 12:15) disoriented HPI Comments Details: The patient is a 78-year-old woman former smoker who apparently was in usual state health until the summer when she was vacationing in [place]. She started developing a significant cough moderate to severe. She would to get evaluated and tested. She tested negative for COVID-19. Part of the evaluation she had a chest x-ray that was abnormal. She did come back to the area. The patient again was evaluated by primary care doctor regarding her significant cough. Therefore she underwent a chest x-ray and subsequently a CT scan of the chest that was done May. Based on the abnormal findings she was referred to Pulmonary. Patient states that her coughing spells are very significant. Therefore croupy in nature and sometimes is productive other times is not productive. She has not taken any antibiotics at this time. She quit smoking many years ago. We did personally review her CT scan of the chest in the office. She appears to have tree in budding suggesting of bronchiolitis. This is bilaterally involving the upper lung zones and also the mid right middle lobe in the lingula. She does have evidence of nodular disease in addition to bronchiectatic changes and airspace disease. The findings his suggesting of a smoldering lower respiratory infection. her cough appears to be more consistent with laryngotracheitis. It is likely that this is a different etiology than the findings in her chest. The patient denies being exposed to anybody with tuberculosis. At this point will have the patient undergo blood work. I do encourage the patient to undergo additional diagnostic testing. The patient will go for bronchoscopy at this time. 08/26/2022 the patient is here for a pulmonary follow-up visit. The patient continues to episodes of coughing and shortness of breath. She is also having episodes of wheezing. Moderate severity. 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 Unfortunately she did not understand the instructions based on the fact that she took the medicine only 4 months and then she stopped it. She did have refills although she states that she does not. I will resend the medications to her pharmacy. At this point her daughter is with her and I confirm with daughter that I did send refills in that I will send the medication again to the pharmacy and she is to continue taking it. The patient stands the therapies at least for a year if he went to a retic aid this bacteria. We did also review her CT scan of the chest demonstrating the pulmonary nodules along with bronchiectatic changes in along with the tree-in-bud all changes consistent with her mycobacterial disease. The patient also is having issues with daytime drowsiness. She may have had a sleep study in the past. Although is probably more than a year. She does have daytime drowsiness and does have issues with her memory. Her [place] score is elevated 11/24. Will request a repeat home sleep study in order to address the question of her sleep apnea issues. The patient also was supposed to have an Acapella valve. I did reach out to [facility] to see if they can send this to her. In meantime a recent prescription. I believe that they will try to reach out to her and they may have been some miscommunication on the phone. Therefore will see resubmit for the home sleep study and also recently for the Acapella valve and also recent her medications. When she comes back in 3 months will repeat her blood work and also plan to repeat her CT scan to follow-up with the pulmonary nodules. 10/21/2022 the patient is here for a pulmonary follow-up visit. She is tolerating the antimycobacterial therapy. Although getting nauseous and also of tea. He feels like he gets more symptomatic with rifampin. I did advise her to cut down to 1 tablet daily with hopes that she can tolerated better. She still has issues she can stop it altogether. She will go ahead and recheck her sputum for AFB and also request blood work to make sure that she is not developing any adverse effects from the medication. We did review her last CT scan of the chest demonstrating the bronchiectatic changes and tree in budding along with pulmonary nodules which is the manifestations of the smoldering infection. She is also complaining of increasing chest tightness and wheezing. She has been on Advair. Will go ahead and optimize therapy to Trelegy inhaler in order to provide better coverage. In addition to this the patient continues to have daytime drowsiness. Her [place] score is elevated 06/20. We did review her last sleep study demonstrating [id number] sleep apnea with an AHI of 13 events an hour. The patient needs to start CPAP therapy at this time. 06/30/2023 the patient is here for a pulmonary follow-up visit. Overall the patient has been doing well. She is tolerating the antimicrobial therapy for the mycobacterial disease. She is taking medicine 3 times a week. Her cough is better and respiratory symptoms also improved. We did review her CT scan of the chest that she had in May 2023 demonstrating interval improvement of the nodular densities. She still has some treating budding but overall improved compared to her previous CT scan. This is all reassuring. Since the patient is tolerating therapy and since she still has changed send a CT scan will go ahead and continue the current therapy till October and at that point decide if she is still doing well to switch over to monotherapy. Regards a CPAP the CPAP therapy continues to be affecting beneficial. She finally found a mask that she is comfortable with that is the F30 medium mask. Although she is been getting the wrong mask from the [employer]. I did call the [employer] and also provide her a new script but the right mask. Hopefully she can exchange the mask to the right 1. should continue using the therapy for more than 4 hours a night. The patient otherwise is without any other complaints. Will follow-up in October and at that point decide on further changes of her antimicrobial therapy. 11/24/2023 the patient is here for a pulmonary follow-up visit. She continues to do well from a respiratory status. Denies any worsening cough shortness of breath. She did on the mycobacterial therapy now for some time. The plan was to stop to the agents and continue monotherapy with the azithromycin. Will do that for prophylaxis specially since back tends to relapse after completing therapy. She does have pulmonary nodules. The last time we looked at her pulmonary nodules was back in the fall 2022. Will go ahead and plan to repeat her CT scan fall 2023 and follow-up after that. Feeling time she continues use her CPAP every night. CPAP therapy continues to be affecting beneficial. She does use the F30 fullface mask. She gets supplies from [employer]. And she does use it for more than 4 hours a night and she will continue to use it at this time. ON LICENSE OF [facility] Medical History (Updated 11/17/23 @ 12:47 by Juan Beltre MD) BALTAZAR (obstructive sleep apnea) 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 Bronchiectasis Bronchiolitis Osteoarthritis Mixed stress and urge urinary incontinence Obesity (BMI 30-39.9) Obstructive sleep apnea Vitamin D deficiency Type 2 diabetes mellitus with hyperglycemia Asthma Glaucoma Arthritis GERD (gastroesophageal reflux disease) History of kidney stones Hypercholesteremia HTN (hypertension) Surgical History History of extraction of renal calculus History of breast biopsy Hx of umbilical hernia repair History of cystoscopy History of cholecystectomy History of colonoscopy H/O: hysterectomy Family History Father Prostate cancer Mother Mental problem Son No problems noted. Son No problems noted. Daughter No problems noted. Social History Housing: Apartment Alcohol intake: never Patient Tobacco Use Status: Former Tobacco user Tobacco use type: Cigarette Years Smoked: 45 years Quit 05/2007 e-Cigarette/Vaping Use: Never Used Second Hand Smoke Exposure: No service: No Current occupational status: disabled Cognitive needs: Yes (cane) Hearing needs: No Vision needs: Yes (glasses) Review of Systems Const Denies daytime sleepiness, Denies night sweats, Denies snoring and Denies stops breathing during sleep ENT Denies change in voice, Denies lip swelling, Denies mouth pain, Reports nasal congestion, Reports nasal discharge and Denies tongue swelling Card Denies chest pain Resp Denies chest congestion, Reports cough and Denies snoring GI Denies abdominal pain Musc Denies no additional complaints Neuro Denies Neuro-related abnormal movements Psych Denies no additional complaints Luis A/Lymph Denies easy bleeding and Denies lymphadenopathy Aller/Immun Denies lip swelling and Denies tongue swelling Physical Exam Vital Signs: Last Vital Signs Pulse 91 11/24/23 13:46 Resp 18 11/24/23 13:46 BP 128/74 11/24/23 13:46 Pulse Ox 94 11/24/23 13:46 Oxygen Delivery Method Room Air 11/24/23 13:46 BMI result Body Mass Index 38.4 Const General: alert Neck Neck: Yes normal visual inspection, Yes full ROM and Yes no lymphadenopathy Chest Chest palpation & inspection: normal inspection of the chest Resp Auscultation: diminished lung sounds Cardio Rate: regular rate Rhythm: regular rhythm Heart sounds: S1 normal heart sound present and S2 normal heart sound present GI Palpation (GI): Soft to palpation and nontender Auscultation: normal bowel sounds Skin General skin exam: rashes and/or lesions noted Assessment & Plan Assessment & Plan (1) Asthma-COPD overlap syndrome: Code(s): J44.9 - Chronic obstructive pulmonary disease, unspecified Category: Medical (2) Bronchiectasis: Code(s): J47.9 - Bronchiectasis, uncomplicated Category: Medical Qualifiers: Bronchiectasis type: uncomplicated Qualified Code(s): J47.9 - Bronchiectasis, uncomplicated (3) Nontuberculous mycobacterial disease of lung: Code(s): A31.0 - Pulmonary mycobacterial infection Category: Medical (4) Pulmonary nodules: Comment: April 2021 right upper and left lower Code(s): R91.8 - Other nonspecific abnormal finding of lung field Category: Medical (5) BALTAZAR (obstructive sleep apnea): Code(s): G47.33 - Obstructive sleep apnea (adult) (pediatric) Category: Medical Plan continue APAP, requesting F30 med, [employer] Continue nebulizer daily as needed Acapella valve twice a day after nebulizer for CPT continue Azithromycin/ stop Ethambutol/ Rifampin continue Trelegy [place] as needed CT chest May 2024 EKG soon F/U May 2024 Orders: Orders ECG 12 lead EKG Today J44.9 - Chronic obstructive pulmonary disease, unspecified CT chest wo IV con 10/31/24 R91.8 - Other nonspecific abnormal finding of lung field Coding Level of Care Code Est Pt Level 4 (72446) Diagnoses Asthma-COPD overlap syndrome J44.9 Bronchiectasis without complication J47.9 Bronchiectasis type: uncomplicated Nontuberculous mycobacterial disease of lung A31.0 Pulmonary nodules R91.8 BALTAZAR (obstructive sleep apnea) G47.33 Time Spent (min) 17
== END 2023-11-24 14:00 | disposition home or self-care (01) ==
PROVIDERS: PCP Internal Medicine; Visit Provider Hospitalist
DX: J44.9 Chronic obstructive pulmonary disease, unspecified (principal); J47.9 Bronchiectasis, uncomplicated; A31.0 Pulmonary mycobacterial infection; R91.8 Other nonspecific abnormal finding of lung field; G47.33 Obstructive sleep apnea (adult) (pediatric)
CPT/HCPCS: 99214

== ENCOUNTER → 2023-11-24 13:30 | Outpatient (BNVA) | payer OTHER, SELFPAY | PROVIDERS: PCP Internal Medicine; Visit Provider Hospitalist | DX: J44.9 Chronic obstructive pulmonary disease, unspecified (principal); J47.9 Bronchiectasis, uncomplicated; G47.33 Obstructive sleep apnea (adult) (pediatric); R91.8 Other nonspecific abnormal finding of lung field; A31.0 Pulmonary mycobacterial infection; R91.1 Solitary pulmonary nodule | CPT/HCPCS: 99212 ==

== ENCOUNTER 2024-01-26 15:41 | Outpatient (AMB) | payer OTHER, SELFPAY ==
[2024-01-26 16:14] VITALS: BP 142/90; PULSE 65; O2SAT 98; BMI 38.7
--- NOTE | 2024-01-26 16:14 | MHC.PC.OV ---
Vital Signs 01/26/24 16:14 Height 5 ft 1 in Weight 205 lb BMI 38.7 BP 142/90 H Blood Pressure Location Lt brachial Position Sitting Pulse 65 Pulse Source Pulse Oximeter Pulse Oximetry (%) 98 Oxygen Delivery Method Room Air Intake Visit Reasons: vertigo Database Coordinator Required: No Senior Asic Engineer: Not Required per policy Accompanied by: Self / Same As Patient Allergies aspirin [From Percodan] Allergy (Severe, Verified 01/26/24 16:15) Disoriented lisinopril Allergy (Severe, Verified 01/26/24 16:15) Nervous oxycodone [From Percodan] Allergy (Severe, Verified 01/26/24 16:15) Disoriented Penicillins [PENICILLINS] Allergy (Severe, Verified 01/26/24 16:15) Hives codeine Adverse Reaction (Severe, Verified 01/26/24 16:15) Nausea and Vomiting morphine [MORPHINE] Adverse Reaction (Severe, Verified 01/26/24 16:15) NAUSEA & VOMITING ENVIRONMENTAL Allergy (Intermediate, Uncoded 01/26/24 16:15) RUNNY NOSE/WATERY EYES Darvocet A500 Adverse Reaction (Severe, Uncoded 01/26/24 16:15) disoriented Tobacco use date assessed: 11/17/23 Fall risk assessment: No Falls in past year Last assessed Fall Risk: 01/26/24 Dental Screening Dental Screen Date: 11/17/23 HPI vertigo HPI Details 79-year-old obese female with mild cognitive impairment asthma COPD overlap syndrome hypertension hypercholesterolemia obstructive sleep apnea diabetes mellitus controlled GERD coming in for follow-up. Patient is under pulmonary with regards to treatment for nontuberculous mycobacterial disease of the lung. Patient is up-to-date with colonoscopy mammogram. Patient has been seeing Rheumatology for osteoarthritis had right medial knee injection. Patient also follows up with Pulmonary for the obstructive sleep apnea continuing with Zithromax but stopping ethambutol fall and rifampin continue with the Trelegy for the bronchiectasis problem patient was advised to repeat CT scan in 05/16/2024. patient has vettigo, BS has been good at home, ear not blocked no congestioh [facility] Medical History (Updated 01/26/24 @ 16:36 by Juan Beltre MD) BALTAZAR (obstructive sleep apnea) 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 Bronchiectasis Bronchiolitis Osteoarthritis Mixed stress and urge urinary incontinence Obesity (BMI 30-39.9) Obstructive sleep apnea Vitamin D deficiency Type 2 diabetes mellitus with hyperglycemia Asthma Glaucoma Arthritis GERD (gastroesophageal reflux disease) History of kidney stones Hypercholesteremia HTN (hypertension) Surgical History History of extraction of renal calculus History of breast biopsy Hx of umbilical hernia repair History of cystoscopy History of cholecystectomy History of colonoscopy H/O: hysterectomy Family History Father Prostate cancer Mother Mental problem Son No problems noted. Son No problems noted. Daughter No problems noted. Social History Housing: Apartment Alcohol intake: never Patient Tobacco Use Status: Former Tobacco user Tobacco use type: Cigarette Years Smoked: 45 years Quit 05/2007 e-Cigarette/Vaping Use: Never Used Second Hand Smoke Exposure: No service: No Current occupational status: disabled Cognitive needs: Yes (cane) Hearing needs: No Vision needs: Yes (glasses) Questionnaire Thrive Questionnaire Date Thrive assessed: 11/17/23 ISHA-7 AMB Questionnaire ISHA-7 Date ISHA - 7 assessed: 11/17/23 Source: Developed by Drs. Eusebio Gates, Radha Burrows, Vincent Calderon and colleagues, with an educational patrick from [employer]. Physical exam (Primary Care) Vital Signs: Last Vital Signs Pulse 65 01/26/24 16:14 BP 142/90 H 01/26/24 16:14 Pulse Ox 98 01/26/24 16:14 Oxygen Delivery Method Room Air 01/26/24 16:14 BMI result Body Mass Index 38.7 Tobacco/Smoking Status: Tobacco use Status Tobacco use date assessed 11/17/23 01/26/24 16:16 Patient Tobacco Use Status Former Tobacco user 01/26/24 16:16 Tobacco use type Cigarette 01/26/24 16:16 e-Cigarette/Vaping Use Never Used 01/26/24 16:16 Thrive Assessment: Date of Thrive Assessment Date Thrive assessed 11/17/23 01/26/24 16:16 Const General: alert; No acute distress Eyes Conjunctivae: conjunctivae normal Resp Auscultation: clear to auscultation bilaterally Cardio Rate: regular rate Rhythm: regular rhythm GI Inspection: Yes normal to inspection Extrem General: Yes normal to inspection and No edema Results AMB Hemoglobin A1c AMB Hemoglobin A1c 5.8 % Last Edit by TAHIR Kwok on 01/26/24 16:44 Assessment and Plan Assessment & Plan (1) Type 2 diabetes mellitus with hyperglycemia: Comment: Dr. Oliver Code(s): E11.65 - Type 2 diabetes mellitus with hyperglycemia Qualifiers: Diabetes mellitus long term acute care registered nurse insulin use: without retirement use Qualified Code(s): E11.65 - Type 2 diabetes mellitus with hyperglycemia Plan: Decrease the amount of carbohydrate intake, pasta, bread, rice and potatoes are all sugar and that is aside from all the sweet stuff, remember that fruits are good but they are Sweet also. Diet control (2) Asthma-COPD overlap syndrome: Code(s): J44.9 - Chronic obstructive pulmonary disease, unspecified Plan: Follows up with Pulmonary placed on montelukast Trelegy and albuterol inhaler (3) Obstructive sleep apnea: Comment: cannot tolerate CPAP Code(s): G47.33 - Obstructive sleep apnea (adult) (pediatric) Plan: Patient has been prescribed CPAP as for pulmonary (4) GERD (gastroesophageal reflux disease): Code(s): K21.9 - Gastro-esophageal reflux disease without esophagitis Qualifiers: Esophagitis presence: without esophagitis Qualified Code(s): K21.9 - Gastro-esophageal reflux disease without esophagitis Plan: Avoid the foods that causes that usually spicy foods, tomato products, juices, coffee, soda and foods that your sensitive to. After eating do not lie down, allow 3-4 hours before in lie down. And keep the head of bed above 30 degrees to avoid the acid from going up. (5) HTN (hypertension): Code(s): I10 - Essential (primary) hypertension Qualifiers: Hypertension type: essential hypertension Qualified Code(s): I10 - Essential (primary) hypertension Plan: Continue with blood pressure medication. Decrease salt intake and exercise on losartan 100 mg once a day (6) Hypercholesteremia: Code(s): E78.00 - Pure hypercholesterolemia, unspecified Plan: Avoid fried foods, chicken skin, eggs, butter margarine, pastries and meat. Be it pork or beef they have a lot of cholesterol taking atorvastatin 20 mg once a day (7) Obesity (BMI 30-39.9): Code(s): E66.9 - Obesity, unspecified Plan: Diet and exercise (8) Generalized anxiety disorder: Comment: decline therapy Code(s): F41.1 - Generalized anxiety disorder Plan: Continuing with quetiapine (9) Vertigo: Code(s): R42 - Dizziness and giddiness Plan: will refer to PT Orders: Orders AMB Hemoglobin A1c Today E11.65 - Type 2 diabetes mellitus with hyperglycemia PT Evaluation and Treatment Today R42 - Dizziness and giddiness Medications: New meclizine 25 mg PO BID PRN 20 tabs 0RF dizziness R42 - Dizziness and giddiness Coding Level of Care Code Est Pt Level 4 (90101) Diagnoses Type 2 diabetes mellitus with hyperglycemia, without long-term current use of insulin E11.65 Diabetes mellitus retirement insulin use: without retirement use Asthma-COPD overlap syndrome J44.9 Obstructive sleep apnea G47.33 Gastroesophageal reflux disease without esophagitis K21.9 Esophagitis presence: without esophagitis Essential hypertension I10 Hypertension type: essential hypertension Hypercholesteremia E78.00 Obesity (BMI 30-39.9) E66.9 Generalized anxiety disorder F41.1 Vertigo R42
== END 2024-01-26 17:22 | disposition home or self-care (01) ==
PROVIDERS: PCP Internal Medicine; Visit Provider Internal Medicine
DX: E11.65 Type 2 diabetes mellitus with hyperglycemia (principal); J44.9 Chronic obstructive pulmonary disease, unspecified; E66.9 Obesity, unspecified; Z68.38 Body mass index [BMI] 38.0-38.9, adult; G47.33 Obstructive sleep apnea (adult) (pediatric); K21.9 Gastro-esophageal reflux disease without esophagitis; I10 Essential (primary) hypertension; E78.00 Pure hypercholesterolemia, unspecified; F41.1 Generalized anxiety disorder; R42 Dizziness and giddiness
CPT/HCPCS: 83036; 99214

== ENCOUNTER → 2024-02-20 09:13 | Outpatient (REF) | payer OTHER, SELFPAY ==
--- NOTE | 2024-02-20 09:19 | ECG_ITS ---
Test Reason : COPD Blood Pressure : / mmHG Vent. Rate : 068 BPM Atrial Rate : 068 BPM P-R Int : 136 ms QRS Dur : 084 ms QT Int : 366 ms P-R-T Axes : -07 023 029 degrees QTc Int : 389 ms Normal sinus rhythm Normal ECG When compared with ECG of 25-MAR-2023 10:59, No significant change was found Referred By: Yusef Mccarthy Electronically Signed By:PRANAV NICHOLE
[2024-02-20 10:16] LABS: Estimated Average Glucose 117 mg/dL; Hemoglobin A1c % 5.7 % (<6.0)
[2024-02-20 11:10] LABS: Alanine Aminotransferase 15 U/L (0-31); Albumin Level 4.2 g/dL (3.5-5.0); Alkaline Phosphatase 134 U/L (39-117); Anion Gap 13 (12-20); Aspartate Amino Transferase 16 U/L (5-31); Bilirubin Total 0.3 mg/dL (0.0-1.0); Blood Urea Nitrogen 27 mg/dL (9-16); Calcium 9.8 mg/dL (8.4-10.2); Carbon Dioxide 27 mmol/L (22-29); Chloride 105 mmol/L (96-108); Cholesterol 165 mg/dL (<200); Estimated Glomerular Filt Rate 54; Glucose Random 98 mg/dL (60-115); HDL Cholesterol 63 mg/dL (>40); LDL Cholesterol Calculated 93 mg/dL (<100); Potassium 4.4 mmol/L (3.3-5.1); Sodium 141 mmol/L (135-145); Total Protein 7.3 g/dL (6.5-8.0); Triglycerides 49 mg/dL (<150)
== END ==
LOC: HO.CARD 09:13
PROVIDERS: Absent Provider Internal Medicine; PCP Internal Medicine; Visit Provider Hospitalist
DX: J44.9 Chronic obstructive pulmonary disease, unspecified (principal); E11.65 Type 2 diabetes mellitus with hyperglycemia; E78.00 Pure hypercholesterolemia, unspecified
CPT/HCPCS: 36415; 80053; 80061; 83036; 93005

== ENCOUNTER → 2024-02-20 09:19 | Outpatient (BNV) | payer OTHER, SELFPAY | PROVIDERS: Absent Provider Internal Medicine; PCP Internal Medicine; Visit Provider Internal Medicine | DX: J44.9 Chronic obstructive pulmonary disease, unspecified (principal) | CPT/HCPCS: 93010 ==

== ENCOUNTER 2024-03-10 09:00 | Outpatient (RCR) | payer OTHER, SELFPAY ==
[2024-02-25 13:15] VITALS: BP 112/64; PULSE 65
--- NOTE | 2024-02-25 14:20 | MHC.PT.EP ---
[facility] [place] Office [place] Office [place] Office [address] John Aguilera [address] [phone] F: [phone] F: [phone] F: [phone] F: [phone] Physical Therapy Plan of Care Date of Evaluation: 02/25/24 Date of Surgery: Diagnosis: vertigo Assessment: Pt is a 79yo female who presents with recurring vertigo, has been treated for this in the past. PT exam reveals + L [place], treated with Wesly maneuver, impaired oculomotor and VOR noted as well. Skilled PT indicated to complete canalith repositioning, prescribe HEP for VOR uptraining, and habituation exercises. Pt in agreement with POC and is motivated to participate. Frequency and Duration: The patient will be seen 1-2x/week, x 4 weeks Short Term Goals: 1. In 2 weeks, patient will improve her convergence ability 3 cm. 2. In 2 weeks, patient will test - for L [place]oburn Hallpike. 3. Pt will be I with gaze stabilization during sit<>supine transitions. Mcc Goals: 1. In 4 weeks, patient will report > 75% improvement of dizziness symptoms. 2. In 4 weeks, patient will test - for all BPPV. Treatment Plan: Modalities to reduce pain, spasms and effusion. Manual therapy to restore motion and function. Therapeutic exercise to improve strength and flexibility. Neuromuscular re-education for posture and balance. Therapeutic activities to return to functional activities of daily living. Electronically signed by: Dorothy Caldwell PT, DPT Please sign and return to therapist. Thank you for your referral.
--- NOTE | 2024-06-02 12:00 | MHC.PT.DC ---
[facility] [place] Office [place] Office [place] Office [address] John Aguilera [address] [phone] F: [phone] F: [phone] F: [phone] F: [phone] Physical Therapy Discharge Report Diagnosis: vertigo Date of Surgery: Date of Evaluation: 02/25/24 Date of Discharge: 03/10/24 Treatments to Date: 3 Cancellations to Date: No Shows to Date: Discharge Status: Achieved Goals Improved Function Independent with HEP Discharge Summary: Pt is a 79yo female who presents with recurring vertigo, has been treated for this in the past. PT exam reveals + L Castillo, treated with Wesly maneuver, impaired oculomotor and VOR noted as well. Skilled PT indicated to complete canalith repositioning, prescribe HEP for VOR uptraining, and habituation exercises. Pt in agreement with POC and is motivated to participate. Pt with significantly improved symptoms with less dizziness, tested negative on final session for BPPV. Pt in agreement with D/C at this time and is I with HEP. Thank you for this referral. Electronically signed by: Dorothy Caldwell PT, DPT Please sign and return to therapist. Thank you for your referral.
== END 2024-06-02 12:01 | disposition home or self-care (01) ==
LOC: HO.PT 09:00
PROVIDERS: PCP Internal Medicine; Visit Provider Internal Medicine
DX: R42 Dizziness and giddiness (principal)
CPT/HCPCS: 95992; 97110; 97161

== ENCOUNTER → 2024-03-15 11:00 | Outpatient (BNV) | payer OTHER, SELFPAY | PROVIDERS: PCP Internal Medicine; Visit Provider Radiology Diagnostic Radiology | DX: R92.1 Mammographic calcification found on diagnostic imaging of breast (principal) | CPT/HCPCS: 77066; G0279 ==

== ENCOUNTER 2024-03-15 12:30 | Outpatient (REF) | payer OTHER, SELFPAY ==
--- NOTE | ~2024-03-15 | MM_ITS ---
EXAMINATION: MM DIAGNOSTIC DIGITAL BREAST TOMOSYNTHESIS, BILATERAL CLINICAL INFORMATION: 1 year follow-up for left breast calcifications status post benign stereotactic biopsy upper outer quadrant. Patient also due for yearly. COMPARISON: Mammography: Screening mammography 03/19/2023. 06/22/2021, 06/20/2020, and 06/10/2018. TECHNIQUE: Digital breast tomosynthesis is performed in both the craniocaudal and mediolateral oblique views along with computer-aided detection (CAD). Synthesized 2D images are generated from the tomosynthesis. In addition, an added left full-field 3-D MLO view was obtained, as well as 2-D spot magnification left CC and ML views x2 FINDINGS: There are scattered areas of fibroglandular density (ACR BI-RADS breast composition Category b). Post benign biopsy clip present in the upper outer left breast, posterior one third, with a few scant remaining abutting calcifications, similar to the post stereotactic biopsy mammography for clip placement. There has been no aggressive change. Pathology was benign, and appearance is benign. There are benign type scattered calcifications in both breasts. There are mild vascular calcifications. A far posterior medial and inferior oval nodule has been present on mammograms dating back to 2019, and is benign, most likely a lymph node or cyst. An oval lymph node in the upper outer left breast posterior one third is also stable. Otherwise, there are no suspicious masses, new suspicious grouped calcifications, or areas of architectural distortion in either breast. The parenchymal pattern is stable from prior exams. There is no skin or axillary abnormality. MM/MM tomosynthesis diagnostic BI IMPRESSION: No findings suspicious for malignancy in either breast. Benign calcifications bilateral breasts. No aggressive changes in the benign residual calcifications which were sampled in the upper outer left breast posterior one third. ASSESSMENT: BI-RADS BI-RADS 2 - Benign Findings RECOMMENDATION: 1 year F/U Results were provided to the patient at time of visit by the technologist. This patient's information was entered into a reminder system with a target due date for their next mammogram.
== END 2024-03-15 12:31 | disposition home or self-care (01) ==
LOC: HO.MAMMO 12:30
PROVIDERS: PCP Internal Medicine; Visit Provider Surgery
DX: R92.0 Mammographic microcalcification found on diagnostic imaging of breast (principal)
CPT/HCPCS: 77062; 77066

== ENCOUNTER 2024-06-17 07:53 | Outpatient (REF) | payer OTHER, SELFPAY | END 2024-06-17 07:54 | disposition home or self-care (01) | LOC: HO.CT 07:53 | PROVIDERS: PCP Internal Medicine; Visit Provider Hospitalist | DX: R91.8 Other nonspecific abnormal finding of lung field (principal) | CPT/HCPCS: 71250 ==

== ENCOUNTER 2024-06-22 13:02 | Outpatient (AMB) | payer OTHER, SELFPAY ==
--- NOTE | 2024-06-22 13:09 | A.OFFVIS_ITS ---
Vital Signs 06/22/24 13:16 Height 5 ft 1 in Weight 197 lb BMI 37.2 BP 173/74 H Blood Pressure Location Rt brachial Position Sitting Pulse 92 Intake Visit Reasons: Left breast calcifications, 6 month follow up Intake Note: Patient here for 6m br exam. Hx of Lt br calcifications. Patient c/o: reports no changes in medical hx. No concerns. Mammo: 03-15-2024. 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: No Accompanied by: Self / Same As Patient Allergies aspirin [From Percodan] Allergy (Severe, Verified 06/22/24 13:16) Disoriented lisinopril Allergy (Severe, Verified 06/22/24 13:16) Nervous oxycodone [From Percodan] Allergy (Severe, Verified 06/22/24 13:16) Disoriented Penicillins [PENICILLINS] Allergy (Severe, Verified 06/22/24 13:16) Hives codeine Adverse Reaction (Severe, Verified 06/22/24 13:16) Nausea and Vomiting morphine [MORPHINE] Adverse Reaction (Severe, Verified 06/22/24 13:16) NAUSEA & VOMITING ENVIRONMENTAL Allergy (Intermediate, Uncoded 06/22/24 13:16) RUNNY NOSE/WATERY EYES Darvocet A500 Adverse Reaction (Severe, Uncoded 06/22/24 13:16) disoriented HPI Comments Details: Patient was status post follow-up with mammogram for breast microcalcifications. She has no breast issues or complaints. Mammogram was within normal limits and radiologic recommendation is for 1 year follow-up mammogram. She does occasionally do self-breast exam [facility] Medical History BALTAZAR (obstructive sleep apnea) 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 Bronchiectasis Bronchiolitis Osteoarthritis Mixed stress and urge urinary incontinence Obesity (BMI 30-39.9) Obstructive sleep apnea Vitamin D deficiency Type 2 diabetes mellitus with hyperglycemia Asthma Glaucoma Arthritis GERD (gastroesophageal reflux disease) History of kidney stones Hypercholesteremia HTN (hypertension) Surgical History History of extraction of renal calculus History of breast biopsy Hx of umbilical hernia repair History of cystoscopy History of cholecystectomy History of colonoscopy H/O: hysterectomy Family History Father Prostate cancer Mother Mental problem Son No problems noted. Son No problems noted. Daughter No problems noted. Social History Housing: Apartment Alcohol intake: never Patient Tobacco Use Status: Former Tobacco user Tobacco use type: Cigarette Years Smoked: 45 years Quit 05/2007 e-Cigarette/Vaping Use: Never Used Second Hand Smoke Exposure: No service: No Current occupational status: disabled Cognitive needs: Yes (cane) Hearing needs: No Vision needs: Yes (glasses) Physical Exam Vital Signs: Last Vital Signs Pulse 92 06/22/24 13:16 BP 173/74 H 06/22/24 13:16 BMI result Body Mass Index 37.2 Chest Other: No periclavicular axillary or cervical adenopathy bilaterally. Bilateral breast exam demonstrates no obvious mass, discharge, skin changes. Very pendulous breasts. GI Other: Abdomen corpulent, soft, benign Assessment & Plan Assessment & Plan (1) Breast microcalcifications: Code(s): R92.0 - Mammographic microcalcification found on diagnostic imaging of breast Category: Surgical Plan Current plan is to see the patient 1 year's time proceeded by bilateral mammograms. She is encouraged to occasional self-breast exams. All questions answered. Patient will see me as noted above or p.r.n.. Coding Level of Care Code Est Pt Level 4 (38714) Diagnoses Breast microcalcifications R92.0
[2024-06-22 13:16] VITALS: BP 173/74; PULSE 92; BMI 37.2
== END 2024-06-22 13:31 | disposition home or self-care (01) ==
PROVIDERS: PCP Internal Medicine; Visit Provider Surgery
DX: R92.0 Mammographic microcalcification found on diagnostic imaging of breast (principal)
CPT/HCPCS: 99214

== ENCOUNTER → 2024-06-22 13:02 | Outpatient (BNVA) | payer OTHER, SELFPAY | PROVIDERS: PCP Internal Medicine; Visit Provider Surgery | DX: R92.0 Mammographic microcalcification found on diagnostic imaging of breast (principal) | CPT/HCPCS: 99212 ==

== ENCOUNTER 2024-06-28 09:10 | Outpatient (AMB) | payer OTHER, SELFPAY ==
--- NOTE | 2024-06-28 09:16 | A.OFFPC_ITS ---
Vital Signs 06/28/24 09:21 Height 5 ft 1 in Weight 196 lb 3.382 oz BMI 37.1 BP 158/70 H Blood Pressure Location Lt brachial Position Sitting Pulse 88 Pulse Source Pulse Oximeter Pulse Oximetry (%) 98 Oxygen Delivery Method Room Air Intake Visit Reasons: DM, Cholesterol Life Skills Teacher Required: No Accompanied by: Self / Same As Patient Allergies aspirin [From Percodan] Allergy (Severe, Verified 06/28/24 09:22) Disoriented lisinopril Allergy (Severe, Verified 06/28/24 09:22) Nervous oxycodone [From Percodan] Allergy (Severe, Verified 06/28/24 09:22) Disoriented Penicillins [PENICILLINS] Allergy (Severe, Verified 06/28/24 09:22) Hives codeine Adverse Reaction (Severe, Verified 06/28/24 09:22) Nausea and Vomiting morphine [MORPHINE] Adverse Reaction (Severe, Verified 06/28/24 09:22) NAUSEA & VOMITING ENVIRONMENTAL Allergy (Intermediate, Uncoded 06/22/24 13:16) RUNNY NOSE/WATERY EYES Darvocet A500 Adverse Reaction (Severe, Uncoded 06/22/24 13:16) disoriented Tobacco use date assessed: 11/17/23 Fall risk assessment: 1 Fall in past year Last assessed Fall Risk: 06/28/24 Dental Screening Dental Screen Date: 06/28/24 Did you have a dental visit in the last 12 months?: Yes Did you have a dental problem in the last 6 months where you did not have access to dental care?: No Was dental information given to patient?: Patient has dentist HPI DM, Cholesterol HPI Details 79-year-old obese female with controlled diabetes mellitus asthma COPD overlap syndrome obstructive sleep apnea GERD hypertension hypercholesterolemia and generalized anxiety disorder last seen in 02/14/2024. Patient had vertigo at that time and was referred to physical therapy. Patient's last colonoscopy was in 2019, mammogram 2022. Bone density is due. Patient had some left breast calcification and was seen by the surgeon and advised to monitor and follow- up.. Patient also had a CT scan of the chest in June 17 but results are pending. 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 Bronchiectasis Bronchiolitis Osteoarthritis Mixed stress and urge urinary incontinence Obesity (BMI 30-39.9) Obstructive sleep apnea Vitamin D deficiency Type 2 diabetes mellitus with hyperglycemia Asthma Glaucoma Arthritis GERD (gastroesophageal reflux disease) History of kidney stones Hypercholesteremia HTN (hypertension) Surgical History History of extraction of renal calculus History of breast biopsy Hx of umbilical hernia repair History of cystoscopy History of cholecystectomy History of colonoscopy H/O: hysterectomy Family History Father Prostate cancer Mother Mental problem Son No problems noted. Son No problems noted. Daughter No problems noted. Social History Housing: Apartment Alcohol intake: never Patient Tobacco Use Status: Former Tobacco user Tobacco use type: Cigarette Years Smoked: 45 years Quit 05/2007 e-Cigarette/Vaping Use: Never Used Second Hand Smoke Exposure: No service: No Current occupational status: disabled Cognitive needs: Yes (cane) Hearing needs: No Vision needs: Yes (glasses) Questionnaire Thrive Questionnaire Date Thrive assessed: 06/28/24 I am a: Patient What is your living situation today?: I have a steady place to live Within the past 12 months, did the food you bought not last and you didn't have the money to get more?: Never true Within the past 12 months, did you worry whether your food would run out before you got money to buy more?: Never true Do you have trouble paying for medicines?: No Do you have trouble getting transportation to medical appointments?: No Do you have trouble paying your heating and electricity bill?: No Do you have trouble taking care of your child, family member or friend?: No Do you have trouble with day-to-day activities such as bathing, preparing meals, shopping, managing finances, etc.?: No Are you currently unemployed and looking for a job?: No Are you interested in more education?: No THRIVE Score: 0 AUDIT C Alcohol Use Questionnaire (AUDIT-C) 1. How often do you have a drink containing alcohol?: Never Total Score: 0 ISHA-7 AMB Questionnaire ISHA-7 Date ISHA - 7 assessed: 06/28/24 Feeling nervous, anxious, or on edge: 0 = Not at all Not being able to stop or control worryin = Not at all Worrying too much about different things: 0 = Not at all Trouble relaxin = Not at all Being so restless that it is hard to sit still: 0 = Not at all Becoming easily annoyed or irritable: 0 = Not at all Feeling afraid as if something awful might happen: 0 = Not at all Total ISHA-7 score (0-4 normal; 5-9 mild; 10-14 moderate; 15-21 severe): 0 Source: Developed by Drs. Eusebio Gates, Radha Burrows, Vincent Calderon and colleagues, with an educational patrick from [employer]. Physical exam (Primary Care) Vital Signs: Last Vital Signs Pulse 88 06/28/24 09:21 BP 158/70 H 06/28/24 09:21 Pulse Ox 98 06/28/24 09:21 Oxygen Delivery Method Room Air 06/28/24 09:21 BMI result Body Mass Index 37.1 Tobacco/Smoking Status: Tobacco use Status Tobacco use date assessed 11/17/23 06/28/24 09:26 Patient Tobacco Use Status Former Tobacco user 06/28/24 09:26 Tobacco use type Cigarette 06/28/24 09:26 e-Cigarette/Vaping Use Never Used 06/28/24 09:26 Thrive Assessment: Date of Thrive Assessment Date Thrive assessed 06/28/24 06/28/24 09:26 Const General: alert; No acute distress Eyes Conjunctivae: conjunctivae normal Resp Auscultation: clear to auscultation bilaterally Cardio Rate: regular rate Rhythm: regular rhythm GI Inspection: Yes normal to inspection Extrem General: Yes normal to inspection and No edema Results AMB Hemoglobin A1c AMB Hemoglobin A1c 5.9 % Last Edit by TAHIR Cortes on 06/28/24 09:2 8 Results Reviewed Results Reviewed: Laboratory Last Values Hgb A1c (Clinic) 5.9 % (4.0-6.0) 06/28/24 09:15 Coding Level of Care Code Est Pt Level 4 (66706) Complex EM visit Add On G2211 Diagnoses Breast microcalcifications R92.0 Type 2 diabetes mellitus with hyperglycemia, without long-term current use of insulin E11.65 Diabetes mellitus penitentiary insulin use: without penitentiary use Gastroesophageal reflux disease without esophagitis K21.9 Esophagitis presence: without esophagitis Essential hypertension I10 Hypertension type: essential hypertension Hypercholesteremia E78.00 Obesity (BMI 30-39.9) E66.9 Generalized anxiety disorder F41.1 Pulmonary nodules R91.8 Asthma-COPD overlap syndrome J44.9 Obstructive sleep apnea G47.33 Assessment & Plan Assessment & Plan (1) Breast microcalcifications: Code(s): R92.0 - Mammographic microcalcification found on diagnostic imaging of breast Category: Surgical Plan: Patient's mammogram is up-to-date and continue to follow-up the calcifications. (2) Type 2 diabetes mellitus with hyperglycemia: Comment: Dr. Oliver Code(s): E11.65 - Type 2 diabetes mellitus with hyperglycemia Category: Medical Qualifiers: Diabetes mellitus penitentiary insulin use: without penitentiary use Qualified Code(s): E11.65 - Type 2 diabetes mellitus with hyperglycemia Plan: Decrease the amount of carbohydrate intake, pasta, bread, rice and potatoes are all sugar and that is aside from all the sweet stuff, remember that fruits are good but they are Sweet also. Hemoglobin A1c goal of less than 7.0. Patient is diet controlled (3) GERD (gastroesophageal reflux disease): Code(s): K21.9 - Gastro-esophageal reflux disease without esophagitis Category: Medical Qualifiers: Esophagitis presence: without esophagitis Qualified Code(s): K21.9 - Gastro-esophageal reflux disease without esophagitis Plan: Avoid the foods that causes that usually spicy foods, tomato products, juices, coffee, soda and foods that your sensitive to. After eating do not lie down, allow 3-4 hours before in lie down. And keep the head of bed above 30 degrees to avoid the acid from going up. (4) HTN (hypertension): Code(s): I10 - Essential (primary) hypertension Category: Medical Qualifiers: Hypertension type: essential hypertension Qualified Code(s): I10 - Essential (primary) hypertension Plan: Continue with blood pressure medication. Decrease salt intake and exercise patient is on losartan 100 mg once a day. With blood pressure elevated amlodipine medication started (5) Hypercholesteremia: Code(s): E78.00 - Pure hypercholesterolemia, unspecified Category: Medical Plan: Avoid fried foods, chicken skin, eggs, butter margarine, pastries and meat. Be it pork or beef they have a lot of cholesterol takes atorvastatin 20 mg once a day January 2024 blood (6) Obesity (BMI 30-39.9): Code(s): E66.9 - Obesity, unspecified Category: Medical Plan: Diet and exercise (7) Generalized anxiety disorder: Comment: decline therapy Code(s): F41.1 - Generalized anxiety disorder Category: Medical Plan: Stable (8) Pulmonary nodules: Comment: April 2021 right upper and left lower Code(s): R91.8 - Other nonspecific abnormal finding of lung field Category: Medical Plan: Patient had a CT scan done and results are pending (9) Asthma-COPD overlap syndrome: Code(s): J44.9 - Chronic obstructive pulmonary disease, unspecified Category: Medical Plan: Continue with albuterol inhaler and Trelegy (10) Obstructive sleep apnea: Comment: cannot tolerate CPAP Code(s): G47.33 - Obstructive sleep apnea (adult) (pediatric) Category: Medical Plan: Continue to use the CPAP more than 4 hours a night and benefits from this. Orders: Orders Influenza [id number] Immunization Today Z23 - Encounter for immunization AMB Hemoglobin A1c Today E11.65 - Type 2 diabetes mellitus with hyperglycemia Medications: New Fluarix Triv [id number] (PF) (flu vacc [id number] 6mos up(PF)) 0.5 mL IM ONCE 0.5 mL 0RF NS Z23 - Encounter for immunization amlodipine 2.5 mg PO DAILY 30 tabs 4RF I10 - Essential (primary) hypertension Refilled halobetasol propionate 0.05% 1 appl topical DAILY 50 grams 0RF L30.9 - De rmatitis, unspecified
[2024-06-28 09:21] VITALS: BP 158/70; PULSE 88; O2SAT 98; BMI 37.1
== END 2024-06-28 09:50 | disposition home or self-care (01) ==
PROVIDERS: PCP Internal Medicine; Visit Provider Internal Medicine
DX: E11.65 Type 2 diabetes mellitus with hyperglycemia (principal); J44.9 Chronic obstructive pulmonary disease, unspecified; R92.0 Mammographic microcalcification found on diagnostic imaging of breast; K21.9 Gastro-esophageal reflux disease without esophagitis; I10 Essential (primary) hypertension; E78.00 Pure hypercholesterolemia, unspecified; E66.9 Obesity, unspecified; F41.1 Generalized anxiety disorder; R91.8 Other nonspecific abnormal finding of lung field; G47.33 Obstructive sleep apnea (adult) (pediatric)

== ENCOUNTER → 2024-06-28 09:10 | Outpatient (BNVA) | payer OTHER, SELFPAY | PROVIDERS: PCP Internal Medicine; Visit Provider Internal Medicine | DX: Z23 Encounter for immunization (principal); R92.0 Mammographic microcalcification found on diagnostic imaging of breast; E11.65 Type 2 diabetes mellitus with hyperglycemia; K21.9 Gastro-esophageal reflux disease without esophagitis; I10 Essential (primary) hypertension; E78.00 Pure hypercholesterolemia, unspecified; E66.9 Obesity, unspecified; F41.1 Generalized anxiety disorder; R91.8 Other nonspecific abnormal finding of lung field; J44.9 Chronic obstructive pulmonary disease, unspecified; G47.33 Obstructive sleep apnea (adult) (pediatric) | CPT/HCPCS: 83036; 90471; 90656; 96127; 99212 ==

== ENCOUNTER 2024-07-01 12:53 | Outpatient (AMB) | payer OTHER, SELFPAY ==
[2024-07-01 13:11] VITALS: BP 158/70; PULSE 73; O2SAT 96; BMI 37.5
--- NOTE | 2024-07-01 13:11 | A.OFFVIS_ITS ---
Vital Signs 07/01/24 13:11 Height 5 ft 1 in Weight 198 lb 6.656 oz BMI 37.5 BP 158/70 H Blood Pressure Location Rt brachial Position Sitting Pulse 73 Pulse Source Pulse Oximeter Pulse Oximetry (%) 96 Oxygen Delivery Method Room Air Intake Visit Reasons: Obstructive sleep apnea Allergies aspirin [From Percodan] Allergy (Severe, Verified 07/01/24 13:14) Disoriented lisinopril Allergy (Severe, Verified 07/01/24 13:14) Nervous oxycodone [From Percodan] Allergy (Severe, Verified 07/01/24 13:14) Disoriented Penicillins [PENICILLINS] Allergy (Severe, Verified 07/01/24 13:14) Hives codeine Adverse Reaction (Severe, Verified 07/01/24 13:14) Nausea and Vomiting morphine [MORPHINE] Adverse Reaction (Severe, Verified 07/01/24 13:14) NAUSEA & VOMITING ENVIRONMENTAL Allergy (Intermediate, Uncoded 07/01/24 13:14) RUNNY NOSE/WATERY EYES Darvocet A500 Adverse Reaction (Severe, Uncoded 07/01/24 13:14) disoriented HPI Comments Details: The patient is a 79-year-old woman former smoker who apparently was in usual state health until the summer when she was vacationing in [place]. She started developing a significant cough moderate to severe. She would to get evaluated and tested. She tested negative for COVID-19. Part of the evaluation she had a chest x-ray that was abnormal. She did come back to the area. The patient again was evaluated by primary care doctor regarding her significant cough. Therefore she underwent a chest x-ray and subsequently a CT scan of the chest that was done May. Based on the abnormal findings she was referred to Pulmonary. Patient states that her coughing spells are very significant. Therefore croupy in nature and sometimes is productive other times is not produ ctive. She has not taken any antibiotics at this time. She quit smoking many years ago. We did personally review her CT scan of the chest in the office. She appears to have tree in budding suggesting of bronchiolitis. This is bilaterally involving the upper lung zones and also the mid right middle lobe in the lingula. She does have evidence of nodular disease in addition to bronchiectatic changes and airspace disease. The findings his suggesting of a smoldering lower respiratory infection. her cough appears to be more consistent with laryngotracheitis. It is likely that this is a different etiology than the findings in her chest. The patient denies being exposed to anybody with tuberculosis. At this point will have the patient undergo blood work. I do encourage the patient to undergo additional diagnostic testing. The patient will go for bronchoscopy at this time. 08/26/2022 the patient is here for a pulmonary follow-up visit. The patient continues to episodes of coughing and shortness of breath. She is also having episodes of wheezing. Moderate severity. 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 Unfortunately she did not und erstand the instructions based on the fact that she took the medicine only 4 months and then she stopped it. She did have refills although she states that she does not. I will resend the medications to her pharmacy. At this point her daughter is with her and I confirm with daughter that I did send refills in that I will send the medication again to the pharmacy and she is to continue taking it. The patient stands the therapies at least for a year if he went to a retic aid this bacteria. We did also review her CT scan of the chest demonstrating the pulmonary nodules along with bronchiectatic changes in along with the tree-in-bud all changes consistent with her mycobacterial disease. The patient also is having issues with daytime drowsiness. She may have had a sleep study in the past. Although is probably more than a year. She does have daytime drowsiness and does have issues with her memory. Her Oaks score is elevated 11/24. Will request a repeat home sleep study in order to address the question of her sleep apnea issues. The patient also was supposed to have an Acapella valve. I did reach out to [facility] to see if they can send this to her. In meantime a recent prescription. I believe that they will try to reach out to her and they may have been some miscommunication on the phone. Therefore will see resubmit for the home sleep study and also recently for the Acapella valve and also recent her medications. When she comes back in 3 months will repeat her blood work and also plan to repeat her CT scan to follow-up with the pulmonary nodules. 10/21/2022 the patient is here for a pulmonary follow-up visit. She is tolerating the antimycobacterial therapy. Although getting nauseous and also of tea. He feels like he gets more symptomatic with rifampin. I did advise her to cut down to 1 tablet daily with hopes that she can tolerated better. She still has issues she can stop it altogether. She will go ahead and recheck her sputum for AFB and also request blood work to make sure that she is not developing any adverse effects from the medication. We did review her last CT scan of the chest demonstrating the bronchiectatic changes and tree in budding along with pulmonary nodules which is the manifestations of the smoldering infection. She is also complaining of increasing chest tightness and wheezing. She has been on Advair. Will go ahead and optimize therapy to Trelegy inhaler in order to provide better coverage. In addition to this the patient continues to have daytime drowsiness. Her Oaks score is elevated 06/20. We did review her last sleep study demonstrating [id number] sleep apnea with an AHI of 13 events an hour. The patient needs to start CPAP therapy at this time. 06/30/2023 the patient is here for a pulmonary follow-up visit. Overall the patient has been doing well. She is tolerating the antimicrobial therapy for the mycobacterial disease. She is taking medicine 3 times a week. Her cough is better and respiratory symptoms also improved. We did review her CT scan of the chest that she had in May 2023 demonstrating interval improvement of the nodular densities. She still has some treating budding but overall improved compared to her previous CT scan. This is all reassuring. Since the patient is tolerating therapy and since she still has changed send a CT scan will go ahead and continue the current therapy till October and at that point decide if she is still doing well to switch over to monotherapy. Regards a CPAP the CPAP therapy continues to be affecting beneficial. She finally found a mask that she is comfortable with that is the F30 medium mask. Although she is been getting the wrong mask from the [facility]. I did call the [facility] and also provide her a new script but the right mask. Hopefully she can exchange the mask to the right 1. should continue using the therapy for more than 4 hours a night. The patient otherwise is without any other complaints. Will follow-up in October and at that point decide on further changes of her antimicrobial therapy. 11/24/2023 the patient is here for a pulmonary follow-up visit. She continues to do well from a respiratory status. Denies any worsening cough shortness of breath. She did on the mycobacterial therapy now for some time. The plan was to stop to the agents and continue monotherapy with the azithromycin. Will do that for prophylaxis specially since back tends to relapse after completing therapy. She does have pulmonary nodules. The last time we looked at her pulmonary nodules was back in the fall 2022. Will go ahead and plan to repeat her CT scan fall 2023 and follow-up after that. Feeling time she continues use her CPAP every night. CPAP therapy continues to be affecting beneficial. She does use the F30 fullface mask. She gets supplies from [employer]. And she does use it for more than 4 hours a night and she will continue to use it at this time. 07/01/2024 the patient is here for pulmonary follow-up visit. The patient overall has been feeling well. She has been using her CPAP. CPAP therapy continues to be affecting beneficial. She does use it for more than 4 hours a night. Her mask is comfortable. From a lung standpoint the patient does still cough up phlegm. Sometimes she coughs up some tenacious phlegm difficult to expectorate. She does have underlying bronchiectasis and mycobacterial disease so therefore the using Acapella valve would be helpful. I will request 1 from the [facility]. Right now she is doing okay on current respiratory regimen which is reassuring. She continues on the azithromycin 500 mg. She did have a CT scan of the chest that we personally reviewed. Appears that the airspace disease in the nodular densities have subsided to some degree there is for positive response to therapy. When she returns in the springtime will talk about decreasing the azithromycin to 250 mg from 500. If she has any issues prior to that she will call otherwise will see each other in about 4 months. [facility] Medical History BALTAZAR (obstructive sleep apnea) 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 Bronchiectasis Bronchiolitis Osteoarthritis Mixed stress and urge urinary incontinence Obesity (BMI 30-39.9) Obstructive sleep apnea Vitamin D deficiency Type 2 diabetes mellitus with hyperglycemia Asthma Glaucoma Arthritis GERD (gastroesophageal reflux disease) History of kidney stones Hypercholesteremia HTN (hypertension) Surgical History History of extraction of renal calculus History of breast biopsy Hx of umbilical hernia repair History of cystoscopy History of cholecystectomy History of colonoscopy H/O: hysterectomy Family History Father Prostate cancer Mother Mental problem Son No problems noted. Son No problems noted. Daughter No problems noted. Social History Housing: Apartment Alcohol intake: never Patient Tobacco Use Status: Former Tobacco user Tobacco use type: Cigarette Years Smoked: 45 years Quit 05/2007 e-Cigarette/Vaping Use: Never Used Second Hand Smoke Exposure: No service: No Current occupational status: disabled Cognitive needs: Yes (cane) Hearing needs: No Vision needs: Yes (glasses) Review of Systems Const Denies daytime sleepiness, Denies night sweats, Denies snoring and Denies stops breathing during sleep ENT Denies change in voice, Denies lip swelling, Denies mouth pain, Reports nasal congestion, Reports nasal discharge and Denies tongue swelling Card Denies chest pain Resp Denies chest congestion, Reports cough and Denies snoring GI Denies abdominal pain Musc Denies no additional complaints Neuro Denies Neuro-related abnormal movements Psych Denies no additional complaints Luis A/Lymph Denies easy bleeding and Denies lymphadenopathy Aller/Immun Denies lip swelling and Denies tongue swelling Physical Exam Vital Signs: Last Vital Signs Pulse 73 07/01/24 13:11 BP 158/70 H 07/01/24 13:11 Pulse Ox 96 07/01/24 13:11 Oxygen Delivery Method Room Air 07/01/24 13:11 BMI result Body Mass Index 37.5 Const General: alert Neck Neck: Yes normal visual inspection, Yes full ROM and Yes no lymphadenopathy Chest Chest palpation & inspection: normal inspection of the chest Resp Auscultation: diminished lung sounds Cardio Rate: regular rate Rhythm: regular rhythm Heart sounds: S1 normal heart sound present and S2 normal heart sound present GI Palpation (GI): Soft to palpation and nontender Auscultation: normal bowel sounds Skin General skin exam: rashes and/or lesions noted Assessment & Plan Assessment & Plan (1) Asthma-COPD overlap syndrome: Code(s): J44.9 - Chronic obstructive pulmonary disease, unspecified Category: Medical (2) Bronchiectasis: Code(s): J47.9 - Bronchiectasis, uncomplicated Category: Medical Qualifiers: Bronchiectasis type: uncomplicated Qualified Code(s): J47.9 - Bronchiectasis, uncomplicated (3) Nontuberculous mycobacterial disease of lung: Code(s): A31.0 - Pulmonary mycobacterial infection Category: Medical (4) Pulmonary nodules: Comment: April 2021 right upper and left lower Code(s): R91.8 - Other nonspecific abnormal finding of lung field Category: Medical (5) BALTAZAR (obstructive sleep apnea): Code(s): G47.33 - Obstructive sleep apnea (adult) (pediatric) Category: Medical Plan continue APAP, requesting F30 med, [employer] Continue nebulizer daily as needed Acapella valve twice a day after nebulizer for CPT continue Azithromycin 500mg, will consider decreasing to 250mg during the next visit stop Ethambutol/ Rifampin continue Trelegy 200 [place] as needed EKG F/U 4 months Medications: Refilled albuterol sulfate 2.5 mg (3 mL) inhalation BID 180 mL 11RF 30 days J44.9 - Chronic obstructive pulmonary disease, unspecified [id number] 200-62.5-25 mcg (Trelegy Ellipta) 1 inh inhalation DAILY 60 ea 12RF 30 days Coding Level of Care Code Est Pt Level 4 (45121) Complex EM visit Add On G2211 Diagnoses Asthma-COPD overlap syndrome J44.9 Bronchiectasis without complication J47.9 Bronchiectasis type: uncomplicated Nontuberculous mycobacterial disease of lung A31.0 Pulmonary nodules R91.8 BALTAZAR (obstructive sleep apnea) G47.33 Time Spent (min) 17
== END 2024-07-01 13:42 | disposition home or self-care (01) ==
PROVIDERS: PCP Internal Medicine; Visit Provider Hospitalist
DX: J44.9 Chronic obstructive pulmonary disease, unspecified (principal); J47.9 Bronchiectasis, uncomplicated; A31.0 Pulmonary mycobacterial infection; R91.8 Other nonspecific abnormal finding of lung field; G47.33 Obstructive sleep apnea (adult) (pediatric)
CPT/HCPCS: 99214; G2211

== ENCOUNTER → 2024-07-01 12:53 | Outpatient (BNVA) | payer OTHER, SELFPAY | PROVIDERS: PCP Internal Medicine; Visit Provider Hospitalist | DX: J44.89 Other specified chronic obstructive pulmonary disease (principal); J47.9 Bronchiectasis, uncomplicated; A31.0 Pulmonary mycobacterial infection; R91.8 Other nonspecific abnormal finding of lung field; G47.33 Obstructive sleep apnea (adult) (pediatric); Z99.89 Dependence on other enabling machines and devices | CPT/HCPCS: 99212 ==

== ENCOUNTER 2024-08-05 11:57 | Outpatient (AMB) | payer OTHER, SELFPAY ==
[2024-08-05 11:57] VITALS: BP 182/78; PULSE 77; O2SAT 97; BMI 37.1
--- NOTE | 2024-08-05 11:57 | A.OFFPC_ITS ---
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: No Accompanied by: Self / Same As Patient Allergies aspirin [From Percodan] Allergy (Severe, Verified 08/05/24 12:04) Disoriented lisinopril Allergy (Severe, Verified 08/05/24 12:04) Nervous oxycodone [From Percodan] Allergy (Severe, Verified 08/05/24 12:04) Disoriented Penicillins [PENICILLINS] Allergy (Severe, Verified 08/05/24 12:04) Hives codeine Adverse Reaction (Severe, Verified 08/05/24 12:04) Nausea and Vomiting morphine [MORPHINE] Adverse Reaction (Severe, Verified 08/05/24 12:04) NAUSEA & VOMITING ENVIRONMENTAL Allergy (Intermediate, Uncoded 08/05/24 12:04) RUNNY NOSE/WATERY EYES Darvocet A500 Adverse Reaction (Severe, Uncoded 08/05/24 12:04) disoriented Medication List - Last Reconciled 08/05/24 by Janeth Call PA-C albuterol sulfate 2.5 mg (3 mL) inhalation BID 30 days amlodipine 2.5 mg PO DAILY atorvastatin 20 mg PO DAILY azithromycin 500 mg PO 3XW 90 days blood pressure monitor (Blood Pressure Kit) As directed blood sugar diagnostic (FreeStyle Lite Strips) As directed check the QD blood-glucose meter (FreeStyle Lite Meter kit) As directed [CANE As directed] cholecalciferol (vitamin D3) 25 mcg PO DAILY CPAP (CPAP Machine/Device) As directed dorzolamide-timolol 22.3-6.8 mg/mL mL ophthalmic (eye) famotidine 10 mg PO BID fluticasone propionate 50 mcg/actuation (Flonase Allergy Relief) 2 sprays intranasal DAILY vfurelanznj-gvjufgvtx-drbmwwzr 200-62.5-25 mcg (Trelegy Ellipta) 1 inh inhalation DAILY 30 days halobetasol propionate 0.05% 1 appl topical DAILY [hand held shower head As directed] [Incontinence PADS As directed] lancets (FreeStyle Lancets) As directed check BS QD losartan 100 mg PO DAILY 90 days miscellaneous medical supply As directed montelukast 10 mg PO DAILY naproxen (EC-Naproxen) 500 mg PO BID nebulizers As directed nebulizers As directed oxybutynin chloride 5 mg PO BID pantoprazole 40 mg PO DAILY 90 days [pull ups As directed] quetiapine 25 mg PO DAILY PRN Shower Chair As directed [transfer bench As directed] Ventolin HFA 90 mcg/actuation (albuterol sulfate) 1 puff PO QID PRN NS [wipes As directed] Tobacco use date assessed: 08/05/24 Fall risk assessment: No Falls in past year Last assessed Fall Risk: 08/05/24 Dental Screening Dental Screen Date: 08/05/24 Did you have a dental visit in the last 12 months?: Yes Did you have a dental problem in the last 6 months where you did not have access to dental care?: No Was dental information given to patient?: Patient has dentist HPI [facility] 07/26 Chest Pain HPI Details 79-year-old female with past medical his tory of controlled diabetes mellitus, asthma, COPD overlap syndrome, obstructive, GERD, hypertension, hypercholesterolemia and generalized anxiety disorder last seen 06/2024 coming in for hospital discharge follow up.? In review of the notes, patient was seen at [facility] 07/27/2024 for evaluation of chest pain for several months EKG negative, chest x-ray negative discharged home with famotidine b.i.d. and follow up with PCP. Patient tells us today she has been having occasional chest pain for the last several months. She went to the ED in June after the chest pain was persistent and did not resolve spontaneously. The episodes will typically last anywhere between 10-15 minutes and resolved spontaneously does not identify any inciting events and does not worsen with exercise. She does not have any additional symptoms along with the chest pain. She states the pain is crampy and on bilateral sides of the chest that radiate to the back. Her blood pressure at home continues to be elevated. She does notice very mild improvement with the famotidine. [facility] Medical History BALTAZAR (obstructive sleep apnea) 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 Bronchiectasis Bronchiolitis Osteoarthritis Mixed stress and urge urinary incontinence Obesity (BMI 30-39.9) Obstructive sleep apnea Vitamin D deficiency Type 2 diabetes mellitus with hyperglycemia Asthma Glaucoma Arthritis GERD (gastroesophageal reflux disease) History of kidney stones Hypercholesteremia HTN (hypertension) Surgical History History of extraction of renal calculus History of breast biopsy Hx of umbilical hernia repair History of cystoscopy History of cholecystectomy History of colonoscopy H/O: hysterectomy Family History Father Prostate cancer Mother Mental problem Son No problems noted. Son No problems noted. Daughter No problems noted. Social History Housing: Apartment Alcohol intake: never Patient Tobacco Use Status: Former Tobacco user Tobacco use type: Cigarette Years Smoked: 45 years Quit 05/2007 e-Cigarette/Vaping Use: Never Used Second Hand Smoke Exposure: No service: No Current occupational status: disabled Cognitive needs: Yes (cane) Hearing needs: No Vision needs: Yes (glasses) Questionnaire PHQ-9 Over the last 2 weeks, how often have you been bothered by any of the following problems? 1. Little interest or pleasure in doing things: not at all 2. Feeling down, depressed, or hopeless: not at all 3. Trouble falling or staying asleep, or sleeping too much: not at all 4. Feeling tired or having little energy: not at all 5. Poor appetite or overeating: not at all 6. Feeling bad about yourself - or that you are a failure or have let yourself or your family down: not at all 7. Trouble concentrating on things, such as reading the newspaper or watching television: not at all 8. Moving or speaking so slowly that other people could have noticed. Or the opposite - being so fidgety or restless that you have been moving around a lot more than usual: not at all 9. Thoughts that you would be better off or of hurting yourself in some way: not at all Total score: 0 Depression Screening Interpretation: Negative Depression Screening Done: Yes 96758 - PHQ-9 Billing: Yes Source: Developed by Drs. Eusebio Gates, Radha Burrows, Vincent Calderon and colleagues, with an educational patrick from [employer]. Thrive Questionnaire Date Thrive assessed: 08/05/24 I am a: Patient What is your living situation today?: I have a steady place to live Within the past 12 months, did the food you bought not last and you didn't have the money to get more?: Never true Within the past 12 months, did you worry whether your food would run out before you got money to buy more?: Never true Do you have trouble paying for medicines?: No Do you have trouble getting transportation to medical appointments?: No Do you have trouble paying your heating and electricity bill?: No Do you have trouble taking care of your child, family member or friend?: No Do you have trouble with day-to-day activities such as bathing, preparing meals, shopping, managing finances, etc.?: No Are you currently unemployed and looking for a job?: No Are you interested in more education?: No Currently or been in a relationship where the following occur: No concerns reported THRIVE Score: 0 AUDIT C Alcohol Use Questionnaire (AUDIT-C) 1. How often do you have a drink containing alcohol?: Never 3. How often do you have six or more drinks on one occasion?: Never Total Score: 0 ISHA-7 AMB Questionnaire ISHA-7 Date ISHA - 7 assessed: 08/05/24 Feeling nervous, anxious, or on edge: 0 = Not at all Not being able to stop or control worryin = Not at all Worrying too much about different things: 0 = Not at all Trouble relaxin = Not at all Being so restless that it is hard to sit still: 0 = Not at all Becoming easily annoyed or irritable: 0 = Not at all Feeling afraid as if something awful might happen: 0 = Not at all Total ISHA-7 score (0-4 normal; 5-9 mild; 10-14 moderate; 15-21 severe): 0 Source: Developed by Drs. Eusebio Gates, Radha Burrows, Vincent Calderon and colleagues, with an educational patrick from [employer]. ISHA-7 Assessment Billing ISHA-7 Assessment Tool: ISHA-7 Assessment 75270 Review of Systems Const Denies body aches, Denies chills, Denies fever(s), Denies headache(s) and Denies poor appetite Eyes Reports no additional complaints ENT Denies dysphagia, Denies dizziness, Denies headache(s) and Denies odynophagia Card Reports chest pain, Denies syncope, Denies edema, Denies irregular heart rhythm, Denies lightheadedness and Denies dyspnea Resp Denies cough and Denies dyspnea GI Denies abdominal pain, Denies constipation, Denies dysphagia, Denies diarrhea, Denies nausea, Denies odynophagia and Denies vomiting Reports no additional complaints Musc Reports no additional complaints and Denies abnormal gait Skin/Breast Reports system reviewed and no additional complaints, except as documented Neuro Denies abnormal gait, Denies dizziness, Denies syncope and Denies headache(s) Psych Reports no additional complaints Physical exam (Primary Care) Vital Signs: Oxygen Delivery Method Room Air 08/05/24 11:57 Tobacco/Smoking Status: Tobacco use Status Tobacco use date assessed 11/17/23 08/05/24 11:58 Patient Tobacco Use Status Former Tobacco user 08/05/24 11:58 Tobacco use type Cigarette 08/05/24 11:58 e-Cigarette/Vaping Use Never Used 08/05/24 11:58 Depression Screening Interpretation: Negative Thrive Assessment: Date of Thrive Assessment Date Thrive assessed 06/28/24 08/05/24 11:58 Currently or been in a relationship where the following occur: No concerns reported Const General: cooperative, healthy appearing, comfortable and no acute distress Orientation/consciousness: patient oriented x3 HENMT Head: Yes normocephalic Ears: hearing grossly normal bilaterally General nose exam: Normal external nose present Eyes General: appearance normal, both eyes and all related structures Conjunctivae: conjunctivae normal Neck Neck: Yes full ROM and Yes no lymphadenopathy Resp Effort & Inspection: normal respiratory effort Auscultation: clear to auscultation bilaterally, no crackles, no rales, no rhonchi and no wheezes Cardio Rate: regular rate Rhythm: regular rhythm Skin General skin exam: no rashes or lesions noted Neuro General: patient oriented x3 Gait exam (Neuro): Normal gait present Extrem General: Yes normal to inspection, Yes full ROM and No edema Psych Affect: normal affect Attitude: cooperative Insight: Good insight present (Psych) Judgement: Good judgement present (Psych) Coding Level of Care Code Est Pt Level 4 (46572) Diagnoses Asthma-COPD overlap syndrome J44.9 Obesity (BMI 30-39.9) E66.9 Essential hypertension I10 Hypertension type: essential hypertension Type 2 diabetes mellitus with hyperglycemia, without long-term current use of insulin E11.65 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 Continue on inhalers. Avoid triggers such as allergies. (2) Obesity (BMI 30-39.9): Code(s): E66.9 - Obesity, unspecified Category: Medical Plan: Healthy diet and regular exercise is encouraged. (3) HTN (hypertension): Code(s): I10 - Essential (primary) hypertension Category: Medical Qualifiers: Hypertension type: essential hypertension Qualified Code(s): I10 - Essential (primary) hypertension Plan: Continue on current blood pressure medication. Avoid salt intake and encourage healthy diet and regular exercise. (4) Type 2 diabetes mellitus with hyperglycemia: Comment: Dr. Oliver Code(s): E11.65 - Type 2 diabetes mellitus with hyperglycemia Category: Medical Qualifiers: Diabetes mellitus termite treater helper insulin use: without termite treater helper use Qualified Code(s): E11.65 - Type 2 diabetes mellitus with hyperglycemia Plan: Decrease the amount of carbohydrates such as pasta, bread, rice, and potatoes a nd limit the amount of sweets. Although fruits are generally healthy they should be eaten in moderation as they are still high in sugar. Hemoglobin A1c goal of less than 7%. (5) GERD (gastroesophageal reflux disease): Code(s): K21.9 - Gastro-esophageal reflux disease without esophagitis Category: Medical Qualifiers: Esophagitis presence: without esophagitis Qualified Code(s): K21.9 - Gastro-esophageal reflux disease without esophagitis Plan: Avoid trigger foods such as citrus, tomato products, soda, caffeine, spicy foods and other foods that may be irritating to your stomach. Avoid laying flat 3-4 hours after eating and elevate the head of the bed 30 degrees to prevent acid from moving into the esophagus. Continue on pantoprazole 40 mg and they recently started on famotidine by [facility]. Ordered for upper GI series for further evaluation (6) Chest pain: Code(s): R07.9 - Chest pain, unspecified Category: Medical Plan: Patient complaining of intermittent chest pain over the last several months. She did have workup negative at [facility]. last stress test 2021 within normal limits. We will order for repeat stress test and EKG for further evaluation. Patient understands the plan and we will follow up if symptoms worsen or new problems arise. Reviewed with patient red flag symptoms and when to present to emergency department. Plan This note was constructed using voice recognition software. While every effort has been made to ensure accuracy and orthopedic tech, still areas may have been included sometimes these areas may affect the content or meeting of the given symptoms. Total time spent caring for the patient today was 20 minutes. This includes time spent before the visit reviewing the chart, time spent during the visit, and time spent after the visit and documentation. Orders: Orders ECG 12 lead EKG Today R07.9 - Chest pain, unspecified [place] upper GI series Today K21.9 - Gastro-esophageal reflux disease without esophagitis, R07.9 - Chest pain, unspecified [place] stress test Today R07.9 - Chest pain, unspecified Medications: New amlodipine 5 mg PO DAILY 90 tabs 1RF food supplemt, lactose-reduced (Ensure Complete) dietary supplement not meant to replace meals. 1 ea PO QID PRN 1,184 mL 3RF hunger food supplemt, lactose-reduced (Ensure Complete) dietary supplement not meant to replace meals. 1 ea PO QID PRN 1,184 mL 3RF hunger Refilled [transfer bench] As directed 1 ea 0RF M17.0 - Bilateral primary osteoarthritis of knee [transfer bench] As directed 1 ea 0RF M17.0 - Bilateral primary osteoarthritis of knee Discontinued amlodipine Discontinued Reason: Patient no longer taking 2.5 mg PO DAILY 30 tabs 4RF I10 - Essential (primary) hypertension
--- OUTSIDE RECORDS SUMMARY | 2024-08-05 12:42 | XMS_ITS | Continuity of Care Document ---
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 Role Phone Po Juan [place] Primary Care Physician [phone] Encounter [facility] Date(s): 07/26/24 - 07/27/[address] [address]- Encounter Diagnosis Abdominal pain, acute, epigastric(Final) - 07/26/24 Chest pain(Final) - 07/26/24 Discharge Disposition: A-D/C Home Attending Physician: Ermelinda Duenas MD Admitting Physician: Ermelinda Duenas MD Referring Physician: Not on Staff, Referring MD Encounter Type: Disch ES Allergies, Adverse Reactions, Alerts Substance Criticality Severity Reaction Reaction Severity Status penicillin Rash Active Percocet Active Percodan Active Darvocet N Active Tylenol with Codeine Active morphine Active Immunizations Given and Recorded Vaccine Date Status Refusal Reason tetanus-diphtheria toxoids (Td) 11/02/07 Given influenza virus vaccine, inactivated 06/30/06 Give n Medications atorvastatin 20 mg oral tablet 1 tablet = 20 mg, By Mouth, Daily in AM, 0 Refills, Maintenance, 05/17/20 3:52:00 PM EDT Start Date: 05/17/20 Status: Ordered Repeat number: 1 famotidine 10 mg oral tablet 1 tablet = 10 mg, By Mouth, 2 times a day, # 28 tablet, 0 Refills, Maintenance, 07/26/24 11:04:00 PM EST, Tablet, [id number], Partial fill upon patient request if the prescription is for a schedule II opioid drug. Start Date: 07/26/24 Status: Ordered Quantity: 28.0 Unit: tablet Repeat number: 1 losartan 50 mg oral tablet 50 mg, 1, tablet, By Mouth, Daily in AM, Refills 0, Maintenance, 05/17/20 3:52:00 PM EDT Start Date: 05/17/20 Status: Ordered Repeat number: 1 meloxicam 15 mg oral tablet 1 tablet = 15 mg, By Mouth, Daily in AM, 0 Refills, Maintenance, 05/17/20 3:52:00 PM EDT Start Date: 05/17/20 Status: Ordered Repeat number: 1 pantoprazole 40 mg oral enteric coated tablet 1 tablet = 40 mg, By Mouth, Daily, Take 30 minutes before breakfast, # 30 tablet, 11 Refills, Maintenance, 05/30/11 12:57:02 PM EDT, EC Tablet, [facility][id number] Start Date: 05/30/11 Status: Ordered Quantity: 30.0 Unit: tablet Repeat number: 12 Paxil 40 mg oral tablet 1 tablet = 40 mg, By Mouth, Daily, # 30 tablet, 5 Refills, Maintenance, 10/23/09 3:19:05 PM EDT Start Date: 10/23/09 Stop Date: 04/21/10 Status: Ordered Quantity: 30.0 Unit: tablet Repeat number: 6 Singulair 10 mg oral tablet 10 mg, 1, tablet, By Mouth, Daily at bedtime, # 30, 5 Refills Start Date: 12/10/06 Status: Ordered Quantity: 30.0 Unit: Repeat number: 18 Timolol 0.5% Ophth Eyes, Both, Daily in AM, Refills 0, Maintenance, 05/17/20 3:52:00 PM EDT Start Date: 05/17/20 Status: Ordered Repeat number: 1 Xanax 1 mg oral tablet 1 tablet = 1 mg, By Mouth, 3 times a day, take 1 tablet night before and 1 tablet an hour before MRI, # 2 tablet, 0 Refills, Maintenance, 05/18/20 3:00:00 PM EDT, [facility]pharm[facility] #[id number], 157.4, cm, 05/17/20 16:42:00 EDT, Height Start Date: 05/18/20 Status: Ordered Quantity: 2.0 Unit: tablet Repeat number: 1 Problem List Condition Confirmation Course Effective Dates Status Health St atus Informant Allergic rhinitis Confirmed Active Anxiety depression Confirmed Active Gastritis 1 Confirmed Active Cognitive decline Confirmed Active Incontinence of urine Confirmed Active Irritable bowel syndrome Confirmed Active Morbid obesity Confirmed Active Smoker Confirmed Active 1GERD Results Radiology Reports * Exam Date Time Procedure Performing Provider Status 07/26/24 8:08 PM Chest 2 Views Frontal and Lat Arsenio Diop; Miesha (Verified) Notes: (Chest 2 Views Frontal and Lat) Reason For Exam: Abdominal Pain RESULT: Chest 2 Views Frontal and Lat Chest 2 Views Frontal and Lat Hx of Present Illness: from urgent care, states has issues with her lungs for a while with a bacteria in them , states chest pressure today intermittently. Currently chest pain free. Denies shortness of breath at this time.; Reason: Abdominal Pain; Clinical Question(s): Pneumonia COMPARISON: None. FINDINGS: LINES AND TUBES: None. LUNGS AND PLEURA: Clear lungs. Normal pulmonary vascularity. No pleural effusion. No pneumothorax. HEART, MEDIASTINUM AND LISA: Heart is normal in size. Normal mediastinal and hilar contour. BONES AND SOFT TISSUES: No acute abnormality. IMPRESSION: No acute abnormality. WSN: [id number] Ordering Physician: Rosa Wetzel Dictated By: Wendy Chapman MD Dictated Date/Time: 07/26/24 8:09 pm Reviewed By: Wendy Chapman MD Signed By: Wendy Chapman MD Signed Date/Time: 07/26/24 8:09 pm Transcribed By: CAMI Transcribed Date/Time: 07/26/24 8:09 pm Vital Signs Most recent to oldest [Reference Range]: 1 2 Oxygen Saturation [94-100 %] 97 % (07/26/24 9:56 PM) 96 % (07/26/24 5:56 PM) Pulse Rate [55-90 bpm] 87 bpm (07/26/24 9:56 PM) 76 bpm (07/26/24 5:56 PM) Blood Pressure [90-138/55-84 mm Hg] 176/ 83mm Hg *H* (07/26/24 9:56 PM) 145/70mm Hg *H* (07/26/24 5:56 PM) Respiratory Rate [16-30 br/min] 19 br/mi n (07/26/24 9:56 PM) 19 br/min (07/26/24 5:56 PM) Temperature [96.8-100.4 DegF] 98.2 DegF (07/26/24 5:56 PM) Mode of Delivery (Oxygen) Room air (07/26/24 9:56 PM) Room air (07/26/24 5:56 PM) Blood pressure sites Arm, left (07/26/24 9:56 PM) Arm, left (07/26/24 5:56 PM) Temperature Route Oral (07/26/24 5:56 PM) EKG study * Event Display: EKG Authored Date: * Event Display: EKG Authored Date: * Event Display: ECG 12-Lead Authored Date: Please click on pdf link to open report * Event Display: ECG 12-Lead Authored Date: Ventricular Rate: 76 BPM Atrial Rate: 76 BPM P-R Interval: 142 ms QRS Duration: 82 ms Q-T Interval: 378 ms QTC Calculation(Bazett): 425 ms P [place]: 46 degrees R [place]: 3 degrees T [place]: 14 degrees Normal sinus rhythm Normal ECG When compared with ECG of 26-Jul-2024 18:41, No significant change Confirmed by KIMBERLY MEZA MD ([id number]) on 07/27/2024 6:09:31 PM [place]: KIMBERLY MEZA MD Note * Rosa Wetzel DO: PERFORM Event Display: Patient Education Leaflets Authored Date: Chest Pain, Uncertain Cause ?? [id number] Causas inciertas de dolor de pecho El dolor de pecho puede producirse por numerosas razones. En algunos casos, no se puede determinar la causa. Si gonzalez afecci??n no parece grave y el dolor no parece venir del coraz??n, gonzalez proveedor de atenci??n m??dica puede recomendar un seguimiento de cerca. A veces, los signos de un problema grave tardan m??s en aparecer. Muchas afecciones no relacionadas con el coraz??n pueden causar dolor de pecho. Por ejemplo: ??? Musculoesquel??danya. Costocondritis, kevin inflamaci??n de los tejidos alrededor de las costillas que puede ocurrir por trauma o lesiones por uso excesivo, o kevin distensi??n de los m??sculos de lapared tor??cica. ??? Respiratorias. Neumon??a, pulm??n colapsado (neumot??rax) o inflamaci??n del re vestimiento del pecho y los pulmones (pleuritis). ??? Gastrointestinales. Reflujo esof??gico, acidez estomacal, ??lceras o enfermedad de la ves??cula biliar. ??? Ansiedad y ataques de p??lizzeth ??? Compresi??n e inflamaci??n de un nervio ??? Afecciones poco frecuentes mickie aneurisma a??rtico o disecci??n a??rtica (kevin hinchaz??n de la arteria alonzo que sale del coraz??n o un desgarro en la pared de la arteria) o embolia pulmonar (co??gulos de kalee en los pulmones). Cuidados en el hogar Luego de gonzalez visita, preste atenci??n a las siguientes recomendaciones: ??? Descanse hoy y evite toda actividad agotadora. ??? [employer] el medicamento recetado seg??n le hayan indicado. ??? Est?? atento acualquier dolor de pecho recurrente y observe cualquier cambio ?? Visita de seguimiento Programe kevin visita de control con gonzalez proveedor de atenci??n m??dica si no empieza a sentirse mejoren las siguientes 24??horas, o seg??n lo que le indiquen. ?? Cu??ndo llamar al?? 911 Llame al?? 911 si ocurre algo de lo siguiente: ??? Cambio en el tipo de dolor: se siente diferente,se kennedy vuelto m??s grave, dura m??s o comienza a esparcirse hacia el hombro, el brazo, el anuradha, lamand??bula o la espalda ??? Falta de aire o dolor creciente al respirar ??? Debilidad, mareos o desmayos ??? Ritmo card??aco acelerado ??? Sensaci??n de aplastamiento en el pecho ??? Tos con cantidadabundante de kalee ?? Cu??ndo buscar atenci??n m??dica Llame a gonzalez proveedor de atenci??n m??dica de inmediato ante cualquiera de los siguientes signos o s??ntomas: ??? Tos con expulsi??n de esputo (flema) de color oscuro o con un poco de kalee ??? Fiebre de 100.4?F (38?C) o superior, o seg??n le haya indicado gonzalez proveedor de atenci??n m??dica ??? Dolor, enrojecimiento o hinchaz??n de kevin pierna ?? Last Reviewed Date: 2021 ?? [id number] [employer]. Todos los derechos reservados. Esta informaci??n no pretende sustituir la atenci??n m??dica profesional. S??lo gonzalez m??dico puede diagnosticar y tratar un problema de chaz. ?? Patient Care team information Care Team Personnel Name: Juan Beltre MD Position: Reference Physician Member Role: PCP Address: [address] [place] [id number]- Telecom: Care Team Related Persons Name: SHAKIRA FIGUEREDO Insurance Providers Guarantor name: NA Health Plan Information #: 1 Payer: NA Member Number: [id number] Policy Number: ASH Group Number: [facility] Health Plan Information #: 2 Payer: ASH Member Number: [id number] Policy Number: ASH Group Number: [id number]
== END 2024-08-05 12:29 | disposition home or self-care (01) ==
LOC: HO.HMCH 11:57
PROVIDERS: PCP Internal Medicine
DX: J44.9 Chronic obstructive pulmonary disease, unspecified (principal); E66.9 Obesity, unspecified; E11.65 Type 2 diabetes mellitus with hyperglycemia; Z68.37 Body mass index [BMI] 37.0-37.9, adult; R07.9 Chest pain, unspecified; I10 Essential (primary) hypertension; K21.9 Gastro-esophageal reflux disease without esophagitis

== ENCOUNTER → 2024-08-05 11:57 | Outpatient (BNVA) | payer OTHER, SELFPAY | PROVIDERS: PCP Internal Medicine | DX: J44.89 Other specified chronic obstructive pulmonary disease (principal); E11.65 Type 2 diabetes mellitus with hyperglycemia; K21.9 Gastro-esophageal reflux disease without esophagitis; I10 Essential (primary) hypertension; E78.00 Pure hypercholesterolemia, unspecified; F41.1 Generalized anxiety disorder; E66.9 Obesity, unspecified; R07.9 Chest pain, unspecified; M17.0 Bilateral primary osteoarthritis of knee; Z68.37 Body mass index [BMI] 37.0-37.9, adult | CPT/HCPCS: 96127; 99212 ==

== ENCOUNTER → 2024-08-17 09:07 | Outpatient (REF) | payer OTHER, SELFPAY ==
--- NOTE | 2024-08-17 09:09 | ECG_ITS ---
Test Reason : r07.9 Blood Pressure : */* mmHG Vent. Rate : 73 BPM Atrial Rate : 73 BPM P-R Int : 132 ms QRS Dur : 78 ms QT Int : 370 ms P-R-T Axes : 57 11 24 degrees QTcB Int : 407 ms Normal sinus rhythm Normal ECG When compared with ECG of 20-Feb-2024 09:20, No significant change was found Referred By: Janeth Call Electronically Signed By: SANTHOSH SCHAEFER MD
--- NOTE | 2024-08-17 09:09 | CA_ITS ---
Acquisition Time: 2024-08-17 09:34:03 Total Exercise Time: 00:02:38 Test Indications: CHEST PAIN Medications: ALBUTEROL AMLODIPINE ATROVASTATIN LOSARTAN Protocol: NICKI Max HR: 133 BPM 93% of Pred: 142 BPM Max BP: 150/78 mmHG Max Work Load: 4.6 METS Exercise Stress Test with exercise 2 mins 38 secs of Nicki Protocol, achieving 92% MPHR, requesting to stop due to severe SOB and leg discomfort, no chest discomfort, without any arrythmias, with normotensive response to exercise. Without EKG changes at the achieved workload. In recovery, breathing back to baseline after using her inhaler. Recommend Pharmacologic Nuclear Stress Test with Lexiscan. Test reviewed with Dr. Celaya. Referred By: Janeth Call Electronically Signed By: Chan Cisse
== END ==
LOC: HO.CARD 09:07
PROVIDERS: PCP Internal Medicine
DX: R07.9 Chest pain, unspecified (principal)
CPT/HCPCS: 93005; 93017

== ENCOUNTER → 2024-08-17 09:09 | Outpatient (BNV) | payer OTHER, SELFPAY | PROVIDERS: PCP Internal Medicine | DX: R07.9 Chest pain, unspecified (principal) | CPT/HCPCS: 93010; 93016; 93018 ==

== ENCOUNTER 2024-10-18 07:42 | Outpatient (REF) | payer OTHER, SELFPAY | END 2024-10-18 07:43 | disposition home or self-care (01) | LOC: HO.LAB 07:42 | PROVIDERS: PCP Internal Medicine; Visit Provider Internal Medicine | DX: E11.65 Type 2 diabetes mellitus with hyperglycemia (principal) | CPT/HCPCS: 82570 ==

== ENCOUNTER 2024-10-21 08:30 | Outpatient (REF) | payer OTHER, SELFPAY ==
--- NOTE | ~2024-10-21 | FL_ITS ---
EXAMINATION: XR FLUOROSCOPY UPPER GI SERIES CLINICAL INFORMATION: Patient complaining of episodic chest pain. Reflux. COMPARISON: None TECHNIQUE: Fluoroscopic air contrast upper GI examination was performed utilizing standard techniques with thin and thick barium and effervescent granules. Numerous spot images were obtained. Several fluoroscopic image hold cine sequences were also obtained. FINDINGS: UPPER GI SERIES: Lateral cine images of the oropharynx and hypopharynx demonstrate normal swallow mechanism with normal epiglottic inversion and soft palate elevation. No laryngeal penetration, glottic or subglottic aspiration identified. No nasopharyngeal reflux present. Hypopharyngeal structures appear normal without evidence of mass or diverticulum. There was mild cricopharyngeal achalasia. Dual and single contrast images of the esophagus demonstrate normal caliber, contour, and mucosal pattern. No evidence of stricture, mass, or ulcerations identified. Esophageal peristalsis was mild to moderately disordered. There is a small type I hiatus hernia at the GE junction. The GE junction is not significantly narrowed. There is episodic gastroesophageal reflux noted during the course of the examination to the level of the aortic arch. Dual contrast and single contrast images of the stomach demonstrated normal contour and mucosal pattern without evidence of mass, ulceration, or other abnormality. Contrast freely passed into the gastric antrum and duodenal bulb without delay. Single and air-contrast images of the duodenal bulb demonstrate no abnormality. The duodenal sweep has a normal appearance, course, and mucosal fold appearance. Somewhat rapid transit of contrast noted throughout the small bowel, nonspecific. Small bowel demonstrates a normal fold appearance. There are cholecystectomy clips present. FLUOROSCOPY TIME: 3 minutes, 22 seconds Number of Spot Images:12 Number of cines obtained: 16 DOSE AREA PRODUCT: 3333 uGy-m2 (microgray-meter squared) FL/FL upper GI w air IMPRESSION: 1. Mild cricopharyngeal achalasia. 2. 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 3. Small type I hiatus hernia. 4. Episodic gastroesophageal reflux to level of the aortic arch. 5. Somewhat rapid transit of contrast noted throughout the small bowel, nonspecific. Electronically signed by: Deniz Stanford MD 10/21/2024 10:08 AM EDT
== END 2024-10-21 08:31 | disposition home or self-care (01) ==
LOC: HO.XRAY 08:30
PROVIDERS: PCP Internal Medicine
DX: R07.9 Chest pain, unspecified (principal); K21.9 Gastro-esophageal reflux disease without esophagitis
CPT/HCPCS: 74246

== ENCOUNTER → 2024-10-21 09:00 | Outpatient (BNV) | payer OTHER, SELFPAY | PROVIDERS: PCP Internal Medicine; Visit Provider Radiology Diagnostic Radiology | DX: R07.9 Chest pain, unspecified (principal) | CPT/HCPCS: 74246 ==

== ENCOUNTER 2024-10-21 10:03 | Outpatient (AMB) | payer OTHER, SELFPAY ==
[2024-10-21 10:29] VITALS: BP 122/80; PULSE 73; O2SAT 99; BMI 35.6
--- NOTE | 2024-10-21 10:29 | MHC.PC.OV ---
Vital Signs 10/21/24 10:29 Height 5 ft 1 in Weight 188 lb 6 oz BMI 35.6 BP 122/80 Blood Pressure Location Lt brachial Position Sitting Pulse 73 Pulse Source Pulse Oximeter Pulse Oximetry (%) 99 Oxygen Delivery Method Room Air Intake Visit Reasons: HTN, DM Internal Grinder Required: No Accompanied by: Self / Same As Patient Allergies aspirin [From Percodan] Allergy (Severe, Verified 10/21/24 10:45) Disoriented lisinopril Allergy (Severe, Verified 10/21/24 10:45) Nervous oxycodone [From Percodan] Allergy (Severe, Verified 10/21/24 10:45) Disoriented Penicillins [PENICILLINS] Allergy (Severe, Verified 10/21/24 10:45) Hives codeine Adverse Reaction (Severe, Verified 10/21/24 10:45) Nausea and Vomiting morphine [MORPHINE] Adverse Reaction (Severe, Verified 10/21/24 10:45) NAUSEA & VOMITING ENVIRONMENTAL Allergy (Intermediate, Uncoded 10/21/24 10:45) RUNNY NOSE/WATERY EYES Darvocet A500 Adverse Reaction (Severe, Uncoded 10/21/24 10:45) disoriented Medication List - Last Reconciled 10/21/24 by Janeth Call PA-C albuterol sulfate 2.5 mg (3 mL) inhalation BID 30 days amlodipine 5 mg PO DAILY atorvastatin 20 mg PO DAILY azithromycin 500 mg PO 3XW 90 days blood pressure monitor (Blood Pressure Kit) As directed blood sugar diagnostic (FreeStyle Lite Strips) As directed check the BS QD blood-glucose meter (FreeStyle Lite Meter kit) As directed [CANE As directed] cholecalciferol (vitamin D3) 25 mcg PO DAILY CPAP (CPAP Machine/Device) As directed dorzolamide-timolol 22.3-6.8 mg/mL mL ophthalmic (eye) famotidine 10 mg PO BID fluticasone propionate 50 mcg/actuation 2 sprays intranasal DAILY tegqkygzrae-aufbupbdl-zhmjvhik 200-62.5-25 mcg (Trelegy Ellipta) 1 inh inhalation DAILY 30 days food supplemt, lactose-reduced (Ensure Complete) 1 ea PO QID PRN halobetasol propionate 0.05% 1 appl topical DAILY [hand held shower head As directed] [Incontinence PADS As directed] lancets (FreeStyle Lancets) As directed check BS QD losartan 100 mg PO DAILY 90 days miscellaneous medical supply As directed montelukast 10 mg PO DAILY naproxen (EC-Naproxen) 500 mg PO BID nebulizers As directed nebulizers As directed oxybutynin chloride 5 mg PO BID pantoprazole 40 mg PO DAILY 90 days [pull ups As directed] quetiapine 25 mg PO DAILY PRN Shower Chair As directed [transfer bench As directed] Ventolin HFA 90 mcg/actuation (albuterol sulfate) 1 puff PO QID PRN NS [wipes As directed] Tobacco use date assessed: 10/21/24 Fall risk assessment: No Falls in past year Last assessed Fall Risk: 10/21/24 Dental Screening Dental Screen Date: 10/21/24 Did you have a dental visit in the last 12 months?: No Did you have a dental problem in the last 6 months where you did not have access to dental care?: No Was dental information given to patient?: Patient has dentist HPI HTN, DM HPI Details 79-year-old female with past medical history of controlled diabetes mellitus, asthma, COPD overlap syndrome, obstructive, GERD, hypertension, hypercholesterolemia and generalized anxiety disorder last seen 07/2024 coming in for follow up.? In review of the notes, patient had stress test completed 08/17/2024 recommending pharmacologic nuclear stress test with Lexiscan. Patient completed upper GI series today which showed: FL/FL upper GI w air IMPRESSION: 1. Mild cricopharyngeal achalasia. 2. 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 3. Small type I hiatus hernia. 4. Episodic gastroesophageal reflux to level of the aortic arch. 5. Somewhat rapid transit of contrast noted throughout the small bowel, nonspecific. Presenting with gastrointestinal issues, including GERD, confirmed by a recent GI series that shown hiatal hernia and acid reflux. Reported symptoms include intermittent acid reflux and sensations of food obstruction in the esophagus, linked to esophageal dysmotility. The patient is currently on pantoprazole 40 mg, which offers some relief for GERD. [facility] Medical History BALTAZAR (obstructive sleep apnea) 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 Bronchiectasis Bronchiolitis Osteoarthritis Mixed stress and urge urinary incontinence Obesity (BMI 30-39.9) Obstructive sleep apnea Vitamin D deficiency Type 2 diabetes mellitus with hyperglycemia Asthma Glaucoma Arthritis GERD (gastroesophageal reflux disease) History of kidney stones Hypercholesteremia HTN (hypertension) Surgical History History of extraction of renal calculus History of breast biopsy Hx of umbilical hernia repair History of cystoscopy History of cholecystectomy History of colonoscopy H/O: hysterectomy Family History Father Prostate cancer Mother Mental problem Son No problems noted. Son No problems noted. Daughter No problems noted. Social History Housing: Apartment Alcohol intake: never Patient Tobacco Use Status: Former Tobacco user Tobacco use type: Cigarette Years Smoked: 45 years Quit 05/2007 e-Cigarette/Vaping Use: Never Used Second Hand Smoke Exposure: No service: No Current occupational status: disabled Cognitive needs: Yes (cane) Hearing needs: No Vision needs: Yes (glasses) Questionnaire PHQ-9 Over the last 2 weeks, how often have you been bothered by any of the following problems? 1. Little interest or pleasure in doing things: not at all 2. Feeling down, depressed, or hopeless: not at all 3. Trouble falling or staying asleep, or sleeping too much: not at all 4. Feeling tired or having little energy: not at all 5. Poor appetite or overeating: not at all 6. Feeling bad about yourself - or that you are a failure or have let yourself or your family down: not at all 7. Trouble concentrating on things, such as reading the newspaper or watching television: not at all 8. Moving or speaking so slowly that other people could have noticed. Or the opposite - being so fidgety or restless that you have been moving around a lot more than usual: not at all 9. Thoughts that you would be better off or of hurting yourself in some way: not at all Total score: 0 Depression Screening Interpretation: Negative Depression Screening Done: Yes 86428 - PHQ-9 Billing: Yes Source: Developed by Drs. Eusebio Gates, Radha Burrows, Vincent Calderon and colleagues, with an educational patrick from [employer]. Thrive Questionnaire Date Thrive assessed: 10/21/24 I am a: Patient What is your living situation today?: I have a steady place to live Within the past 12 months, did the food you bought not last and you didn't have the money to get more?: Never true Within the past 12 months, did you worry whether your food would run out before you got money to buy more?: Never true Do you have trouble paying for medicines?: No Do you have trouble getting transportation to medical appointments?: No Do you have trouble paying your heating and electricity bill?: No Do you have trouble taking care of your child, family member or friend?: No Do you have trouble with day-to-day activities such as bathing, preparing meals, shopping, managing finances, etc.?: No Are you currently unemployed and looking for a job?: No Are you interested in more education?: No Please select the resources that you would like help with: None Currently or been in a relationship where the following occur: No concerns reported THRIVE Score: 0 AUDIT C Alcohol Use Questionnaire (AUDIT-C) 1. How often do you have a drink containing alcohol?: Never 3. How often do you have six or more drinks on one occasion?: Never Total Score: 0 ISHA-7 AMB Questionnaire ISHA-7 Date ISHA - 7 assessed: 10/21/24 Feeling nervous, anxious, or on edge: 0 = Not at all Not being able to stop or control worryin = Not at all Worrying too much about different things: 0 = Not at all Trouble relaxin = Not at all Being so restless that it is hard to sit still: 0 = Not at all Becoming easily annoyed or irritable: 0 = Not at all Feeling afraid as if something awful might happen: 0 = Not at all Total ISHA-7 score (0-4 normal; 5-9 mild; 10-14 moderate; 15-21 severe): 0 Source: Developed by Drs. Eusebio Gates, Radha Burrows, Vincent Calderon and colleagues, with an educational patrick from [employer]. ISHA-7 Assessment Billing ISHA-7 Assessment Tool: ISHA-7 Assessment 91590 Review of Systems Const Denies body aches, Denies chills, Denies fever(s), Denies headache(s), Reports poor appetite and Reports weight loss Eyes Reports no additional complaints ENT Reports dysphagia, Denies dizziness, Denies headache(s) and Denies odynophagia Card Denies chest pain, Denies lightheadedness and Denies dyspnea Resp Denies cough and Denies dyspnea GI Denies abdominal pain, Denies constipation, Reports dysphagia, Reports dyspepsia, Reports heartburn, Denies diarrhea, Denies nausea, Denies odynophagia and Denies vomiting Reports no additional complaints Musc Reports no additional complaints and Denies abnormal gait Skin/Breast Reports system reviewed and no additional complaints, except as documented Neuro Denies abnormal gait, Denies dizziness and Denies headache(s) Psych Reports no additional complaints Physical exam (Primary Care) Vital Signs: Last Vital Signs Pulse 73 10/21/24 10:29 BP 122/80 10/21/24 10:29 Pulse Ox 99 10/21/24 10:29 Oxygen Delivery Method Room Air 10/21/24 10:29 BMI result Body Mass Index 35.6 Tobacco/Smoking Status: Tobacco use Status Tobacco use date assessed 10/21/24 10/21/24 10:30 Patient Tobacco Use Status Former Tobacco user 10/21/24 10:30 Tobacco use type Cigarette 10/21/24 10:30 e-Cigarette/Vaping Use Never Used 10/21/24 10:30 PHQ-9: PHQ-9 Score PHQ-9: Total score 0 10/21/24 10:45 Depression Screening Interpretation: Negative Thrive Assessment: Date of Thrive Assessment Date Thrive assessed 10/21/24 10/21/24 10:30 Currently or been in a relationship where the following occur: No concerns reported Const General: cooperative, healthy appearing, comfortable and no acute distress Orientation/consciousness: patient oriented x3 HENMT Head: Yes normocephalic Ears: hearing grossly normal bilaterally General nose exam: Normal external nose present Eyes General: appearance normal, both eyes and all related structures Conjunctivae: conjunctivae normal Neck Neck: Yes full ROM and Yes no lymphadenopathy Resp Effort & Inspection: normal respiratory effort Auscultation: clear to auscultation bilaterally, no crackles, no rales, no rhonchi and no wheezes Cardio Rate: regular rate Rhythm: regular rhythm Skin General skin exam: no rashes or lesions noted Neuro General: patient oriented x3 Gait exam (Neuro): Normal gait present Extrem General: Yes normal to inspection, Yes full ROM and No edema Psych Affect: normal affect Attitude: cooperative Insight: Good insight present (Psych) Judgement: Good judgement present (Psych) Coding Level of Care Code Est Pt Level 3 (85341) Diagnoses Abnormal stress test R94.39 Asthma-COPD overlap syndrome J44.9 Obesity (BMI 30-39.9) E66.9 Hypercholesteremia E78.00 Essential hypertension I10 Hypertension type: essential hypertension Type 2 diabetes mellitus with hyperglycemia, without long-term current use of insulin E11.65 Diabetes mellitus superintendent container terminal insulin use: without superintendent container terminal use Gastroesophageal reflux disease without esophagitis K21.9 Esophagitis presence: without esophagitis Achalasia K22.0 Weight loss R63.4 Additional Codes ISHA-7 Assessment Billing - ISHA-7 Assessment Tool: ISHA-7 Assessment 84380 ([id number]) PHQ-9 - 33758 - PHQ-9 Billing: Yes ([id number]) Assessment & Plan Assessment & Plan (1) Abnormal stress test: Code(s): R94.39 - Abnormal result of other cardiovascular function study Category: Medical Plan: Patient recently completed stress test recommended pharmacologic nuclear stress test with Lexiscan which has been ordered. Patient understands the plan and we will follow up if symptoms worsen or new problems arise. Reviewed with patient red flag symptoms and when to present to emergency department. (2) Asthma-COPD overlap syndrome: Code(s): J44.9 - Chronic obstructive pulmonary disease, unspecified Category: Medical Plan: Asthma currently controlled on present medications. Continue on inhalers. Avoid triggers such as allergies. (3) Obesity (BMI 30-39.9): Code(s): E66.9 - Obesity, unspecified Category: Medical Plan: Healthy diet and regular exercise is encouraged. (4) Hypercholesteremia: Code(s): E78.00 - Pure hypercholesterolemia, unspecified Category: Medical Plan: Avoid foods that are high in cholesterol such as red meat, fried foods, eggs and baked goods. Triglyceride goal of less than 150 and LDL goal of less than 100. (5) HTN (hypertension): Code(s): I10 - Essential (primary) hypertension Category: Medical Qualifiers: Hypertension type: essential hypertension Qualified Code(s): I10 - Essential (primary) hypertension Plan: Continue on current blood pressure medication. Avoid salt intake and encourage healthy diet and regular exercise. (6) Type 2 diabetes mellitus with hyperglycemia: Comment: Dr. Oliver Code(s): E11.65 - Type 2 diabetes mellitus with hyperglycemia Category: Medical Qualifiers: Diabetes mellitus superintendent container terminal insulin use: without senior care use Qualified Code(s): E11.65 - Type 2 diabetes mellitus with hyperglycemia Plan: Decrease the amount of carbohydrates such as pasta, bread, rice, and potatoes and limit the amount of sweets. Although fruits are generally healthy they should be eaten in moderation as they are still high in sugar. Hemoglobin A1c goal of less than 7%. (7) GERD (gastroesophageal reflux disease): Code(s): K21.9 - Gastro-esophageal reflux disease without esophagitis Category: Medical Qualifiers: Esophagitis presence: without esophagitis Qualified Code(s): K21.9 - Gastro-esophageal reflux disease without esophagitis Plan: Avoid trigger foods such as citrus, tomato products, soda, caffeine, spicy foods and other foods that may be irritating to your stomach. Avoid laying flat 3-4 hours after eating and elevate the head of the bed 30 degrees to prevent acid from moving into the esophagus. Continue on pantoprazole 40 mg and they recently started on famotidine by [facility]. Upper GI series revealing mild achalasia, disordered esophageal motility, hiatal hernia and episodic GERD referral placed to gastroenterology today for further management. (8) Achalasia: Code(s): K22.0 - Achalasia of cardia Category: Medical Plan: Referral placed to GI for management of achalasia at this time. (9) Weight loss: Code(s): R63.4 - Abnormal weight loss Category: Medical Plan: Patient complaining of unintentional weight loss and noted 8 lb weight loss since July visit. Plan to order for blood work, chest XR and GI evaluation for further investigation. Plan This note was constructed using voice recognition software. While every effort has been made to ensure accuracy and stripping cutter and winder, still areas may have been included sometimes these areas may affect the content or meeting of the given symptoms. Total time spent caring for the patient today was 20 minutes. This includes time spent before the visit reviewing the chart, time spent during the visit, and time spent after the visit and documentation. Patient was informed and verbally consented to the use of an ambient scribe for clinic note documentation during this visit. Orders: Orders XR chest 2V Today R63.4 - Abnormal weight loss Comprehensive Met. Panel Today R63.4 - Abnormal weight loss, Z00.00 - Encounter for general adult medical examination without abnormal findings Lipid Panel Today E78.00 - Pure hypercholesterolemia, unspecified TSH reflex Free T4 Today R63.4 - Abnormal weight loss, Z00.00 - Encounter for general adult medical examination without abnormal findings Free T4 (Free Thyroxine) Today R63.4 - Abnormal weight loss, Z00.00 - Encounter for general adult medical examination without abnormal findings Complete Blood Count Auto Diff Today R63.4 - Abnormal weight loss, Z00.00 - Encounter for general adult medical examination without abnormal findings Hemoglobin A1c Today E11.65 - Type 2 diabetes mellitus with hyperglycemia Vitamin B12 and Folate Today Z00.00 - Encounter for general adult medical examination without abnormal findings Vitamin D 25-OH Total Today Z00.00 - Encounter for general adult medical examination without abnormal findings Referrals Gastroenterology Referral K22.0 - Achalasia of cardia, R63.4 - Abnormal weight loss
== END 2024-10-21 11:04 | disposition home or self-care (01) ==
LOC: HO.HMCH 10:04
PROVIDERS: PCP Internal Medicine
DX: J44.9 Chronic obstructive pulmonary disease, unspecified (principal); E11.65 Type 2 diabetes mellitus with hyperglycemia; E66.9 Obesity, unspecified; Z68.35 Body mass index [BMI] 35.0-35.9, adult; R94.39 Abnormal result of other cardiovascular function study; E78.00 Pure hypercholesterolemia, unspecified; I10 Essential (primary) hypertension; K21.9 Gastro-esophageal reflux disease without esophagitis; K22.0 Achalasia of cardia; R63.4 Abnormal weight loss

== ENCOUNTER 2024-10-25 09:02 | Outpatient (REF) | payer OTHER, SELFPAY ==
--- NOTE | ~2024-10-25 | XR_ITS ---
EXAMINATION: XR CHEST 2 VIEWS HISTORY: R63.4 - Abnormal weight loss COMPARISON: Comparison is made with the prior examination dated 07/03/2021. Correlation is also made with a chest CT dated 06/17/2024. FINDINGS: PA and lateral views of the chest are submitted. Again seen is scarring in the right upper lobe and in the right middle lobe. No new focal airspace opacity is seen. There is no pleural effusion, pneumothorax, or pulmonary vascular congestion. The heart is normal in size. There is degenerative disc disease of the spine. XR/XR chest 2V IMPRESSION: No acute cardiopulmonary abnormality. Electronically signed by: Eusebio Cintron MD 10/25/2024 11:35 AM EDT RP
[2024-10-25 09:15] LABS: MANUAL DIFF FLAG NO
[2024-10-25 09:59] LABS: Basophils Percent Auto 0.3 % (0-2); Eosinophils Absolute Auto 0.2 X10*3/uL (0.0-0.4); Eosinophils Percent Auto 3.6 % (0-4); Hematocrit 39.5 % (37.0-47.0); Hemoglobin 12.6 g/dl (12.0-16.0); Imm Gran Abs Auto 0.02 X10*3/uL (0.00-0.03); Imm Gran Pct Auto 0.3 % (0.0-0.4); Lymphocytes Absolute Auto 1.7 X10*3/uL (1.2-4.9); Lymphocytes Percent Auto 26.3 % (20-40); Mean Corpuscular HGB Conc 31.9 g/dl (31.0-35.0); Mean Corpuscular Hemoglobin 29.2 pg (27.0-33.0); Mean Corpuscular Volume 91.6 fL (80.0-98.0); Mean Platelet Volume 9.9 fL (9.4-12.3); Monocytes Absolute Auto 0.4 X10*3/uL (0.1-1.2); Monocytes Percent Auto 6.7 % (2-11); Neutrophils Absolute Auto 4.2 x10*3/uL (2.0-8.3); Neutrophils Percent Auto 62.8 % (45-73); Platelet Count 283 X10*3/uL (160-400); Red Blood Count 4.31 X10*6/uL (4.20-5.50); Red Cell Distribution Width 13.7 % (11.0-16.0); White Blood Count 6.6 X10*3/uL (4.8-10.8)
[2024-10-25 10:14] LABS: Estimated Average Glucose 120 mg/dL; Hemoglobin A1c % 5.8 % (<6.0); Total Hemoglobin (HGBA1C) 3374.3907 umol/L
[2024-10-25 11:06] LABS: Alanine Aminotransferase 20 U/L (0-31); Albumin Level 4.2 g/dL (3.5-5.0); Alkaline Phosphatase 138 U/L (39-117); Anion Gap 12 (12-20); Aspartate Amino Transferase 23 U/L (5-31); Bilirubin Total 0.4 mg/dL (0.0-1.0); Blood Urea Nitrogen 17 mg/dL (9-16); Calcium 9.8 mg/dL (8.4-10.2); Carbon Dioxide 29 mmol/L (22-29); Chloride 106 mmol/L (96-108); Cholesterol 167 mg/dL (<200); Estimated Glomerular Filt Rate > 60; Free T4 (Free Thyroxine) 1.05 ng/dL (0.71-1.85); Glucose Random 104 mg/dL (60-115); HDL Cholesterol 61 mg/dL (>40); LDL Cholesterol Calculated 89 mg/dL (<100); Potassium 4.5 mmol/L (3.3-5.1); Sodium 142 mmol/L (135-145); Total Protein 7.1 g/dL (6.5-8.0); Triglycerides 86 mg/dL (<150); Vitamin D 25-OH Total 33.3 ng/mL (>30)
[2024-10-25 11:14] LABS: Folate 9.2 ng/mL (> or = 4.0); Vitamin B12 557 pg/mL (200-900)
== END 2024-10-25 09:03 | disposition home or self-care (01) ==
LOC: HO.XRAY 09:02
PROVIDERS: PCP Internal Medicine
DX: Z00.00 Encounter for general adult medical examination without abnormal findings (principal); R63.4 Abnormal weight loss; E78.00 Pure hypercholesterolemia, unspecified; E11.65 Type 2 diabetes mellitus with hyperglycemia
CPT/HCPCS: 36415; 71046; 80053; 80061; 82306; 82607; 82746; 83036; 84439; 84443; 85025

== ENCOUNTER → 2024-10-25 09:16 | Outpatient (BNV) | payer OTHER, SELFPAY | PROVIDERS: PCP Internal Medicine; Visit Provider Radiology Diagnostic Radiology | DX: R63.4 Abnormal weight loss (principal) | CPT/HCPCS: 71046 ==

== ENCOUNTER 2024-10-28 08:46 | Outpatient (AMB) | payer OTHER, SELFPAY ==
[2024-10-28 09:20] VITALS: BP 138/68; PULSE 79; O2SAT 97; BMI 36.2
--- NOTE | 2024-10-28 09:20 | MHC.OFFVIS ---
Vital Signs 10/28/24 09:20 Height 5 ft 1 in Weight 191 lb 12.835 oz BMI 36.2 BP 138/68 Blood Pressure Location Rt brachial Position Sitting Pulse 79 Pulse Source Pulse Oximeter Pulse Oximetry (%) 97 Oxygen Delivery Method Room Air Intake Visit Reasons: Obstructive sleep apnea Allergies aspirin [From Percodan] Allergy (Severe, Verified 10/28/24 09:25) Disoriented lisinopril Allergy (Severe, Verified 10/28/24 09:25) Nervous oxycodone [From Percodan] Allergy (Severe, Verified 10/28/24 09:25) Disoriented Penicillins [PENICILLINS] Allergy (Severe, Verified 10/28/24 09:25) Hives codeine Adverse Reaction (Severe, Verified 10/28/24 09:25) Nausea and Vomiting morphine [MORPHINE] Adverse Reaction (Severe, Verified 10/28/24 09:25) NAUSEA & VOMITING ENVIRONMENTAL Allergy (Intermediate, Uncoded 10/28/24 09:25) RUNNY NOSE/WATERY EYES Darvocet A500 Adverse Reaction (Severe, Uncoded 10/28/24 09:25) disoriented HPI Comments Details: The patient is a 79-year-old woman former smoker who apparently was in usual state health until the summer when she was vacationing in [place]. She started developing a significant cough moderate to severe. She would to get evaluated and tested. She tested negative for COVID-19. Part of the evaluation she had a chest x-ray that was abnormal. She did come back to the area. The patient again was evaluated by primary care doctor regarding her significant cough. Therefore she underwent a chest x-ray and subsequently a CT scan of the chest that was done May. Based on the abnormal findings she was referred to Pulmonary. Patient states that her coughing spells are very significant. Therefore croupy in nature and sometimes is productive other times is not productive. She has not taken any antibiotics at this time. She quit smoking many years ago. We did personally review her CT scan of the chest in the office. She appears to have tree in budding suggesting of bronchiolitis. This is bilaterally involving the upper lung zones and also the mid right middle lobe in the lingula. She does have evidence of nodular disease in addition to bronchiectatic changes and airspace disease. The findings his suggesting of a smoldering lower respiratory infection. her cough appears to be more consistent with laryngotracheitis. It is likely that this is a different etiology than the findings in her chest. The patient denies being exposed to anybody with tuberculosis. At this point will have the patient undergo blood work. I do encourage the patient to undergo additional diagnostic testing. The patient will go for bronchoscopy at this time. 08/26/2022 the patient is here for a pulmonary follow-up visit. The patient continues to episodes of coughing and shortness of breath. She is also having episodes of wheezing. Moderate severity. 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 Unfortunately she did not understand the instructions based on the fact that she took the medicine only 4 months and then she stopped it. She did have refills although she states that she does not. I will resend the medications to her pharmacy. At this point her daughter is with her and I confirm with daughter that I did send refills in that I will send the medication again to the pharmacy and she is to continue taking it. The patient stands the therapies at least for a year if he went to a retic aid this bacteria. We did also review her CT scan of the chest demonstrating the pulmonary nodules along with bronchiectatic changes in along with the tree-in-bud all changes consistent with her mycobacterial disease. The patient also is having issues with daytime drowsiness. She may have had a sleep study in the past. Although is probably more than a year. She does have daytime drowsiness and does have issues with her memory. Her [place] score is elevated 11/24. Will request a repeat home sleep study in order to address the question of her sleep apnea issues. The patient also was supposed to have an Acapella valve. I did reach out to [facility] to see if they can send this to her. In meantime a recent prescription. I believe that they will try to reach out to her and they may have been some miscommunication on the phone. Therefore will see resubmit for the home sleep study and also recently for the Acapella valve and also recent her medications. When she comes back in 3 months will repeat her blood work and also plan to repeat her CT scan to follow-up with the pulmonary nodules. 10/21/2022 the patient is here for a pulmonary follow-up visit. She is tolerating the antimycobacterial therapy. Although getting nauseous and also of tea. He feels like he gets more symptomatic with rifampin. I did advise her to cut down to 1 tablet daily with hopes that she can tolerated better. She still has issues she can stop it altogether. She will go ahead and recheck her sputum for AFB and also request blood work to make sure that she is not developing any adverse effects from the medication. We did review her last CT scan of the chest demonstrating the bronchiectatic changes and tree in budding along with pulmonary nodules which is the manifestations of the smoldering infection. She is also complaining of increasing chest tightness and wheezing. She has been on Advair. Will go ahead and optimize therapy to Trelegy inhaler in order to provide better coverage. In addition to this the patient continues to have daytime drowsiness. Her [place] score is elevated 06/20. We did review her last sleep study demonstrating [id number] sleep apnea with an AHI of 13 events an hour. The patient needs to start CPAP therapy at this time. 06/30/2023 the patient is here for a pulmonary follow-up visit. Overall the patient has been doing well. She is tolerating the antimicrobial therapy for the mycobacterial disease. She is taking medicine 3 times a week. Her cough is better and respiratory symptoms also improved. We did review her CT scan of the chest that she had in May 2023 demonstrating interval improvement of the nodular densities. She still has some treating budding but overall improved compared to her previous CT scan. This is all reassuring. Since the patient is tolerating therapy and since she still has changed send a CT scan will go ahead and continue the current therapy till October and at that point decide if she is still doing well to switch over to monotherapy. Regards a CPAP the CPAP therapy continues to be affecting beneficial. She finally found a mask that she is comfortable with that is the F30 medium mask. Although she is been getting the wrong mask from the [facility]. I did call the [facility] and also provide her a new script but the right mask. Hopefully she can exchange the mask to the right 1. should continue using the therapy for more than 4 hours a night. The patient otherwise is without any other complaints. Will follow-up in October and at that point decide on further changes of her antimicrobial therapy. 11/24/2023 the patient is here for a pulmonary follow-up visit. She continues to do well from a respiratory status. Denies any worsening cough shortness of breath. She did on the mycobacterial therapy now for some time. The plan was to stop to the agents and continue monotherapy with the azithromycin. Will do that for prophylaxis specially since back tends to relapse after completing therapy. She does have pulmonary nodules. The last time we looked at her pulmonary nodules was back in the fall 2022. Will go ahead and plan to repeat her CT scan fall 2023 and follow-up after that. Feeling time she continues use her CPAP every night. CPAP therapy continues to be affecting beneficial. She does use the F30 fullface mask. She gets supplies from [employer]. And she does use it for more than 4 hours a night and she will continue to use it at this time. 07/01/2024 the patient is here for pulmonary follow-up visit. The patient overall has been feeling well. She has been using her CPAP. CPAP therapy continues to be affecting beneficial. She does use it for more than 4 hours a night. Her mask is comfortable. From a lung standpoint the patient does still cough up phlegm. Sometimes she coughs up some tenacious phlegm difficult to expectorate. She does have underlying bronchiectasis and mycobacterial disease so therefore the using Acapella valve would be helpful. I will request 1 from the [facility]. Right now she is doing okay on current respiratory regimen which is reassuring. She continues on the azithromycin 500 mg. She did have a CT scan of the chest that we personally reviewed. Appears that the airspace disease in the nodular densities have subsided to some degree there is for positive response to therapy. When she returns in the springtime will talk about decreasing the azithromycin to 250 mg from 500. If she has any issues prior to that she will call otherwise will see each other in about 4 months. 10/28/2024 the patient is here for a pulmonary follow-up visit. Overall she is doing well. She continues uses CPAP every night. CPAP therapy continues to be affecting beneficial. She does use it for more than 4 hours a night. In addition to that her cough is better. She has been on the azithromycin 500 mg. Will go ahead and decrease her down to 250 mg whenever her prescription is completed. She continues use her respiratory therapy as well. She did undergo blood work in addition to an x-ray. The x-ray personally by me without any acute illness. Also, her respiratory exam is reassuring. Therefore deescalating her antimycobacterial therapy is reasonable at this time. 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 Bronchiectasis Bronchiolitis Osteoarthritis Mixed stress and urge urinary incontinence Obesity (BMI 30-39.9) Obstructive sleep apnea Vitamin D deficiency Type 2 diabetes mellitus with hyperglycemia Asthma Glaucoma Arthritis GERD (gastroesophageal reflux disease) History of kidney stones Hypercholesteremia HTN (hypertension) Surgical History History of extraction of renal calculus History of breast biopsy Hx of umbilical hernia repair History of cystoscopy History of cholecystectomy History of colonoscopy H/O: hysterectomy Family History Father Prostate cancer Mother Mental problem Son No problems noted. Son No problems noted. Daughter No problems noted. Social History Housing: Apartment Alcohol intake: never Patient Tobacco Use Status: Former Tobacco user Tobacco use type: Cigarette Years Smoked: 45 years Quit 05/2007 e-Cigarette/Vaping Use: Never Used Second Hand Smoke Exposure: No service: No Current occupational status: disabled Cognitive needs: Yes (cane) Hearing needs: No Vision needs: Yes (glasses) Review of Systems Const Denies daytime sleepiness, Denies night sweats, Denies snoring and Denies stops breathing during sleep ENT Denies change in voice, Denies lip swelling, Denies mouth pain, Reports nasal congestion, Reports nasal discharge and Denies tongue swelling Card Denies chest pain Resp Denies chest congestion, Reports cough and Denies snoring GI Denies abdominal pain Musc Denies no additional complaints Neuro Denies Neuro-related abnormal movements Psych Denies no additional complaints Luis A/Lymph Denies easy bleeding and Denies lymphadenopathy Aller/Immun Denies lip swelling and Denies tongue swelling Physical Exam Vital Signs: Last Vital Signs Pulse 79 10/28/24 09:20 BP 138/68 10/28/24 09:20 Pulse Ox 97 10/28/24 09:20 Oxygen Delivery Method Room Air 10/28/24 09:20 BMI result Body Mass Index 36.2 Const General: alert Neck Neck: Yes normal visual inspection, Yes full ROM and Yes no lymphadenopathy Chest Chest palpation & inspection: normal inspection of the chest Resp Auscultation: diminished lung sounds Cardio Rate: regular rate Rhythm: regular rhythm Heart sounds: S1 normal heart sound present and S2 normal heart sound present GI Palpation (GI): Soft to palpation and nontender Auscultation: normal bowel sounds Skin General skin exam: rashes and/or lesions noted Assessment & Plan Assessment & Plan (1) Asthma-COPD overlap syndrome: Code(s): J44.9 - Chronic obstructive pulmonary disease, unspecified Category: Medical (2) Bronchiectasis: Code(s): J47.9 - Bronchiectasis, uncomplicated Category: Medical Qualifiers: Bronchiectasis type: uncomplicated Qualified Code(s): J47.9 - Bronchiectasis, uncomplicated (3) Nontuberculous mycobacterial disease of lung: Code(s): A31.0 - Pulmonary mycobacterial infection Category: Medical (4) Pulmonary nodules: Comment: April 2021 right upper and left lower Code(s): R91.8 - Other nonspecific abnormal finding of lung field Category: Medical (5) BALTAZAR (obstructive sleep apnea): Code(s): G47.33 - Obstructive sleep apnea (adult) (pediatric) Category: Medical Plan continue APAP, requesting F30 med, [employer] Continue nebulizer daily as needed Acapella valve twice a day after nebulizer for CPT Azithromycin decreasing to 250mg stopped Ethambutol/ Rifampin continue Trelegy 200 [place] as needed EKG F/U 4 months Medications: New azithromycin Take 1 tablet on Friday/Friday/Friday 250 mg PO 3XW 39 tabs 2RF 90 days K21.9 - Gastro-esophageal reflux disease without esophagitis loratadine (Claritin) 10 mg PO DAILY 30 tabs 11RF 30 days J30.2 - Other seasonal allergic rhinitis, J45.909 - Unspecified asthma, uncomplicated Discontinued azithromycin Friday, Friday, Friday Discontinued Reason: Doctor's Order 500 mg PO 3XW 90 days 39 tabs 0RF Coding Level of Care Code Est Pt Level 4 (02009) Complex EM visit Add On G2211 Diagnoses Asthma-COPD overlap syndrome J44.9 Bronchiectasis without complication J47.9 Bronchiectasis type: uncomplicated Nontuberculous mycobacterial disease of lung A31.0 Pulmonary nodules R91.8 BALTAZAR (obstructive sleep apnea) G47.33 Time Spent (min) 17
== END 2024-10-28 09:46 | disposition home or self-care (01) ==
LOC: HO.HPS 08:46
PROVIDERS: PCP Internal Medicine; Visit Provider Hospitalist
DX: J44.9 Chronic obstructive pulmonary disease, unspecified (principal); J47.9 Bronchiectasis, uncomplicated; A31.0 Pulmonary mycobacterial infection; R91.8 Other nonspecific abnormal finding of lung field; G47.33 Obstructive sleep apnea (adult) (pediatric)
CPT/HCPCS: 99214; G2211

== ENCOUNTER → 2024-10-28 08:46 | Outpatient (BNVA) | payer OTHER, SELFPAY | PROVIDERS: PCP Internal Medicine; Visit Provider Hospitalist | DX: J47.9 Bronchiectasis, uncomplicated (principal); J30.2 Other seasonal allergic rhinitis; G47.33 Obstructive sleep apnea (adult) (pediatric); A31.0 Pulmonary mycobacterial infection; R91.8 Other nonspecific abnormal finding of lung field; K21.9 Gastro-esophageal reflux disease without esophagitis; Z99.89 Dependence on other enabling machines and devices | CPT/HCPCS: 99212 ==

== ENCOUNTER → 2024-12-27 09:35 | Outpatient (REF) | payer OTHER, SELFPAY ==
--- NOTE | ~2024-12-27 | NM_ITS ---
Lexiscan Myocardial perfusion study Indication: Chest pain Technique: The patient was brought in for a Lexiscan perfusion study on 12/27/2024 and was injected 0.4 mg of Lexiscan intravenously. Within a minute of this injection 30 mCi of sestamibi was given intravenously. Images were obtained using the SPECT gamma camera interlaced with the gating device. Images were obtained in supine position. Resting perfusion study was performed on 12/30/2024. Patient was administered 30 mCi of sestamibi intravenously at rest. Images were then obtained in supine position. Total DLP 125 mGy-cm. Images were processed with the software and compared side to side in short axis, horizontal long axis and vertical long axis views. Findings: Raw aquisition reviewed. Arms by the patient's side. The stress perfusion study showed decreased tracer uptake in the basal part of septum. Some improvement with CT attenuation correction and hence could be artifactual. The gated study shows normal LV systolic function with calculated LVEF of 57%. LV cavity is normal in size. The gated study shows normal wall thickening and contraction of segments. Resting study shows mildly diminished tracer uptake in the basal part septum. There is improvement with CT attenuation correction suggestive of artifactual etiology. Gating at rest reveals normal wall motion with ejection fraction at 62%. The findings are consistent with partially reversible septal defect probably artifactual otherwise no clear reversible or fixed defects. NM/NM cardiolite stress test Impression: 1. Myocardial perfusion imaging study shows probably normal myocardial perfusion. 2. Gated LVEF is 57% during stress and 62% during rest. 3. Transient ischemic dilatation not present. EKG component of the test reported separately. Electronically signed by: Carson Jorgensen MD 01/02/2025 12:55 PM EDT
--- NOTE | 2024-12-27 09:37 | CA_ITS ---
Acquisition Time: 2024-12-27 10:23:39 Total Exercise Time: 00:02:00 Test Indications: ABN STRESS Medications: AMIODIPINE LOSARTAN VENTOLIN Protocol: LEXISCAN Max HR: 112 BPM 78% of Pred: 142 BPM Max BP: 134/70 mmHG Max Work Load: 1.0 METS Pharmacological stress test with Lexiscan while pt swimgs her legs in chair, with reports of SOB, fatigue, dizziness, and nausea, without any arrythmias, with normotensive response to injection. Nondiagnostic EKG for ischemia. In recovery, pt treated with IVP Aminophylline 75 mg to reverse Lexiscan after which pt feeling back to baseline. Nuclear images pending. Test reviewed with Dr. Jorgensen. Referred By: Janeth Call Electronically Signed By: Chan Cisse
== END ==
LOC: HO.CARD 09:35
PROVIDERS: PCP Internal Medicine
DX: R94.39 Abnormal result of other cardiovascular function study (principal)
CPT/HCPCS: 78452; 93017; A9500; J0280; J2785

== ENCOUNTER → 2024-12-27 09:37 | Outpatient (BNV) | payer OTHER, SELFPAY | PROVIDERS: PCP Internal Medicine | DX: R07.9 Chest pain, unspecified (principal) | CPT/HCPCS: 78452; 93016; 93018 ==

== ENCOUNTER 2025-01-10 06:42 | Emergency (ER) | payer OTHER, SELFPAY ==
[2025-01-10] VITALS (8 sets, daily range): BP systolic 145–206; BP diastolic 51–76; PULSE 67–108; RESP 16; TEMP 36.5–36.6; O2SAT 93–98; BMI 36.5
--- NOTE | 2025-01-10 | ECG_ITS ---
Test Reason : dizziness Blood Pressure : */* mmHG Vent. Rate : 82 BPM Atrial Rate : 82 BPM P-R Int : 138 ms QRS Dur : 82 ms QT Int : 360 ms P-R-T Axes : 32 1 13 degrees QTcB Int : 420 ms Normal sinus rhythm Minimal voltage criteria for LVH, may be normal variant ( R in aVL ) Borderline ECG When compared with ECG of 17-Aug-2024 09:09, T wave amplitude has decreased in Anterior leads Referred By: Generic ED Physician Electronically Signed By: Dean Jacome
[2025-01-10 07:17] LABS: MANUAL DIFF FLAG NO
[2025-01-10 07:19] LABS: Basophils Percent Auto 0.6 % (0-2); Eosinophils Absolute Auto 0.4 X10*3/uL (0.0-0.4); Eosinophils Percent Auto 5.2 % (0-4); Hematocrit 35.7 % (37.0-47.0); Hemoglobin 11.9 g/dl (12.0-16.0); Imm Gran Abs Auto 0.02 X10*3/uL (0.00-0.03); Imm Gran Pct Auto 0.3 % (0.0-0.4); Lymphocytes Absolute Auto 1.7 X10*3/uL (1.2-4.9); Lymphocytes Percent Auto 24.6 % (20-40); Mean Corpuscular HGB Conc 33.3 g/dl (31.0-35.0); Mean Corpuscular Hemoglobin 29.9 pg (27.0-33.0); Mean Corpuscular Volume 89.7 fL (80.0-98.0); Mean Platelet Volume 9.4 fL (9.4-12.3); Monocytes Absolute Auto 0.6 X10*3/uL (0.1-1.2); Monocytes Percent Auto 8.9 % (2-11); Neutrophils Absolute Auto 4.2 x10*3/uL (2.0-8.3); Neutrophils Percent Auto 60.4 % (45-73); Platelet Count 238 X10*3/uL (160-400); Red Blood Count 3.98 X10*6/uL (4.20-5.50)
[2025-01-10 07:35] LABS: Alanine Aminotransferase 16 U/L (0-31); Albumin Level 4.1 g/dL (3.5-5.0); Alkaline Phosphatase 138 U/L (39-117); Anion Gap 12 (12-20); Aspartate Amino Transferase 23 U/L (5-31); Bilirubin Total 0.3 mg/dL (0.0-1.0); Blood Urea Nitrogen 26 mg/dL (9-16); Calcium 9.7 mg/dL (8.4-10.2); Carbon Dioxide 28 mmol/L (22-29); Chloride 106 mmol/L (96-108); Estimated Glomerular Filt Rate 57; Glucose Random 89 mg/dL (60-115); Sodium 142 mmol/L (135-145)
[2025-01-10 07:46] LABS: Troponin-I High Sensitivity < 2.7 ng/L (<3.5-17.0)
--- NOTE | 2025-01-10 08:06 | ED_ITS ---
HPI - Dizziness General Chief Complaint: Dizziness Stated Complaint: Dizzy/weakness/nausea Since 4am,Hx:COPD,HTN&Asthma Time Seen by Provider: 01/10/25 08:05 Source: patient Mode of arrival: ambulatory Limitations: no limitations History of Present Illness ED Provider: Dr. Ravi Caballero HPI Narrative: 79-year-old female with a history diabetes mellitus, hypertension, asthma, COPD, memory deficits, GERD, anxiety, vertigo who presents emergency department for evaluation of sudden onset of vertigo-like dizziness that occurred at 04:00 hours. The patient states that when she got out of bed she felt dizzy. She describes the sensation as a room spinning sensation. The sensation goes away if she stays still but any head movement makes her dizziness worse. She states she became very shaky and had nausea but no vomiting. She states initially she had a headache but this resolved. Patient did take her morning medications prior to coming to the emergency department. At the time my evaluation, the patient states that she has only dizzy if she moves her head. She denied change in her vision, headache, numbness, weakness. Related Data Home Medications ?Medication ?Instructions ?Recorded ?Confirmed cholecalciferol (vitamin D3) 25 25 mcg PO DAILY 10/21/24 mcg (1,000 unit) capsule dorzolamide 22.3 mg-timolol 6.8 ml ophthalmic (eye) 10/21/24 mg/mL eye drops nebulizers 10/21/22 10/21/24 CPAP (CPAP Machine/Device) 03/17/23 10/21/24 nebulizers 03/17/23 10/21/24 famotidine 10 mg tablet 10 mg PO BID 08/05/24 Previous Rx's ?Medication ?Instructions ?Recorded Incontinence PADS #100 ea 07/04/20 blood-glucose meter (FreeStyle #1 ea 03/21/22 Lite Meter kit) lancets 28 gauge (FreeStyle #100 ea 03/21/22 Lancets) blood pressure monitor (Blood #1 ea 06/10/22 Pressure Kit) CANE #1 ea 02/24/23 blood sugar diagnostic (FreeStyle #100 ea 05/16/23 Lite Strips) naproxen 500 mg tablet,delayed 500 mg PO BID #60 tabs 02/08/24 release (EC-Naproxen) quetiapine 25 mg tablet 25 mg PO DAILY PRN withdrawa l 02/29/24 symptoms #90 tabs pull ups #100 ea 04/28/24 albuterol sulfate 2.5 mg/3 mL 2.5 mg (3 mL) inhalation BID 30 07/01/24 (0.083 %) solution for nebulization days #180 mL fluticasone fur. 200 mcg-umeclid 1 inh inhalation ZOE Y 30 days #60 07/01/24 62.5 mcg-vilant 25 mcg ea inhalat.powder (Trelegy Ellipta) losartan 100 mg tablet 100 mg PO DAILY 90 days #90 tabs 07/01/24 Shower Chair #1 ea 07/16/24 miscellaneous medical supply #1 ea 07/16/24 wipes #10 ea 07/26/24 hand held shower head #1 ea 07/30/24 amlodipine 5 mg tablet 5 mg PO DAILY #90 tabs 08/05 food supplemt, lactose-reduced 0.1 1 ea PO QID PRN hun shonda #1,184 mL 08/05/24 gram-1.18 kcal/mL oral liquid (Ensure Complete) montelukast 10 mg tablet 10 mg PO DAILY #90 tabs 04/21 transfer bench #1 ea 08/05/24 pantoprazole 40 mg tablet,delayed 40 mg PO DAILY 90 da ys #90 tabs 08/14/24 release fluticasone propionate 50 2 spray intranasal DAILY #48 mL 08/28/24 mcg/actuation nasal spray,suspension oxybutynin chloride 5 mg tablet 5 mg PO BID #180 tabs 10/20/24 albuterol sulfate 90 mcg/actuation 2 puff inhalation Q ID PRN 10/27/24 aerosol inhaler (Ventolin HFA) shortness of breath or wheezing 30 days #18 grams azithromycin 250 mg tablet 250 mg PO 3XW 90 days #39 t abs 10/28/24 loratadine 10 mg tablet (Claritin) 10 mg PO DAILY 30 d ays #30 tabs 10/28/24 atorvastatin 20 mg tablet 20 mg PO DAILY #90 tabs 050 4/25 halobetasol propionate 0.05 % 1 appl topical DAILY #50 grams 11/28/24 topical ointment Ventolin HFA 90 mcg/actuation 1 puff PO QID PRN shortn ess of 12/02/24 aerosol inhaler (albuterol sulfate) breath or wheezing #18 ea meclizine 25 mg tablet (Dramamine 25 mg PO TID PRN diz ziness #20 tabs 01/10/25 Less Drowsy) ondansetron 4 mg disintegrating 4 mg PO Q6-8H PRN naus ea and 01/10/25 tablet vomiting #14 tabs Allergies Allergy/AdvReac Type Severity Reaction Status Date / Time Penicillins (PENICILLINS) Allergy Severe Hives Verified 01/10/25 07:02 codeine AdvReac Severe Nausea and Verified 01/10/25 07:02 Vomiting morphine (MORPHINE) AdvReac Severe NAUSEA & Verified 01/10/25 07:02 VOMITING ENVIRONMENTAL Allergy Intermediate RUNNY Uncoded 10/28/24 09:25 NOSE/WATERY EYES Darvocet A500 AdvReac Severe disoriented Uncoded 10/28/24 09:25 Review of Systems 2 Review of Systems: Yes all other systems are reviewed and are negative PMFSH Past Medical History Medical History BALTAZAR (obstructive sleep apnea) 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 Bronchiectasis Bronchiolitis Osteoarthritis Mixed stress and urge urinary incontinence Obesity (BMI 30-39.9) Obstructive sleep apnea Vitamin D deficiency Type 2 diabetes mellitus with hyperglycemia Asthma Glaucoma Arthritis GERD (gastroesophageal reflux disease) History of kidney stones Hypercholesteremia HTN (hypertension) Surgical History History of extraction of renal calculus History of breast biopsy Hx of umbilical hernia repair History of cystoscopy History of cholecystectomy History of colonoscopy H/O: hysterectomy Family History Family History Father Prostate cancer Mother Mental problem Son No problems noted. Son No problems noted. Daughter No problems noted. Social History Social History Housing: Apartment Alcohol intake: never Patient Tobacco Use Status: Former Tobacco user Tobacco use type: Cigarette Years Smoked: 45 years Quit 05/2007 e-Cigarette/Vaping Use: Never Used Second Hand Smoke Exposure: No service: No Current occupational status: disabled Cognitive needs: Yes (cane) Hearing needs: No Vision needs: Yes (glasses) Physical Exam 2 Vital Signs: Vital Signs: Last Vital Signs Temp 97.8 F 01/10/25 18:30 Pulse 74 01/10/25 18:30 Resp 16 01/10/25 18:30 BP 155/66 H 01/10/25 18:30 Pulse Ox 96 01/10/25 18:30 O2 Del Method Room Air 01/10/25 18:30 BMI result Body Mass Index 36.5 Vital signs revealed an elevated blood pressure of 151/71 otherwise Exam: General: Awake, alert in no distress Head: Normocephalic, atraumatic EENT: PERRL, nystagmus with left lateral gaze, Lids normal, sclera normal, conjunctiva normal, nose normal , ears normal, throat without erythema or exudates Neck: Supple, no adenopathy Lung: breath sounds symmetric, no wheezing, rales or rhonchi Chest: symmetric movement, nontender Heart: regular rate and rhythm, normal S1, S2 no murmurs or rubs Abdomen: soft, non-tender, nondistended, normal bowel sounds Back: no vertebral tenderness, no CVAT Extremities: no deformities, moves all extremities symmetrically Neuro: General: ?Awake, alert, oriented, normal speech Cranial nerves: ?Cranial nerves ?intact Strength: ?Moves all extremities symmetrically, strength symmetric - limited secondary to arthritis Cerebellar: ?Good bjwyke-tj-auql-to-finger, good rapid finger movement, normal heel to bella Awake, alert, oriented, normal speech, cranial nerves intact, moves all extremities symmetrically Psych: Pleasant, cooperative Medications Administered Discontinued Medications Generic Name Dose Route Start Last Admin Trade Name Freq PRN Reason Stop Dose Admin Sodium Chloride 1,000 mls @ 999 mls/hr 01/10/25 08:50 01/10/25 10:11 Ns IV 01/10/25 09:50 Infused .Q1H1M STA Infusion Meclizine HCl 25 mg 01/10/25 08:50 01/10/25 09:10 Meclizine Hcl 25 Mg Tablet PO 01/10/25 08:51 25 mg ONCE STA Administration Ondansetron HCl 4 mg 01/10/25 08:50 01/10/25 09:10 Ondansetron Hcl 4 Mg/2 Ml Vial IVPUSH 01/10/25 08:51 4 mg ONCE ONE Administration Medical Decision Making Medical Decision Making [facility] Narrative: 79-year-old female with a history diabetes mellitus, hypertension, asthma, COPD, memory deficits, GERD, anxiety, vertigo who presents emergency department for evaluation of sudden onset of vertigo-like dizziness that occurred at 04:00 hours. The patient states that when she got out of bed she felt dizzy. She describes the sensation as a room spinning sensation. The sensation goes away if she stays still but any head movement makes her dizziness worse. She states she became very shaky and had nausea but no vomiting. She states initially she had a headache but this resolved. Patient did take her morning medications prior to coming to the emergency department. At the time my evaluation, the patient states that she has only dizzy if she moves her head. She denied change in her vision, headache, numbness, weakness. Vital signs revealed an elevated blood pressure otherwise unremarkable. Neurologic exam is normal with normal cerebellar exam. Patient did have left lateral nystagmus and significant symptoms with minimal movement of her head Differential diagnosis: ?Includes but is not limited to stroke, cerebellar stroke, vertigo, positional vertigo, anemia, electrolyte abnormalities Course: My independent interpretation patient's laboratory evaluation is as follows: Normocytic anemia with an H&H of 11.9 and 35.7-patient's anemia is new but not significantly changed from your previous values. WBC was normal 7000. BUN elevated 26 with a normal creatinine. LFTs were normal. Patient's physical examination and findings are consistent positional vertigo with possible dehydration. Patient was ordered to get meclizine 25 mg orally, Zofran 4 mg IV and normal saline IV x1 L. I did consult Physical therapy for evaluation of vertigo and for vestibular treatment. 14:51 Start physician observation: Patient did get improvement with vestibular treatment by physical therapy. Physical therapy however states the patient he was unsteady and needs 1 person blood and plasma laboratory assistant walk. Physical therapy is recommending acute rehab therefore I ordered a case management consult. Patient will be kept in physician observation until disposition can be determined. I did discuss code with the patient and she wants to be a full code. She would like her sister to be the healthcare proxy. Time: 18:03 Date: 01/10/25 Provider: Ravi Caballero MD Physician observation ended at 18:03. Patient met with case management and refused short-term rehab. Patient states that she is feeling better and her sister can stay with her so she wants to go home. Patient was advised to reach out to her PCP Dr. Christie to get a referral to physical therapy for further vestibular the treatment. She was given a prescription for meclizine and Zofran and discharged home with printed and verbal instructions. Admission/Observation Consideration of admission/observation: Escalation of care including admission/observation considered (Admission yes) Lab Data MDM Lab Attestation statement: I reviewed the patient's lab results. 01/10/25 07:13 01/10/25 07:13 Labs: Lab Results 01/10/25 01/10/25 Range/Units 07:13 10:52 WBC 7.0 (4.8-10.8) X10*3/uL RBC 3.98 L (4.20-5.50) X10*6/uL Hgb 11.9 L (12.0-16.0) g/dl Hct 35.7 L (37.0-47.0) % MCV 89.7 (80.0-98.0) fL MCH 29.9 (27.0-33.0) pg MCHC 33.3 (31.0-35.0) g/dl RDW 13.0 (11.0-16.0) % Plt Count 238 (160-400) X10*3/uL MPV 9.4 (9.4-12.3) fL Immature Gran % (Auto) 0.3 (0.0-0.4) % Neut % (Auto) 60.4 (45-73) % Lymph % (Auto) 24.6 (20-40) % [place] % (Auto) 8.9 (2-11) % Eos % (Auto) 5.2 H (0-4) % Baso % (Auto) 0.6 (0-2) % Lymph # (Auto) 1.7 (1.2-4.9) X10*3/uL [place] # (Auto) 0.6 (0.1-1.2) X10*3/uL Eos # (Auto) 0.4 (0.0-0.4) X10*3/uL Baso # (Auto) 0.0 (0.0-0.2) X10*3/uL Abs Immat Gran (auto) 0.02 (0.00-0.03) X10*3/uL Absolute Neuts (auto) 4.2 (2.0-8.3) x10*3/uL Absolute Nucleated RBC 0.000 (0.0-0.012) X10*3/uL Nucleated RBC % (auto) 0.0 (0.0-0.2) /100WBC Sodium 142 (135-145) mmol/L Potassium 4.0 (3.3-5.1) mmol/L Chloride 106 (96-108) mmol/L Carbon Dioxide 28 (22-29) mmol/L Anion Gap 12 (12-20) BUN 26 H (9-16) mg/dL Creatinine 0.95 (0.5-1.4) mg/dL Estim Creat Clear Calc 49.0 Estimated GFR 57 Random Glucose 89 (60-115) mg/dL Calcium 9.7 (8.4-10.2) mg/dL Total Bilirubin 0.3 (0.0-1.0) mg/dL AST 23 (5-31) U/L ALT 16 (0-31) U/L Alkaline Phosphatase 138 H (39-117) U/L Troponin I High Sens < 2.7 (<3.5-17.0) ng/L Total Protein 7.0 (6.5-8.0) g/dL Albumin 4.1 (3.5-5.0) g/dL Urine Color Yellow Urine Appearance Clear Urine pH 7.0 (5.0-9.0) Ur Specific [place] 1.010 (1.005-1.025) Urine Protein Negative (Neg-Trace) mg/dL Urine Glucose (UA) Negative (Negative) mg/dL Urine Ketones Negative (Negative) mg/dL Urine Blood Negative (Negative) Urine Nitrite Negative (Negative) Ur Leukocyte Esterase Trace H (Negative) Urine RBC 0-2 (0-2) /HPF Urine WBC 0-5 (0-5) /HPF Ur Squamous Epith Cells 0-2 (0-2) /HPF Urine Bacteria None Seen (None Seen) Hyaline Casts 0-2 (0-2) /LPF Independent Interpretation I performed an independent interpretation of an: EKG Interpretation: Normal sinus rhythm rate of 82, normal DE interval, QRS duration QTC interval, no ST segment elevation, no ST segment depression, inverted T-wave in lead, no PACs, no PVCs. Compared to an EKG dated 08/17/2024 09:09 hours, inverted T-wave in V1 is new but otherwise there is no significant change Discharge Plan Discharge Clinical Impression: Benign paroxysmal positional vertigo, Nausea Patient Disposition: Home, Self-Care Instructions: Benign Paroxysmal Positional Vertigo (ED) Additional Instructions: Your blood work revealed mild anemia which is not significant and not related to your symptoms. Your blood work was otherwise unremarkable Your dizziness is consistent with positional vertigo. You were seen by our physical therapy vestibular specialist and she performed Wesly maneuvers on you here in the emergency department which did improve your symptoms. That physical therapy recommending that you get vestibular treatment as an outpatient. This can not be ordered by the emergency department. Call your primary care physician, Dr. Beltre and ask him to send a referral to the physical therapy department with a diagnosis of vertigo requiring vestibular therapy so that you can get further treatment for your dizziness. Take meclizine 25 mg pills, 1 pill 3 times a day for the next 3 days for dizziness then as needed for dizziness. ?This medication will make you sleepy. ?Do not drive or work while taking this medication. Take Zofran ODT 4 mg pills, 1 pill dissolved in your mouth every 8 hours as needed for nausea and vomiting. Follow-up with your doctor in 2 days. Please return to the emergency department if your symptoms get worse or if you develop any symptoms that are concerning to you. Prescriptions: New meclizine [Dramamine Less Drowsy] 25 mg tablet 25 mg PO TID PRN (Reason: dizziness) Qty: 20 0RF ondansetron 4 mg tablet,disintegrating 4 mg PO Q6-8H PRN (Reason: nausea and vomiting) Qty: 14 0RF No Action (DME) blood-glucose meter [FreeStyle Lite Meter] Kit See Rx Instructions .ROUTE .MEDSUPPLY Qty: 1 0RF Rx Instructions: As directed (DME) lancets [FreeStyle Lancets] 28 gauge misc See Rx Instructions .ROUTE .MEDSUPPLY Qty: 100 3RF Rx Instructions: As directed check BS QD (DME) blood pressure monitor [Blood Pressure Kit] Kit See Rx Instructions .ROUTE .MEDSUPPLY Qty: 1 0RF Rx Instructions: As directed (DME) FreeStyle Lite Strips Strip See Rx Instructions .ROUTE .MEDSUPPLY Qty: 100 3RF Rx Instructions: As directed check the BS QD naproxen [EC-Naproxen] 500 mg tablet,delayed release (DR/EC) 500 mg PO BID Qty: 60 3RF quetiapine 25 mg tablet 25 mg PO DAILY PRN (Reason: withdrawal symptoms) Qty: 90 3RF (DME) pull ups XL See Rx Instructions .Route .MEDSUPPLY Qty: 100 1RF Rx Instructions: As directed losartan 100 mg tablet 100 mg PO DAILY 90 Days Qty: 90 2RF (DME) Shower Chair Misc See Rx Instructions .Route Qty: 1 0RF Rx Instructions: As directed (DME) miscellaneous medical supply Misc See Rx Instructions .Route Qty: 1 0RF Rx Instructions: As directed (DME) wipes See Rx Instructions .Route .MEDSUPPLY Qty: 10 3RF Rx Instructions: As directed (DME) hand held shower head See Rx Instructions .Route .MEDSUPPLY Qty: 1 0RF Rx Instructions: As directed montelukast 10 mg tablet 10 mg PO DAILY Qty: 90 2RF amlodipine 5 mg tablet 5 mg PO DAILY Qty: 90 1RF pantoprazole 40 mg tablet,delayed release (DR/EC) 40 mg PO DAILY 90 Days Qty: 90 1RF fluticasone propionate 50 mcg/actuation spray,suspension 2 spray intranasal DAILY Qty: 48 0RF oxybutynin chloride 5 mg tablet 5 mg PO BID Qty: 180 1RF albuterol sulfate [Ventolin HFA] 90 mcg/actuation HFA aerosol inhaler 2 puff inhalation QID PRN (Reason: shortness of breath or wheezing) 30 Days Qty: 18 11RF atorvastatin 20 mg tablet 20 mg PO DAILY Qty: 90 2RF halobetasol propionate 0.05 % ointment 1 appl topical DAILY Qty: 50 0RF albuterol sulfate [Ventolin HFA] 90 mcg/actuation HFA aerosol inhaler 1 puff PO QID PRN (Reason: shortness of breath or wheezing) Qty: 18 11RF cholecalciferol (vitamin D3) 25 mcg (1,000 unit) capsule 25 mcg PO DAILY (DME) Incontinence PADS See Rx Instructions .Route .MEDSUPPLY Qty: 100 2RF Rx Instructions: As directed (DME) CANE See Rx Instructions .Route .MEDSUPPLY Qty: 1 0RF Rx Instructions: As directed dorzolamide-timolol 22.3-6.8 mg/mL drops ophthalmic (eye) (DME) nebulizers Misc See Rx Instructions .Route Rx Instructions: As directed (DME) nebulizers Misc See Rx Instructions .Route Rx Instructions: As directed (DME) CPAP Machine/Device Device See Rx Instructions .Route Rx Instructions: As directed albuterol sulfate 2.5 mg /3 mL (0.083 %) solution for nebulization 2.5 mg inhalation BID 30 Days Qty: 180 11RF Trelegy Ellipta 200-62.5-25 mcg blister with device 1 inh inhalation DAILY 30 Days Qty: 60 12RF famotidine 10 mg tablet 10 mg PO BID (DME) transfer bench See Rx Instructions .Route .MEDSUPPLY Qty: 1 0RF Rx Instructions: As directed Ensure Complete 0.1 gram- 1.18 kcal/mL liquid 1 ea PO QID PRN (Reason: hunger) Qty: 1184 3RF Rx Instructions: dietary supplement not meant to replace meals. azithromycin 250 mg tablet 250 mg PO 3XW 90 Days Qty: 39 2RF Rx Instructions: Take 1 tablet on Friday/Friday/Friday loratadine [Claritin] 10 mg tablet 10 mg PO DAILY 30 Days Qty: 30 11RF Interventions: ED Discharge Assessment Last Done: 01/10/25 18:30 Discharge Date/Time: 01/10/25 18:31 Print Language: Norwegian
[2025-01-10] MEDS: Meclizine HCl 25 MG TABLET PO (09:10)
[2025-01-10] MEDS: 0.9 % Sodium Chloride 1,000 ML 999 ML IV (09:10)
[2025-01-10] MEDS: ondansetron HCL 4 MG/2 ML VIAL IVPUSH (09:10)
--- NOTE | 2025-01-10 10:57 | PC.NURSE ---
ambulated with one assist to the bathroom to give urine sample. steady gait, however endorses feeling dizzy with ambulation. urine output approx 400mL.
[2025-01-10 11:01] LABS: Appearance Urine Clear; Color Urine Yellow; Glucose Urine UA Negative (Negative); Leukocyte Esterase Urine Trace (Negative); Nitrite Urine Negative (Negative); UMIC TRIGGER UACC YES; Urine Blood Negative (Negative); Urine Ketones Negative (Negative); Urine Protein Negative (Neg-Trace)
[2025-01-10 11:04] LABS: Bacteria Urine None Seen (None Seen); Hyaline Casts Urine 0-2 /LPF (0-2); RBC Urine 0-2 /HPF (0-2); Squamous Epithelial Cell Urine 0-2 /HPF (0-2); WBC Urine 0-5 /HPF (0-5)
--- NOTE | 2025-01-10 14:50 | PC.NURSE ---
plan for pt/cm - recommending short term rehab
--- NOTE | 2025-01-10 18:03 | MHC.CM.ED ---
CM met with patient. She will be discharged to home. Pt feels safe. She is refusing STR at this time. Her sister will stay with her. She has a walker and a cane. Dr. Caballero will reach out to Dr. Beltre to order outpatient vestibular therapy. Pt has had this in the past and stated it was helpful.
== END 2025-01-10 18:31 | disposition home or self-care (01) ==
PROVIDERS: Emergency Provider Emergency Medicine Emergency Medical Services; PCP Internal Medicine
DX: H81.10 Benign paroxysmal vertigo, unspecified ear (principal); R11.0 Nausea; E11.9 Type 2 diabetes mellitus without complications; I10 Essential (primary) hypertension; E78.00 Pure hypercholesterolemia, unspecified; J45.909 Unspecified asthma, uncomplicated; Z87.891 Personal history of nicotine dependence; Z79.899 Other long term (current) drug therapy
CPT/HCPCS: 36415; 80053; 81001; 81003; 84484; 85025; 93005; 96361; 96374; 97116; 97162; 99284; 99285; J2405

== ENCOUNTER → 2025-01-10 07:09 | Outpatient (BNV) | payer OTHER, SELFPAY | PROVIDERS: Emergency Provider Emergency Medicine Emergency Medical Services; PCP Internal Medicine; Visit Provider Internal Medicine Cardiovascular Disease | DX: R42 Dizziness and giddiness (principal) | CPT/HCPCS: 93010 ==

== ENCOUNTER 2025-01-14 11:19 | Outpatient (AMB) | payer OTHER, SELFPAY ==
[2025-01-14 11:27] VITALS: BP 130/66; PULSE 90; O2SAT 96; BMI 34.8
--- NOTE | 2025-01-14 11:27 | MHC.PC.OV ---
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: No Accompanied by: Self / Same As Patient Allergies Penicillins (PENICILLINS) Allergy (Severe, Verified 01/14/25 11:28) Hives codeine Adverse Reaction (Severe, Verified 01/14/25 11:28) Nausea and Vomiting morphine (MORPHINE) Adverse Reaction (Severe, Verified 01/14/25 11:28) NAUSEA & VOMITING ENVIRONMENTAL Allergy (Intermediate, Uncoded 01/14/25 11:28) RUNNY NOSE/WATERY EYES Darvocet A500 Adverse Reaction (Severe, Uncoded 01/14/25 11:28) disoriented Tobacco use date assessed: 01/14/25 Fall risk assessment: 1 Fall in past year Last assessed Fall Risk: 01/14/25 Dental Screening Dental Screen Date: 01/14/25 Did you have a dental visit in the last 12 months?: No Did you have a dental problem in the last 6 months where you did not have access to dental care?: No Was dental information given to patient?: Patient has dentist [facility] Medical History (Updated 01/14/25 @ 12:03 by Juan Beltre MD) BALTAZAR (obstructive sleep apnea) 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 Bronchiectasis Bronchiolitis Osteoarthritis Mixed stress and urge urinary incontinence Obesity (BMI 30-39.9) Obstructive sleep apnea Vitamin D deficiency Type 2 diabetes mellitus with hyperglycemia Asthma Glaucoma Arthritis GERD (gastroesophageal reflux disease) History of kidney stones Hypercholesteremia HTN (hypertension) Surgical History History of extraction of renal calculus History of breast biopsy Hx of umbilical hernia repair History of cystoscopy History of cholecystectomy History of colonoscopy H/O: hysterectomy Family History Father Prostate cancer Mother Mental problem Son No problems noted. Son No problems noted. Daughter No problems noted. Social History Housing: Apartment Alcohol intake: never Patient Tobacco Use Status: Former Tobacco user Tobacco use type: Cigarette Years Smoked: 45 years Quit 05/2007 e-Cigarette/Vaping Use: Never Used Second Hand Smoke Exposure: No service: No Current occupational status: disabled Cognitive needs: Yes (cane) Hearing needs: No Vision needs: Yes (glasses) Questionnaire PHQ-9 Over the last 2 weeks, how often have you been bothered by any of the following problems? 1. Little interest or pleasure in doing things: nearly every day 2. Feeling down, depressed, or hopeless: nearly every day 3. Trouble falling or staying asleep, or sleeping too much: not at all 4. Feeling tired or having little energy: not at all 5. Poor appetite or overeating: not at all 6. Feeling bad about yourself - or that you are a failure or have let yourself or your family down: not at all 7. Trouble concentrating on things, such as reading the newspaper or watching television: not at all 8. Moving or speaking so slowly that other people could have noticed. Or the opposite - being so fidgety or restless that you have been moving around a lot more than usual: not at all 9. Thoughts that you would be better off or of hurting yourself in some way: not at all Total score: 6 Depression Screening Interpretation: Negative Depression Screening Done: Yes 70595 - PHQ-9 Billing: Yes Source: Developed by Drs. Eusebio Gates, Radha Burrows, Vincent Calderon and colleagues, with an educational patrick from [employer]. Thrive Questionnaire Date Thrive assessed: 01/14/25 I am a: Patient What is your living situation today?: I have a steady place to live Within the past 12 months, did the food you bought not last and you didn't have the money to get more?: Never true Within the past 12 months, did you worry whether your food would run out before you got money to buy more?: Never true Do you have trouble paying for medicines?: No Do you have trouble getting transportation to medical appointments?: No Do you have trouble paying your heating and electricity bill?: No Do you have trouble taking care of your child, family member or friend?: No Do you have trouble with day-to-day activities such as bathing, preparing meals, shopping, managing finances, etc.?: No Are you currently unemployed and looking for a job?: No Are you interested in more education?: No Please select the resources that you would like help with: None Currently or been in a relationship where the following occur: No concerns reported THRIVE Score: 0 AUDIT C Alcohol Use Questionnaire (AUDIT-C) 1. How often do you have a drink containing alcohol?: Never 3. How often do you have six or more drinks on one occasion?: Never Total Score: 0 ISHA-7 AMB Questionnaire ISHA-7 Date ISHA - 7 assessed: 01/14/25 Feeling nervous, anxious, or on edge: 0 = Not at all Not being able to stop or control worryin = Not at all Worrying too much about different things: 0 = Not at all Trouble relaxin = Not at all Being so restless that it is hard to sit still: 0 = Not at all Becoming easily annoyed or irritable: 0 = Not at all Feeling afraid as if something awful might happen: 0 = Not at all Total ISHA-7 score (0-4 normal; 5-9 mild; 10-14 moderate; 15-21 severe): 0 Source: Developed by Drs. Eusebio Gates, Radha Burrows, Vincent Calderon and colleagues, with an educational patrick from [employer]. ISHA-7 Assessment Billing ISHA-7 Assessment Tool: ISHA-7 Assessment 16862 Physical exam (Primary Care) Vital Signs: Last Vital Signs Pulse 90 01/14/25 11:27 BP 130/66 01/14/25 11:27 Pulse Ox 96 01/14/25 11:27 Oxygen Delivery Method Room Air 01/14/25 11:27 BMI result Body Mass Index 34.8 Tobacco/Smoking Status: Tobacco use Status Tobacco use date assessed 01/14/25 01/14/25 11:31 Patient Tobacco Use Status Former Tobacco user 01/14/25 11:31 Tobacco use type Cigarette 01/14/25 11:31 e-Cigarette/Vaping Use Never Used 01/14/25 11:31 PHQ-9: PHQ-9 Score PHQ-9: Total score 6 01/14/25 11:45 Depression Screening Interpretation: Negative Thrive Assessment: Date of Thrive Assessment Date Thrive assessed 01/14/25 01/14/25 11:31 Currently or been in a relationship where the following occur: No concerns reported Const General: alert; No acute distress Eyes Conjunctivae: conjunctivae normal Resp Auscultation: clear to auscultation bilaterally Cardio Rate: regular rate Rhythm: regular rhythm GI Inspection: Yes normal to inspection Extrem General: Yes normal to inspection and No edema Results AMB Hemoglobin A1c AMB Hemoglobin A1c 5.9 % Last Edit by TAHIR Gross on 01/14/25 11:46 Results Reviewed Results Reviewed: Laboratory Last Values Hgb A1c (Clinic) 5.9 % (4.0-6.0) 01/14/25 11:27 Coding Level of Care Code Est Pt Level 4 (19784) Complex EM visit Add On G2211 Diagnoses Type 2 diabetes mellitus with hyperglycemia, without long-term current use of insulin E11.65 Diabetes mellitus terminal operations manager insulin use: without terminal operations manager use Hypercholesteremia E78.00 Essential hypertension I10 Hypertension type: essential hypertension Generalized anxiety disorder F41.1 Gastroesophageal reflux disease without esophagitis K21.9 Esophagitis presence: without esophagitis Right ankle swelling M25.471 Obstructive sleep apnea G47.33 Additional Codes ISHA-7 Assessment Billing - ISHA-7 Assessment Tool: ISHA-7 Assessment 60879 ([id number]) PHQ-9 - 29411 - PHQ-9 Billing: Yes ([id number]) Assessment & Plan Assessment & Plan (1) Type 2 diabetes mellitus with hyperglycemia: Comment: Dr. Oliver Code(s): E11.65 - Type 2 diabetes mellitus with hyperglycemia Category: Medical Qualifiers: Diabetes mellitus terminal operations manager insulin use: without terminal operations manager use Qualified Code(s): E11.65 - Type 2 diabetes mellitus with hyperglycemia Plan: Decrease the amount of carbohydrate intake, pasta, bread, rice and potatoes are all sugar and that is aside from all the sweet stuff, remember that fruits are good but they are Sweet also. Hemoglobin A1c goal of less than 7.0 patient is on diet control (2) Hypercholesteremia: Code(s): E78.00 - Pure hypercholesterolemia, unspecified Category: Medical Plan: Avoid fried foods, chicken skin, eggs, butter margarine, pastries and meat. Be it pork or beef they have a lot of cholesterol LDL goal of less than 100 and triglyceride of less than 150 on atorvastatin 20 mg once a day (3) HTN (hypertension): Code(s): I10 - Essential (primary) hypertension Category: Medical Qualifiers: Hypertension type: essential hypertension Qualified Code(s): I10 - Essential (primary) hypertension Plan: Continue with blood pressure medication. Decrease salt intake and exercise patient takes amlodipine 5 mg once a day losartan 100 mg once a day (4) Generalized anxiety disorder: Comment: decline therapy Code(s): F41.1 - Generalized anxiety disorder Category: Medical Plan: Continue with present medication (5) GERD (gastroesophageal reflux disease): Code(s): K21.9 - Gastro-esophageal reflux disease without esophagitis Category: Medical Qualifiers: Esophagitis presence: without esophagitis Qualified Code(s): K21.9 - Gastro-esophageal reflux disease without esophagitis Plan: Avoid the foods that causes that usually spicy foods, tomato products, juices, coffee, soda and foods that your sensitive to. After eating do not lie down, allow 3-4 hours before in lie down. And keep the head of bed above 30 degrees to avoid the acid from going up. (6) Right ankle swelling: Code(s): M25.471 - Effusion, right ankle Category: Medical (7) Obstructive sleep apnea: Code(s): G47.33 - Obstructive sleep apnea (adult) (pediatric) Category: Medical Plan: Patient has been using the CPAP regularly now and benefits from this more than 4 hours a night Plan History of Present Illness The patient is a 79-year-old female presenting for a follow-up visit. She has a history of obesity, asthma-COPD overlap syndrome, diabetes mellitus, gastroesophageal reflux disease, obstructive sleep apnea, hypercholesterolemia, and generalized anxiety disorder. The patient reports a 12-pound weight loss since her last visit. She has been managing her diabetes with diet control, and her hemoglobin A1c is currently 5.9, which is below the target of 7.0. The patient has a history of obstructive sleep apnea and was prescribed CPAP, which she initially could not tolerate but is now using regularly. She also uses an albuterol inhaler and Trelegy for her asthma-COPD overlap syndrome. In December, the patient experienced dizziness and nausea, leading to an emergency room visit where she was diagnosed with benign paroxysmal positional vertigo (BPPV). A cardiolite stress test performed on December 27 showed probably normal myocardial perfusion with an ejection fraction of 57%. The patient reports swelling in her right leg, which has been present for about two months and sometimes extends from the knee to the ankle. She denies any trauma or injury to the area and reports that the swelling sometimes causes itching. The patient has a history of anemia, with recent blood work showing a hemoglobin level of 11.9, slightly below the normal range. Her electrolytes, renal function, and liver function tests are within normal limits. Preventative care measures include a bone density screening that is due, a colonoscopy performed in May 2020, and a mammogram in February 2024. Health Maintenance - Bone density screening is due - Colonoscopy performed in May 2020 - Mammogram conducted in February 2024 Social History Review of Systems - General: Reports 12-pound weight loss - Cardiovascular: Denies chest pain - Respiratory: Denies cough, reports use of albuterol inhaler and Trelegy - Gastrointestinal: Reports nausea, denies abdominal pain - Neurological: Reports dizziness, denies headaches - Musculoskeletal: Reports swelling in the right leg, denies trauma or injury Physical Exam - Cardiovascular: Pulse is good, rate is good - Musculoskeletal: Swelling noted in the right leg, sometimes extending from the knee to the ankle Results - Labs: Hemoglobin A1c is 5.9, hemoglobin level is 11.9 indicating mild anemia - Tests: Cardiolite stress test showed probably normal myocardial perfusion with an ejection fraction of 57% Plan The patient will continue with her current diabetes management plan, focusing on diet control to maintain her hemoglobin A1c below 7.0. Her cholesterol management will continue with atorvastatin 20 mg daily, aiming to keep LDL below 100 and triglycerides below 150. For her asthma-COPD overlap syndrome, she will continue using the albuterol inhaler and Trelegy. The patient is advised to continue using CPAP for obstructive sleep apnea, which she is now tolerating well. An ultrasound of the right leg will be ordered to rule out deep vein thrombosis due to the persistent swelling. The patient is advised to monitor for any changes in swelling or new symptoms and to stay hydrated. Follow-up is scheduled in three months, with instructions to contact the clinic if any new issues arise. Patient was informed and verbally consented to the use of an ambient scribe for clinic note documentation during this visit. Discussion Notes I discussed with the patient the importance of continuing her current management plans for diabetes, cholesterol, and asthma-COPD overlap syndrome. We reviewed the need for an ultrasound to evaluate the swelling in her right leg and the potential for deep vein thrombosis. I emphasized the importance of hydration and monitoring for any changes in symptoms. We agreed on a follow-up in three months, with the understanding that she should contact the clinic if any new issues arise. Patient Instructions - Continue with diet control to maintain hemoglobin A1c below 7.0. - Take atorvastatin 20 mg daily to manage cholesterol levels. - Use albuterol inhaler and Trelegy as prescribed for asthma-COPD overlap syndrome. - Continue using CPAP for obstructive sleep apnea. - Monitor for changes in swelling or new symptoms in the right leg. - Stay hydrated, especially in hot weather. - Follow up in three months or contact the clinic if new issues arise. Orders: Orders US venous duplex LE RT Today M25.471 - Effusion, right ankle AMB Hemoglobin A1c Today Z13.9 - Encounter for screening, unspecified
== END 2025-01-14 12:04 | disposition home or self-care (01) ==
LOC: HO.HMCH 11:19
PROVIDERS: PCP Internal Medicine; Visit Provider Internal Medicine
DX: E11.65 Type 2 diabetes mellitus with hyperglycemia (principal); E78.00 Pure hypercholesterolemia, unspecified; I10 Essential (primary) hypertension; F41.1 Generalized anxiety disorder; K21.9 Gastro-esophageal reflux disease without esophagitis; M25.471 Effusion, right ankle; G47.33 Obstructive sleep apnea (adult) (pediatric); Z13.9 Encounter for screening, unspecified

== ENCOUNTER → 2025-01-14 11:19 | Outpatient (BNVA) | payer OTHER, SELFPAY | PROVIDERS: PCP Internal Medicine; Visit Provider Internal Medicine | DX: E11.65 Type 2 diabetes mellitus with hyperglycemia (principal); I10 Essential (primary) hypertension; E78.00 Pure hypercholesterolemia, unspecified; F41.1 Generalized anxiety disorder; K21.9 Gastro-esophageal reflux disease without esophagitis; M25.471 Effusion, right ankle; G47.33 Obstructive sleep apnea (adult) (pediatric); E66.9 Obesity, unspecified; J44.89 Other specified chronic obstructive pulmonary disease; Z99.89 Dependence on other enabling machines and devices | CPT/HCPCS: 83036; 96127; 99212 ==

== ENCOUNTER 2025-01-17 08:25 | Outpatient (REF) | payer OTHER, SELFPAY ==
--- NOTE | ~2025-01-17 | US_ITS ---
EXAMINATION: US TRIPLEX LOWER EXTREMITY, RIGHT CLINICAL INFORMATION: Pain, right lower extremity COMPARISON: None available. TECHNIQUE: Color-flow triplex imaging with spectral analysis and compression Doppler were performed on the right lower extremity. FINDINGS: Respiratory variation, normal compression and augmented flow are present in the interrogated right common femoral vein, superficial femoral vein, profunda femoral vein, popliteal vein and midcalf peroneal and posterior tibial venous segments. There is no Marie's cyst. US/US venous duplex LE RT IMPRESSION: No acute deep venous thrombosis interrogated veins, right lower extremity. Negative for DVT. Electronically signed by: Oniel Cavanaugh MD 01/17/2025 01:20 PM EDT
== END 2025-01-17 08:26 | disposition home or self-care (01) ==
LOC: HO.XRAY 08:25
PROVIDERS: PCP Internal Medicine
DX: M25.471 Effusion, right ankle (principal)
CPT/HCPCS: 93971

== ENCOUNTER → 2025-01-17 12:59 | Outpatient (BNV) | payer OTHER, SELFPAY | PROVIDERS: PCP Internal Medicine; Visit Provider Radiology Diagnostic Radiology | DX: M79.661 Pain in right lower leg (principal) | CPT/HCPCS: 93971 ==

== ENCOUNTER 2025-01-22 16:17 | Inpatient (IN) | payer OTHER, SELFPAY ==
[2025-01-22] VITALS (7 sets, daily range): BP systolic 89–130; BP diastolic 45–64; PULSE 76–101; RESP 16–19; TEMP 37.4–38.5; O2SAT 86–97; BMI 34.0
--- NOTE | ~2025-01-22 | CT_ITS ---
CLINICAL HISTORY: sepsis CT abdomen and pelvis with contrast Comparison: None provided Findings: The gallbladder Is surgically absent. No intrahepatic biliary ductal dilatation. Common bile duct at the upper limit of normal post cholecystectomy. 1.4 cm cyst in left hepatic lobe. 0.9 cm hypodense lesion in right hepatic lobe which is too small to be characterized. Spleen and pancreas are within normal limits. Adrenal glands within normal limits. Enhancement bilateral kidneys with no ureteral stones and no hydronephrosis or hydroureter. 3 cm right renal cyst and subcentimeter bilateral renal cortical upper pole hypodense lesions which are too small to be fully characterized. No bowel obstruction, pneumoperitoneum, or pneumatosis. Colonic diverticulosis especially in the sigmoid colon with no CT evidence of acute diverticulitis. No free fluid. Loculated fluid collection. Appendix is unremarkable. Uterus is absent. Urinary bladder within normal limits. Mild atherosclerotic vascular disease with no aneurysm of the abdominal aorta. Multilevel degenerative changes of the spine. Mild degenerative changes bilateral hips. No acute fracture. IMPRESSION: 1.No acute findings. 2. Nonacute findings in the abdomen and pelvis as described This document has been electronically signed by: Nancie Max MD on 01/22/2025 20:58:21
--- NOTE | ~2025-01-22 | CT_ITS ---
CLINICAL HISTORY: cough, fever CT chest with contrast Comparison: CT/UT/SR - CT CHEST WO IV CON - 06/17/24 08:08 EST Findings: The heart is normal size. No pericardial effusion. No aneurysm of the thoracic aorta. No hilar, mediastinal or axillary adenopathy. Stable small nodular and reticular nodular changes are demonstrated subcentimeter cavitary nodule in right lung apex. Stable subsegmental atelectasis/ scarring bilaterally along the fissures. Stable interstitial changes in opacities with mild bronchiectasis in the right middle lobe which is chronic. No consolidation, pleural effusion or pneumothorax. Thyroid not completely imaged. Thoracic esophagus within normal limits. No acute fractures. Stable degenerative changes of the spine. IMPRESSION: 1. Stable findings in bilateral lungs as described. 2. No acute findings in the chest. This document has been electronically signed by: Nancie Max MD on 01/22/2025 21:14:37
--- NOTE | ~2025-01-22 | XR_ITS ---
CLINICAL HISTORY: cough 2 view chest x-ray Comparison: CR/SR - XR CHEST 2V - 10/25/24 09:20 EDT Findings: Heart size is borderline enlarged. Mild interstitial prominence. No consolidation, pleural effusion or pneumothorax Diffuse demineralization and degenerative changes of the spine. IMPRESSION: 1. Low-grade congestive heart failure not excluded. Correlate clinically. Otherwise no acute findings. This document has been electronically signed by: Nancie Max MD on 01/22/2025 18:32:37
--- NOTE | ~2025-01-22 | XR_ITS ---
EXAMINATION: XR CHEST CLINICAL INFORMATION: Shortness of breath COMPARISON: January 22, 2025 TECHNIQUE: Frontal view of the chest was obtained. FINDINGS: There is increasing density in the retrocardiac region of the left lower lung zone. Chest is otherwise stable. XR/XR chest 1V IMPRESSION: Left basilar atelectasis versus pneumonia. Electronically signed by: Jacinto An MD 01/27/2025 05:11 PM EDT
--- NOTE | 2025-01-22 16:18 | ED.URI ---
HPI - URI/Sore Throat General Chief Complaint: Upper Respiratory Symptoms Stated Complaint: cough/fever/throat hurts Time Seen by Provider: 01/22/25 16:24 Source: patient, RN notes reviewed and old records reviewed Mode of arrival: wheelchair Limitations: no limitations History of Present Illness ED Provider: Vicente HPI Narrative: 80-year-old female with a past medical history significant for vertigo, mild cognitive impairment, asthma and COPD overlap follow up with Dr. Mccarthy, hyperlipidemia, hypertension, type 2 diabetes, sleep apnea, GERD presents for evaluation of cough and weakness. The patient reports cough for the last 3 days and increasing weakness. She had fevers at home that were reported but did not take her temperature. She complains of body aches and shortness of breath with exertion She takes azithromycin 500 mg Friday, Friday, and Friday Denies any chest pain She had a nuclear stress test and nuclear perfusion study earlier this month showing an ejection fraction about 60% Denies any sick contacts Related Data Home Medications ?Medication ?Instructions ?Recorded ?Confirmed cholecalciferol (vitamin D3) 25 25 mcg PO DAILY 07/04/20 10/21/24 mcg (1,000 unit) capsule dorzolamide 22.3 mg-timolol 6.8 ml ophthalmic (eye) 10/21/22 10/21/24 mg/mL eye drops nebulizers 10/21/22 10/21/24 CPAP (CPAP Machine/Device) 03/17/23 10/21/24 nebulizers 03/17/23 10/21/24 famotidine 10 mg tablet 10 mg PO BID 08/05/24 10/21/24 Previous Rx's ?Medication ?Instructions ?Recorded Incontinence PADS #100 ea 07/04/20 blood-glucose meter (FreeStyle #1 ea 03/21/22 Lite Meter kit) lancets 28 gauge (FreeStyle #100 ea 03/21/22 Lancets) blood pressure monitor (Blood #1 ea 06/10/22 Pressure Kit) CANE #1 ea 02/24/23 blood sugar diagnostic (FreeStyle #100 ea 05/16/23 Lite Strips) naproxen 500 mg tablet,delayed 500 mg PO BID #60 tabs 02/08/24 release (EC-Naproxen) quetiapine 25 mg tablet 25 mg PO DAILY PRN withdrawal 02/29/24 symptoms #90 tabs pull ups #100 ea 04/28/24 albuterol sulfate 2.5 mg/3 mL 2.5 mg (3 mL) inhalation BID 30 07/01/24 (0.083 %) solution for nebulization days #180 mL fluticasone fur. 200 mcg-umeclid 1 inh inhalation DAILY 30 days #60 07/01/24 62.5 mcg-vilant 25 mcg ea inhalat.powder (Trelegy Ellipta) losartan 100 mg tablet 100 mg PO DAILY 90 days #90 tabs 07/01/24 Shower Chair #1 ea 07/16/24 miscellaneous medical supply #1 ea 07/16/24 wipes #10 ea 07/26/24 hand held shower head #1 ea 07/30/24 amlodipine 5 mg tablet 5 mg PO DAILY #90 tabs 08/05/24 food supplemt, lactose-reduced 0.1 1 ea PO QID PRN hunger #1,184 mL 08/05/24 gram-1.18 kcal/mL oral liquid (Ensure Complete) montelukast 10 mg tablet 10 mg PO DAILY #90 tabs 08/05/24 transfer bench #1 ea 08/05/24 pantoprazole 40 mg tablet,delayed 40 mg PO DAILY 90 days #90 tabs 08/14/24 release oxybutynin chloride 5 mg tablet 5 mg PO BID #180 tabs 10/20/24 albuterol sulfate 90 mcg/actuation 2 puff inhalation QID PRN 10/27/24 aerosol inhaler (Ventolin HFA) shortness of breath or wheezing 30 days #18 grams azithromycin 250 mg tablet 250 mg PO 3XW 90 days #39 tabs 10/28/24 loratadine 10 mg tablet (Claritin) 10 mg PO DAILY 30 days #30 tabs 10/28/24 atorvastatin 20 mg tablet 20 mg PO DAILY #90 tabs 11/28/24 halobetasol propionate 0.05 % 1 appl topical DAILY #50 grams 11/28/24 topical ointment Ventolin HFA 90 mcg/actuation 1 puff PO QID PRN shortness of 12/02/24 aerosol inhaler (albuterol sulfate) breath or wheezing #18 ea ondansetron 4 mg disintegrating 4 mg PO Q6-8H PRN nausea and 01/10/25 tablet vomiting #14 tabs fluticasone propionate 50 2 spray intranasal DAILY #48 mL 01/16/25 mcg/actuation nasal spray,suspension meclizine 25 mg tablet (Dramamine 25 mg PO TID PRN dizziness #20 tabs 01/17/25 Less Drowsy) Allergies Allergy/AdvReac Type Severity Reaction Status Date / Time Penicillins (PENICILLINS) Allergy Severe Hives Verified 01/22/25 16:22 codeine AdvReac Severe Nausea and Verified 01/22/25 16:22 Vomiting morphine (MORPHINE) AdvReac Severe NAUSEA & Verified 01/22/25 16:22 VOMITING ENVIRONMENTAL Allergy Intermediate RUNNY Uncoded 01/22/25 16:22 NOSE/WATERY EYES Darvocet A500 AdvReac Severe disoriented Uncoded 01/22/25 16:22 Review of Systems Constitutional: Constitutional: Reports body ache(s), Reports chills, Reports fatigue, Reports fever(s), Denies frequent falls, Denies headache(s), Reports malaise and Reports weakness ENT: Reports vertigo, Denies dizziness, Denies headache(s) and Reports sore throat Cardiovascular: Cardiovascular: Denies chest pain, Reports dyspnea and Reports dyspnea on exertion Respiratory: Respiratory: Reports cough, Reports excessive phlegm production, Denies pain with cough, Reports dyspnea and Reports dyspnea on exertion Gastrointestinal: Gastrointestinal: Denies abdominal pain, Denies nausea and Denies vomiting Musculoskeletal: Musculoskeletal: Denies back pain Integumentary/Breasts: Skin/Breast: Denies rash Neurologic: Reports vertigo, Denies dizziness, Denies frequent falls, Denies headache(s) and Reports weakness Psychiatric: Psychiatric: Denies anxiety Endocrine: Endocrine: Reports fatigue PMFSH Past Medical History Medical History (Updated 01/22/25 @ 21:48 by Rebel Zhang) BALTAZAR (obstructive sleep apnea) 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 Bronchiectasis Bronchiolitis Osteoarthritis Mixed stress and urge urinary incontinence Obesity (BMI 30-39.9) Obstructive sleep apnea Vitamin D deficiency Type 2 diabetes mellitus with hyperglycemia Asthma Glaucoma Arthritis GERD (gastroesophageal reflux disease) History of kidney stones Hypercholesteremia HTN (hypertension) Surgical History History of extraction of renal calculus History of breast biopsy Hx of umbilical hernia repair History of cystoscopy History of cholecystectomy History of colonoscopy H/O: hysterectomy Family History Family History Father Prostate cancer Mother Mental problem Son No problems noted. Son No problems noted. Daughter No problems noted. Social History Social History Housing: Apartment Alcohol intake: never Patient Tobacco Use Status: Former Tobacco user Tobacco use type: Cigarette Years Smoked: 45 years Quit 05/2007 e-Cigarette/Vaping Use: Never Used Second Hand Smoke Exposure: No Use of substances other than those prescribed or required for medical reasons: No Advance Directives: No Advance Directives Information Provided: Yes Do you have a plan to hurt others: No Plan service: No Current occupational status: disabled Cognitive needs: Yes (cane) Hearing needs: No Vision needs: Yes (glasses) Physical Exam Vital Signs: Vital Signs: Last Vital Signs Temp 99.3 F 01/22/25 19:23 Pulse 93 01/22/25 19:23 Resp 19 01/22/25 19:23 BP 127/64 01/22/25 19:58 Pulse Ox 97 01/22/25 19:24 O2 Del Method Nasal Cannula 01/22/25 19:24 O2 Flow Rate 2 01/22/25 19:24 BMI result Body Mass Index 34.0 Const: General: healthy appearing, comfortable, no acute distress, alert and awake Nutritional Appearance: well nourished Orientation/consciousness: patient oriented x3 HEENT: Head: Yes normocephalic and Yes atraumatic Throat: Yes posterior oropharynx normal Eyes: Eyelids: Yes eyelids normal Conjunctivae: conjunctivae normal Sclerae: sclerae normal Corneas: corneas normal Pupils: Equal, round and reactive pupils present EOM: EOMs intact bilaterally Neck: Neck: Yes full ROM Resp: Other: And diminished breath sounds throughout, no significant wheezing Effort & Inspection: normal respiratory effort, able to speak in complete sentences and not labored Cardio: Rate: regular rate Rhythm: regular rhythm GI: Inspection: No distended Palpation (GI): Soft to palpation, not firm, nontender, no guarding and not rigid Skin: General skin exam: elasticity normal Neuro: General: patient oriented x3 Cranial nerves: Yes Equal, round and reactive pupils present and Yes Bilaterally intact EOM present Cognition (Neuro): normal cognition Course Course Course Narrative: Rosa Coronado EMILIANO This is a rapid medical exam. Deferred additional HPI, ROS, PE to primary provider. 80 yo female with history of DM, HTN, asthma/COPD, GERD, anxiety, vertigo here with complaints of 3 days of coughing, sore throat, weakness, chest discomfort with coughing. In triage low grade fever, tachycardic, BP 89/50. Will need labs including BCX/lactic, EKG, CXR, viral testing. IVF ordered. Brought direct to room. Reevaluation(s) Reevaluation #1: Sepsis alert called due to suspected pneumonia. The patient takes azithromycin 3 times a week for the last year, therefore we will treat with ceftriaxone and doxycycline instead. She was given 30 cc/kilogram of fluid as she had a nuclear perfusion study earlier this month that showed an ejection fraction of 57% with stress and 62% at rest. She has no history of congestive heart failure. Sepsis focused exam performed Time: 16:40 Reevaluation #2: Patient's CT scan does not show any significant abnormalities in the chest or abdomen. Given the hypoxia we will discuss with the hospitalist for admission Time: 21:47 Medications Administered Discontinued Medications Generic Name Dose Route Start Last Admin Trade Name Mikhailq PRN Reason Stop Dose Admin Ceftriaxone Sodium 1 gm 01/22/25 16:34 01/22/25 16:55 Ceftriaxone Sodium 1 Gm Vial IVPUSH 01/22/25 16:35 1 gm ONCE ONE Administration Albuterol Sulfate 2.5 mg/ 0 mg 01/22/25 18:02 01/22/25 18:05 Albuterol/Ipratropium 3 ml INHALE 01/22/25 18:03 1 dose ONCE ONE Administration Sodium Chloride 2,449.41 mls @ 2,449.41 mls/hr 01/22/25 16:32 01/22/25 19:15 Ns 30 ml/kg infuse over 1 hr (2449.41 ml) 01/22/25 17:31 Infused IV Infusion .Q1H STA Acetaminophen 1,000 mg in 100 mls @ 400 mls/hr 01/22/25 16:34 01/22/25 18:19 Ofirmev IV 01/22/25 16:48 Infused ONCE ONE Infusion Doxycycline Hyclate 100 mg/ 250 mls @ 166.67 mls/hr 01/22/25 16:34 01/22/25 19:00 Sodium Chloride IV 01/22/25 18:03 Infused ONCE ONE Infusion Iohexol 100 ml 01/22/25 19:47 01/22/25 19:47 Iohexol 350 Mg/Ml 100 Ml Infus..Btl IV 01/22/25 19:48 85 ml ONCE ONE Administration Medical Decision Making Medical Decision Making [facility] Narrative: 80-year-old female presents for evaluation of cough, shortness of breath, body aches. She is febrile to 102 in the ER, she is hypotensive to 89/54. Sepsis alert was called, broad-spectrum antibiotics and IV fluids were ordered. Plan for labs including blood cultures, viral testing, strep testing and a chest x-ray. Given the cough and shortness of breath, pneumonia is favored to be the most likely diagnosis. Differential Diagnosis Differential Diagnoses: The differential diagnosis associated with the presentation includes Cough Pneumonia Sepsis Bronchitis Viral syndrome Influenza CHF less likely Admission/Observation Consideration of admission/observation: Escalation of care including admission/observation considered Lab Data 01/22/25 16:41 01/22/25 16:51 Labs: Lab Results 01/22/25 01/22/25 01/22/25 Range/Units 16:40 16:41 16:51 WBC 5.3 (4.8-10.8) X10*3/uL RBC 3.98 L (4.20-5.50) X10*6/uL Hgb 11.8 L (12.0-16.0) g/dl Hct 34.6 L (37.0-47.0) % MCV 86.9 (80.0-98.0) fL MCH 29.6 (27.0-33.0) pg MCHC 34.1 (31.0-35.0) g/dl RDW 13.2 (11.0-16.0) % Plt Count 186 (160-400) X10*3/uL MPV 9.5 (9.4-12.3) fL Immature Gran % (Auto) 0.2 (0.0-0.4) % Neut % (Auto) 74.5 H (45-73) % Lymph % (Auto) 18.1 L (20-40) % Grundy % (Auto) 6.2 (2-11) % Eos % (Auto) 0.8 (0-4) % Baso % (Auto) 0.2 (0-2) % Lymph # (Auto) 1.0 L (1.2-4.9) X10*3/uL Grundy # (Auto) 0.3 (0.1-1.2) X10*3/uL Eos # (Auto) 0.0 (0.0-0.4) X10*3/uL Baso # (Auto) 0.0 (0.0-0.2) X10*3/uL Abs Immat Gran (auto) 0.01 (0.00-0.03) X10*3/uL Absolute Neuts (auto) 3.9 (2.0-8.3) x10*3/uL Absolute Nucleated RBC 0.000 (0.0-0.012) X10*3/uL Nucleated RBC % (auto) 0.0 (0.0-0.2) /100WBC Hold Purple Top SEE NOTE Sodium 138 (135-145) mmol/L Potassium 4.0 (3.3-5.1) mmol/L Chloride 105 (96-108) mmol/L Carbon Dioxide 23 (22-29) mmol/L Anion Gap 14 (12-20) BUN 17 H (9-16) mg/dL Creatinine 1.03 (0.5-1.4) mg/dL Estim Creat Clear Calc 42.8 Estimated GFR 52 Random Glucose 116 H (60-115) mg/dL Lactic Acid 1.0 (0.5-2.0) mmol/L Calcium 8.9 D (8.4-10.2) mg/dL Total Bilirubin 0.4 (0.0-1.0) mg/dL Direct Bilirubin 0.2 (0.0-0.5) mg/dL AST 29 (5-31) U/L ALT 16 (0-31) U/L Alkaline Phosphatase 123 H (39-117) U/L Total Protein 6.8 (6.5-8.0) g/dL Albumin 4.0 (3.5-5.0) g/dL Urine Color Urine Appearance Urine pH (5.0-9.0) Ur Specific Wilmore (1.005-1.025) Urine Protein (Neg-Trace) mg/dL Urine Glucose (UA) (Negative) mg/dL Urine Ketones (Negative) mg/dL Urine Blood (Negative) Urine Nitrite (Negative) Ur Leukocyte Esterase (Negative) Urine RBC (0-2) /HPF Urine WBC (0-5) /HPF Ur Squamous Epith Cells (0-2) /HPF Urine Bacteria (None Seen) Hyaline Casts (0-2) /LPF Influenza Type A (PCR) NEGATIVE (Negative) Influenza Type B (PCR) NEGATIVE (Negative) RSV RNA Qual (PCR) NEGATIVE (Negative) SARS-CoV-2 RNA (RT-PCR) NEGATIVE (Negative) S. pyogenes GrpA FCO Negative (Negative) 01/22/25 Range/Units 20:21 WBC (4.8-10.8) X10*3/uL RBC (4.20-5.50) X10*6/uL Hgb (12.0-16.0) g/dl Hct (37.0-47.0) % MCV (80.0-98.0) fL MCH (27.0-33.0) pg MCHC (31.0-35.0) g/dl RDW (11.0-16.0) % Plt Count (160-400) X10*3/uL MPV (9.4-12.3) fL Immature Gran % (Auto) (0.0-0.4) % Neut % (Auto) (45-73) % Lymph % (Auto) (20-40) % Grundy % (Auto) (2-11) % Eos % (Auto) (0-4) % Baso % (Auto) (0-2) % Lymph # (Auto) (1.2-4.9) X10*3/uL Grundy # (Auto) (0.1-1.2) X10*3/uL Eos # (Auto) (0.0-0.4) X10*3/uL Baso # (Auto) (0.0-0.2) X10*3/uL Abs Immat Gran (auto) (0.00-0.03) X10*3/uL Absolute Neuts (auto) (2.0-8.3) x10*3/uL Absolute Nucleated RBC (0.0-0.012) X10*3/uL Nucleated RBC % (auto) (0.0-0.2) /100WBC Hold Purple Top Sodium (135-145) mmol/L Potassium (3.3-5.1) mmol/L Chloride (96-108) mmol/L Carbon Dioxide (22-29) mmol/L Anion Gap (12-20) BUN (9-16) mg/dL Creatinine (0.5-1.4) mg/dL Estim Creat Clear Calc Estimated GFR Random Glucose (60-115) mg/dL Lactic Acid (0.5-2.0) mmol/L Calcium (8.4-10.2) mg/dL Total Bilirubin (0.0-1.0) mg/dL Direct Bilirubin (0.0-0.5) mg/dL AST (5-31) U/L ALT (0-31) U/L Alkaline Phosphatase (39-117) U/L Total Protein (6.5-8.0) g/dL Albumin (3.5-5.0) g/dL Urine Color Yellow Urine Appearance Clear Urine pH 5.5 (5.0-9.0) Ur Specific [place] 1.015 (1.005-1.025) Urine Protein Negative (Neg-Trace) mg/dL Urine Glucose (UA) Negative (Negative) mg/dL Urine Ketones Negative (Negative) mg/dL Urine Blood Negative (Negative) Urine Nitrite Negative (Negative) Ur Leukocyte Esterase Negative (Negative) Urine RBC 0-2 (0-2) /HPF Urine WBC 0-5 (0-5) /HPF Ur Squamous Epith Cells 0-2 (0-2) /HPF Urine Bacteria None Seen (None Seen) Hyaline Casts 0-2 (0-2) /LPF Influenza Type A (PCR) (Negative) Influenza Type B (PCR) (Negative) RSV RNA Qual (PCR) (Negative) SARS-CoV-2 RNA (RT-PCR) (Negative) S. pyogenes GrpA FCO (Negative) Discharge Plan Discharge Clinical Impression: Acute hypoxic respiratory failure Patient Disposition: Admitted As Inpatient Print Language: Mongolian
--- NOTE | 2025-01-22 16:23 | ECG_ITS ---
Test Reason : WEAKNESS Blood Pressure : */* mmHG Vent. Rate : 93 BPM Atrial Rate : 93 BPM P-R Int : 146 ms QRS Dur : 82 ms QT Int : 348 ms P-R-T Axes : 49 23 40 degrees QTcB Int : 432 ms Normal sinus rhythm Normal ECG When compared with ECG of 10-Jan-2025 07:09, No significant change was found Referred By: Rosa Coronado Electronically Signed By: PRANAV NICHOLE
[2025-01-22 16:50] LABS: MANUAL DIFF FLAG NO
[2025-01-22 16:53] LABS: Hematocrit 34.6 % (37.0-47.0); Hemoglobin 11.8 g/dl (12.0-16.0); Imm Gran Abs Auto 0.01 X10*3/uL (0.00-0.03); Imm Gran Pct Auto 0.2 % (0.0-0.4); Lymphocytes Absolute Auto 1.0 X10*3/uL (1.2-4.9); Mean Corpuscular HGB Conc 34.1 g/dl (31.0-35.0); Mean Corpuscular Hemoglobin 29.6 pg (27.0-33.0); Mean Corpuscular Volume 86.9 fL (80.0-98.0); NRBC Abs Auto 0.000 X10*3/uL (0.0-0.012); NRBC Pct Auto 0.0 /100WBC (0.0-0.2); Platelet Count 186 X10*3/uL (160-400); Red Blood Count 3.98 X10*6/uL (4.20-5.50); White Blood Count 5.3 X10*3/uL (4.8-10.8)
[2025-01-22] MEDS: 0.9 % Sodium Chloride 2,449.41 ML 2449.41 ML IV (16:55)
[2025-01-22 17:02] LABS: IDNOW Serial# 55D5AD1C; Strep A Nucleic Acid Negative (Negative)
[2025-01-22 17:15] LABS: Alanine Aminotransferase 16 U/L (0-31); Albumin Level 4.0 g/dL (3.5-5.0); Alkaline Phosphatase 123 U/L (39-117); Anion Gap 14 (12-20); Aspartate Amino Transferase 29 U/L (5-31); Blood Urea Nitrogen 17 mg/dL (9-16); Calcium 8.9 mg/dL (8.4-10.2); Carbon Dioxide 23 mmol/L (22-29); Chloride 105 mmol/L (96-108); Creatinine Clr Calc Pharmacy 42.8; Estimated Glomerular Filt Rate 52; Potassium 4.0 mmol/L (3.3-5.1); Sodium 138 mmol/L (135-145); Total Protein 6.8 g/dL (6.5-8.0)
[2025-01-22 17:30] LABS: Resp Syncy Virus RNA Qual PCR NEGATIVE (Negative); SARS COV2 PCR INHOUSE NEGATIVE (Negative)
[2025-01-22] MEDS: Albuterol Sulfate 2.5 MG, Albuterol/Iprat 2.5/0.5MG 3 ML 3 ML INHALE (18:05)
[2025-01-22] MEDS: iohexoL 350 MG/ML 100 ML INFUS..BTL IV (19:47)
[2025-01-22 20:38] LABS: Appearance Urine Clear; Glucose Urine UA Negative (Negative); PH 5.5 (5.0-9.0); Specific Gravity - Urine 1.015 (1.005-1.025)
--- NOTE | 2025-01-22 22:47 | P.HPHOSP_ITS ---
History of Present Illness Date of Service: 01/22/25 Attending physician on admission: Hilario Rodriguez Chief Complaint: Shortness of breaths Didi Baldwin is a 80 years old woman with past medical history significant for COPD/asthma -no home oxygen, obstructive sleep apnea on CPAP, bronchiectasis, GERD, hyperlipidemia, vertigo and hypertension presents to the emergency department complaining of worsening shortness on breath, dry cough, fever, sore throat and fatigue since Friday. Her sister had similar symptoms. She denied any acute gastrointestinal or genitourinary symptoms. She is a former tobacco smoker. Denied alcohol abuse or illicit drug use. In the ED, she was found to have fever of 101.3. Her oxygen saturations 86 % on room air and currently requiring 4 L/min supplemental oxygen via nasal cannula. Blood pressure and heart rates are normal. Blood workup showed no leukocytosis. Hemoglobin is 11.8 and hematocrit 34.6. Platelets are normal. Electrolytes are normal. BUN 17 and creatinine 1.03. Glucose is 116. LFTs are normal, however alk phos is 123. Chest CT showed stable findings: Atelectasis/scaring, mild bronchiectasis in the right middle lobe which is chronic without consolidation, pleural effusion or pneumothorax. Abdomen pelvis CT scan showed no acute findings. ED tx: NS 2450 mL IV bolus, Tylenol 1 g IV, ceftriaxone 1 g IV, doxycycline 100 mg IV, DuoNeb x3, Solu-Medrol 125 mg IV Review of Systems 2 Review of Systems: All 12 systems were reviewed and normal except as noted in HPI. 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 Son No problems noted. Daughter No problems noted. Surgical History History of extraction of renal calculus History of breast biopsy Hx of umbilical hernia repair History of cystoscopy History of cholecystectomy History of colonoscopy H/O: hysterectomy Social History Housing: Apartment Alcohol intake: never Patient Tobacco Use Status: Former Tobacco user Tobacco use type: Cigarette Years Smoked: 45 years Quit 05/2007 e-Cigarette/Vaping Use: Never Used Second Hand Smoke Exposure: No Use of substances other than those prescribed or required for medical reasons: No Advance Directives: No Advance Directives Information Provided: Yes Do you have a plan to hurt others: No Plan Nutrition Risks: No Nutritional Risk service: No Current occupational status: disabled Cognitive needs: Yes (cane) Hearing needs: No Vision needs: Yes (glasses) Meds Allergies Allergy/AdvReac Type Severity Reaction Status Date / Time Penicillins (PENICILLINS) Allergy Severe Hives Verified 01/22/25 16:22 codeine AdvReac Severe Nausea and Verified 01/22/25 16:22 Vomiting morphine (MORPHINE) AdvReac Severe NAUSEA & Verified 01/22/25 16:22 VOMITING ENVIRONMENTAL Allergy Intermediate RUNNY Uncoded 01/22/25 16:22 NOSE/WATERY EYES Darvocet A500 AdvReac Severe disoriented Uncoded 01/22/25 16:22 Active Medications: Current Medications Acetaminophen (Acetaminophen 325 Mg Tablet) 975 mg PO Q6H PRN PRN Reason: Pain, Mild 1-3,fever,headache Last Admin: 01/22/25 22:43 Dose: 975 mg Albuterol Sulfate (Albuterol Sulfate (0.083%) 2.5 Mg/3 Ml Vial.Neb) 2.5 mg INHALE Q2H PRN PRN Reason: Shortness of Breath/Wheezing Albuterol/Ipratropium (Albuterol/Iprat 2.5/0.5mg 3 Ml Ampul.Neb) 3 ml INHALE RQ4H WHILE AWAKE [facility] Ceftriaxone Sodium (Ceftriaxone Sodium 1 Gm Vial) 1 gm IVPUSH Q24H [facility] Enoxaparin Sodium (Enoxaparin Sodium 40 Mg/0.4 Ml Syringe) 40 mg SUBCUT Q24H [facility] Guaifenesin/Dextromethorphan (Guaifenesin Dm 600/30 1 Tab Tab.Er.12h) 2 tab PO BID [facility] Doxycycline Hyclate 100 mg/ (Sodium Chloride) 250 mls @ 166.67 mls/hr IV Q12H [facility] Melatonin (Melatonin 3 Mg Tablet) 6 mg PO BEDTIME PRN PRN Reason: Insomnia Methylprednisolone Sodium Succinate (Methylprednisolone Sod Succ 40 Mg Vial) 40 mg IVPUSH Q12H [facility] Sodium Chloride (0.9 % Sodium Chloride Flush 3 Ml Syringe) 3 ml IVFLUSH QSHIFT [facility] Home Medications ?Medication ?Instructions ?Recorded ?Confirmed ?Last Taken ?Type cholecalciferol (vitamin D3) 25 25 mcg PO DAILY 10/21/24 Unknown History mcg (1,000 unit) capsule dorzolamide 22.3 mg-timolol 6.8 ml ophthalmic (eye) 10/21/24 Unknown History mg/mL eye drops nebulizers 10/21/22 10/21/24 Unknown H istory CPAP (CPAP Machine/Device) 03/17/23 10/21/24 Unknown History nebulizers 03/17/23 10/21/24 Unknown H istory famotidine 10 mg tablet 10 mg PO BID 08/05/24 Unknown History Physical Exam 2 Vital Signs and Narrative: Vital Signs: Last Vital Signs Temp 99.3 F 01/22/25 19:23 Pulse 76 01/22/25 22:02 Resp 18 01/22/25 22:02 BP 112/46 L 01/22/25 22:02 Pulse Ox 95 01/22/25 22:02 O2 Del Method Nasal Cannula 01/22/25 22:02 O2 Flow Rate 4 01/22/25 22:02 BMI result Body Mass Index 34.0 Constitutional - Awake and Alert, acutely ill in appearance. Pleasant. Cooperative. Nasal cannula in place. HEENT - PER, EOMI Heart - S1S2, RRR, No murmurs Lungs - Normal lung expansion, Normal respiratory effort, No respiratory distress. End expiratory wheezes. No crackles. No rhonchi. Abdomen - NT / ND; +BS; No rebound or guarding Extremities - no calf tenderness bilaterally, no swelling Musculoskeletal - Normal inspection, normal ROM Skin - Warm/Dry Neurological - Alert & oriented x3. Moving all extremities spontaneously. Normal speech. Psychological - Appropriate affect Results Labs 01/22/25 16:41 01/22/25 16:51 Labs: Laboratory Results - last 24 hr 01/22/25 01/22/25 01/22/25 16:40 16:41 16:51 MCV 86.9 MCH 29.6 MCHC 34.1 RDW 13.2 Plt Count 186 MPV 9.5 Immature Gran % (Auto) 0.2 Neut % (Auto) 74.5 H Lymph % (Auto) 18.1 L [place] % (Auto) 6.2 Eos % (Auto) 0.8 Baso % (Auto) 0.2 Lymph # (Auto) 1.0 L [place] # (Auto) 0.3 Eos # (Auto) 0.0 Baso # (Auto) 0.0 Abs Immat Gran (auto) 0.01 Absolute Neuts (auto) 3.9 Absolute Nucleated RBC 0.000 Nucleated RBC % (auto) 0.0 Hold Purple Top SEE NOTE Anion Gap 14 Estim Creat Clear Calc 42.8 Estimated GFR 52 Random Glucose 116 H Lactic Acid 1.0 Calcium 8.9 D Total Bilirubin 0.4 Direct Bilirubin 0.2 AST 29 ALT 16 Alkaline Phosphatase 123 H Total Protein 6.8 Albumin 4.0 Urine Color Urine Appearance Urine pH Ur Specific [place] Urine Protein Urine Glucose (UA) Urine Ketones Urine Blood Urine Nitrite Ur Leukocyte Esterase Urine RBC Urine WBC Ur Squamous Epith Cells Urine Bacteria Hyaline Casts Influenza Type A (PCR) NEGATIVE Influenza Type B (PCR) NEGATIVE RSV RNA Qual (PCR) NEGATIVE SARS-CoV-2 RNA (RT-PCR) NEGATIVE S. pyogenes GrpA FCO Negative 01/22/25 20:21 MCV MCH MCHC RDW Plt Count MPV Immature Gran % (Auto) Neut % (Auto) Lymph % (Auto) [place] % (Auto) Eos % (Auto) Baso % (Auto) Lymph # (Auto) [place] # (Auto) Eos # (Auto) Baso # (Auto) Abs Immat Gran (auto) Absolute Neuts (auto) Absolute Nucleated RBC Nucleated RBC % (auto) Hold Purple Top Anion Gap Estim Creat Clear Calc Estimated GFR Random Glucose Lactic Acid Calcium Total Bilirubin Direct Bilirubin AST ALT Alkaline Phosphatase Total Protein Albumin Urine Color Yellow Urine Appearance Clear Urine pH 5.5 Ur Specific [place] 1.015 Urine Protein Negative Urine Glucose (UA) Negative Urine Ketones Negative Urine Blood Negative Urine Nitrite Negative Ur Leukocyte Esterase Negative Urine RBC 0-2 Urine WBC 0-5 Ur Squamous Epith Cells 0-2 Urine Bacteria None Seen Hyaline Casts 0-2 Influenza Type A (PCR) Influenza Type B (PCR) RSV RNA Qual (PCR) SARS-CoV-2 RNA (RT-PCR) S. pyogenes GrpA FCO Assessment and Plan (1) Acute hypoxic respiratory failure: Status: Acute (2) Upper respiratory tract infection: Qualifiers: URI type: unspecified URI Qualified Code(s): J06.9 - Acute upper respiratory infection, unspecified Status: Acute Plan Didi Baldwin is a 80 y/o woman admitted with: * Acute hypoxic respiratory failure secondary to chronic obstructive pulmonary disease due to upper respiratory tract infection/bronchitis in the setting of bronchiectasis + sleep apnea. Admit to hospitalist service. Telemetry. Pulse oximetry. Supplemental O2 to keep oxygen saturation > 90%. Continue bronchodilator therapy, IV steroids and empiric IV antibiotic therapy with ceftriaxone and doxycycline. Started antitussive therapy with Mucinex. Continue montelukast. Continue CPAP if tolerated (she has not been able to tolerate it over the last few days). Check resp panel. * Essential hypertension. Continue losartan and amlodipine. * Hyperlipidemia. Continue statin. * GERD. Continue PPI. * History of vertigo. Continue Antivert. Scheduled for PT as an outpatient. Med rec pending. DVT prophylaxis: Lovenox Code status: Full Patient will need hospitalization for at least 2 midnights for acute hypoxic respiratory failure secondary to upper respiratory tract infection treatment with supplemental oxygen, IV steroids and empiric IV antibiotic therapy. Quality Stroke Does the patient have a stroke diagnosis?: No VTE Prior VTE?: No VTE Risk Level:: Medical - moderate - high VTE Device Contraindication: Treatment Not Indicated VTE Drug Contraindication: N/A - Med Ordered
[2025-01-23] VITALS (13 sets, daily range): BP systolic 115–148; BP diastolic 42–76; PULSE 73–105; RESP 16–20; TEMP 36.1–37; O2SAT 90–99; BMI 35.7
[2025-01-23] MEDS: Albuterol Sulfate (0.083%) 2.5 MG/3 ML VIAL.NEB INHALE (01:57)
[2025-01-23] MEDS: guaiFENesin DM 600/30 1 TAB TAB.ER.12H 2 TAB PO ×3 (02:14→20:39)
[2025-01-23] MEDS: Albuterol/Iprat 2.5/0.5MG 3 ML AMPUL.NEB INHALE ×4 (07:54→20:27)
[2025-01-23 08:10] LABS: MANUAL DIFF FLAG NO
[2025-01-23 08:12] LABS: Hematocrit 36.4 % (37.0-47.0); Hemoglobin 11.8 g/dl (12.0-16.0); Imm Gran Abs Auto 0.02 X10*3/uL (0.00-0.03); Imm Gran Pct Auto 0.5 % (0.0-0.4); Lymphocytes Absolute Auto 0.3 X10*3/uL (1.2-4.9); Mean Corpuscular HGB Conc 32.4 g/dl (31.0-35.0); Mean Corpuscular Hemoglobin 29.6 pg (27.0-33.0); Mean Corpuscular Volume 91.2 fL (80.0-98.0); NRBC Abs Auto 0.000 X10*3/uL (0.0-0.012); NRBC Pct Auto 0.0 /100WBC (0.0-0.2); Platelet Count 177 X10*3/uL (160-400); Red Blood Count 3.99 X10*6/uL (4.20-5.50); White Blood Count 4.3 X10*3/uL (4.8-10.8)
[2025-01-23 08:14] LABS: Venous Blood Gas Refer to POC result
[2025-01-23 08:15] LABS: VBG HCO3 18 mmol/L (22-26); VBG O2 % Saturation 84.0 %
[2025-01-23 08:29] LABS: Blood Urea Nitrogen 18 mg/dL (9-16); Calcium 8.9 mg/dL (8.4-10.2); Creatinine Clr Calc Pharmacy 45.8; Estimated Glomerular Filt Rate 54; Magnesium 2.0 mg/dL (1.6-2.6)
[2025-01-23 08:43] LABS: Anion Gap 18 (12-20); Carbon Dioxide 17 mmol/L (22-29); Chloride 109 mmol/L (96-108); Potassium 3.7 mmol/L (3.3-5.1); Sodium 140 mmol/L (135-145)
[2025-01-23 08:47] LABS: Procalcitonin 0.10 ng/mL
[2025-01-23] MEDS: 0.9 % Sodium Chloride Flush 3 ML SYRINGE IVFLUSH ×3 (09:03→20:39)
--- NOTE | 2025-01-23 09:14 | PHA.MEDREC ---
Addendum entered by Milka Walker [facility] 01/23/25 09:26: Reviewe by [facility] Original Note: Pharmacy Consult ? Medication Reconciliation Pharmacy has completed the medication reconciliation. Spoke with pt and she confirmed her medications. Pt stated she takes her Azithromycin 25mg tab and and confirmed she took it Fr 01/21. Patient confirmed she is taking her Oxybutynin tablet once daily instead of BID now and changed it a while ago . Pt takes a Centrum Silver and Ymlg-Unlvryikh-Wblnzrg D3 (pt unsure of the dose at this time) on and states she has not taken the Centrum Silver or OTC combo med since last Friday.
[2025-01-23 09:24] LABS: Chlamydia pneumoniae PCR Not Detected (Not Detect.); Coronavirus 229E PCR Not Detected (Not Detect.); Coronavirus HKU1 PCR Not Detected (Not Detect.); Coronavirus NL63 PCR Not Detected (Not Detect.); Coronavirus OC43 PCR Not Detected (Not Detect.); RSV PCR Not Detected (Not Detect.); Rhino/Enterovirus PCR Not Detected (Not Detect.)
[2025-01-23 10:21] LABS: Influenza A H1 PCR Not Detected (Not Detect.); Influenza A H1-2009 PCR Not Detected (Not Detect.); Influenza A H3 PCR Not Detected (Not Detect.); SARS-CoV-2 PCR Not Detected (Not Detect.)
[2025-01-23 11:07] LABS: Hemoglobin A1C 124.0253 umol/L; Total Hemoglobin (HGBA1C) 3119.7917 umol/L
--- NOTE | 2025-01-23 11:52 | HO.PM.IMPN ---
Subjective Subjective Date of Service: 01/23/25 Interval History: fever 101.3 yesterday afternoon, none since dyspnea/cough improving Review of Systems Review of Systems: Yes all other systems are reviewed and are negative Physical Exam Vital Signs: Vital Signs: Last Vital Signs Temp 97.4 F 01/23/25 11:19 Pulse 96 01/23/25 11:34 Resp 18 01/23/25 11:34 BP 144/66 H 01/23/25 11:19 Pulse Ox 97 01/23/25 11:19 O2 Del Method Nasal Cannula 01/23/25 11:19 O2 Flow Rate 2 01/23/25 11:19 BMI result Body Mass Index 35.7 Gen: in no acute distress HEENT: sclera anicteric, moist mucus membranes Neck: supple Lungs: diminished Heart: regular rate and rhythm, no murmurs Abd: soft, non-tender, non-distended Ext: no edema Skin: warm/well-perfused Neuro: alert and oriented x3, no focal findings Psych: appropriate affect Objective Data Active Medications Acetaminophen (Acetaminophen 325 Mg Tablet) 975 mg PO Q6H PRN PRN Reason: Pain, Mild 1-3,fever,headache Last Admin: 01/22/25 22:43 Dose: 975 mg Documented By: LUDIVINA Albuterol Sulfate (Albuterol Sulfate (0.083%) 2.5 Mg/3 Ml Vial.Neb) 2.5 mg INHALE Q2H PRN PRN Reason: Shortness of Breath/Wheezing Last Admin: 01/23/25 01:57 Dose: 2.5 mg Documented By: TONO Albuterol/Ipratropium (Albuterol/Iprat 2.5/0.5mg 3 Ml Ampul.Neb) 3 ml INHALE RQ4H WHILE AWAKE [facility] Last Admin: 01/23/25 11:32 Dose: 3 ml Documented By: LUCIANA Amlodipine Besylate (Amlodipine Besylate 5 Mg Tablet) 5 mg PO DAILY [facility]; Protocol Atorvastatin Calcium (Atorvastatin Calcium 20 Mg Tablet) 20 mg PO DAILY [facility] Azithromycin (Azithromycin 250 Mg Tablet) 250 mg PO MOWEFR@0900 [facility] Ceftriaxone Sodium (Ceftriaxone Sodium 1 Gm Vial) 1 gm IVPUSH Q24H [facility] Enoxaparin Sodium (Enoxaparin Sodium 40 Mg/0.4 Ml Syringe) 40 mg SUBCUT Q24H [facility] Last Admin: 01/23/25 09:04 Dose: 40 mg Documented By: LAZARA Fluticasone Propionate (Fluticasone Propionate Nasal 16 Gm [place]) 2 spray NOSTRIL-B DAILY PRN PRN Reason: Allergic Symptoms Guaifenesin/Dextromethorphan (Guaifenesin Dm 600/30 1 Tab Tab.Er.12h) 2 tab PO BID [facility] Last Admin: 01/23/25 09:03 Dose: 2 tab Documented By: LAZARA Doxycycline Hyclate 100 mg/ (Sodium Chloride) 250 mls @ 166.67 mls/hr IV Q12H [facility] Last Infusion: 01/23/25 11:16 Dose: Infused Documented By: LAZARA Latanoprost (Latanoprost 0.005 % Ophth Isis 2.5 Ml Drops) 1 drop EYE-RIGHT BEDTIME [facility] Loratadine (Loratadine 10 Mg Tablet) 10 mg PO DAILY [facility] Losartan Potassium (Losartan Potassium 50 Mg Tablet) 100 mg PO DAILY [facility]; Protocol Meclizine HCl (Meclizine Hcl 25 Mg Tablet) 25 mg PO TID PRN PRN Reason: dizziness Melatonin (Melatonin 3 Mg Tablet) 6 mg PO BEDTIME PRN PRN Reason: Insomnia Methylprednisolone Sodium Succinate (Methylprednisolone Sod Succ 40 Mg Vial) 40 mg IVPUSH Q12H [facility] Last Admin: 01/23/25 09:04 Dose: 40 mg Documented By: LAZARA Montelukast Sodium (Montelukast Sodium 10 Mg Tablet) 10 mg PO DAILY [facility] Multivitamins/Vitamin C (Multivitamin Tablet) 1 tab PO MoThSa@0900 [facility] Omeprazole (Omeprazole 20 Mg Capsule.Dr) 20 mg PO DAILY@0630 [facility] Ondansetron HCl (Ondansetron Odt 4 Mg Tab.Rapdis) 4 mg TRANSLINGU Q6H PRN PRN Reason: Nausea and Vomiting Oxybutynin Chloride (Oxybutynin Chloride 5 Mg Tablet) 5 mg PO DAILY [facility] Sodium Chloride (0.9 % Sodium Chloride Flush 3 Ml Syringe) 3 ml IVFLUSH QSHIFT [facility] Last Admin: 01/23/25 09:03 Dose: 3 ml Documented By: LAZARA Vitamin D (Cholecalciferol (Vitamin D3) 25 Mcg Tablet) 25 mcg PO DAILY [facility] Labs 01/23/25 08:05 01/23/25 08:05 Labs: Laboratory Results - last 24 hr 01/22/25 01/22/25 01/22/25 16:40 16:41 16:41 MCV 86.9 MCH 29.6 MCHC 34.1 RDW 13.2 Plt Count 186 MPV 9.5 Immature Gran % (Auto) 0.2 Neut % (Auto) 74.5 H Lymph % (Auto) 18.1 L [place] % (Auto) 6.2 Eos % (Auto) 0.8 Baso % (Auto) 0.2 Lymph # (Auto) 1.0 L [place] # (Auto) 0.3 Eos # (Auto) 0.0 Baso # (Auto) 0.0 Abs Immat Gran (auto) 0.01 Absolute Neuts (auto) 3.9 Absolute Nucleated RBC 0.000 Nucleated RBC % (auto) 0.0 Hold Purple Top SEE NOTE VBG pH VBG pCO2 VBG pO2 VBG HCO3 VBG O2 Saturation VBG Base Excess Anion Gap Estim Creat Clear Calc Estimated GFR Random Glucose Estimat Average Glucose Hemoglobin A1c % Lactic Acid 1.0 Calcium Magnesium Total Bilirubin Direct Bilirubin AST ALT Alkaline Phosphatase Total Protein Albumin Procalcitonin Urine Color Urine Appearance Urine pH Ur Specific [place] Urine Protein Urine Glucose (UA) Urine Ketones Urine Blood Urine Nitrite Ur Leukocyte Esterase Urine RBC Urine WBC Ur Squamous Epith Cells Urine Bacteria Hyaline Casts Respiratory Panel [place] See Note Adenovirus (Rapid PCR) Not Detected B.pert (TEM-PCR) Not Detected B.parapertussis DNA PCR Not Detected C. pneumoniae DNA (PCR) Not Detected Coronavirus OC43 (PCR) Not Detected Coronavirus HKU1 (PCR) Not Detected Coronavirus 229E (PCR) Not Detected Coronavirus NL63 (PCR) Not Detected Human Metapneumovir PCR Detected A Influenza A (RT-PCR) Not Detected Influenza A (H1) PCR Not Detected Influ A (H1/09) PCR Not Detected Influenza A (H3) PCR Not Detected Influenza Type A (PCR) NEGATIVE Influenza B (RT-PCR) Not Detected Influenza Type B (PCR) NEGATIVE M. pneumoniae (PCR) Not Detected Parainfluenza 1 (PCR) Not Detected Parainfluenza 2 (PCR) Not Detected Parainfluenza 3 (PCR) Not Detected Parainfluenza 4 (PCR) Not Detected RSV (PCR) Not Detected RSV RNA Qual (PCR) NEGATIVE Entero/Rhino (PCR) Not Detected SARS-CoV-2 RNA (RT-PCR) NEGATIVE Not Detected S. pyogenes GrpA [facility]CO Negative 01/22/25 01/22/25 01/23/25 16:51 20:21 08:05 MCV 91.2 MCH 29.6 MCHC 32.4 RDW 13.0 Plt Count 177 MPV 9.5 Immature Gran % (Auto) 0.5 H Neut % (Auto) 89.9 H Lymph % (Auto) 8.0 L [place] % (Auto) 1.6 L Eos % (Auto) 0.0 Baso % (Auto) 0.0 Lymph # (Auto) 0.3 L [place] # (Auto) 0.1 Eos # (Auto) 0.0 Baso # (Auto) 0.0 Abs Immat Gran (auto) 0.02 Absolute Neuts (auto) 3.8 Absolute Nucleated RBC 0.000 Nucleated RBC % (auto) 0.0 Hold Purple Top VBG pH VBG pCO2 VBG pO2 VBG HCO3 VBG O2 Saturation VBG Base Excess Anion Gap 14 18 Estim Creat Clear Calc 42.8 45.8 Estimated GFR 52 54 Random Glucose 116 H 280 H Estimat Average Glucose 120 Hemoglobin A1c % 5.8 Lactic Acid Calcium 8.9 D 8.9 Magnesium 2.0 Total Bilirubin 0.4 Direct Bilirubin 0.2 AST 29 ALT 16 Alkaline Phosphatase 123 H Total Protein 6.8 Albumin 4.0 Procalcitonin 0.10 Urine Color Yellow Urine Appearance Clear Urine pH 5.5 Ur Specific [place] 1.015 Urine Protein Negative Urine Glucose (UA) Negative Urine Ketones Negative Urine Blood Negative Urine Nitrite Negative Ur Leukocyte Esterase Negative Urine RBC 0-2 Urine WBC 0-5 Ur Squamous Epith Cells 0-2 Urine Bacteria None Seen Hyaline Casts 0-2 Respiratory Panel [place] Adenovirus (Rapid PCR) B.pert (TEM-PCR) B.parapertussis DNA PCR C. pneumoniae DNA (PCR) Coronavirus OC43 (PCR) Coronavirus HKU1 (PCR) Coronavirus 229E (PCR) Coronavirus NL63 (PCR) Human Metapneumovir PCR Influenza A (RT-PCR) Influenza A (H1) PCR Influ A (H1/09) PCR Influenza A (H3) PCR Influenza Type A (PCR) Influenza B (RT-PCR) Influenza Type B (PCR) M. pneumoniae (PCR) Parainfluenza 1 (PCR) Parainfluenza 2 (PCR) Parainfluenza 3 (PCR) Parainfluenza 4 (PCR) RSV (PCR) RSV RNA Qual (PCR) Entero/Rhino (PCR) SARS-CoV-2 RNA (RT-PCR) S. pyogenes GrpA FCO 01/23/25 08:12 MCV MCH MCHC RDW Plt Count MPV Immature Gran % (Auto) Neut % (Auto) Lymph % (Auto) [place] % (Auto) Eos % (Auto) Baso % (Auto) Lymph # (Auto) [place] # (Auto) Eos # (Auto) Baso # (Auto) Abs Immat Gran (auto) Absolute Neuts (auto) Absolute Nucleated RBC Nucleated RBC % (auto) Hold Purple Top VBG pH 7.32 VBG pCO2 34 VBG pO2 55 VBG HCO3 18 L VBG O2 Saturation 84.0 VBG Base Excess -6.5 Anion Gap Estim Creat Clear Calc Estimated GFR Random Glucose Estimat Average Glucose Hemoglobin A1c % Lactic Acid Calcium Magnesium Total Bilirubin Direct Bilirubin AST ALT Alkaline Phosphatase Total Protein Albumin Procalcitonin Urine Color Urine Appearance Urine pH Ur Specific [place] Urine Protein Urine Glucose (UA) Urine Ketones Urine Blood Urine Nitrite Ur Leukocyte Esterase Urine RBC Urine WBC Ur Squamous Epith Cells Urine Bacteria Hyaline Casts Respiratory Panel [place] Adenovirus (Rapid PCR) B.pert (TEM-PCR) B.parapertussis DNA PCR C. pneumoniae DNA (PCR) Coronavirus OC43 (PCR) Coronavirus HKU1 (PCR) Coronavirus 229E (PCR) Coronavirus NL63 (PCR) Human Metapneumovir PCR Influenza A (RT-PCR) Influenza A (H1) PCR Influ A (H1/09) PCR Influenza A (H3) PCR Influenza Type A (PCR) Influenza B (RT-PCR) Influenza Type B (PCR) M. pneumoniae (PCR) Parainfluenza 1 (PCR) Parainfluenza 2 (PCR) Parainfluenza 3 (PCR) Parainfluenza 4 (PCR) RSV (PCR) RSV RNA Qual (PCR) Entero/Rhino (PCR) SARS-CoV-2 RNA (RT-PCR) S. pyogenes GrpA [facility]CO Assessment and Plan (1) Asthma-COPD overlap syndrome: Status: Acute Plan d2 for 80yo F with COPD/asthma overlap not on home O2, BALTAZAR on CPAP, bronchiectasis, GERD, HLD, vertigo, and HTN presenting with 3d of worsening dyspnea + cough with fever, found to be hypoxic acute hypoxic respiratory failure due to COPD/asthma overlap exacerbation, human metapneumovirus infection - PCT low, no infiltrate on CXR; will d/c ceftriaxone and continue doxycycline 01/22-, continue IV steroids, standing/prn nebs - supplemental O2, wean as tolerated - droplet precautions HTN- losartan + amlodipine HLD- statin GERD- PPI vertigo- meclizine VTE ppx- enoxaparin dispo- TBD In my clinical judgment, the patient requires continued inpatient hospitalization for the following reasons: hypoxia Total time managing care of this patient today: 45 minutes. Quality Stroke Does the patient have a stroke diagnosis?: No VTE Prior VTE?: No VTE Risk Level:: Medical - moderate - high VTE Device Contraindication: Treatment Not Indicated VTE Drug Contraindication: N/A - Med Ordered
--- NOTE | 2025-01-23 16:18 | MHC.CM.PN ---
Addendum entered by Katie Wells 01/24/25 08:37: PT COMPLETED A HCP NAMING HER FRIEND, SHAKIRA FIGUEREDO, THE AGENT Original Note: PT REPORTS SHE LIVES ALONE AND IS INDEPENDENT WITH CARE SHE HAS A CANE AND WALKER, SHE USES EACH PRN SHE WILL CONSIDER COMPLETING A HCP AND IS AWARE CM CAN ASSIST PCP: EILEEN MCKEON IMM DELIVERED DCP: HOME VIA PRIVATE TRANSPORT
[2025-01-23] MEDS: Latanoprost 0.005 % Ophth Sol 2.5 ML DROPS 1 DROP EYE-RIGHT (20:43)
[2025-01-24] VITALS (11 sets, daily range): BP systolic 130–165; BP diastolic 60–75; PULSE 78–104; RESP 16–20; TEMP 36.1–37.2; O2SAT 93–100
[2025-01-24 07:00] LABS: Venous Blood Gas Refer to POC result
[2025-01-24 07:01] LABS: VBG HCO3 21 mmol/L (22-26); VBG O2 % Saturation 97.0 %
[2025-01-24 07:03] LABS: Hematocrit 33.5 % (37.0-47.0); Hemoglobin 10.9 g/dl (12.0-16.0); Mean Corpuscular HGB Conc 32.5 g/dl (31.0-35.0); Mean Corpuscular Hemoglobin 28.9 pg (27.0-33.0); Mean Corpuscular Volume 88.9 fL (80.0-98.0); NRBC Abs Auto 0.000 X10*3/uL (0.0-0.012); NRBC Pct Auto 0.0 /100WBC (0.0-0.2); Platelet Count 177 X10*3/uL (160-400); Red Blood Count 3.77 X10*6/uL (4.20-5.50); White Blood Count 14.6 X10*3/uL (4.8-10.8)
[2025-01-24 07:28] LABS: Anion Gap 11 (12-20); Blood Urea Nitrogen 20 mg/dL (9-16); Calcium 8.7 mg/dL (8.4-10.2); Carbon Dioxide 21 mmol/L (22-29); Chloride 114 mmol/L (96-108); Creatinine Clr Calc Pharmacy 48.2; Estimated Glomerular Filt Rate 57; Potassium 4.1 mmol/L (3.3-5.1); Sodium 142 mmol/L (135-145)
[2025-01-24] MEDS: Albuterol/Iprat 2.5/0.5MG 3 ML AMPUL.NEB INHALE ×4 (07:40→19:55)
[2025-01-24] MEDS: guaiFENesin DM 600/30 1 TAB TAB.ER.12H 2 TAB PO ×2 (08:28→20:35)
[2025-01-24] MEDS: 0.9 % Sodium Chloride Flush 3 ML SYRINGE IVFLUSH ×3 (09:03→20:58)
--- NOTE | 2025-01-24 10:48 | P.PNIM_ITS ---
Subjective Subjective Date of Service: 01/24/25 Interval History: This history was taken in [place] from the patient. Off oxygen but coughing, short of breath, and wheezing. Review of Systems Review of Systems: Yes all other systems are reviewed and are negative Physical Exam 2 Vital Signs: Vital Signs: Last Vital Signs Temp 97.0 F 01/24/25 07:32 Pulse 78 01/24/25 07:41 Resp 18 01/24/25 07:41 BP 165/75 H 01/24/25 07:32 Pulse Ox 97 01/24/25 07:32 O2 Del Method Nasal Cannula 01/24/25 07:32 O2 Flow Rate 2 01/24/25 07:32 BMI result Body Mass Index 35.7 Gen: short of breath HEENT: sclera anicteric, moist mucus membranes Neck: supple Lungs: extensive expiratory wheezing and scattered rhonchi Heart: regular rate and rhythm, no murmurs Abd: soft, non-tender, non-distended Ext: no edema Skin: warm/well-perfused Neuro: alert and oriented x3, no focal findings Psych: appropriate affect Objective Data Active Medications Acetaminophen (Acetaminophen 325 Mg Tablet) 975 mg PO Q6H PRN PRN Reason: Pain, Mild 1-3,fever,headache Last Admin: 01/22/25 22:43 Dose: 975 mg Documented By: LUDIVINA Albuterol Sulfate (Albuterol Sulfate (0.083%) 2.5 Mg/3 Ml Vial.Neb) 2.5 mg INHALE Q2H PRN PRN Reason: Shortness of Breath/Wheezing Last Admin: 01/23/25 01:57 Dose: 2.5 mg Documented By: TONO Albuterol/Ipratropium (Albuterol/Iprat 2.5/0.5mg 3 Ml Ampul.Neb) 3 ml INHALE RQ4H WHILE AWAKE [facility] Last Admin: 01/24/25 07:40 Dose: 3 ml Documented By: JAMIN Amlodipine Besylate (Amlodipine Besylate 5 Mg Tablet) 5 mg PO DAILY [facility]; Protocol Last Admin: 01/24/25 08:29 Dose: 5 mg Documented By: CATHY Atorvastatin Calcium (Atorvastatin Calcium 20 Mg Tablet) 20 mg PO DAILY [facility] Last Admin: 01/24/25 08:28 Dose: 20 mg Documented By: CATHY Azithromycin (Azithromycin 250 Mg Tablet) 250 mg PO MOWEFR@0900 [facility] Last Admin: 01/24/25 08:28 Dose: 250 mg Documented By: CATHY Enoxaparin Sodium (Enoxaparin Sodium 40 Mg/0.4 Ml Syringe) 40 mg SUBCUT Q24H [facility] Last Admin: 01/24/25 08:29 Dose: 40 mg Documented By: CATHY Fluticasone Propionate (Fluticasone Propionate Nasal 16 Gm [place]) 2 spray NOSTRIL-B DAILY PRN PRN Reason: Allergic Symptoms Guaifenesin/Dextromethorphan (Guaifenesin Dm 600/30 1 Tab Tab.Er.12h) 2 tab PO BID [facility] Last Admin: 01/24/25 08:28 Dose: 2 tab Documented By: CATHY Doxycycline Hyclate 100 mg/ (Sodium Chloride) 250 mls @ 166.67 mls/hr IV Q12H [facility] Last Infusion: 01/24/25 10:09 Dose: Infused Documented By: CATHY Latanoprost (Latanoprost 0.005 % Ophth Isis 2.5 Ml Drops) 1 drop EYE-RIGHT BEDTIME [facility] Last Admin: 01/23/25 20:43 Dose: 1 drop Documented By: ETHAN Loratadine (Loratadine 10 Mg Tablet) 10 mg PO DAILY [facility] Last Admin: 01/24/25 08:29 Dose: 10 mg Documented By: CATHY Losartan Potassium (Losartan Potassium 50 Mg Tablet) 100 mg PO DAILY [facility]; Protocol Last Admin: 01/24/25 08:28 Dose: 100 mg Documented By: CATHY Meclizine HCl (Meclizine Hcl 25 Mg Tablet) 25 mg PO TID PRN PRN Reason: dizziness Melatonin (Melatonin 3 Mg Tablet) 6 mg PO BEDTIME PRN PRN Reason: Insomnia Last Admin: 01/23/25 22:51 Dose: 6 mg Documented By: ETHAN Comments: requested for sleep Methylprednisolone Sodium Succinate (Methylprednisolone Sod Succ 40 Mg Vial) 40 mg IVPUSH Q12H [facility] Last Admin: 01/24/25 08:29 Dose: 40 mg Documented By: CATHY Montelukast Sodium (Montelukast Sodium 10 Mg Tablet) 10 mg PO DAILY [facility] Last Admin: 01/24/25 08:28 Dose: 10 mg Documented By: CATHY Multivitamins/Vitamin C (Multivitamin Tablet) 1 tab PO MoThSa@0900 [facility] Last Admin: 01/24/25 09:03 Dose: 1 tab Documented By: CATHY Omeprazole (Omeprazole 20 Mg Capsule.Dr) 20 mg PO DAILY@0630 [facility] Last Admin: 01/24/25 06:11 Dose: 20 mg Documented By: SANDI Ondansetron HCl (Ondansetron Odt 4 Mg Tab.Rapdis) 4 mg TRANSLINGU Q6H PRN PRN Reason: Nausea and Vomiting Oxybutynin Chloride (Oxybutynin Chloride 5 Mg Tablet) 5 mg PO DAILY [facility] Last Admin: 01/24/25 08:28 Dose: 5 mg Documented By: CATHY Sodium Chloride (0.9 % Sodium Chloride Flush 3 Ml Syringe) 3 ml IVFLUSH QSHIFT [facility] Last Admin: 01/24/25 09:03 Dose: 3 ml Documented By: CATHY Vitamin D (Cholecalciferol (Vitamin D3) 25 Mcg Tablet) 25 mcg PO DAILY [facility] Last Admin: 01/24/25 08:29 Dose: 25 mcg Documented By: CATHY Labs 01/24/25 06:51 01/24/25 06:51 Labs: Laboratory Results - last 24 hr 01/23/25 01/24/25 01/24/25 08:05 06:51 06:58 MCV 88.9 MCH 28.9 MCHC 32.5 RDW 13.2 Plt Count 177 MPV 9.4 Absolute Nucleated RBC 0.000 Nucleated RBC % (auto) 0.0 VBG pH 7.38 VBG pCO2 35 VBG pO2 82 VBG HCO3 21 L VBG O2 Saturation 97.0 VBG Base Excess -3.2 Anion Gap 11 L Estim Creat Clear Calc 48.2 Estimated GFR 57 Random Glucose 152 H Estimat Average Glucose 120 Hemoglobin A1c % 5.8 Calcium 8.7 Microbiology Microbiology Results: Microbiology 01/22/25 16:51 Blood Culture - Preliminary Blood - Venous No growth after 24 hours. 01/22/25 16:40 Blood Culture - Preliminary Blood - Venous No growth after 24 hours. Assessment and Plan (1) Asthma-COPD overlap syndrome: Status: Acute Plan d3 for 80yo F with COPD/asthma overlap not on home O2, BALTAZAR on CPAP, bronchiectasis, GERD, HLD, vertigo, and HTN presenting with 3d of worsening dyspnea + cough with fever, found to be hypoxic acute hypoxic respiratory failure due to COPD/asthma overlap exacerbation, human metapneumovirus infection - PCT low, no infiltrate on CXR; d/c'ed ceftriaxone 01/22-01/23 and will continue doxycycline 01/22-, continue IV steroids, standing/prn nebs; also on tiw azithromycin as outpt - weaned off O2 - droplet precautions HTN- losartan + amlodipine HLD- statin GERD- PPI vertigo- meclizine VTE ppx- enoxaparin dispo- PT + home O2 eval prior to d/c In my clinical judgment, the patient requires continued inpatient hospitalization for the following reasons: hypoxia Total time managing care of this patient today: 35 minutes. Quality Stroke Does the patient have a stroke diagnosis?: No VTE Prior VTE?: No VTE Risk Level:: Medical - moderate - high VTE Device Contraindication: Treatment Not Indicated VTE Drug Contraindication: N/A - Med Ordered
--- NOTE | 2025-01-24 12:16 | MHC.CM.PN ---
EMR REVIEWED, PT W/COPD EXAC/BRONCHITIS, PT REMIANS ON PRN NEB TX'S, IV ABX/SOLU-MEDROLAND SUPPLEMENTAL O2, NO PLAN FOR DC AT THIS TIME, CM WILL CONT TO FOLLOW DC NEEDS.
[2025-01-24] MEDS: Latanoprost 0.005 % Ophth Sol 2.5 ML DROPS 1 DROP EYE-RIGHT (22:32)
[2025-01-25] VITALS (10 sets, daily range): BP systolic 115–155; BP diastolic 63–81; PULSE 84–103; RESP 16–18; TEMP 36.1–36.6; O2SAT 92–97
[2025-01-25] MEDS: Albuterol Sulfate (0.083%) 2.5 MG/3 ML VIAL.NEB INHALE (00:10)
[2025-01-25] MEDS: guaiFENesin DM 600/30 1 TAB TAB.ER.12H 2 TAB PO ×2 (09:11→20:47)
[2025-01-25] MEDS: 0.9 % Sodium Chloride Flush 3 ML SYRINGE IVFLUSH ×3 (09:27→20:48)
[2025-01-25] MEDS: Albuterol/Iprat 2.5/0.5MG 3 ML AMPUL.NEB INHALE ×3 (11:07→19:23)
--- NOTE | 2025-01-25 12:58 | HO.PM.IMPN ---
Subjective Subjective Date of Service: 01/25/25 Interval History: Persistent cough per patient. Chest pain with cough only Review of Systems Admits chest pain with cough Admits shortness of breath with exertion Denies nausea vomiting diarrhea Denies fever chills Physical Exam Vital Signs: Vital Signs: Last Vital Signs Temp 97.9 F 01/25/25 11:50 Pulse 98 01/25/25 11:50 Resp 18 01/25/25 11:50 BP 115/81 01/25/25 11:50 Pulse Ox 95 01/25/25 11:50 O2 Del Method Room Air 01/25/25 11:50 O2 Flow Rate 2 01/24/25 11:11 BMI result Body Mass Index 35.7 Const: Other: Awake alert no acute distress Resp: Other: Diminished at bases with scattered expiratory wheezes Cardio: Other: No S4; positive S1-S2; no S3 murmurs rubs or gallops GI: Other: Soft nontender nondistended normoactive bowel sounds Extrem: Other: No edema bilaterally Objective Data Active Medications Acetaminophen (Acetaminophen 325 Mg Tablet) 975 mg PO Q6H PRN PRN Reason: Pain, Mild 1-3,fever,headache Last Admin: 01/22/25 22:43 Dose: 975 mg Documented By: LUDIVINA Albuterol Sulfate (Albuterol Sulfate (0.083%) 2.5 Mg/3 Ml Vial.Neb) 2.5 mg INHALE Q2H PRN PRN Reason: Shortness of Breath/Wheezing Last Admin: 01/25/25 00:10 Dose: 2.5 mg Documented By: SAYDA Albuterol/Ipratropium (Albuterol/Iprat 2.5/0.5mg 3 Ml Ampul.Neb) 3 ml INHALE RQ4H WHILE AWAKE [facility] Last Admin: 01/25/25 11:07 Dose: 3 ml Documented By: GINNA Amlodipine Besylate (Amlodipine Besylate 5 Mg Tablet) 5 mg PO DAILY [facility]; Protocol Last Admin: 01/25/25 09:11 Dose: 5 mg Documented By: ISIDRO Atorvastatin Calcium (Atorvastatin Calcium 20 Mg Tablet) 20 mg PO DAILY [facility] Last Admin: 01/25/25 09:10 Dose: 20 mg Documented By: ISIDRO Azithromycin (Azithromycin 250 Mg Tablet) 250 mg PO MOWEFR@0900 [facility] Last Admin: 01/24/25 08:28 Dose: 250 mg Documented By: CECILYPAAmada Benzonatate (Benzonatate 100 Mg Capsule) 100 mg PO TID PRN PRN Reason: Cough Last Admin: 01/25/25 09:55 Dose: 100 mg Documented By: ISIDRO Enoxaparin Sodium (Enoxaparin Sodium 40 Mg/0.4 Ml Syringe) 40 mg SUBCUT Q24H [facility] Last Admin: 01/25/25 09:12 Dose: 40 mg Documented By: ISIDRO Fluticasone Propionate (Fluticasone Propionate Nasal 16 Gm [place]) 2 spray NOSTRIL-B DAILY PRN PRN Reason: Allergic Symptoms Guaifenesin/Dextromethorphan (Guaifenesin Dm 600/30 1 Tab Tab.Er.12h) 2 tab PO BID [facility] Last Admin: 01/25/25 09:11 Dose: 2 tab Documented By: ISIDRO Doxycycline Hyclate 100 mg/ (Sodium Chloride) 250 mls @ 166.67 mls/hr IV Q12H [facility] Last Infusion: 01/25/25 10:54 Dose: Infused Documented By: ISIDRO Latanoprost (Latanoprost 0.005 % Ophth Isis 2.5 Ml Drops) 1 drop EYE-RIGHT BEDTIME [facility] Last Admin: 01/24/25 22:32 Dose: 1 drop Documented By: TOMA Loratadine (Loratadine 10 Mg Tablet) 10 mg PO DAILY [facility] Last Admin: 01/25/25 09:10 Dose: 10 mg Documented By: ISIDRO Losartan Potassium (Losartan Potassium 50 Mg Tablet) 100 mg PO DAILY [facility]; Protocol Last Admin: 01/25/25 09:11 Dose: 100 mg Documented By: ISIDRO Meclizine HCl (Meclizine Hcl 25 Mg Tablet) 25 mg PO TID PRN PRN Reason: dizziness Last Admin: 01/25/25 09:55 Dose: 25 mg Documented By: ISIDRO Melatonin (Melatonin 3 Mg Tablet) 6 mg PO BEDTIME PRN PRN Reason: Insomnia Last Admin: 01/23/25 22:51 Dose: 6 mg Documented By: ETHAN Comments: requested for sleep Methylprednisolone Sodium Succinate (Methylprednisolone Sod Succ 40 Mg Vial) 40 mg IVPUSH Q12H [facility] Last Admin: 01/25/25 09:12 Dose: 40 mg Documented By: ISIDRO Montelukast Sodium (Montelukast Sodium 10 Mg Tablet) 10 mg PO DAILY [facility] Last Admin: 01/25/25 09:11 Dose: 10 mg Documented By: ISIDRO Multivitamins/Vitamin C (Multivitamin Tablet) 1 tab PO MoThSa@0900 [facility] Last Admin: 01/24/25 09:03 Dose: 1 tab Documented By: CATHY Omeprazole (Omeprazole 20 Mg Capsule.Dr) 20 mg PO DAILY@0630 [facility] Last Admin: 01/25/25 05:32 Dose: 20 mg Documented By: TOMA Ondansetron HCl (Ondansetron Odt 4 Mg Tab.Rapdis) 4 mg TRANSLINGU Q6H PRN PRN Reason: Nausea and Vomiting Oxybutynin Chloride (Oxybutynin Chloride 5 Mg Tablet) 5 mg PO DAILY [facility] Last Admin: 01/25/25 09:11 Dose: 5 mg Documented By: ISIDRO Sodium Chloride (0.9 % Sodium Chloride Flush 3 Ml Syringe) 3 ml IVFLUSH QSHIFT [facility] Last Admin: 01/25/25 09:27 Dose: 3 ml Documented By: ISIDRO Vitamin D (Cholecalciferol (Vitamin D3) 25 Mcg Tablet) 25 mcg PO DAILY [facility] Last Admin: 01/25/25 09:10 Dose: 25 mcg Documented By: ISIDRO Labs 01/24/25 06:51 01/24/25 06:51 Microbiology Microbiology Results: Microbiology 01/22/25 16:51 Blood Culture - Preliminary Blood - Venous No growth after 48 hours. 01/22/25 16:40 Blood Culture - Preliminary Blood - Venous No growth after 48 hours. Assessment and Plan (1) Asthma-COPD overlap syndrome: Status: Acute (2) Type 2 diabetes mellitus with hyperglycemia: Status: Acute Plan 80yo F with COPD/asthma overlap not on home O2, BALTAZAR on CPAP, bronchiectasis, GERD, HLD, vertigo, and HTN presenting with 3d of worsening dyspnea + cough with fever, found to be hypoxic 1.Acute hypoxic respiratory failure due to COPD/asthma overlap exacerbation(human metapneumovirus) - ceftriaxone 01/22-6/29 .... continue doxycycline 01/22(3) -pulse dose Solu-Medrol - weaned off O2 - droplet precautions 2.HTN -acceptable control on current therapies -adjust as indicated 3.Diabetes type II -acceptable control on current therapies -lispro correctional scale -adjust as indicated enoxaparin dispo- PT + home O2 eval prior to d/c In my clinical judgment, the patient requires continued inpatient hospitalization for the following reasons: hypoxia Quality Stroke Does the patient have a stroke diagnosis?: No VTE Prior VTE?: No VTE Risk Level:: Medical - moderate - high VTE Device Contraindication: Treatment Not Indicated VTE Drug Contraindication: N/A - Med Ordered
[2025-01-25] MEDS: Latanoprost 0.005 % Ophth Sol 2.5 ML DROPS 1 DROP EYE-RIGHT (20:56)
[2025-01-26] VITALS (12 sets, daily range): BP systolic 123–168; BP diastolic 58–92; PULSE 54–110; RESP 14–20; TEMP 36–36.7; O2SAT 95–99
[2025-01-26 06:15] LABS: Hematocrit 31.1 % (37.0-47.0); Hemoglobin 10.6 g/dl (12.0-16.0); Imm Gran Abs Auto 0.15 X10*3/uL (0.00-0.03); Imm Gran Pct Auto 1.2 % (0.0-0.4); Lymphocytes Absolute Auto 1.1 X10*3/uL (1.2-4.9); MANUAL DIFF FLAG SCAN; Mean Corpuscular HGB Conc 34.1 g/dl (31.0-35.0); Mean Corpuscular Hemoglobin 29.9 pg (27.0-33.0); Mean Corpuscular Volume 87.6 fL (80.0-98.0); NRBC Abs Auto 0.000 X10*3/uL (0.0-0.012); NRBC Pct Auto 0.0 /100WBC (0.0-0.2); Platelet Count 216 X10*3/uL (160-400); Red Blood Count 3.55 X10*6/uL (4.20-5.50); SCAN SMEAR FLAG 1; White Blood Count 12.3 X10*3/uL (4.8-10.8)
[2025-01-26 06:44] LABS: Alanine Aminotransferase 20 U/L (0-31); Albumin Level 3.5 g/dL (3.5-5.0); Alkaline Phosphatase 98 U/L (39-117); Anion Gap 12 (12-20); Aspartate Amino Transferase 25 U/L (5-31); Blood Urea Nitrogen 27 mg/dL (9-16); Calcium 8.6 mg/dL (8.4-10.2); Carbon Dioxide 22 mmol/L (22-29); Chloride 112 mmol/L (96-108); Creatinine Clr Calc Pharmacy 49.3; Estimated Glomerular Filt Rate 59; Potassium 4.7 mmol/L (3.3-5.1); Sodium 141 mmol/L (135-145); Total Protein 5.9 g/dL (6.5-8.0)
[2025-01-26] MEDS: Albuterol/Iprat 2.5/0.5MG 3 ML AMPUL.NEB INHALE ×4 (08:18→18:45)
[2025-01-26] MEDS: guaiFENesin DM 600/30 1 TAB TAB.ER.12H 2 TAB PO ×2 (08:51→20:16)
[2025-01-26] MEDS: 0.9 % Sodium Chloride Flush 3 ML SYRINGE IVFLUSH ×3 (09:03→20:22)
--- NOTE | 2025-01-26 09:53 | PC.RT ---
pt refused cpap more than 3 days. will dc cpap per policy.
--- NOTE | 2025-01-26 15:47 | P.PNIM_ITS ---
Subjective Subjective Date of Service: 01/26/25 Interval History: Some improvement overnight. No acute issues Review of Systems Admits chest pain with cough Admits shortness of breath with exertion Denies nausea vomiting diarrhea Denies fever chills Physical Exam 2 Vital Signs: Vital Signs: Last Vital Signs Temp 97.2 F 01/26/25 11:27 Pulse 89 01/26/25 11:39 Resp 16 01/26/25 11:39 BP 146/65 H 01/26/25 11:27 Pulse Ox 99 01/26/25 11:27 O2 Del Method Nasal Cannula 01/26/25 11:27 O2 Flow Rate 2.0 01/26/25 11:27 BMI result Body Mass Index 35.7 Const: Other: Awake alert no acute distress Resp: Other: Diminished at bases with scattered expiratory wheezes Cardio: Other: No S4; positive S1-S2; no S3 murmurs rubs or gallops GI: Other: Soft nontender nondistended normoactive bowel sounds Extrem: Other: No edema bilaterally Objective Data Active Medications Acetaminophen (Acetaminophen 325 Mg Tablet) 975 mg PO Q6H PRN PRN Reason: Pain, Mild 1-3,fever,headache Last Admin: 01/26/25 08:54 Dose: 975 mg Documented By: CHRISTOPHER Albuterol Sulfate (Albuterol Sulfate (0.083%) 2.5 Mg/3 Ml Vial.Neb) 2.5 mg INHALE Q2H PRN PRN Reason: Shortness of Breath/Wheezing Last Admin: 01/25/25 00:10 Dose: 2.5 mg Documented By: SAYDA Albuterol/Ipratropium (Albuterol/Iprat 2.5/0.5mg 3 Ml Ampul.Neb) 3 ml INHALE RQ4H WHILE AWAKE [facility] Last Admin: 01/26/25 11:39 Dose: 3 ml Documented By: DANETTE Amlodipine Besylate (Amlodipine Besylate 5 Mg Tablet) 5 mg PO DAILY [facility]; Protocol Last Admin: 01/26/25 08:54 Dose: 5 mg Documented By: CHRISTOPHER Atorvastatin Calcium (Atorvastatin Calcium 20 Mg Tablet) 20 mg PO DAILY [facility] Last Admin: 01/26/25 08:56 Dose: 20 mg Documented By: CHRISTOPHER Azithromycin (Azithromycin 250 Mg Tablet) 250 mg PO MOWEFR@0900 [facility] Last Admin: 01/26/25 08:55 Dose: 250 mg Documented By: CHRISTOPHER Benzonatate (Benzonatate 100 Mg Capsule) 100 mg PO TID PRN PRN Reason: Cough Last Admin: 01/26/25 08:55 Dose: 100 mg Documented By: CHRISTOPHER Enoxaparin Sodium (Enoxaparin Sodium 40 Mg/0.4 Ml Syringe) 40 mg SUBCUT Q24H [facility] Last Admin: 01/26/25 09:02 Dose: 40 mg Documented By: CRHISTOPHER Fluticasone Propionate (Fluticasone Propionate Nasal 16 Gm [place]) 2 spray NOSTRIL-B DAILY PRN PRN Reason: Allergic Symptoms Guaifenesin/Dextromethorphan (Guaifenesin Dm 600/30 1 Tab Tab.Er.12h) 2 tab PO BID [facility] Last Admin: 01/26/25 08:51 Dose: 2 tab Documented By: CHRISTOPHER Doxycycline Hyclate 100 mg/ (Sodium Chloride) 250 mls @ 166.67 mls/hr IV Q12H [facility] Last Infusion: 01/26/25 10:40 Dose: Infused Documented By: CHRISTOPHER Latanoprost (Latanoprost 0.005 % Ophth Isis 2.5 Ml Drops) 1 drop EYE-RIGHT BEDTIME [facility] Last Admin: 01/25/25 20:56 Dose: 1 drop Documented By: SARIAH Loratadine (Loratadine 10 Mg Tablet) 10 mg PO DAILY [facility] Last Admin: 01/26/25 08:55 Dose: 10 mg Documented By: CHRISTOPHER Losartan Potassium (Losartan Potassium 50 Mg Tablet) 100 mg PO DAILY [facility]; Protocol Last Admin: 01/26/25 08:51 Dose: 100 mg Documented By: CHRISTOPHER Meclizine HCl (Meclizine Hcl 25 Mg Tablet) 25 mg PO TID PRN PRN Reason: dizziness Last Admin: 01/26/25 08:55 Dose: 25 mg Documented By: CHRISTOPHER Melatonin (Melatonin 3 Mg Tablet) 6 mg PO BEDTIME PRN PRN Reason: Insomnia Last Admin: 01/25/25 20:48 Dose: 6 mg Documented By: SARIAH Methylprednisolone Sodium Succinate (Methylprednisolone Sod Succ 40 Mg Vial) 40 mg IVPUSH Q12H [facility] Last Admin: 01/26/25 08:59 Dose: 40 mg Documented By: CHRISTOPHER Montelukast Sodium (Montelukast Sodium 10 Mg Tablet) 10 mg PO DAILY [facility] Last Admin: 01/26/25 08:55 Dose: 10 mg Documented By: CHRISTOPHER Multivitamins/Vitamin C (Multivitamin Tablet) 1 tab PO MoThSa@0900 [facility] Last Admin: 01/24/25 09:03 Dose: 1 tab Documented By: CATHY Omeprazole (Omeprazole 20 Mg Capsule.Dr) 20 mg PO DAILY@0630 [facility] Last Admin: 01/26/25 05:33 Dose: 20 mg Documented By: CASTSHANNAN Ondansetron HCl (Ondansetron Odt 4 Mg Tab.Rapdis) 4 mg TRANSLINGU Q6H PRN PRN Reason: Nausea and Vomiting Oxybutynin Chloride (Oxybutynin Chloride 5 Mg Tablet) 5 mg PO DAILY [facility] Last Admin: 01/26/25 08:54 Dose: 5 mg Documented By: CHRISTOPHER Sodium Chloride (0.9 % Sodium Chloride Flush 3 Ml Syringe) 3 ml IVFLUSH QSHIFT [facility] Last Admin: 01/26/25 09:03 Dose: 3 ml Documented By: CHRISTOPHER Vitamin D (Cholecalciferol (Vitamin D3) 25 Mcg Tablet) 25 mcg PO DAILY [facility] Last Admin: 01/26/25 08:55 Dose: 25 mcg Documented By: CHRISTOPHER Labs 01/26/25 05:55 01/26/25 05:55 Labs: Laboratory Results - last 24 hr 01/26/25 05:55 MCV 87.6 MCH 29.9 MCHC 34.1 RDW 13.6 Plt Count 216 MPV 9.5 Immature Gran % (Auto) 1.2 H Neut % (Auto) 85.9 H Lymph % (Auto) 8.7 L [place] % (Auto) 4.1 Eos % (Auto) 0.0 Baso % (Auto) 0.1 Lymph # (Auto) 1.1 L [place] # (Auto) 0.5 Eos # (Auto) 0.0 Baso # (Auto) 0.0 Abs Immat Gran (auto) 0.15 H Absolute Neuts (auto) 10.5 H Absolute Nucleated RBC 0.000 Nucleated RBC % (auto) 0.0 Smear Tech's Comments VERIFIED Anion Gap 12 Estim Creat Clear Calc 49.3 Estimated GFR 59 Fasting Glucose 146 H Calcium 8.6 Total Bilirubin 0.2 AST 25 ALT 20 Alkaline Phosphatase 98 Total Protein 5.9 L Albumin 3.5 Assessment and Plan (1) Asthma-COPD overlap syndrome: Status: Acute Plan 80yo F with COPD/asthma overlap not on home O2, BALTAZAR on CPAP, bronchiectasis, GERD, HLD, vertigo, and HTN presenting with 3d of worsening dyspnea + cough with fever, found to be hypoxic 1.Acute hypoxic respiratory failure due to COPD/asthma overlap exacerbation(human metapneumovirus) - ceftriaxone 01/22-01/23 .... continue doxycycline 01/22(4) -pulse dose Solu-Medrol - weaned off O2 - droplet precautions 2.HTN -acceptable control on current therapies -adjust as indicated 3.Diabetes type II -acceptable control on current therapies -lispro correctional scale -adjust as indicated enoxaparin dispo- PT + home O2 eval prior to d/c In my clinical judgment, the patient requires continued inpatient hospitalization for the following reasons: hypoxia Quality Stroke Does the patient have a stroke diagnosis?: No VTE Prior VTE?: No VTE Risk Level:: Medical - moderate - high VTE Device Contraindication: Treatment Not Indicated VTE Drug Contraindication: N/A - Med Ordered
[2025-01-26] MEDS: Latanoprost 0.005 % Ophth Sol 2.5 ML DROPS 1 DROP EYE-RIGHT (20:26)
[2025-01-27] VITALS (11 sets, daily range): BP systolic 138–190; BP diastolic 64–78; PULSE 68–96; RESP 16–20; TEMP 36–36.4; O2SAT 91–99
[2025-01-27] MEDS: guaiFENesin DM 600/30 1 TAB TAB.ER.12H 2 TAB PO ×2 (08:10→20:37)
[2025-01-27] MEDS: 0.9 % Sodium Chloride Flush 3 ML SYRINGE IVFLUSH ×3 (08:14→20:36)
[2025-01-27] MEDS: Albuterol/Iprat 2.5/0.5MG 3 ML AMPUL.NEB INHALE ×4 (08:26→20:03)
--- NOTE | 2025-01-27 16:42 | P.PNIM_ITS ---
Subjective Subjective Date of Service: 01/27/25 Interval History: Continues with O2 requirement and rhonchorous cough. Notes abdominal pain with cough Review of Systems Admits chest pain with cough Admits shortness of breath with exertion Denies nausea vomiting diarrhea Denies fever chills Physical Exam 2 Vital Signs: Vital Signs: Last Vital Signs Temp 97.3 F 01/27/25 14:54 Pulse 93 01/27/25 15:32 Resp 18 01/27/25 15:32 BP 143/65 H 01/27/25 14:54 Pulse Ox 97 01/27/25 14:54 O2 Del Method Nasal Cannula 01/27/25 14:54 O2 Flow Rate 1 01/27/25 14:54 BMI result Body Mass Index 35.7 Const: Other: Awake alert no acute distress Resp: Other: Diminished at bases with scattered expiratory wheezes Cardio: Other: No S4; positive S1-S2; no S3 murmurs rubs or gallops GI: Other: Soft nontender nondistended normoactive bowel sounds Extrem: Other: No edema bilaterally Objective Data Active Medications Acetaminophen (Acetaminophen 325 Mg Tablet) 975 mg PO Q6H PRN PRN Reason: Pain, Mild 1-3,fever,headache Last Admin: 01/26/25 08:54 Dose: 975 mg Documented By: CHRISTOPHER Albuterol Sulfate (Albuterol Sulfate (0.083%) 2.5 Mg/3 Ml Vial.Neb) 2.5 mg INHALE Q2H PRN PRN Reason: Shortness of Breath/Wheezing Last Admin: 01/25/25 00:10 Dose: 2.5 mg Documented By: SAYDA Albuterol/Ipratropium (Albuterol/Iprat 2.5/0.5mg 3 Ml Ampul.Neb) 3 ml INHALE RQ4H WHILE AWAKE [facility] Last Admin: 01/27/25 15:32 Dose: 3 ml Documented By: DOTTIE Amlodipine Besylate (Amlodipine Besylate 5 Mg Tablet) 5 mg PO DAILY [facility]; Protocol Last Admin: 01/27/25 08:11 Dose: 5 mg Documented By: CHRISTOPHER Atorvastatin Calcium (Atorvastatin Calcium 20 Mg Tablet) 20 mg PO DAILY [facility] Last Admin: 01/27/25 08:11 Dose: 20 mg Documented By: CHRISTOPHER Azithromycin (Azithromycin 250 Mg Tablet) 250 mg PO MOWEFR@0900 [facility] Last Admin: 01/26/25 08:55 Dose: 250 mg Documented By: CHRISTOPHER Benzonatate (Benzonatate 100 Mg Capsule) 100 mg PO TID PRN PRN Reason: Cough Last Admin: 01/27/25 08:11 Dose: 100 mg Documented By: CHRISTOPHER Enoxaparin Sodium (Enoxaparin Sodium 40 Mg/0.4 Ml Syringe) 40 mg SUBCUT Q24H [facility] Last Admin: 01/27/25 09:39 Dose: 40 mg Documented By: CHRISTOPHER Fluticasone Propionate (Fluticasone Propionate Nasal 16 Gm [place]) 2 spray NOSTRIL-B DAILY PRN PRN Reason: Allergic Symptoms Guaifenesin/Dextromethorphan (Guaifenesin Dm 600/30 1 Tab Tab.Er.12h) 2 tab PO BID [facility] Last Admin: 01/27/25 08:10 Dose: 2 tab Documented By: CHRISTOPHER Doxycycline Hyclate 100 mg/ (Sodium Chloride) 250 mls @ 166.67 mls/hr IV Q12H [facility] Last Infusion: 01/27/25 12:24 Dose: Infused Documented By: CHRISTOPHER Latanoprost (Latanoprost 0.005 % Ophth Isis 2.5 Ml Drops) 1 drop EYE-RIGHT BEDTIME [facility] Last Admin: 01/26/25 20:26 Dose: 1 drop Documented By: SANDI Loratadine (Loratadine 10 Mg Tablet) 10 mg PO DAILY [facility] Last Admin: 01/27/25 08:11 Dose: 10 mg Documented By: CHRISTOPHER Losartan Potassium (Losartan Potassium 50 Mg Tablet) 100 mg PO DAILY [facility]; Protocol Last Admin: 01/27/25 08:11 Dose: 100 mg Documented By: CHRISTOPHER Meclizine HCl (Meclizine Hcl 25 Mg Tablet) 25 mg PO TID PRN PRN Reason: dizziness Last Admin: 01/27/25 08:11 Dose: 25 mg Documented By: CHRISTOPHER Melatonin (Melatonin 3 Mg Tablet) 6 mg PO BEDTIME PRN PRN Reason: Insomnia Last Admin: 01/26/25 20:27 Dose: 6 mg Documented By: SANDI Methylprednisolone Sodium Succinate (Methylprednisolone Sod Succ 40 Mg Vial) 40 mg IVPUSH Q12H [facility] Last Admin: 01/27/25 08:14 Dose: 40 mg Documented By: CHRISTOPHER Montelukast Sodium (Montelukast Sodium 10 Mg Tablet) 10 mg PO DAILY [facility] Last Admin: 01/27/25 08:11 Dose: 10 mg Documented By: CHRISTOPHER Multivitamins/Vitamin C (Multivitamin Tablet) 1 tab PO MoThSa@0900 [facility] Last Admin: 01/27/25 09:39 Dose: 1 tab Documented By: CHRISTOPHER Omeprazole (Omeprazole 20 Mg Capsule.Dr) 20 mg PO DAILY@0630 [facility] Last Admin: 01/27/25 06:11 Dose: 20 mg Documented By: JENNA Ondansetron HCl (Ondansetron Odt 4 Mg Tab.Rapdis) 4 mg TRANSLINGU Q6H PRN PRN Reason: Nausea and Vomiting Oxybutynin Chloride (Oxybutynin Chloride 5 Mg Tablet) 5 mg PO DAILY [facility] Last Admin: 01/27/25 08:11 Dose: 5 mg Documented By: CHRISTOPHER Sodium Chloride (0.9 % Sodium Chloride Flush 3 Ml Syringe) 3 ml IVFLUSH QSHIFT [facility] Last Admin: 01/27/25 08:14 Dose: 3 ml Documented By: CHRISTOPHER Vitamin D (Cholecalciferol (Vitamin D3) 25 Mcg Tablet) 25 mcg PO DAILY [facility] Last Admin: 01/27/25 08:11 Dose: 25 mcg Documented By: CHRISTOPHER Labs 01/26/25 05:55 01/26/25 05:55 Assessment and Plan (1) Asthma-COPD overlap syndrome: Status: Acute (2) Acute hypoxic respiratory failure: Status: Acute (3) Type 2 diabetes mellitus with hyperglycemia: Status: Acute Plan 80yo F with COPD/asthma overlap not on home O2, BALTAZAR on CPAP, bronchiectasis, GERD, HLD, vertigo, and HTN presenting with 3d of worsening dyspnea + cough with fever, found to be hypoxic 1.Acute hypoxic respiratory failure due to COPD/asthma overlap exacerbation(human metapneumovirus) - ceftriaxone 01/22-01/23 add back given failure to progress .... continue doxycycline 01/22(5) -pulse dose Solu-Medrol -wean O2 as tolerated - droplet precautions 2.HTN -acceptable control on current therapies -adjust as indicated 3.Diabetes type II -acceptable control on current therapies -lispro correctional scale -adjust as indicated enoxaparin dispo- PT + home O2 eval prior to d/c In my clinical judgment, the patient requires continued inpatient hospitalization for the following reasons: hypoxia Quality Stroke Does the patient have a stroke diagnosis?: No VTE Prior VTE?: No VTE Risk Level:: Medical - moderate - high VTE Device Contraindication: Treatment Not Indicated VTE Drug Contraindication: N/A - Med Ordered
[2025-01-27] MEDS: Latanoprost 0.005 % Ophth Sol 2.5 ML DROPS 1 DROP EYE-RIGHT (20:41)
[2025-01-28 03:32] VITALS: BP 132/62; PULSE 80; RESP 20; TEMP 36.2; O2SAT 94
[2025-01-28 06:34] LABS: MANUAL DIFF FLAG NO
[2025-01-28 06:55] LABS: Alanine Aminotransferase 23 U/L (0-31); Albumin Level 3.3 g/dL (3.5-5.0); Alkaline Phosphatase 95 U/L (39-117); Anion Gap 12 (12-20); Aspartate Amino Transferase 24 U/L (5-31); Blood Urea Nitrogen 28 mg/dL (9-16); Calcium 8.7 mg/dL (8.4-10.2); Carbon Dioxide 26 mmol/L (22-29); Chloride 108 mmol/L (96-108); Creatinine Clr Calc Pharmacy 57.4; Estimated Glomerular Filt Rate > 60; Potassium 4.7 mmol/L (3.3-5.1); Sodium 141 mmol/L (135-145); Total Protein 5.8 g/dL (6.5-8.0)
[2025-01-28 07:01] LABS: Hematocrit 31.4 % (37.0-47.0); Hemoglobin 10.6 g/dl (12.0-16.0); Imm Gran Abs Auto 0.19 X10*3/uL (0.00-0.03); Imm Gran Pct Auto 1.7 % (0.0-0.4); Lymphocytes Absolute Auto 1.2 X10*3/uL (1.2-4.9); Mean Corpuscular HGB Conc 33.8 g/dl (31.0-35.0); Mean Corpuscular Hemoglobin 29.7 pg (27.0-33.0); Mean Corpuscular Volume 88.0 fL (80.0-98.0); NRBC Abs Auto 0.000 X10*3/uL (0.0-0.012); NRBC Pct Auto 0.0 /100WBC (0.0-0.2); Platelet Count 253 X10*3/uL (160-400); Red Blood Count 3.57 X10*6/uL (4.20-5.50); White Blood Count 11.4 X10*3/uL (4.8-10.8)
[2025-01-28 07:37] VITALS: BP 188/90; PULSE 97; RESP 18; TEMP 36.9; O2SAT 99
[2025-01-28] MEDS: Albuterol/Iprat 2.5/0.5MG 3 ML AMPUL.NEB INHALE ×2 (07:41→11:03)
[2025-01-28 07:43] VITALS: PULSE 97; RESP 18; O2SAT 99
[2025-01-28] MEDS: guaiFENesin DM 600/30 1 TAB TAB.ER.12H 2 TAB PO (07:59)
[2025-01-28] MEDS: 0.9 % Sodium Chloride Flush 3 ML SYRINGE IVFLUSH (08:01)
[2025-01-28 11:05] VITALS: PULSE 91; RESP 18; O2SAT 99
[2025-01-28 12:00] VITALS: BP 147/66; PULSE 94; RESP 18; TEMP 36.9; O2SAT 94
--- NOTE | 2025-01-28 12:05 | PM.DS ---
DS: Providers Provider Date of Service: 01/28/25 Date of admission: 01/22/25 22:12 Date of discharge: 01/28/25 Primary care physician: Juan Beltre MD DS: Diagnosis Discharge Diagnosis (1) Asthma-COPD overlap syndrome: Status: Acute (2) Acute hypoxic respiratory failure: Status: Acute (3) Type 2 diabetes mellitus with hyperglycemia: Status: Acute DS: Summary Hospital Course Hospital Course: 80 years old woman with past medical history significant for COPD/asthma -no home oxygen, obstructive sleep apnea on CPAP, bronchiectasis, GERD, hyperlipidemia, vertigo and hypertension presents to the emergency department complaining of worsening shortness on breath, dry cough, fever, sore throat and fatigue since Friday. Her sister had similar symptoms. She denied any acute gastrointestinal or genitourinary symptoms. She is a former tobacco smoker. Denied alcohol abuse or illicit drug use. In the ED, she was found to have fever of 101.3. Her oxygen saturations 86 % on room air and currently requiring 4 L/min supplemental oxygen via nasal cannula. Blood pressure and heart rates are normal. Blood workup showed no leukocytosis. Hemoglobin is 11.8 and hematocrit 34.6. Platelets are normal. Electrolytes are normal. BUN 17 and creatinine 1.03. Glucose is 116. LFTs are normal, however alk phos is 123. Chest CT showed stable findings: Atelectasis/scaring, mild bronchiectasis in the right middle lobe which is chronic without consolidation, pleural effusion or pneumothorax. Abdomen pelvis CT scan showed no acute findings. ED tx: NS 2450 mL IV bolus, Tylenol 1 g IV, ceftriaxone 1 g IV, doxycycline 100 mg IV, DuoNeb x3, Solu-Medrol 125 mg IV Hospital course Admitted to general medical floor and maintained on IV doxycycline; eventually switch to ceftriaxone doxycycline and continued on pulse dose steroids. Eventually able to be weaned off of O2 and is anxious to return to home. She has been ambulating in her room with a walker. We will discharged home to complete a course of oral Ceftin/doxycycline and prednisone taper. We will order home PT and VNA. She will follow up with the PCP next available Time Attestation Discharge Coordination Time (in mins): 35 Quality: Safe Use of Opioids Does Pt have an Active Cancer Diagnosis on the Problem List?: No Quality: Stroke Does the patient have a stroke diagnosis?: No Physical Exam Vital Signs: Vital Signs: Last Vital Signs Temp 98.4 F 01/28/25 07:37 Pulse 91 01/28/25 11:05 Resp 18 01/28/25 11:05 BP 188/90 H 01/28/25 07:37 Pulse Ox 99 01/28/25 07:37 O2 Del Method Nasal Cannula 01/28/25 07:37 O2 Flow Rate 1.0 01/28/25 07:37 BMI result Body Mass Index 35.7 Const: Other: Awake alert no acute distress Resp: Other: Diminished at bases with scattered expiratory wheezes Cardio: Other: No S4; positive S1-S2; no S3 murmurs rubs or gallops GI: Other: Soft nontender nondistended normoactive bowel sounds Extrem: Other: No edema bilaterally DS: Data Data Completed and Pending Labs on day of discharge: Laboratory Results - last 24 hr 01/28/25 06:15 WBC 11.4 H RBC 3.57 L Hgb 10.6 L Hct 31.4 L MCV 88.0 MCH 29.7 MCHC 33.8 RDW 13.7 Plt Count 253 MPV 9.6 Immature Gran % (Auto) 1.7 H Neut % (Auto) 81.5 H Lymph % (Auto) 10.1 L [place] % (Auto) 6.4 Eos % (Auto) 0.0 Baso % (Auto) 0.3 Lymph # (Auto) 1.2 [place] # (Auto) 0.7 Eos # (Auto) 0.0 Baso # (Auto) 0.0 Abs Immat Gran (auto) 0.19 H Absolute Neuts (auto) 9.3 H Absolute Nucleated RBC 0.000 Nucleated RBC % (auto) 0.0 Sodium 141 Potassium 4.7 Chloride 108 Carbon Dioxide 26 Anion Gap 12 BUN 28 H Creatinine 0.79 Estim Creat Clear Calc 57.4 Estimated GFR > 60 Fasting Glucose 143 H Calcium 8.7 Total Bilirubin 0.2 AST 24 ALT 23 Alkaline Phosphatase 95 Total Protein 5.8 L Albumin 3.3 L Discharge Plan Discharge Anticipated Discharge Date/Time: 01/28/25 11:50 Patient Disposition: Home Health Service Discharge Diagnosis: LLL pneumonia Referrals: Po,Juan Post MD [Primary Care Provider, Internal Medicine] - 1 Week Discharge Medications: New cefuroxime axetil 250 mg tablet 250 mg PO BID 7 Days Qty: 14 0RF prednisone 20 mg tablet See Rx Instructions .Route .COMPLEX Qty: 18 0RF Rx Instructions: 20 mg orally; 3 tabs daily for 3 days, 2 tabs daily for 3 days, 1 tab daily for 3 days codeine-guaifenesin 10-200 mg/5 mL liquid 5 ml PO Q6H PRN (Reason: cough) Qty: 240 0RF doxycycline hyclate 100 mg tablet 100 mg PO BID 7 Days Qty: 14 0RF Continued (DME) blood-glucose meter [FreeStyle Lite Meter] Kit See Rx Instructions .ROUTE .MEDSUPPLY Qty: 1 0RF Rx Instructions: As directed (DME) lancets [FreeStyle Lancets] 28 gauge misc See Rx Instructions .ROUTE .MEDSUPPLY Qty: 100 3RF Rx Instructions: As directed check BS QD (DME) blood pressure monitor [Blood Pressure Kit] Kit See Rx Instructions .ROUTE .MEDSUPPLY Qty: 1 0RF Rx Instructions: As directed (DME) FreeStyle Lite Strips Strip See Rx Instructions .ROUTE .MEDSUPPLY Qty: 100 3RF Rx Instructions: As directed check the BS QD (DME) pull ups XL See Rx Instructions .Route .MEDSUPPLY Qty: 100 1RF Rx Instructions: As directed losartan 100 mg tablet 100 mg PO DAILY 90 Days Qty: 90 2RF (DME) Shower Chair Misc See Rx Instructions .Route Qty: 1 0RF Rx Instructions: As directed (DME) miscellaneous medical supply Misc See Rx Instructions .Route Qty: 1 0RF Rx Instructions: As directed (DME) wipes See Rx Instructions .Route .MEDSUPPLY Qty: 10 3RF Rx Instructions: As directed (DME) hand held shower head See Rx Instructions .Route .MEDSUPPLY Qty: 1 0RF Rx Instructions: As directed montelukast 10 mg tablet 10 mg PO DAILY Qty: 90 2RF amlodipine 5 mg tablet 5 mg PO DAILY Qty: 90 1RF albuterol sulfate [Ventolin HFA] 90 mcg/actuation HFA aerosol inhaler 2 puff inhalation QID PRN (Reason: shortness of breath or wheezing) 30 Days Qty: 18 11RF atorvastatin 20 mg tablet 20 mg PO DAILY Qty: 90 2RF meclizine [Dramamine Less Drowsy] 25 mg tablet 25 mg PO TID PRN (Reason: dizziness) Qty: 20 0RF ondansetron 4 mg tablet,disintegrating 4 mg PO Q6-8H PRN (Reason: nausea and vomiting) Qty: 14 0RF latanoprost 0.005 % drops 1 drp ophthalmic-Right BEDTIME pantoprazole 40 mg tablet,delayed release (DR/EC) 40 mg PO DAILY@0630 [id number] Tablet 1 tab PO MOTHSA fluticasone propionate 50 mcg/actuation spray,suspension 2 spray intranasal DAILY PRN (Reason: Allergic Symptoms) albuterol sulfate 2.5 mg /3 mL (0.083 %) solution for nebulization 2.5 mg inhalation BID PRN (Reason: Shortness Of Breath Or Wheezing) oxybutynin chloride 5 mg tablet 5 mg PO DAILY cholecalciferol (vitamin D3) 25 mcg (1,000 unit) capsule 25 mcg PO DAILY (DME) Incontinence PADS See Rx Instructions .Route .MEDSUPPLY Qty: 100 2RF Rx Instructions: As directed (DME) CANE See Rx Instructions .Route .MEDSUPPLY Qty: 1 0RF Rx Instructions: As directed (DME) nebulizers Misc See Rx Instructions .Route Rx Instructions: As directed (DME) nebulizers Misc See Rx Instructions .Route Rx Instructions: As directed (DME) CPAP Machine/Device Device See Rx Instructions .Route Rx Instructions: As directed (DME) transfer bench See Rx Instructions .Route .MEDSUPPLY Qty: 1 0RF Rx Instructions: As directed loratadine [Claritin] 10 mg tablet 10 mg PO DAILY 30 Days Qty: 30 11RF Discontinued azithromycin 250 mg tablet 250 mg PO MOWEFR@0900 Rx Instructions: Take 1 tablet on Friday/Friday/Friday Discharge Orders: Discharge Order (Routine); Ordered 01/28/25 Ordered By: Barry Ambriz Diet: Advance to usual diet Activity on Discharge: As tolerated Stand Alone Forms: Patient Portal Discharge page Print Language: Belarusian Care Plan Goals: Complete course of Ceftin 250 mg twice daily for 1 week along with doxycycline 100 mg twice daily for 1 week. Complete prednisone taper as ordered. Take with food. Health Concerns: Robitussin with codeine 1 tsp every 6 hours as needed for cough Plan of Treatment: See discharge summary Assessment: See discharge summary
--- NOTE | 2025-01-28 12:45 | MHC.CM.PN ---
Addendum entered by Katie Wells 01/28/25 15:16: [facility] HAS ACCEPTED REFERRAL AND WILL CONTACT PT FOR SOC Original Note: PT WILL DC HOME TODAY WITH [facility] REFERRAL MADE TO [facility], AWAITING RESPONSE FRIEND TO TRANSPORT
--- NOTE | 2025-01-28 15:01 | W.MHC.F2F ---
Service Date Service Date: 01/28/25 Encounter Date of encounter: 01/28/25 Encounter: Acute hospitalization Reasons for Services Signs and symptoms assessed: Assessed lung sounds, oxygenation and response to therapy Reason for assisted: medication treatment, teach disease management and other (Monitor respiratory status) Reason for physical therapy: home safety and mobility, therapeutic exercises and gait/transfer training Homebound: Leaving the home is medically contraindicated at this time without the asist of a device and/or another person due th the listed conditions above and below. Reason homebound: unsteady gait / fall risk and unable to drive Certification: Based on the above findings, I certify that this patient is confined to the home and needs intermittent assisted care, physical therapy and/or speech therapy, or continues to need occupational therapy. The patient is under my care, and I have initiated the establishment of the plan of care. The patient will be followed by a physician who will periodically review the plan of care. Time Spent With Patient Time: Total time managing care of this patient today ____ minutes.
== END 2025-01-28 13:00 | disposition home health service (06) | DRG 190 ==
LOC: HO.ED 21:48 → HO.EDOVER 22:19 → HO.IMC 01-23 03:48 → HO.S3 01-24 19:07
PROVIDERS: Family Medicine; Nurse Practitioner Family; Physician Assistant; Admitting Provider Internal Medicine; Emergency Provider Emergency Medicine Emergency Medical Services; PCP Internal Medicine; Visit Provider Hospitalist
DX: J47.1 Bronchiectasis with (acute) exacerbation (principal); J96.01 Acute respiratory failure with hypoxia; E11.9 Type 2 diabetes mellitus without complications; J18.9 Pneumonia, unspecified organism; J47.0 Bronchiectasis with acute lower respiratory infection; G47.33 Obstructive sleep apnea (adult) (pediatric); E78.5 Hyperlipidemia, unspecified; J45.909 Unspecified asthma, uncomplicated; B97.81 Human metapneumovirus as the cause of diseases classified elsewhere; Z20.822 Contact with and (suspected) exposure to COVID-19; Z79.899 Other long term (current) drug therapy
CPT/HCPCS: 0241U; 36415; 71045; 71046; 71260; 74177; 80048; 80053; 80076; 81001; 82803; 83036; 83605; 83735; 84145; 85025; 85027; 87040; 87633; 87651; 93005; 94640; 99285; J0131; J0696; J1271; J1650; J2919; Q9967

== ENCOUNTER → 2025-01-22 16:21 | Outpatient (BNV) | payer OTHER, SELFPAY | PROVIDERS: Emergency Provider Emergency Medicine Emergency Medical Services; PCP Internal Medicine; Visit Provider Specialist | DX: A41.9 Sepsis, unspecified organism (principal); R05.9 Cough, unspecified; R50.9 Fever, unspecified | CPT/HCPCS: 71046; 71260; 74177 ==

== ENCOUNTER → 2025-01-22 16:23 | Outpatient (BNV) | payer OTHER, SELFPAY | PROVIDERS: Admitting Provider Internal Medicine; Emergency Provider Emergency Medicine Emergency Medical Services; PCP Internal Medicine; Visit Provider Internal Medicine | DX: R53.1 Weakness (principal) | CPT/HCPCS: 93010 ==

== ENCOUNTER 2025-01-22 22:12 | Outpatient (BNV) | payer OTHER, SELFPAY | END 2025-01-27 16:54 | PROVIDERS: Admitting Provider Internal Medicine; Emergency Provider Emergency Medicine Emergency Medical Services; PCP Internal Medicine; Visit Provider Radiology Diagnostic Radiology | DX: R06.02 Shortness of breath (principal) | CPT/HCPCS: 71045 ==

== ENCOUNTER → 2025-01-22 22:12 | Outpatient (BNV) | payer OTHER, SELFPAY | PROVIDERS: Admitting Provider Internal Medicine; Emergency Provider Emergency Medicine Emergency Medical Services; PCP Internal Medicine; Visit Provider Internal Medicine | DX: J96.01 Acute respiratory failure with hypoxia (principal); J06.9 Acute upper respiratory infection, unspecified; J44.9 Chronic obstructive pulmonary disease, unspecified | CPT/HCPCS: 99223; 99232 ==

== ENCOUNTER 2025-02-04 14:05 | Outpatient (AMB) | payer OTHER, SELFPAY ==
--- NOTE | 2025-02-04 14:15 | MHC.PC.OV ---
Vital Signs 02/04/25 14:16 Height 5 ft 1 in Weight 185 lb 6 oz BMI 35.0 BP 136/68 Blood Pressure Location Lt brachial Position Sitting Pulse 80 Pulse Source Pulse Oximeter Temp 97.3 F Temp Source Temporal Artery Scan Pulse Oximetry (%) 94 Oxygen Delivery Method Room Air Intake Visit Reasons: [facility] 7/4 Respiratory failure Accompanied by: Sister Allergies Penicillins (PENICILLINS) Allergy (Severe, Verified 02/04/25 14:19) Hives codeine Adverse Reaction (Severe, Verified 02/04/25 14:19) Nausea and Vomiting morphine (MORPHINE) Adverse Reaction (Severe, Verified 02/04/25 14:19) NAUSEA & VOMITING ENVIRONMENTAL Allergy (Intermediate, Uncoded 02/04/25 14:19) RUNNY NOSE/WATERY EYES Darvocet A500 Adverse Reaction (Severe, Uncoded 02/04/25 14:19) disoriented Medication List - Last Reconciled 02/04/25 by Juan Beltre MD albuterol sulfate 2.5 mg inhalation BID PRN albuterol sulfate 90 mcg/actuation (Ventolin HFA) 2 puffs inhalation QID PRN 30 days atorvastatin 20 mg PO DAILY benzonatate 200 mg PO .QHS PRN blood pressure monitor (Blood Pressure Kit) As directed blood sugar diagnostic (FreeStyle Lite Strips) As directed check the BS QD blood-glucose meter (FreeStyle Lite Meter kit) As directed [CANE As directed] cholecalciferol (vitamin D3) 25 mcg PO DAILY codeine-guaifenesin 10-200 mg/5 mL 5 mL PO Q6H PRN CPAP (CPAP Machine/Device) As directed fluticasone propionate 50 mcg/actuation 2 sprays intranasal DAILY PRN [hand held shower head As directed] hydrochlorothiazide 12.5 mg PO DAILY [Incontinence PADS As directed] lancets (FreeStyle Lancets) As directed check BS QD latanoprost 0.005% 1 drp ophthalmic-Right BEDTIME loratadine (Claritin) 10 mg PO DAILY 30 days losartan 100 mg PO DAILY 90 days meclizine (Dramamine Less Drowsy) 25 mg PO TID PRN miscellaneous medical supply As directed montelukast 10 mg PO DAILY kvprbwhi-givbnvq-hezm-lutein 1 tab PO MOTHSA nebulizers As directed nebulizers As directed ondansetron 4 mg PO Q6-8H PRN oxybutynin chloride 5 mg PO DAILY pantoprazole 40 mg PO DAILY@0630 prednisone 20 mg orally; 3 tabs daily for 3 days, 2 tabs daily for 3 days, 1 tab daily for 3 days [pull ups As directed] Shower Chair As directed [transfer bench As directed] [wipes As directed] Tobacco use date assessed: 01/14/25 Fall risk assessment: No Falls in past year Last assessed Fall Risk: 02/04/25 Dental Screening Dental Screen Date: 01/14/25 Did you have a dental visit in the last 12 months?: No Did you have a dental problem in the last 6 months where you did not have access to dental care?: No Was dental information given to patient?: Patient has dentist HPI TCM TCM Information Date of Discharge 01/28/25 Discharged From [facility] Interactive Contact Date (Reference documentation from this date) 01/31/25 [facility] Medical History BALTAZAR (obstructive sleep apnea) 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 Bronchiectasis Bronchiolitis Osteoarthritis Mixed stress and urge urinary incontinence Obesity (BMI 30-39.9) Obstructive sleep apnea Vitamin D deficiency Type 2 diabetes mellitus with hyperglycemia Asthma Glaucoma Arthritis GERD (gastroesophageal reflux disease) History of kidney stones Hypercholesteremia HTN (hypertension) Surgical History History of extraction of renal calculus History of breast biopsy Hx of umbilical hernia repair History of cystoscopy History of cholecystectomy History of colonoscopy H/O: hysterectomy Family History Father Prostate cancer Mother Mental problem Son No problems noted. Son No problems noted. Daughter No problems noted. Social History Household Members: None Housing: House Do you presently have visiting nurse or other home services: Yes ([facility] every 3 months.) Alcohol intake: never Patient Tobacco Use Status: Former Tobacco user Tobacco use type: Cigarette Years Smoked: 45 years Quit 05/2007 e-Cigarette/Vaping Use: Never Used Second Hand Smoke Exposure: No service: No Current occupational status: disabled Cognitive needs: Yes (cane) Hearing needs: No Vision needs: Yes (glasses) Questionnaire PHQ-9 Over the last 2 weeks, how often have you been bothered by any of the following problems? 1. Little interest or pleasure in doing things: nearly every day 2. Feeling down, depressed, or hopeless: nearly every day 3. Trouble falling or staying asleep, or sleeping too much: not at all 4. Feeling tired or having little energy: not at all 5. Poor appetite or overeating: not at all 6. Feeling bad about yourself - or that you are a failure or have let yourself or your family down: not at all 7. Trouble concentrating on things, such as reading the newspaper or watching television: not at all 8. Moving or speaking so slowly that other people could have noticed. Or the opposite - being so fidgety or restless that you have been moving around a lot more than usual: not at all 9. Thoughts that you would be better off or of hurting yourself in some way: not at all Total score: 6 Depression Screening Interpretation: Negative Depression Screening Done: Yes Source: Developed by Drs. Eusebio Gates, Radha Burrows, Vincent Calderon and colleagues, with an educational patrick from [employer]. Thrive Questionnaire Date Thrive assessed: 01/23/25 I am a: Patient What is your living situation today?: I have a steady place to live Within the past 12 months, did the food you bought not last and you didn't have the money to get more?: Never true Within the past 12 months, did you worry whether your food would run out before you got money to buy more?: Never true Do you have trouble paying for medicines?: No Do you have trouble getting transportation to medical appointments?: No Do you have trouble paying your heating and electricity bill?: No Do you have trouble taking care of your child, family member or friend?: No Do you have trouble with day-to-day activities such as bathing, preparing meals, shopping, managing finances, etc.?: No Are you currently unemployed and looking for a job?: No Are you interested in more education?: No Please select the resources that you would like help with: None Currently or been in a relationship where the following occur: No concerns reported THRIVE Score: 0 AUDIT C Alcohol Use Questionnaire (AUDIT-C) 1. How often do you have a drink containing alcohol?: Never 3. How often do you have six or more drinks on one occasion?: Never Total Score: 0 ISHA-7 AMB Questionnaire ISHA-7 Date ISHA - 7 assessed: 01/14/25 Feeling nervous, anxious, or on edge: 0 = Not at all Not being able to stop or control worryin = Not at all Worrying too much about different things: 0 = Not at all Trouble relaxin = Not at all Being so restless that it is hard to sit still: 0 = Not at all Becoming easily annoyed or irritable: 0 = Not at all Feeling afraid as if something awful might happen: 0 = Not at all Total ISHA-7 score (0-4 normal; 5-9 mild; 10-14 moderate; 15-21 severe): 0 Source: Developed by Drs. Eusebio Gates, Radha Burrows, Vincent Calderon and colleagues, with an educational patrick from [employer]. Physical exam (Primary Care) Vital Signs: Last Vital Signs Temp 97.3 F 02/04/25 14:16 Pulse 80 02/04/25 14:16 BP 136/68 02/04/25 14:16 Pulse Ox 94 02/04/25 14:16 Oxygen Delivery Method Room Air 02/04/25 14:16 BMI result Body Mass Index 35.0 Tobacco/Smoking Status: Tobacco use Status Tobacco use date assessed 01/14/25 02/04/25 14:16 Patient Tobacco Use Status Former Tobacco user 02/04/25 14:16 Tobacco use type Cigarette 02/04/25 14:16 e-Cigarette/Vaping Use Never Used 02/04/25 14:16 PHQ-9: PHQ-9 Score PHQ-9: Total score 6 02/04/25 14:21 Depression Screening Interpretation: Negative Thrive Assessment: Date of Thrive Assessment Date Thrive assessed 01/23/25 02/04/25 14:16 Currently or been in a relationship where the following occur: No concerns reported Const General: alert; No acute distress Eyes Conjunctivae: conjunctivae normal Resp Auscultation: clear to auscultation bilaterally Cardio Rate: regular rate Rhythm: regular rhythm GI Inspection: Yes normal to inspection Extrem General: Yes normal to inspection and No edema Coding Level of Care Code Est Pt Level 4 (88644) Complex EM visit Add On G2211 Diagnoses Community acquired pneumonia of left lower lobe of lung J18.9 Essential hypertension I10 Hypertension type: essential hypertension Hypercholesteremia E78.00 Type 2 diabetes mellitus with hyperglycemia, without long-term current use of insulin E11.65 Diabetes mellitus bed bug exterminator insulin use: without halfway use Gastroesophageal reflux disease without esophagitis K21.9 Esophagitis presence: without esophagitis Asthma-COPD overlap syndrome J44.9 Localized swelling of both lower legs R22.43 Assessment & Plan Assessment & Plan (1) Community acquired pneumonia of left lower lobe of lung: Code(s): J18.9 - Pneumonia, unspecified organism Category: Medical Plan: Patient was prescribed antibiotic. (2) HTN (hypertension): Code(s): I10 - Essential (primary) hypertension Category: Medical Qualifiers: Hypertension type: essential hypertension Qualified Code(s): I10 - Essential (primary) hypertension Plan: Continue with blood pressure medication. Decrease salt intake and exercise (3) Hypercholesteremia: Code(s): E78.00 - Pure hypercholesterolemia, unspecified Category: Medical Plan: Avoid fried foods, chicken skin, eggs, butter margarine, pastries and meat. Be it pork or beef they have a lot of cholesterol (4) Type 2 diabetes mellitus with hyperglycemia: Comment: Dr. Oliver Code(s): E11.65 - Type 2 diabetes mellitus with hyperglycemia Category: Medical Qualifiers: Diabetes mellitus halfway insulin use: without bed bug exterminator use Qualified Code(s): E11.65 - Type 2 diabetes mellitus with hyperglycemia Plan: Decrease the amount of carbohydrate intake, pasta, bread, rice and potatoes are all sugar and that is aside from all the sweet stuff, remember that fruits are good but they are Sweet also. Hemoglobin A1c goal of less than 7.0 (5) GERD (gastroesophageal reflux disease): Code(s): K21.9 - Gastro-esophageal reflux disease without esophagitis Category: Medical Qualifiers: Esophagitis presence: without esophagitis Qualified Code(s): K21.9 - Gastro-esophageal reflux disease without esophagitis Plan: Avoid the foods that causes that usually spicy foods, tomato products, juices, coffee, soda and foods that your sensitive to. After eating do not lie down, allow 3-4 hours before in lie down. And keep the head of bed above 30 degrees to avoid the acid from going up. (6) Asthma-COPD overlap syndrome: Code(s): J44.9 - Chronic obstructive pulmonary disease, unspecified Category: Medical Plan: Continue with albuterol inhaler (7) Localized swelling of both lower legs: Code(s): R22.43 - Localized swelling, mass and lump, lower limb, bilateral Category: Medical Plan: Review of the notes had ultrasound of the legs already which revealed negative results, renal function and liver function are within normal limits patient has had recent cardiac workup which was negative. With the swelling will try to discontinue/hold her amlodipine and start on hydrochlorothiazide for additional blood pressure control. Patient's is on an Jigar receptor hawa. Plan History of Present Illness The patient is a 80-year-old female presenting for a follow-up visit. She has a history of multiple chronic conditions including Gastroesophageal Reflux Disease (GERD), Diabetes Mellitus, Obstructive Sleep Apnea, Hypertension, and Hypercholesterolemia. Additionally, she has been diagnosed with Generalized Anxiety Disorder and Bronchiectasis with Asthma-COPD Overlap Syndrome. The patient also has a history of Nontuberculous Mycobacterial Disease of the Lung. In December 2024, she was hospitalized with symptoms of shortness of breath, cough, and fever, and was diagnosed with left lower lobe pneumonia. Her oxygen saturation was noted to be 86% on room air, and a chest CT showed intellectual cysts and mild bronchiectasis. The patient was treated with doxycycline, which was later switched to ceftriaxone and steroids. Blood work during her hospitalization revealed anemia, but her renal function was normal, and her blood sugar was 143 mg/dL with a good hemoglobin A1c. Health Maintenance Social History Review of Systems - Respiratory: Reports dyspnea and cough. Reports fever. Physical Exam Results - Labs: Anemia noted in blood work. - Imaging: Chest CT showed intellectual cysts and mild bronchiectasis. Plan The patient was treated for left lower lobe pneumonia with antibiotics, initially doxycycline, which was later switched to ceftriaxone and steroids. Her anemia will be monitored, and her diabetes management will continue with a goal of maintaining hemoglobin A1c below 7.0%. The patient is advised to continue using her albuterol inhaler for asthma management. Patient was informed and verbally consented to the use of an ambient scribe for clinic note documentation during this visit. Discussion Notes Patient Instructions Orders: Orders XR chest 2V 2 Weeks J18.9 - Pneumonia, unspecified organism Medications: New benzonatate 200 mg PO .QHS PRN 30 caps 1RF cough J18.9 - Pneumonia, unspecified organism hydrochlorothiazide 12.5 mg PO DAILY 30 tabs 2RF I10 - Essential (primary) hypertension Refilled meclizine (Dramamine Less Drowsy) 25 mg PO TID PRN 30 tabs 0RF dizziness [transfer bench] As directed 1 ea 0RF M17.0 - Bilateral primary osteoarthritis of knee Shower Chair As directed 1 ea 0RF M15.9 - Polyosteoarthritis, unspecified Discontinued amlodipine Discontinued Reason: Doctor's Order 5 mg PO DAILY 90 tabs 1RF
[2025-02-04 14:16] VITALS: BP 136/68; PULSE 80; TEMP 36.3; O2SAT 94; BMI 35.0
== END 2025-02-04 15:12 | disposition home or self-care (01) ==
LOC: HO.HMCH 14:05
PROVIDERS: PCP Internal Medicine; Visit Provider Internal Medicine
DX: E11.65 Type 2 diabetes mellitus with hyperglycemia (principal); J44.9 Chronic obstructive pulmonary disease, unspecified; J18.9 Pneumonia, unspecified organism; I10 Essential (primary) hypertension; E78.00 Pure hypercholesterolemia, unspecified; K21.9 Gastro-esophageal reflux disease without esophagitis; R22.43 Localized swelling, mass and lump, lower limb, bilateral

== ENCOUNTER → 2025-02-04 14:05 | Outpatient (BNVA) | payer OTHER, SELFPAY | PROVIDERS: PCP Internal Medicine; Visit Provider Internal Medicine | DX: I10 Essential (primary) hypertension (principal); J18.9 Pneumonia, unspecified organism; E78.00 Pure hypercholesterolemia, unspecified; E11.65 Type 2 diabetes mellitus with hyperglycemia; K21.9 Gastro-esophageal reflux disease without esophagitis; J44.9 Chronic obstructive pulmonary disease, unspecified; R22.43 Localized swelling, mass and lump, lower limb, bilateral; G47.33 Obstructive sleep apnea (adult) (pediatric); F41.1 Generalized anxiety disorder; J44.89 Other specified chronic obstructive pulmonary disease; M17.0 Bilateral primary osteoarthritis of knee | CPT/HCPCS: 96127; 99212 ==

== ENCOUNTER 2025-02-15 10:35 | Outpatient (REF) | payer OTHER, SELFPAY ==
--- NOTE | ~2025-02-15 | XR_ITS ---
EXAMINATION: XR CHEST CLINICAL INFORMATION: J18.9 - Pneumonia, unspecified organism COMPARISON: January 27, 2025 TECHNIQUE: 2 views of the chest were obtained. FINDINGS: Airspace opacity in left lower lobe has decreased since the prior examination. There is minimal vague density in the right lung base distorting the right heart margin. Lungs are otherwise clear. Heart size is within normal limits. XR/XR chest 2V IMPRESSION: Improving left lower lobe pneumonia. Vague right basilar density partially obscuring the right heart margin likely represents right middle lobe atelectasis and/or pneumonia. Electronically signed by: Jacinto An MD 02/15/2025 10:57 AM EDT
[2025-02-15 11:47] LABS: Appearance Urine Cloudy; Glucose Urine UA Negative (Negative); PH 6.0 (5.0-9.0); Specific Gravity - Urine 1.020 (1.005-1.025); UMIC TRIGGER UACC YES
[2025-02-15 11:49] LABS: UACC Culture Trigger YES
== END 2025-02-15 10:36 | disposition home or self-care (01) ==
LOC: HO.XRAY 10:35
PROVIDERS: PCP Internal Medicine; Visit Provider Internal Medicine
DX: J18.9 Pneumonia, unspecified organism (principal); N39.0 Urinary tract infection, site not specified
CPT/HCPCS: 71046; 81001; 87086; 87088; 87186

== ENCOUNTER → 2025-02-15 10:40 | Outpatient (BNV) | payer OTHER, SELFPAY | PROVIDERS: PCP Internal Medicine; Visit Provider Radiology Diagnostic Radiology | DX: J18.9 Pneumonia, unspecified organism (principal) | CPT/HCPCS: 71046 ==

== ENCOUNTER 2025-03-21 12:39 | Outpatient (REF) | payer OTHER, SELFPAY | END 2025-03-21 12:40 | disposition home or self-care (01) | LOC: HO.MAMMO 12:39 | PROVIDERS: PCP Internal Medicine; Visit Provider Internal Medicine | DX: Z12.31 Encounter for screening mammogram for malignant neoplasm of breast (principal) | CPT/HCPCS: 77063; 77067 ==

== ENCOUNTER → 2025-03-21 13:00 | Outpatient (BNV) | payer OTHER, SELFPAY | PROVIDERS: PCP Internal Medicine; Visit Provider Radiology Body Imaging | DX: Z12.31 Encounter for screening mammogram for malignant neoplasm of breast (principal) | CPT/HCPCS: 77063; 77067 ==

== ENCOUNTER 2025-04-04 10:31 | Outpatient (AMB) | payer OTHER, SELFPAY ==
--- NOTE | 2025-04-04 10:50 | MHC.OFFVIS ---
Vital Signs 04/04/25 10:57 Height 5 ft 1 in Weight 184 lb BMI 34.8 BP 140/64 H Blood Pressure Location Rt brachial Position Sitting Pulse 86 Intake Visit Reasons: s/p Mammo Intake Note: Patient here for breast exam. Hx of left breast calcifications, stereotactic core biopsy~ 04-23-2023. Patient c/o: no concerns w/ breasts. Denies lumps, tenderness, nipple discharge. Imaging: MM~ 03-21-2025 Hand Ii Blocker Required: No Accompanied by: Self / Same As Patient Allergies Penicillins (PENICILLINS) Allergy (Severe, Verified 04/04/25 10:57) Hives codeine Adverse Reaction (Severe, Verified 04/04/25 10:57) Nausea and Vomiting morphine (MORPHINE) Adverse Reaction (Severe, Verified 04/04/25 10:57) NAUSEA & VOMITING ENVIRONMENTAL Allergy (Intermediate, Uncoded 04/04/25 10:57) RUNNY NOSE/WATERY EYES Darvocet A500 Adverse Reaction (Severe, Uncoded 04/04/25 10:57) disoriented HPI HPI s/p Mammo: Details: 80-year-old female here for follow-up for her history of left breast calcifications. She had undergone ultrasound biopsy of the left breast for microcalcifications in 2022. She was being followed by Dr. Devyn camejo. At that time, her path report showed fibroadenomas this changes, with hyperplasia without atypia She denies any palpable breast masses. She has this chronic tenderness of both breasts She says she is in her usual state of health. 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 Bronchiectasis Bronchiolitis Osteoarthritis Mixed stress and urge urinary incontinence Obesity (BMI 30-39.9) Obstructive sleep apnea Vitamin D deficiency Type 2 diabetes mellitus with hyperglycemia Asthma Glaucoma Arthritis GERD (gastroesophageal reflux disease) History of kidney stones Hypercholesteremia HTN (hypertension) Surgical History History of extraction of renal calculus History of breast biopsy Hx of umbilical hernia repair History of cystoscopy History of cholecystectomy History of colonoscopy H/O: hysterectomy Family History Father Prostate cancer Mother Mental problem Son No problems noted. Son No problems noted. Daughter No problems noted. Social History Household Members: None Housing: House Do you presently have visiting nurse or other home services: Yes ([facility]NA every 3 months.) Alcohol intake: never Patient Tobacco Use Status: Former Tobacco user Tobacco use type: Cigarette Years Smoked: 45 years Quit 05/2007 e-Cigarette/Vaping Use: Never Used Second Hand Smoke Exposure: No service: No Current occupational status: disabled Cognitive needs: Yes (cane) Hearing needs: No Vision needs: Yes (glasses) Review of Systems Const Denies chills and Denies fever(s) Card Denies chest pain, Denies dyspnea and Denies dyspnea on exertion Resp Denies cough, Denies dyspnea and Denies dyspnea on exertion GI Denies hematochezia and Denies change in bowel habits Denies hematuria Musc Denies back pain and Denies limited range of motion Neuro Denies focal weakness and Denies convulsions Psych Denies depression and Denies mood swings Physical Exam Vital Signs: Last Vital Signs Pulse 86 04/04/25 10:57 BP 140/64 H 04/04/25 10:57 BMI result Body Mass Index 34.8 Const General: comfortable and no acute distress Orientation/consciousness: patient oriented x3 Neck Neck: Yes no lymphadenopathy Chest Other: Large pendulous breasts, no palpable breast masses, no axillary lymphadenopathy Resp Auscultation: clear to auscultation bilaterally Cardio Rhythm: regular rhythm GI Palpation (GI): Soft to palpation, nontender and no guarding Neuro General: patient oriented x3 Assessment & Plan Assessment & Plan (1) Microcalcification of left breast on mammogram: Code(s): R92.0 - Mammographic microcalcification found on diagnostic imaging of breast Category: Surgical Plan: She had history of left breast microcalcifications 2022 and biopsies of these were benign She had a follow up mammogram last month and this was unremarkable. There is no suggestion of any neoplastic process. Current exam does not suggest any mass on both breasts I explained to her that we will see her again in the office next year for another breast exam. She was reminded to continue with a year regular screening mammograms. Coding Level of Care Code Est Pt Level 3 (83003) Diagnoses Microcalcification of left breast on mammogram R92.0
[2025-04-04 10:57] VITALS: BP 140/64; PULSE 86; BMI 34.8
== END 2025-04-04 11:07 | disposition home or self-care (01) ==
LOC: HO.HGS 10:32
PROVIDERS: PCP Internal Medicine; Visit Provider Surgery
DX: R92.0 Mammographic microcalcification found on diagnostic imaging of breast (principal)
CPT/HCPCS: 99213

== ENCOUNTER → 2025-04-04 10:31 | Outpatient (BNVA) | payer OTHER, SELFPAY | PROVIDERS: PCP Internal Medicine; Visit Provider Surgery | DX: Z71.2 Person consulting for explanation of examination or test findings (principal); R92.0 Mammographic microcalcification found on diagnostic imaging of breast | CPT/HCPCS: 99212 ==

== ENCOUNTER 2025-04-13 07:58 | Day surgery (SDC) | payer OTHER, SELFPAY ==
--- NOTE | 2025-04-11 13:18 | HO.ANESPROP2 ---
Documented by User: Velvet Monk NP 04/11/25 13:31 HPI - Anesthesia Eval Consult details Narrative: 80 yr old female for upper endoscopy with balloon dilitation Asthma-COPD overlap syndrome: Admitted 01/22-01/28/25 for respiratory symptoms including SOB, fever; chest CT showed bronchiectasis, treated with antibxs, prednisone BALTAZAR: on CPAP Type 2 DM: A1C 5.8% PMF Active Problems Active Problems: All Active Problems (Updated 02/05/25 @ 00:03 by Faisal Oliveira) Localized swelling of both lower legs (Acute) Community acquired pneumonia of left lower lobe of lung (Acute) Right ankle swelling (Acute) BPPV (benign paroxysmal positional vertigo) (Acute) Weight loss (Acute) Achalasia (Acute) Abnormal stress test (Acute) Chest pain (Acute) Breast microcalcifications (Acute) Vertigo (Acute) Mild cognitive impairment (Acute) Microcalcification of left breast on mammogram (Acute) Pulmonary nodule (Acute) Osteoarthritis of knees, bilateral (Acute) Cognitive changes (Acute) Nontuberculous mycobacterial disease of lung (Acute) SOB (shortness of breath) (Acute) COVID-19 virus infection (Acute) Otitis media (Acute) Nasal congestion (Acute) Constipation (Acute) UTI (urinary tract infection) (Acute) Bronchiectasis (Acute) Bronchiolitis (Acute) Pulmonary nodules (Acute) Cough (Acute) Generalized anxiety disorder (Acute) Asthma (Acute) Right flank pain (Acute) Polymyalgia (Acute) Urinary incontinence (Acute) Eczema (Acute) Arthritis (Acute) Obesity (BMI 30-39.9) (Acute) Hypercholesteremia (Acute) HTN (hypertension) (Acute) Obstructive sleep apnea (Acute) GERD (gastroesophageal reflux disease) (Acute) Past Medical History Medical History BALTAZAR (obstructive sleep apnea) 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 Son No problems noted. Daughter No problems noted. Family history of problems with anesthesia: No Surgical History Surgical History History of bronchoscopy History of extraction of renal calculus History of breast biopsy Hx of umbilical hernia repair History of cystoscopy History of cholecystectomy History of colonoscopy H/O: hysterectomy History of Problems with Anesthesia: Yes (PONV with GA) Social History Social History Household Members: None Housing: House Do you presently have visiting nurse or other home services: Yes ([facility] every 3 months.) Alcohol intake: never Patient Tobacco Use Status: Former Tobacco user Tobacco use type: Cigarette Years Smoked: 45 years Quit 05/2007 e-Cigarette/Vaping Use: Never Used Second Hand Smoke Exposure: No Use of substances other than those prescribed or required for medical reasons: No Advance Directives: No Advance Directives Information Provided: Yes service: No Current occupational status: disabled Cognitive needs: Yes (cane) Hearing needs: No Vision needs: Yes (glasses) Meds Allergies Allergy/AdvReac Type Severity Reaction Status Date / Time Penicillins (PENICILLINS) Allergy Severe Hives Verified 04/04/25 10:57 codeine AdvReac Severe Nausea and Verified 04/04/25 10:57 Vomiting morphine (MORPHINE) AdvReac Severe NAUSEA & Verified 04/04/25 10:57 VOMITING ENVIRONMENTAL Allergy Intermediate RUNNY Uncoded 04/04/25 10:57 NOSE/WATERY EYES Darvocet A500 AdvReac Severe disoriented Uncoded 04/04/25 10:57 Home Medications ?Medication ?Instructions ?Recorded ?Confirmed ?Last Taken ?Type cholecalciferol (vitamin D3) 25 25 mcg PO DAILY 07/04/20 04/11/25 01/22/25 History mcg (1,000 unit) capsule nebulizers 10/21/22 02/04/25 Unknown History CPAP (CPAP Machine/Device) 03/17/23 02/04/25 Unknown History nebulizers 03/17/23 02/04/25 Unknown History albuterol sulfate 2.5 mg/3 mL 2.5 mg inhalation BID PRN 01/23/25 04/11/25 Unknown History (0.083 %) solution for nebulization Shortness Of Breath Or Wheezing fluticasone propionate 50 2 spray intranasal DAILY PRN 01/23/25 04/11/25 Unknown History mcg/actuation nasal Allergic Symptoms spray,suspension latanoprost 0.005 % eye drops 1 drp ophthalmic-Right BEDTIME 01/23/25 04/11/25 01/21/25 History toinrttc-oqhkjzj-nogk-lutein tablet 1 tab PO MOTHSA 01/23/25 04/11/25 01/17/25 History oxybutynin chloride 5 mg tablet 5 mg PO DAILY 01/23/25 02/04/25 01/22/25 History pantoprazole 40 mg tablet,delayed 40 mg PO DAILY@0630 01/23/25 04/11/25 01/22/25 History release fluticasone fur. 200 mcg-umeclid 1 ea inhalation DAILY 04/11/25 04/11/25 Unknown History 62.5 mcg-vilant 25 mcg inhalat.powder (Trelegy Ellipta) Exam Pertinent Lab Results Pertinent Lab Results: Laboratory Tests 01/28/25 06:15 WBC 11.4 H RBC 3.57 L Hgb 10.6 L Hct 31.4 L Plt Count 253 Sodium 141 Potassium 4.7 BUN 28 H Creatinine 0.79 Narrative Narrative: EKG 12/2024 Vent. 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 Son No problems noted. Daughter No problems noted. Surgical History Surgical History History of bronchoscopy History of extraction of renal calculus History of breast biopsy Hx of umbilical hernia repair History of cystoscopy History of cholecystectomy History of colonoscopy H/O: hysterectomy Social History Social History Household Members: None Housing: House Do you presently have visiting nurse or other home services: Yes ([facility] every 3 months.) Alcohol intake: never Patient Tobacco Use Status: Former Tobacco user Tobacco use type: Cigarette Years Smoked: 45 years Quit 05/2007 e-Cigarette/Vaping Use: Never Used Second Hand Smoke Exposure: No Use of substances other than those prescribed or required for medical reasons: No Advance Directives: No Advance Directives Information Provided: Yes service: No Current occupational status: disabled Cognitive needs: Yes (cane) Hearing needs: No Vision needs: Yes (glasses) Meds Allergies Allergy/AdvReac Type Severity Reaction Status Date / Time Penicillins (PENICILLINS) Allergy Severe Hives Verified 04/04/25 10:57 codeine AdvReac Severe Nausea and Verified 04/04/25 10:57 Vomiting morphine (MORPHINE) AdvReac Severe NAUSEA & Verified 04/04/25 10:57 VOMITING ENVIRONMENTAL Allergy Intermediate RUNNY Uncoded 04/04/25 10:57 NOSE/WATERY EYES Darvocet A500 AdvReac Severe disoriented Uncoded 04/04/25 10:57 Home Medications ?Medication ?Instructions ?Recorded ?Confirmed ?Last Taken ?Type cholecalciferol (vitamin D3) 25 25 mcg PO DAILY 07/04/20 04/11/25 01/22/25 History mcg (1,000 unit) capsule nebulizers 10/21/22 02/04/25 Unknown History CPAP (CPAP Machine/Device) 03/17/23 02/04/25 Unknown History nebulizers 03/17/23 02/04/25 Unknown History albuterol sulfate 2.5 mg/3 mL 2.5 mg inhalation BID PRN 01/23/25 04/11/25 Unknown History (0.083 %) solution for nebulization Shortness Of Breath Or Wheezing fluticasone propionate 50 2 spray intranasal DAILY PRN 01/23/25 04/11/25 Unknown History mcg/actuation nasal Allergic Symptoms spray,suspension latanoprost 0.005 % eye drops 1 drp ophthalmic-Right BEDTIME 01/23/25 04/11/25 01/21/25 History dacozidm-hqnirfl-bfnc-lutein tablet 1 tab PO MOTHSA 01/23/25 04/11/25 01/17/25 History oxybutynin chloride 5 mg tablet 5 mg PO DAILY 01/23/25 02/04/25 01/22/25 History pantoprazole 40 mg tablet,delayed 40 mg PO DAILY@0630 01/23/25 04/11/25 01/22/25 History release fluticasone fur. 200 mcg-umeclid 1 ea inhalation DAILY 04/11/25 04/11/25 Unknown History 62.5 mcg-vilant 25 mcg inhalat.powder (Trelegy Ellipta) Exam Airway Mallampati Class: II (cap top right) TM Dist: >3cm Neck ROM: Full Heart: rrr Lungs: cta Assessment and Plan Assessment Anesthesia Assessment: Anesthesia Plan Discussed and Chart Reviewed Final Anesthetic Review NPO: Yes ASA Class: III Final Preanesthetic Review: No Changes in Pt Med Stat, Meds/Allgs Chart Reviewed and Consent Obtained/Reviewed Patient Risk: Intermediate Procedure Risk: Intermediate Anesthetic Plan Anesthetic Plan: MAC: Disposition: Standard PACU
[2025-04-11 14:57] VITALS: BMI 35.2
[2025-04-13 09:48] VITALS: BP 157/68; PULSE 77; RESP 16; TEMP 36.4; O2SAT 96
[2025-04-13] MEDS: Lactated Ringers 1,000 ML 100 ML IVCONT (09:49)
[2025-04-13 09:51] LABS: Glucose, Whole Blood 104 mg/dL (60-115)
[2025-04-13 11:19] VITALS: BP 135/68; PULSE 82; RESP 16; TEMP 36.8; O2SAT 97
--- NOTE | 2025-04-13 11:30 | P.BOP_ITS ---
Brief Operative Note Date of Service: 04/13/25 Pre-op diagnosis: Dysphagia Post-op diagnosis: other (Esophageal stricture, Hiatal hernia) Procedure: EGD with balloon dilation of EG Junction with an 18mm Balloon Surgeon: Eusebio Shields MD Anesthesia: MAC Was an [employer] used for this Procedure?: No Estimated blood loss (mL): 2.0 Pathology: none sent Condition: stable Disposition: PACU
[2025-04-13 11:34] VITALS: BP 116/65; PULSE 82; RESP 16; TEMP 36.6; O2SAT 97
--- NOTE | 2025-04-13 11:48 | OP_ITS ---
DATE OF SERVICE: 04/13/2025 SURGEON: Eusebio Shields MD INDICATIONS: The patient presents for evaluation of intermittent dysphagia. Full consent has been obtained from her for this, including risks of bleeding and perforation. PREOPERATIVE DIAGNOSIS: Dysphagia. POSTOPERATIVE DIAGNOSIS: PROCEDURE PERFORMED: Esophagogastroduodenoscopy with balloon dilation of distal esophageal stricture. ESTIMATED BLOOD LOSS: COMPLICATIONS: ANESTHESIA: Medication used, monitored anesthesia care. ASSISTANTS: SPECIMENS: POSTOPERATIVE DIAGNOSES: Dysphagia, distal esophageal stricture at gastroesophageal junction, hiatal hernia. DESCRIPTION OF PROCEDURE: The patient was placed in the left lateral decubitus position. The Olympus video gastroscope was passed in the posterior oropharynx and upper esophagus under direct vision. There was no delay in being able to pass the scope past the upper esophageal sphincter. With insufflation of air, I did not appreciate any narrowing. The scope was advanced to the distal esophagus. The gastroesophageal junction appeared at 30 cm. With insufflation of air, there did appear to be a mild fibrotic stricture, but without any obstruction of the scope. There was no ulceration or mass. The scope entered the stomach. There was a small to moderate-sized hiatal hernia. The scope was advanced to the pylorus, and the duodenum was cannulated to the descending portion. The duodenum including the bulb appeared normal without mass or ulceration. The scope was withdrawn back in the stomach. The gastric antrum and body appeared normal with good peristalsis. The scope was retroflexed visualizing the proximal stomach carefully, which appeared normal, without any sign of mass or ulceration. The scope was straightened and withdrawn back to the esophagus. With insufflation of air, I was able to visualize the mild stricture at 30 cm. This was dilated with an 18 mm esophageal balloon for 60 seconds at the recommended pressure. Postdilation, there was clear disruption of the stricture and some heme noted. The scope was withdrawn through the remainder of the esophagus. The esophagus was somewhat tortuous, but there were no mucosal abnormalities. There was no evidence of any proximal esophageal rings or abnormalities. The upper esophageal sphincter again appeared patent and without any sign of narrowing or obstruction. The scope was withdrawn from the patient. She tolerated the procedure well and was returned to the recovery area in stable condition. IMPRESSION: 1. Distal esophageal stricture, status post balloon dilation. 2. Hiatal hernia. PLAN: The patient has been using pantoprazole 40 mg daily. I shall send her a prescription to use 40 mg twice a day for 1 month and then have her go back on the daily dose. She was advised not to use any aspirin nor NSAIDs for at least 1 week. If she is doing better with her swallowing, she could see me again as needed. She has been given instructions to call me if she has any further problems. MD SALENA Dhillon/YEIMI / [id number] MTDD
== END 2025-04-13 12:07 | disposition home or self-care (01) ==
PROVIDERS: PCP Internal Medicine; Visit Provider Internal Medicine
PROC: (CPT 43249; principal; 2025-04-13 10:00)
DX: R13.10 Dysphagia, unspecified (principal); K22.2 Esophageal obstruction; K21.9 Gastro-esophageal reflux disease without esophagitis; K44.9 Diaphragmatic hernia without obstruction or gangrene; Z79.899 Other long term (current) drug therapy
CPT/HCPCS: 43249; 82947; C1726; J2704; J3010

== ENCOUNTER 2025-04-19 13:00 | Outpatient (RCR) | payer OTHER, SELFPAY ==
[2025-03-30 10:45] VITALS: BP 148/84; RESP 96; O2SAT 75
--- NOTE | 2025-03-30 13:57 | MHC.PT.EP ---
[facility] [place] Office [place] Office [place] Office [address] John Aguilera [address] [phone] F: [phone] F: [phone] F: [phone] F: [phone] Physical Therapy Plan of Care Date of Evaluation: Date of Surgery: Diagnosis: BPPV Assessment: 80 y/o female referred to PT with BPPV. Describes dizziness as room-spinning that lasts minutes. It is worse in the morning when she gets out of bed, turning her head, rolling in bed, and bending. This lasts seconds to minutes. Pt tested positive for R posterior canal BPPV and was treated with Wesly Maneuver. Upon re-test, she was negative. Will re-assess next visit and then assess other canals and balance. Recommend PT 2x/week for 4 weeks to address impairments, implement HEP, and optimize functional mobiltiy. Frequency and Duration: The patient will be seen 2x/week for 4 weeks Short Term Goals: Nursing Home Goals: Pt will be (-) for nystagmus of reports of vertigo in all diagnostic directions B to resolutions of BPPV Tolerate position changes without complaints vertigo to improve safety and return to pre-onset level Pt to be able to functionally move in all planes without provocation of dizziness and return to PLOF Pt to be educated on sx and indications to return to therapy when needed in 4 weeks Treatment Plan: Modalities to reduce pain, spasms and effusion. Manual therapy to restore motion and function. Therapeutic exercise to improve strength and flexibility. Neuromuscular re-education for posture and balance. Therapeutic activities to return to functional activities of daily living. Electronically signed by: Cassie Chapman PT Please sign and return to therapist. Thank you for your referral.
--- NOTE | 2025-05-25 10:32 | MHC.PT.DC ---
[facility] [place] Office [place] Office [place] Office [address] John Aguilera [address] [phone] F: [phone] F: [phone] F: [phone] F: [phone] Physical Therapy Discharge Report Diagnosis: BPPV Date of Surgery: Date of Evaluation: 03/30/25 Date of Discharge: 05/25/25 Treatments to Date: 6 Cancellations to Date: 1 No Shows to Date: 0 Discharge Status: Discharge Summary: THroughout course of therapy, pt would arrive with R posterior canal BPPV. Wesly would be performed and she would be negative on re-test. However pt would return positive again with sx. Upon last two visits, pt reports feeling much better with no sx, however she was still positive R Castillo Hallpike. She was treated again with Wesly and Monisha procedures and negative at end of session. She did not f/u with final appointment however and current status unknown. Last visit though she reports feeling better with improved balance and no sx Electronically signed by: Cassie Chapman PT Please sign and return to therapist. Thank you for your referral.
== END 2025-05-25 10:32 | disposition home or self-care (01) ==
LOC: HO.PT 13:00
PROVIDERS: PCP Internal Medicine; Visit Provider Internal Medicine
DX: H81.13 Benign paroxysmal vertigo, bilateral (principal)
CPT/HCPCS: 95992; 97110; 97112; 97162

== ENCOUNTER 2025-05-10 13:37 | Outpatient (AMB) | payer OTHER, SELFPAY ==
[2025-05-10 13:39] VITALS: BP 122/60; PULSE 106; TEMP 36.4; O2SAT 97; BMI 36.4
--- NOTE | 2025-05-10 13:39 | A.OFFPC_ITS ---
Vital Signs 05/10/25 13:39 Height 5 ft Weight 186 lb 6 oz BMI 36.4 BP 122/60 Blood Pressure Location Lt brachial Position Sitting Pulse 106 H Pulse Source Pulse Oximeter Temp 97.5 F Temp Source Temporal Artery Scan Pulse Oximetry (%) 97 Oxygen Delivery Method Room Air Intake Visit Reasons: 3 month f/u Allergies Penicillins (PENICILLINS) Allergy (Severe, Verified 05/10/25 13:43) Hives codeine Adverse Reaction (Severe, Verified 05/10/25 13:43) Nausea and Vomiting morphine (MORPHINE) Adverse Reaction (Severe, Verified 05/10/25 13:43) NAUSEA & VOMITING ENVIRONMENTAL Allergy (Intermediate, Uncoded 05/10/25 13:43) RUNNY NOSE/WATERY EYES Darvocet A500 Adverse Reaction (Severe, Uncoded 05/10/25 13:43) disoriented Tobacco use date assessed: 05/10/25 Fall risk assessment: 1 Fall in past year Last assessed Fall Risk: 05/10/25 Dental Screening Dental Screen Date: 05/10/25 Did you have a dental visit in the last 12 months?: No Did you have a dental problem in the last 6 months where you did not have access to dental care?: No Was dental information given to patient?: Patient has dentist [facility], [facility]–1983 Medical History (Updated 05/10/25 @ 14:49 by Juan Beltre MD) Type 2 diabetes mellitus with hyperglycemia BALTAZAR (obstructive sleep apnea) 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 Bronchiectasis Bronchiolitis Osteoarthritis Mixed stress and urge urinary incontinence Obesity (BMI 30-39.9) Vitamin D deficiency Asthma Glaucoma Arthritis GERD (gastroesophageal reflux disease) History of kidney stones Hypercholesteremia HTN (hypertension) Surgical History History of bronchoscopy History of extraction of renal calculus History of breast biopsy Hx of umbilical hernia repair History of cystoscopy History of cholecystectomy History of colonoscopy H/O: hysterectomy Family History Father Prostate cancer Mother Mental problem Son No problems noted. Son No problems noted. Daughter No problems noted. Social History Household Members: None Housing: House Do you presently have visiting nurse or other home services: Yes ([facility] every 3 months.) Alcohol intake: never Patient Tobacco Use Status: Former Tobacco user Tobacco use type: Cigarette Years Smoked: 45 years Quit 05/2007 e-Cigarette/Vaping Use: Never Used Second Hand Smoke Exposure: No service: No Current occupational status: disabled Cognitive needs: Yes (cane) Hearing needs: No Vision needs: Yes (glasses) Questionnaire PHQ-9 Over the last 2 weeks, how often have you been bothered by any of the following problems? 1. Little interest or pleasure in doing things: nearly every day 2. Feeling down, depressed, or hopeless: nearly every day 3. Trouble falling or staying asleep, or sleeping too much: not at all 4. Feeling tired or having little energy: more than half the days 5. Poor appetite or overeating: more than half the days 6. Feeling bad about yourself - or that you are a failure or have let yourself or your family down: not at all 7. Trouble concentrating on things, such as reading the newspaper or watching television: not at all 8. Moving or speaking so slowly that other people could have noticed. Or the opposite - being so fidgety or restless that you have been moving around a lot more than usual: not at all 9. Thoughts that you would be better off or of hurting yourself in some way: not at all Total score: 10 Depression Screening Interpretation: Negative Depression Screening Done: Yes Source: Developed by Drs. Eusebio Gates, Radha Burrows, Vincent Calderon and colleagues, with an educational patrick from [employer]. Thrive Questionnaire Date Thrive assessed: 05/10/25 I am a: Patient What is your living situation today?: I have a steady place to live Within the past 12 months, did the food you bought not last and you didn't have the money to get more?: Never true Within the past 12 months, did you worry whether your food would run out before you got money to buy more?: Sometimes True Do you have trouble paying for medicines?: No Do you have trouble getting transportation to medical appointments?: No Do you have trouble paying your heating and electricity bill?: No Do you have trouble taking care of your child, family member or friend?: No Do you have trouble with day-to-day activities such as bathing, preparing meals, shopping, managing finances, etc.?: No Are you currently unemployed and looking for a job?: No Are you interested in more education?: No Please select the resources that you would like help with: None Currently or been in a relationship where the following occur: I choose not to answer THRIVE Score: 1 AUDIT C Alcohol Use Questionnaire (AUDIT-C) 1. How often do you have a drink containing alcohol?: Never 3. How often do you have six or more drinks on one occasion?: Never Total Score: 0 ISHA-7 AMB Questionnaire ISHA-7 Date ISHA - 7 assessed: 01/14/25 Feeling nervous, anxious, or on edge: 1 = Several days Not being able to stop or control worryin = Several days Worrying too much about different things: 1 = Several days Trouble relaxin = Not at all Being so restless that it is hard to sit still: 0 = Not at all Becoming easily annoyed or irritable: 0 = Not at all Feeling afraid as if something awful might happen: 0 = Not at all Total ISHA-7 score (0-4 normal; 5-9 mild; 10-14 moderate; 15-21 severe): 3 Source: Developed by Drs. Eusebio Gates, Radha Burrows, Vincent Calderon and colleagues, with an educational patrick from [employer]. Physical exam (Primary Care) Vital Signs: Last Vital Signs Temp 97.5 F 05/10/25 13:39 Pulse 106 H 05/10/25 13:39 BP 122/60 05/10/25 13:39 Pulse Ox 97 05/10/25 13:39 Oxygen Delivery Method Room Air 05/10/25 13:39 BMI result Body Mass Index 36.4 Tobacco/Smoking Status: Tobacco use Status Tobacco use date assessed 05/10/25 05/10/25 13:45 Patient Tobacco Use Status Former Tobacco user 05/10/25 13:45 Tobacco use type Cigarette 05/10/25 13:45 e-Cigarette/Vaping Use Never Used 05/10/25 13:45 PHQ-9: PHQ-9 Score PHQ-9: Total score 10 05/10/25 15:06 Depression Screening Interpretation: Negative Thrive Assessment: Date of Thrive Assessment Date Thrive assessed 05/10/25 05/10/25 13:45 Currently or been in a relationship where the following occur: I choose not to answer Const General: alert; No acute distress Eyes Conjunctivae: conjunctivae normal Resp Auscultation: clear to auscultation bilaterally Cardio Rate: regular rate Rhythm: regular rhythm GI Inspection: Yes normal to inspection Extrem General: Yes normal to inspection and No edema Office Procedures Flu Questionnaire Does the patient have a severe egg allergy?: No Does the patient have severe life threatening allergies?: No Does the patient have a fever or illness today?: No Has the patient ever had Guillain-Winthrop Syndrome?: No Has the patient ever had any past reaction to a flu shot?: No Immunizations Fluarix [id number] (PF) 45 mcg (15 mcg x 3)/0.5 mL IM syringe Performing Provider: Juan Beltre MD [facility] Administered by: Olivia Omalley CMA on 05/10/25 15:06 Dose Route Admin Location Dispensed Lot Number Expiration Date [facility] Model Home [employer] Greeter 0.5 mL IM Right Deltoid 0.5 mL [id number] 01/24/26 [id number] [employer] Given Date VIS Provided VIS Publication Date 05/10/25 Single Vaccine 24 Eligibility Eligibility Date Funding Source Not [facility] Eligible 05/10/25 Private Coding Level of Care Code Est Pt Level 4 (16054) Complex EM visit Add On G2211 Diagnoses Essential hypertension I10 Hypertension type: essential hypertension Hypercholesteremia E78.00 Obesity (BMI 30-39.9) E66.9 Gastroesophageal reflux disease without esophagitis K21.9 Esophagitis presence: without esophagitis Esophageal stricture K22.2 Asthma J45.909 Mixed incontinence N39.46 Type 2 diabetes mellitus with hyperglycemia, without long-term current use of insulin E11.65 Diabetes mellitus buttermaker insulin use: without buttermaker use Assessment & Plan Assessment & Plan (1) HTN (hypertension): Code(s): I10 - Essential (primary) hypertension Category: Medical Qualifiers: Hypertension type: essential hypertension Qualified Code(s): I10 - Essential (primary) hypertension Plan: Continue with blood pressure medication. Decrease salt intake and exercise patient is on hydrochlorothiazide losartan (2) Hypercholesteremia: Code(s): E78.00 - Pure hypercholesterolemia, unspecified Category: Medical Plan: Avoid fried foods, chicken skin, eggs, butter margarine, pastries and meat. Be it pork or beef they have a lot of cholesterol LDL goal of less than 100 and triglyceride of less than 150 on atorvastatin 20 mg once a day (3) Obesity (BMI 30-39.9): Code(s): E66.9 - Obesity, unspecified Category: Medical Plan: Diet and exercise (4) GERD (gastroesophageal reflux disease): Code(s): K21.9 - Gastro-esophageal reflux disease without esophagitis Category: Medical Qualifiers: Esophagitis presence: without esophagitis Qualified Code(s): K21.9 - Gastro-esophageal reflux disease without esophagitis Plan: Avoid the foods that causes that usually spicy foods, tomato products, juices, coffee, soda and foods that your sensitive to. After eating do not lie down, allow 3-4 hours before in lie down. And keep the head of bed above 30 degrees to avoid the acid from going up. (5) Esophageal stricture: Code(s): K22.2 - Esophageal obstruction Category: Medical Plan: Patient just had an endoscopy done with dilatation in March 2025 (6) Asthma: Code(s): J45.909 - Unspecified asthma, uncomplicated Category: Medical Plan: Continue with albuterol inhaler and Trelegy and montelukast (7) Mixed incontinence: Code(s): N39.46 - Mixed incontinence Category: Medical (8) Type 2 diabetes mellitus with hyperglycemia: Comment: Dr. Oliver Code(s): E11.65 - Type 2 diabetes mellitus with hyperglycemia Category: Medical Qualifiers: Diabetes mellitus senior living insulin use: without buttermaker use Qualified Code(s): E11.65 - Type 2 diabetes mellitus with hyperglycemia Plan History of Present Illness The patient is a 80-year-old female presenting with management of chronic conditions and preventative care. The patient has a history of hypertension, hypercholesterolemia, and GERD, which have been managed with medications including hydrochlorothiazide, losartan, and atorvastatin. She also has generalized anxiety disorder and diabetes mellitus, with recent blood work showing elevated blood sugar levels and a hemoglobin A1c of 5.8%. Recently, the patient was diagnosed with pneumonia, confirmed by a chest X-ray showing right middle lobe involvement. She has a history of anemia, with blood work in January showing stable anemia and normal electrolytes. The patient underwent a colonoscopy in 2019 and a mammogram in February 2025, with a bone density test in 2018. She had a gastroenterology consultation for dysmotility, leading to an endoscopy that revealed a distal esophageal stricture and hiatal hernia, treated with balloon dilatation and pantoprazole. In 2022, a biopsy was performed due to microcalcifications in the left breast, with a recent mammogram returning negative results. The patient reports urinary incontinence, managed with pads and nighttime protection, and is considering a referral to urogynecology for further evaluation. Health Maintenance - Colonoscopy last performed in 2019 - Mammogram conducted in February 2025 - Bone density test completed in 2018 - Recent mammogram negative for malignancy - Flu vaccination administered during this visit Social History - Nutritional intake: Patient consumes a diet high in potatoes and occasionally rice, advised to reduce intake of carbohydrates and increase green leafy vegetables. Review of Systems - Respiratory: Reports persistent cough, improved since initial presentation. - Endocrine: Reports elevated blood sugar levels, denies recent changes in diet. - Genitourinary: Reports urinary incontinence, managed with pads and nighttime protection. Physical Exam - Cardiovascular: Heart auscultation performed, no abnormalities noted Results - Labs: Blood work in January showed anemia with hemoglobin at 10.6 g/dL, normal electrolytes, elevated blood sugar at 143 mg/dL, hemoglobin A1c at 5.8%. - Imaging: Chest X-ray in January 2022 showed right middle lobe pneumonia. - Procedures: Endoscopy in March 2025 revealed distal esophageal stricture and hiatal hernia, treated with balloon dilatation. Plan Patient was informed and verbally consented to the use of an ambient scribe for clinic note documentation during this visit. 1. Obesity The patient is advised to engage in dietary modifications, focusing on reducing carbohydrate intake and increasing consumption of green leafy vegetables. 2. Essential Hypertension The patient is currently on hydrochlorothiazide and losartan for blood pressure management. 3. Hypercholesterolemia The patient is on atorvastatin 20 mg daily, with a goal LDL of less than 100 mg/dL and triglycerides less than 150 mg/dL. 4. Gastroesophageal Reflux Disease (Gerd) The patient is advised to continue pantoprazole therapy, initially twice daily for one month, then once daily. 5. Generalized Anxiety Disorder The patient is advised to continue current management strategies for anxiety. 6. Pneumonia The patient was recently treated for right middle lobe pneumonia, confirmed by chest X-ray. 7. Diabetes Mellitus The patient is advised to monitor blood sugar levels and adhere to dietary recommendations to manage elevated blood sugar. 8. Esophageal Stricture The patient underwent balloon dilatation for esophageal stricture and is advised to report any recurrence of symptoms. 9. Hiatal Hernia The patient is advised to continue monitoring for symptoms and follow up with gastroenterology as needed. 10. Anemia The patient's anemia is stable, with hemoglobin at 10.6 g/dL, and no immediate intervention is required. 11. Microcalcification In Left Breast The patient had a biopsy in 2022, and recent mammogram results were negative for malignancy. 12. Urinary Incontinence The patient is considering a referral to urogynecology for further evaluation and management of urinary incontinence. Discussion Notes During the visit, I discussed with the patient the management of her chronic conditions, including hypertension, hypercholesterolemia, and GERD, emphasizing the importance of medication adherence and lifestyle modifications. We reviewed her recent pneumonia diagnosis and the need for continued monitoring of her respiratory symptoms. I also addressed her concerns about urinary incontinence and discussed the possibility of a referral to urogynecology for further evaluation. Patient Instructions - Continue taking prescribed medications for hypertension, hypercholesterolemia, and GERD as directed. - Monitor blood sugar levels regularly and adhere to dietary recommendations to manage diabetes. - Report any recurrence of esophageal symptoms to the healthcare provider. - Follow up with gastroenterology and urogynecology as needed. - Receive the flu vaccination during this visit. Orders: Orders Hemoglobin A1c Today - Mixed incontinence Complete Blood Count Auto Diff Today - Mixed incontinence UA CC w/rflx Micro + Cult Today . - Mixed incontinence, R30.0 - Dysuria Thyroid Stimulating Hormone Today - Mixed incontinence Lipid Panel Today E78.00 - Pure hypercholesterolemia, unspecified, .46 - Mixed incontinence IRON PROFILE Today .46 - Mixed incontinence Vitamin D 25-OH Total Today .46 - Mixed incontinence Vitamin B12 and Folate Today .46 - Mixed incontinence Microalbumin, Random (w Creat) Today E11.65 - Type 2 diabetes mellitus with hyperglycemia, .46 - Mixed incontinence Reticulocyte Count Today .46 - Mixed incontinence Comprehensive Met. Panel Today .46 - Mixed incontinence Free T4 (Free Thyroxine) Today .46 - Mixed incontinence Ferritin Today . - Mixed incontinence Creatinine Urine Today E11.65 - Type 2 diabetes mellitus with hyperglycemia, N39.46 - Mixed incontinence Influenza [id number] Immunization Today Z23 - Encounter for immunization Referrals Urogynecology Referral N39.46 - Mixed incontinence
== END 2025-05-10 15:09 | disposition home or self-care (01) ==
LOC: HO.HMCH 13:38
PROVIDERS: PCP Internal Medicine; Visit Provider Internal Medicine
DX: I10 Essential (primary) hypertension (principal); E11.65 Type 2 diabetes mellitus with hyperglycemia; E66.9 Obesity, unspecified; Z68.36 Body mass index [BMI] 36.0-36.9, adult; E78.00 Pure hypercholesterolemia, unspecified; K21.9 Gastro-esophageal reflux disease without esophagitis; K22.2 Esophageal obstruction; J45.909 Unspecified asthma, uncomplicated; N39.46 Mixed incontinence; Z23 Encounter for immunization

== ENCOUNTER → 2025-05-10 13:37 | Outpatient (BNVA) | payer OTHER, SELFPAY | PROVIDERS: PCP Internal Medicine; Visit Provider Internal Medicine | DX: I10 Essential (primary) hypertension (principal); E78.00 Pure hypercholesterolemia, unspecified; E66.9 Obesity, unspecified; K21.9 Gastro-esophageal reflux disease without esophagitis; K22.2 Esophageal obstruction; J45.909 Unspecified asthma, uncomplicated; N39.46 Mixed incontinence; E11.65 Type 2 diabetes mellitus with hyperglycemia; F41.1 Generalized anxiety disorder; D64.9 Anemia, unspecified; R92.0 Mammographic microcalcification found on diagnostic imaging of breast; Z23 Encounter for immunization; Z87.01 Personal history of pneumonia (recurrent); Z68.36 Body mass index [BMI] 36.0-36.9, adult | CPT/HCPCS: 90471; 90656; 96127; 99212 ==

== ENCOUNTER 2025-05-18 07:32 | Outpatient (REF) | payer OTHER, SELFPAY ==
[2025-05-18 07:45] LABS: MANUAL DIFF FLAG NO
[2025-05-18 08:09] LABS: Hematocrit 35.2 % (37.0-47.0); Hemoglobin 11.6 g/dl (12.0-16.0); Imm Gran Abs Auto 0.01 X10*3/uL (0.00-0.03); Imm Gran Pct Auto 0.1 % (0.0-0.4); Lymphocytes Absolute Auto 2.2 X10*3/uL (1.2-4.9); Mean Corpuscular HGB Conc 33.0 g/dl (31.0-35.0); Mean Corpuscular Hemoglobin 29.4 pg (27.0-33.0); Mean Corpuscular Volume 89.3 fL (80.0-98.0); NRBC Abs Auto 0.000 X10*3/uL (0.0-0.012); NRBC Pct Auto 0.0 /100WBC (0.0-0.2); Platelet Count 255 X10*3/uL (160-400); Red Blood Count 3.94 X10*6/uL (4.20-5.50); Reticulocytes Absolute 0.057 X10*6/uL (0.026-0.095); White Blood Count 6.8 X10*3/uL (4.8-10.8)
[2025-05-18 08:28] LABS: Appearance Urine Clear; Glucose Urine UA Negative (Negative); PH 5.5 (5.0-9.0); Specific Gravity - Urine 1.015 (1.005-1.025); UMIC TRIGGER UACC YES
[2025-05-18 08:57] LABS: Alanine Aminotransferase 14 U/L (0-31); Albumin Level 4.2 g/dL (3.5-5.0); Alkaline Phosphatase 135 U/L (39-117); Anion Gap 11 (12-20); Aspartate Amino Transferase 23 U/L (5-31); Blood Urea Nitrogen 25 mg/dL (9-16); Calcium 9.5 mg/dL (8.4-10.2); Carbon Dioxide 28 mmol/L (22-29); Chloride 107 mmol/L (96-108); Cholesterol 168 mg/dL (<200); Estimated Glomerular Filt Rate 49; HDL Cholesterol 56 mg/dL (>40); Iron 62 mcg/dL (30-160); Percent Iron Saturation 23 % (15-50); Potassium 4.0 mmol/L (3.3-5.1); Sodium 142 mmol/L (135-145); Total Iron Binding Capacity 265 mcg/dL (228-428); Total Protein 6.9 g/dL (6.5-8.0); Triglycerides 83 mg/dL (<150); Unsaturated Iron Binding 203 ug/dL
[2025-05-18 09:15] LABS: Ferritin 51 ng/mL (10-250); Free T4 (Free Thyroxine) 1.05 ng/dL (0.71-1.85); Thyroid Stimulating Hormone 1.54 uIU/mL (0.32-4.0)
[2025-05-18 09:17] LABS: Folate 8.5 ng/mL (> or = 4.0); Vitamin B12 604 pg/mL (200-900)
== END 2025-05-18 07:33 | disposition home or self-care (01) ==
LOC: HO.LAB 07:32
PROVIDERS: PCP Internal Medicine; Visit Provider Internal Medicine
DX: E11.65 Type 2 diabetes mellitus with hyperglycemia (principal); E78.00 Pure hypercholesterolemia, unspecified; N39.46 Mixed incontinence; R30.0 Dysuria; Z13.21 Encounter for screening for nutritional disorder
CPT/HCPCS: 36415; 80053; 80061; 81001; 82043; 82306; 82570; 82607; 82728; 82746; 83036; 83540; 84439; 84443; 85025; 85045

== ENCOUNTER 2025-05-30 14:06 | Outpatient (AMB) | payer OTHER, SELFPAY ==
[2025-05-30 14:11] VITALS: BP 120/56; PULSE 72; TEMP 36.2; O2SAT 97; BMI 36.0
--- NOTE | 2025-05-30 14:11 | A.OFFPC_ITS ---
Vital Signs 05/30/25 14:11 Height 5 ft Weight 184 lb 8 oz BMI 36.0 BP 120/56 L Blood Pressure Location Rt brachial Position Sitting Pulse 72 Pulse Source Pulse Oximeter Temp 97.1 F Temp Source Temporal Artery Scan Pulse Oximetry (%) 97 Oxygen Delivery Method Room Air Intake Visit Reasons: preop right eye 06/13 and 07/11 [place] Allergies Penicillins (PENICILLINS) Allergy (Severe, Verified 05/30/25 14:29) Hives codeine Adverse Reaction (Severe, Verified 05/30/25 14:29) Nausea and Vomiting morphine (MORPHINE) Adverse Reaction (Severe, Verified 05/30/25 14:29) NAUSEA & VOMITING ENVIRONMENTAL Allergy (Intermediate, Uncoded 05/30/25 14:29) RUNNY NOSE/WATERY EYES Darvocet A500 Adverse Reaction (Severe, Uncoded 05/30/25 14:29) disoriented Medication List - Last Reconciled 05/30/25 by KEESHA Waters albuterol sulfate 2.5 mg inhalation BID PRN albuterol sulfate 90 mcg/actuation (Ventolin HFA) 2 puffs inhalation QID PRN 30 days atorvastatin 20 mg PO DAILY benzonatate 200 mg PO .QHS PRN blood pressure monitor (Blood Pressure Kit) As directed blood sugar diagnostic (FreeStyle Lite Strips) As directed check the BS QD blood-glucose meter (FreeStyle Lite Meter kit) As directed [CANE As directed] cholecalciferol (vitamin D3) 25 mcg PO DAILY codeine-guaifenesin 10-200 mg/5 mL 5 mL PO Q6H PRN CPAP (CPAP Machine/Device) As directed fluticasone propionate 50 mcg/actuation 2 sprays intranasal BID ndghuuwwxvp-khtrvsfin-woqcxnse 200-62.5-25 mcg (Trelegy Ellipta) 1 ea inhalation DAILY [hand held shower head As directed] hydrochlorothiazide 12.5 mg PO DAILY [Incontinence PADS As directed] lancets (FreeStyle Lancets) As directed check BS QD latanoprost 0.005% 1 drp ophthalmic-Right BEDTIME loratadine (Claritin) 10 mg PO DAILY 30 days losartan 100 mg PO DAILY 90 days meclizine (Dramamine Less Drowsy) 25 mg PO TID PRN miscellaneous medical supply As directed montelukast 10 mg PO DAILY woljaurl-lrakisn-fwrc-lutein 1 tab PO MOTHSA nebulizers As directed nebulizers As directed ondansetron 4 mg PO Q6-8H PRN oxybutynin chloride 5 mg PO BID pantoprazole 40 mg PO DAILY [pull ups As directed] Shower Chair As directed [transfer bench As directed] [wipes As directed] Tobacco use date assessed: 05/30/25 Fall risk assessment: 1 Fall in past year Last assessed Fall Risk: 05/10/25 Dental Screening Dental Screen Date: 05/30/25 Did you have a dental visit in the last 12 months?: No Did you have a dental problem in the last 6 months where you did not have access to dental care?: No Was dental information given to patient?: Patient has dentist HPI preop right eye 06/13 and 07/11 [place] HPI Details The patient is a 80-year-old female presenting for pre-operative evaluation for upcoming cataract surgery. She has a history of cataracts for approximately 8 years, with symptoms including blurry vision at nighttime and difficulty reading small print. She is scheduled for surgery on her right eye first, followed by her left eye in June. The patient has a significant past surgical history, including procedures for bladder issues, kidney stones (stone blasting), a hysterectomy, and a hernia repair. She underwent an endoscopy a couple of weeks ago. She reports a history of post-operative nausea upon waking from anesthesia, which she associates with opening her eyes, but she denies any other issues or allergies related to anesthesia. Her medical history is notable for chronic, stable anemia, which has fluctuated over the past two years. She also has a history of being borderline for diabetes, but her condition is currently well-managed through dietary changes, specifically avoiding sweets. She takes medication for hyperlipidemia. The patient takes ghku-cnu-pucekwq aspirin daily and uses Tylenol for arthritis pain, avoiding NSAIDs like ibuprofen. She had a history of vertigo, which has resolved with physical therapy. Surgeon/location: Dr. Saha at [facility], [place]. The patient reports that her surgery will be done in [place]. Anesthesia: MAC. Patient reports a long as she keeps her eyes closed she does not get nauseous. However, she gets nauseous after anesthesia when she open her eyes and had 1 episode vomiting. Otherwise no allergy to anesthesia. Date: Right eye on June 13, 2025 and left eye on 07/11/2025 Patient denies any postoperative hypothermia or clotting disorder. Patient reports that she takes an 81 mg aspirin daily OTC, which is low risk and the patient could continue this. Past medical history significant for type 2 diabetes, esophageal stricture, achalasia, mild cognitive impairment, osteoarthritis of the knees, asthma, polymyalgia Patient denies chest pain, shortness of breath, heart palpitation and dizziness Denies abdominal pain or change in bowel habits Denies any urinary symptoms [facility] Medical History Asthma-COPD overlap syndrome Type 2 diabetes mellitus with hyperglycemia BALTAZAR (obstructive sleep apnea) Nontuberculous mycobacterial disease of lung Bronchiectasis Bronchiolitis Osteoarthritis Mixed stress and urge urinary incontinence Obesity (BMI 30-39.9) Vitamin D deficiency Asthma Glaucoma Arthritis GERD (gastroesophageal reflux disease) History of kidney stones Hypercholesteremia HTN (hypertension) Surgical History History of bronchoscopy History of extraction of renal calculus History of breast biopsy Hx of umbilical hernia repair History of cystoscopy History of cholecystectomy History of colonoscopy H/O: hysterectomy Family History Father Prostate cancer Mother Mental problem Son No problems noted. Son No problems noted. Daughter No problems noted. Social History Household Members: None Housing: House Do you presently have visiting nurse or other home services: Yes ([facility] every 3 months.) Alcohol intake: never Patient Tobacco Use Status: Former Tobacco user Tobacco use type: Cigarette Years Smoked: 45 years Quit 05/2007 e-Cigarette/Vaping Use: Never Used Second Hand Smoke Exposure: No service: No Current occupational status: disabled Cognitive needs: Yes (cane) Hearing needs: No Vision needs: Yes (glasses) Questionnaire PHQ-9 Over the last 2 weeks, how often have you been bothered by any of the following problems? 1. Little interest or pleasure in doing things: nearly every day 2. Feeling down, depressed, or hopeless: nearly every day 3. Trouble falling or staying asleep, or sleeping too much: not at all 4. Feeling tired or having little energy: more than half the days 5. Poor appetite or overeating: more than half the days 6. Feeling bad about yourself - or that you are a failure or have let yourself or your family down: not at all 7. Trouble concentrating on things, such as reading the newspaper or watching television: not at all 8. Moving or speaking so slowly that other people could have noticed. Or the opposite - being so fidgety or restless that you have been moving around a lot more than usual: not at all 9. Thoughts that you would be better off or of hurting yourself in some way: not at all Total score: 10 Depression Screening Interpretation: Negative Depression Screening Done: Yes Source: Developed by Drs. Eusebio Gates, Radha Burrows, Vincent Calderon and colleagues, with an educational patrick from [employer]. Thrive Questionnaire Date Thrive assessed: 05/30/25 I am a: Patient What is your living situation today?: I have a steady place to live Within the past 12 months, did the food you bought not last and you didn't have the money to get more?: Never true Within the past 12 months, did you worry whether your food would run out before you got money to buy more?: Sometimes True Do you have trouble paying for medicines?: No Do you have trouble getting transportation to medical appointments?: No Do you have trouble paying your heating and electricity bill?: No Do you have trouble taking care of your child, family member or friend?: No Do you have trouble with day-to-day activities such as bathing, preparing meals, shopping, managing finances, etc.?: No Are you currently unemployed and looking for a job?: No Are you interested in more education?: No Please select the resources that you would like help with: None Currently or been in a relationship where the following occur: I choose not to answer THRIVE Score: 1 AUDIT C Alcohol Use Questionnaire (AUDIT-C) 1. How often do you have a drink containing alcohol?: Never 3. How often do you have six or more drinks on one occasion?: Never Total Score: 0 ISHA-7 AMB Questionnaire ISHA-7 Date ISHA - 7 assessed: 05/30/25 Feeling nervous, anxious, or on edge: 1 = Several days Not being able to stop or control worryin = Several days Worrying too much about different things: 1 = Several days Trouble relaxin = Not at all Being so restless that it is hard to sit still: 0 = Not at all Becoming easily annoyed or irritable: 0 = Not at all Feeling afraid as if something awful might happen: 0 = Not at all Total ISHA-7 score (0-4 normal; 5-9 mild; 10-14 moderate; 15-21 severe): 3 Source: Developed by Drs. Eusebio Gates, Radha Burrows, Vincent Calderon and colleagues, with an educational patrick from [employer]. Review of Systems Const Denies headache(s) Eyes Denies loss of vision ENT Denies vertigo, Denies dizziness, Denies headache(s) and Denies sore throat Card Denies chest pain, Denies leg edema and Denies lightheadedness Resp Denies cough, Denies hemoptysis and Denies wheezing GI Denies abdominal pain, Denies melena, Denies constipation, Reports heartburn (Depending on what she eats), Denies diarrhea, Reports nausea (On and off) and Denies vomiting Denies urinary frequency, Denies dysuria and Denies urinary urgency Musc Reports arthralgias (Bilateral knee-chronic), Denies joint swelling, Denies numbness and Denies tingling Neuro Denies Abnormal speech present, Denies behavioral changes, Denies vertigo, Denies dizziness, Denies headache(s), Denies loss of vision, Denies memory loss, Denies numbness and Denies tingling Psych Denies anxiety, Denies behavioral changes, Denies depression, Denies memory loss and Denies panic attacks Luis A/Lymph Denies easy bleeding and Denies easy bruising Aller/Immun Denies wheezing Physical exam (Primary Care) Vital Signs: Last Vital Signs Temp 97.1 F 05/30/25 14:11 Pulse 72 05/30/25 14:11 BP 120/56 L 05/30/25 14:11 Pulse Ox 97 05/30/25 14:11 Oxygen Delivery Method Room Air 05/30/25 14:11 BMI result Body Mass Index 36.0 Tobacco/Smoking Status: Tobacco use Status Tobacco use date assessed 05/30/25 05/30/25 14:14 Patient Tobacco Use Status Former Tobacco user 05/30/25 14:14 Tobacco use type Cigarette 05/30/25 14:14 e-Cigarette/Vaping Use Never Used 05/30/25 14:14 PHQ-9: PHQ-9 Score PHQ-9: Total score 10 05/30/25 14:14 Depression Screening Interpretation: Negative Thrive Assessment: Date of Thrive Assessment Date Thrive assessed 05/30/25 05/30/25 14:14 Currently or been in a relationship where the following occur: I choose not to answer Const General: healthy appearing, no acute distress, alert and awake Nutritional Appearance: well nourished Orientation/consciousness: oriented to person, oriented to place and oriented to time HENMT Ears: TM's normal bilaterally General nose exam: Normal nasal mucous membranes and turbinates present Eyes Conjunctivae: conjunctivae normal Sclerae: sclerae normal Pupils: Equal, round and reactive pupils present Neck Neck: Yes no lymphadenopathy and Yes no JVD Thyroid: Thyroid normal Carotids: no bruits Resp Effort & Inspection: normal respiratory effort and not tachypneic Auscultation: no crackles, no rales, no rhonchi and no wheezes Cardio Rate: regular rate Rhythm: regular rhythm Heart sounds: no murmurs and normal S1 and S2 GI Palpation (GI): Soft to palpation, nontender, no hepatomegaly and no splenomegaly Auscultation: normal bowel sounds Skin General skin exam: no rashes or lesions noted and dry skin Neuro General: oriented to person, oriented to place and oriented to time Cranial nerves: Yes Equal, round and reactive pupils present Speech: No Abnormal speech present Gait exam (Neuro): Normal gait present Motor exam (neuro): no tremor noted Extrem Right upper extremity: full ROM Left upper extremity: full ROM Right lower extremity: full ROM and knee Details: swelling; no tenderness; no edema Left lower extremity: full ROM and knee Details: swelling; no tenderness; no edema Psych Mental Status: mental status grossly normal Speech and movement: Normal speech and movement present Affect: normal affect Attitude: cooperative Thought process: Normal thought process present Results Reviewed Results Reviewed: Laboratory Tests 05/18/25 05/18/25 07:42 07:43 WBC 6.8 RBC 3.94 L Hgb 11.6 L Hct 35.2 L MCV 89.3 MCH 29.4 MCHC 33.0 RDW 13.4 Plt Count 255 Sodium 142 Potassium 4.0 Chloride 107 Carbon Dioxide 28 Anion Gap 11 L BUN 25 H Creatinine 1.08 Estimated GFR 49 Random Glucose 109 Estimat Average Glucose 123 Hemoglobin A1c % 5.9 Calcium 9.5 D Iron 62 TIBC 265 % Saturation 23 Unsat Iron Binding 203 Ferritin 51 Total Bilirubin 0.4 AST 23 ALT 14 Alkaline Phosphatase 135 H Total Protein 6.9 Albumin 4.2 Triglycerides 83 Cholesterol 168 LDL Cholesterol, Calc 96 HDL Cholesterol 56 Vitamin B12 604 25-OH Vitamin D Total 31.8 Folate 8.5 TSH 1.54 Free T4 1.05 Urine Color Yellow Urine Appearance Clear Urine pH 5.5 Ur Specific [place] 1.015 Urine Protein Negative Urine Glucose (UA) Negative Urine Ketones Negative Urine Blood Negative Urine Nitrite Negative Ur Leukocyte Esterase Trace H Urine RBC 0-2 Urine WBC 0-5 Ur Squamous Epith Cells 3-5 Hyaline Casts 0-2 Urine Creatinine 79.86 Urine Microalbumin < 5.0 Coding Level of Care Code Est Pt Level 4 (14035) Diagnoses Preoperative clearance Z01.818 Cataract of both eyes, unspecified cataract type H26.9 Cataract type: unspecified Essential hypertension I10 Hypertension type: essential hypertension Type 2 diabetes mellitus with hyperglycemia, without long-term current use of insulin E11.65 Diabetes mellitus halfway insulin use: without watermelon inspector use Gastroesophageal reflux disease without esophagitis K21.9 Esophagitis presence: without esophagitis Esophageal stricture K22.2 Primary osteoarthritis of both knees M17.0 Osteoarthritis type: primary Obstructive sleep apnea G47.33 Asthma-COPD overlap syndrome J44.9 Anemia, unspecified type D64.9 Anemia type: unspecified type Time Spent (min) 36 Assessment & Plan Assessment & Plan (1) Preoperative clearance: Code(s): Z01.818 - Encounter for other preprocedural examination Category: Medical Plan: Plan: Recent labs an EKG reviewed Regarding preop clearance, the patient is at acceptable risk for proposed surgery. Reviewed with the patient that no surgery is completely free of risk and that this examination is to assist the surgeon in reviewing informed consent. (2) Cataracts, bilateral: Code(s): H26.9 - Unspecified cataract Category: Medical Qualifiers: Cataract type: unspecified Qualified Code(s): H26.9 - Unspecified cataract Plan: Longstanding cataracts affecting night vision and reading. The patient reports blurriness and reports that her bifocal alone is not helping. Plans for cataract surgery of right eye on June 13 and left eye 07/11/[address] Saha (3) HTN (hypertension): Code(s): I10 - Essential (primary) hypertension Category: Medical Qualifiers: Hypertension type: essential hypertension Qualified Code(s): I10 - Essential (primary) hypertension Plan: Blood pressure 120/56-goal is systolic less than 130 mm Hg Reinforced low-salt diet and activity as tolerated Continue losartan 100 mg daily, hydrochlorothiazide 12.5 mg daily (4) Type 2 diabetes mellitus with hyperglycemia: Comment: Dr. Oliver Code(s): E11.65 - Type 2 diabetes mellitus with hyperglycemia Category: Medical Qualifiers: Diabetes mellitus halfway insulin use: without halfway use Qualified Code(s): E11.65 - Type 2 diabetes mellitus with hyperglycemia Plan: Recent A1c is 5.9%-goal less than 7 % Reinforced low sugar/carbohydrate diet and activity as tolerated We will continue to monitor (5) GERD (gastroesophageal reflux disease): Code(s): K21.9 - Gastro-esophageal reflux disease without esophagitis Category: Medical Qualifiers: Esophagitis presence: without esophagitis Qualified Code(s): K21.9 - Gastro-esophageal reflux disease without esophagitis Plan: Do not eat meals or drink carbonated beverages within 3 hr of bedtime Decrease the amount of fried, fatty, and spicy foods to decrease gastric acid production Raise the head of the bed using 4 to 6-inch blocks, especially if nocturnal symptoms are present Lose weight if indicated; avoid tight-fitting clothing, especially around the waist Avoid foods that relax the Lower esophageal sphincter (chocolate, peppermint, high-fat foods etc.,) Continue pantoprazole 40 mg daily (6) Esophageal stricture: Code(s): K22.2 - Esophageal obstruction Category: Medical Plan: Patient had a upper GI series on 10/21/2024 that shows mild cricopharyngeal achalasia, mild to moderate disordered esophageal motility, small type 1 hiatus hernia, episodic gastro pharyngeal reflux to the level of the aortic arch, somewhat rapid transit of contrast noted throughout the small bowel, nonspecific. Encouraged the patient to eat slowly. Continue pantoprazole 40 mg the prevent inflammation. (7) Osteoarthritis of knees, bilateral: Code(s): M17.0 - Bilateral primary osteoarthritis of knee Category: Medical Qualifiers: Osteoarthritis type: primary Qualified Code(s): M17.0 - Bilateral primary osteoarthritis of knee Plan: Chronic. The patient reports taking Tylenol Arthritis as needed with good effects. (8) Obstructive sleep apnea: Code(s): G47.33 - Obstructive sleep apnea (adult) (pediatric) Category: Medical Plan: Continue CPAP for at least 4 hours a night (9) Asthma-COPD overlap syndrome: Code(s): J44.9 - Chronic obstructive pulmonary disease, unspecified Category: Medical Plan: Patient denies shortness of breath in office today. Continues montelukast 10 mg daily, Trelegy Ellipta 1 inhalation daily, albuterol sulfate 90 mcg/actuation q.i.d. p.r.n. or albuterol sulfate 2.5 mg via neb b.i.d. p.r.n. (10) Anemia: Code(s): D64.9 - Anemia, unspecified Category: Medical Qualifiers: Anemia type: unspecified type Qualified Code(s): D64.9 - Anemia, unspecified Plan: Chronic anemia with a H&H 11.6/35.2, we will continue to monitor CBC
== END 2025-05-30 15:41 | disposition home or self-care (01) ==
LOC: HO.HMCH 14:07
PROVIDERS: PCP Internal Medicine
DX: E11.65 Type 2 diabetes mellitus with hyperglycemia (principal); Z01.818 Encounter for other preprocedural examination; J44.9 Chronic obstructive pulmonary disease, unspecified; H26.9 Unspecified cataract; I10 Essential (primary) hypertension; K21.9 Gastro-esophageal reflux disease without esophagitis; K22.2 Esophageal obstruction; M17.0 Bilateral primary osteoarthritis of knee; G47.33 Obstructive sleep apnea (adult) (pediatric); D64.9 Anemia, unspecified

== ENCOUNTER → 2025-05-30 14:06 | Outpatient (BNVA) | payer OTHER, SELFPAY | PROVIDERS: PCP Internal Medicine | DX: Z01.818 Encounter for other preprocedural examination (principal); H26.9 Unspecified cataract; D64.9 Anemia, unspecified; M16.0 Bilateral primary osteoarthritis of hip; I10 Essential (primary) hypertension; E11.65 Type 2 diabetes mellitus with hyperglycemia; K21.9 Gastro-esophageal reflux disease without esophagitis; K22.2 Esophageal obstruction; M17.0 Bilateral primary osteoarthritis of knee; G47.33 Obstructive sleep apnea (adult) (pediatric); J44.9 Chronic obstructive pulmonary disease, unspecified | CPT/HCPCS: 96127; 99212 ==

== ENCOUNTER 2025-06-27 13:46 | Outpatient (REF) | payer OTHER, SELFPAY ==
[2025-06-27 16:01] LABS: Resp Syncy Virus RNA Qual PCR NEGATIVE (Negative); SARS COV2 PCR INHOUSE NEGATIVE (Negative)
== END 2025-06-27 13:47 | disposition home or self-care (01) ==
LOC: HO.LNP 13:46
PROVIDERS: PCP Internal Medicine; Visit Provider Hospitalist
DX: G47.33 Obstructive sleep apnea (adult) (pediatric) (principal); J44.9 Chronic obstructive pulmonary disease, unspecified; J47.9 Bronchiectasis, uncomplicated; A31.0 Pulmonary mycobacterial infection; R91.8 Other nonspecific abnormal finding of lung field; R09.89 Other specified symptoms and signs involving the circulatory and respiratory systems; Z79.899 Other long term (current) drug therapy; Z87.891 Personal history of nicotine dependence
CPT/HCPCS: 87637; 99212

== ENCOUNTER 2025-06-27 13:46 | Outpatient (AMB) | payer OTHER, SELFPAY ==
[2025-06-27 13:52] VITALS: BP 130/60; PULSE 100; O2SAT 96; BMI 36.2
--- NOTE | 2025-06-27 13:52 | MHC.OFFVIS ---
Vital Signs 06/27/25 13:52 Height 5 ft Weight 185 lb 3.013 oz BMI 36.2 BP 130/60 Blood Pressure Location Rt brachial Position Sitting Pulse 100 Pulse Source Pulse Oximeter Pulse Oximetry (%) 96 Oxygen Delivery Method Room Air Intake Visit Reasons: baltazar Diet Kitchen Cook Required: No Accompanied by: Self / Same As Patient Allergies Penicillins (PENICILLINS) Allergy (Severe, Verified 06/27/25 13:54) Hives codeine Adverse Reaction (Severe, Verified 06/27/25 13:54) Nausea and Vomiting morphine (MORPHINE) Adverse Reaction (Severe, Verified 06/27/25 13:54) NAUSEA & VOMITING ENVIRONMENTAL Allergy (Intermediate, Uncoded 05/30/25 14:29) RUNNY NOSE/WATERY EYES Darvocet A500 Adverse Reaction (Severe, Uncoded 05/30/25 14:29) disoriented HPI Comments Details: The patient is a 80-year-old woman former smoker who apparently was in usual state health until the summer when she was vacationing in [place]. She started developing a significant cough moderate to severe. She would to get evaluated and tested. She tested negative for COVID-19. Part of the evaluation she had a chest x-ray that was abnormal. She did come back to the area. The patient again was evaluated by primary care doctor regarding her significant cough. Therefore she underwent a chest x-ray and subsequently a CT scan of the chest that was done May. Based on the abnormal findings she was referred to Pulmonary. Patient states that her coughing spells are very significant. Therefore croupy in nature and sometimes is productive other times is not productive. She has not taken any antibiotics at this time. She quit smoking many years ago. We did personally review her CT scan of the chest in the office. She appears to have tree in budding suggesting of bronchiolitis. This is bilaterally involving the upper lung zones and also the mid right middle lobe in the lingula. She does have evidence of nodular disease in addition to bronchiectatic changes and airspace disease. The findings his suggesting of a smoldering lower respiratory infection. her cough appears to be more consistent with laryngotracheitis. It is likely that this is a different etiology than the findings in her chest. The patient denies being exposed to anybody with tuberculosis. At this point will have the patient undergo blood work. I do encourage the patient to undergo additional diagnostic testing. The patient will go for bronchoscopy at this time. 08/26/2022 the patient is here for a pulmonary follow-up visit. The patient continues to episodes of coughing and shortness of breath. She is also having episodes of wheezing. Moderate severity. 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 Unfortunately she did not understand the instructions based on the fact that she took the medicine only 4 months and then she stopped it. She did have refills although she states that she does not. I will resend the medications to her pharmacy. At this point her daughter is with her and I confirm with daughter that I did send refills in that I will send the medication again to the pharmacy and she is to continue taking it. The patient stands the therapies at least for a year if he went to a retic aid this bacteria. We did also review her CT scan of the chest demonstrating the pulmonary nodules along with bronchiectatic changes in along with the tree-in-bud all changes consistent with her mycobacterial disease. The patient also is having issues with daytime drowsiness. She may have had a sleep study in the past. Although is probably more than a year. She does have daytime drowsiness and does have issues with her memory. Her [place] score is elevated 24. Will request a repeat home sleep study in order to address the question of her sleep apnea issues. The patient also was supposed to have an Acapella valve. I did reach out to [facility] to see if they can send this to her. In meantime a recent prescription. I believe that they will try to reach out to her and they may have been some miscommunication on the phone. Therefore will see resubmit for the home sleep study and also recently for the Acapella valve and also recent her medications. When she comes back in 3 months will repeat her blood work and also plan to repeat her CT scan to follow-up with the pulmonary nodules. 10/21/2022 the patient is here for a pulmonary follow-up visit. She is tolerating the antimycobacterial therapy. Although getting nauseous and also of tea. He feels like he gets more symptomatic with rifampin. I did advise her to cut down to 1 tablet daily with hopes that she can tolerated better. She still has issues she can stop it altogether. She will go ahead and recheck her sputum for AFB and also request blood work to make sure that she is not developing any adverse effects from the medication. We did review her last CT scan of the chest demonstrating the bronchiectatic changes and tree in budding along with pulmonary nodules which is the manifestations of the smoldering infection. She is also complaining of increasing chest tightness and wheezing. She has been on Advair. Will go ahead and optimize therapy to Trelegy inhaler in order to provide better coverage. In addition to this the patient continues to have daytime drowsiness. Her [place] score is elevated 11/24. We did review her last sleep study demonstrating [id number] sleep apnea with an AHI of 13 events an hour. The patient needs to start CPAP therapy at this time. 06/30/2023 the patient is here for a pulmonary follow-up visit. Overall the patient has been doing well. She is tolerating the antimicrobial therapy for the mycobacterial disease. She is taking medicine 3 times a week. Her cough is better and respiratory symptoms also improved. We did review her CT scan of the chest that she had in May 2023 demonstrating interval improvement of the nodular densities. She still has some treating budding but overall improved compared to her previous CT scan. This is all reassuring. Since the patient is tolerating therapy and since she still has changed send a CT scan will go ahead and continue the current therapy till October and at that point decide if she is still doing well to switch over to monotherapy. Regards a CPAP the CPAP therapy continues to be affecting beneficial. She finally found a mask that she is comfortable with that is the F30 medium mask. Although she is been getting the wrong mask from the [facility]. I did call the [facility] and also provide her a new script but the right mask. Hopefully she can exchange the mask to the right 1. should continue using the therapy for more than 4 hours a night. The patient otherwise is without any other complaints. Will follow-up in October and at that point decide on further changes of her antimicrobial therapy. 11/24/2023 the patient is here for a pulmonary follow-up visit. She continues to do well from a respiratory status. Denies any worsening cough shortness of breath. She did on the mycobacterial therapy now for some time. The plan was to stop to the agents and continue monotherapy with the azithromycin. Will do that for prophylaxis specially since back tends to relapse after completing therapy. She does have pulmonary nodules. The last time we looked at her pulmonary nodules was back in the fall 2022. Will go ahead and plan to repeat her CT scan fall 2023 and follow-up after that. Feeling time she continues use her CPAP every night. CPAP therapy continues to be affecting beneficial. She does use the F30 fullface mask. She gets supplies from [email or web address]. And she does use it for more than 4 hours a night and she will continue to use it at this time. 07/01/2024 the patient is here for pulmonary follow-up visit. The patient overall has been feeling well. She has been using her CPAP. CPAP therapy continues to be affecting beneficial. She does use it for more than 4 hours a night. Her mask is comfortable. From a lung standpoint the patient does still cough up phlegm. Sometimes she coughs up some tenacious phlegm difficult to expectorate. She does have underlying bronchiectasis and mycobacterial disease so therefore the using Acapella valve would be helpful. I will request 1 from the [facility]. Right now she is doing okay on current respiratory regimen which is reassuring. She continues on the azithromycin 500 mg. She did have a CT scan of the chest that we personally reviewed. Appears that the airspace disease in the nodular densities have subsided to some degree there is for positive response to therapy. When she returns in the springtime will talk about decreasing the azithromycin to 250 mg from 500. If she has any issues prior to that she will call otherwise will see each other in about 4 months. 10/28/2024 the patient is here for a pulmonary follow-up visit. Overall she is doing well. She continues uses CPAP every night. CPAP therapy continues to be affecting beneficial. She does use it for more than 4 hours a night. In addition to that her cough is better. She has been on the azithromycin 500 mg. Will go ahead and decrease her down to 250 mg whenever her prescription is completed. She continues use her respiratory therapy as well. She did undergo blood work in addition to an x-ray. The x-ray personally by me without any acute illness. Also, her respiratory exam is reassuring. Therefore deescalating her antimycobacterial therapy is reasonable at this time. 06/27/2025 the patient is here for pulmonary follow-up visit. She has been sick for about 3 days. She started having some chills. Then a cough. Appears to be a croupy cough moderate severity. She is concerned because she was in the hospital several months ago with human metapneumovirus. During that time she did develop a COPD exacerbation and did have a lower respiratory infection. She was in the hospital for few days and was discharged. She denies any fevers at this time. Will go ahead and swab her for flu RSV and COVID in the office. The results indeed came back negative. The patient be starting medication treatment to treat for Laryngotracheitis. [facility] Medical History Asthma-COPD overlap syndrome Type 2 diabetes mellitus with hyperglycemia BALTAZAR (obstructive sleep apnea) Nontuberculous mycobacterial disease of lung Bronchiectasis Bronchiolitis Osteoarthritis Mixed stress and urge urinary incontinence Obesity (BMI 30-39.9) Vitamin D deficiency Asthma Glaucoma Arthritis GERD (gastroesophageal reflux disease) History of kidney stones Hypercholesteremia HTN (hypertension) Surgical History History of bronchoscopy History of extraction of renal calculus History of breast biopsy Hx of umbilical hernia repair History of cystoscopy History of cholecystectomy History of colonoscopy H/O: hysterectomy Family History Father Prostate cancer Mother Mental problem Son No problems noted. Son No problems noted. Daughter No problems noted. Social History Household Members: None Housing: House Do you presently have visiting nurse or other home services: Yes ([facility] every 3 months.) Alcohol intake: never Patient Tobacco Use Status: Former Tobacco user Tobacco use type: Cigarette Years Smoked: 45 years Quit 05/2007 e-Cigarette/Vaping Use: Never Used Second Hand Smoke Exposure: No service: No Current occupational status: disabled Cognitive needs: Yes (cane) Hearing needs: No Vision needs: Yes (glasses) Review of Systems Const Denies daytime sleepiness, Denies night sweats, Denies snoring and Denies stops breathing during sleep ENT Denies change in voice, Denies lip swelling, Denies mouth pain, Reports nasal congestion, Reports nasal discharge and Denies tongue swelling Card Denies chest pain Resp Reports chest congestion, Reports cough and Denies snoring GI Denies abdominal pain Musc Denies no additional complaints Neuro Denies Neuro-related abnormal movements Psych Denies no additional complaints Luis A/Lymph Denies easy bleeding and Denies lymphadenopathy Aller/Immun Denies lip swelling and Denies tongue swelling Physical Exam Vital Signs: Last Vital Signs Pulse 100 06/27/25 13:52 BP 130/60 06/27/25 13:52 Pulse Ox 96 06/27/25 13:52 Oxygen Delivery Method Room Air 06/27/25 13:52 BMI result Body Mass Index 36.2 Const General: alert Neck Neck: Yes normal visual inspection, Yes full ROM and Yes no lymphadenopathy Chest Chest palpation & inspection: normal inspection of the chest Resp Effort & Inspection: normal respiratory effort and Actively coughing Quality: whooping Auscultation: diminished lung sounds Cardio Rate: regular rate Rhythm: regular rhythm Heart sounds: S1 normal heart sound present and S2 normal heart sound present GI Palpation (GI): Soft to palpation and nontender Auscultation: normal bowel sounds Skin General skin exam: rashes and/or lesions noted Assessment & Plan Assessment & Plan (1) Asthma-COPD overlap syndrome: Code(s): J44.9 - Chronic obstructive pulmonary disease, unspecified Category: Medical (2) Bronchiectasis: Code(s): J47.9 - Bronchiectasis, uncomplicated Category: Medical Qualifiers: Bronchiectasis type: uncomplicated Qualified Code(s): J47.9 - Bronchiectasis, uncomplicated (3) Nontuberculous mycobacterial disease of lung: Code(s): A31.0 - Pulmonary mycobacterial infection Category: Medical (4) Pulmonary nodules: Comment: April 2021 right upper and left lower Code(s): R91.8 - Other nonspecific abnormal finding of lung field Category: Medical (5) BALTAZAR (obstructive sleep apnea): Code(s): G47.33 - Obstructive sleep apnea (adult) (pediatric) Category: Medical Plan continue APAP, requesting F30 med, [employer] Continue nebulizer daily as needed Acapella valve twice a day after nebulizer for CPT start Doxycycline start medrol pk start benzonates as needed for cough continue Trelegy 200 [place] as needed EKG F/U 4 months Orders: Orders SARS-CoV2/FLU/RSV Today R09.89 - Other specified symptoms and signs involving the circulatory and respiratory systems Medications: New azithromycin 500 mg PO DAILY 5 tabs 0RF 5 days methylprednisolone (Medrol (Karan)) PO PER PKG DIR 21 ea 0RF 6 days benzonatate 200 mg PO BID PRN 60 caps 0RF cough 30 days Coding Level of Care Code Complex visit [place] On G2211 Diagnoses Asthma-COPD overlap syndrome J44.9 Bronchiectasis without complication J47.9 Bronchiectasis type: uncomplicated Nontuberculous mycobacterial disease of lung A31.0 Pulmonary nodules R91.8 BALTAZAR (obstructive sleep apnea) G47.33 Time Spent (min) 17
== END 2025-06-27 14:19 | disposition home or self-care (01) ==
LOC: HO.HPS 13:47
PROVIDERS: PCP Internal Medicine; Visit Provider Hospitalist
DX: J44.9 Chronic obstructive pulmonary disease, unspecified (principal); J47.9 Bronchiectasis, uncomplicated; A31.0 Pulmonary mycobacterial infection; R91.8 Other nonspecific abnormal finding of lung field; G47.33 Obstructive sleep apnea (adult) (pediatric)
CPT/HCPCS: 99214; G2211